=== PATIENT | female | born 1970 | race Asian ===

== ENCOUNTER 2018-08-29 13:40 | Emergency (ER) | payer MEDICAID ==
--- NOTE | 2018-08-29 14:12 | ED Physician Documentation ---
PD HPI GI BLEED - Stated complaint Stated Complaint: VOMITING BLOOD - Chief complaint Chief Complaint: Abd Pain - History obtained from History obtained from: Patient - History of Present Illness Timing - onset: How many hours ago (5-6), Today Timing - duration: Hours (She had onset late morning of upper abdominal pain and discomfort and nausea. She had emesis of dark-colored purple blood with clots. She felt less nauseous after that. She had for 5 more episodes of vomiting the similar dark clotted blood over the next couple of hours. It seemed to be tapering down but still having nausea at the time of ER arrival. She does have history of liver disease in the past but no prior varices. Her most recent and upper endoscopy was May 2017. She had had prior diverticulitis as well apparently with a colostomy that was reversed around that time. She does have history of alcoholic cirrhosis in the past. She states she has mostly not been drinking set for small binge episode a few weeks ago.) Timing - details: Abrupt onset, Still present Associated symptoms: Vomiting, Hematemesis, Black/tarry stool (took some Pepto this morning though), Abdominal pain. No: BRBPR, Constipation, Near syncope / syncope Contributing factors: Alcohol use, NSAID use. No: Sick contact, Anticoagulated Improved by: Vomiting Worsened by: Eating Recently seen: Not recently seen Review of Systems Constitutional: denies: Fever, Chills, Myalgias Nose: denies: Rhinorrhea / runny nose, Congestion Throat: denies: Sore throat Cardiac: denies: Chest pain / pressure Respiratory: denies: Cough GI: reports: Abdominal Pain (epigastric), Nausea, Vomiting, Hematemesis, Bloody / black stool (dark but had Pepto earlier in day). denies: Abdominal Swelling, Diarrhea : denies: Dysuria, Frequency Skin: denies: Rash, Lesions Neurologic: reports: Generalized weakness. 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 No: Moist mucous membranes - Neck Neck: Supple, no meningeal sign, No adenopathy - Cardiac Cardiac: No murmur. No: RRR (regular but tachycardic) - Respiratory Respiratory: No: Clear bilaterally (some exp wheezing with intermittent cough) - Abdomen Abdomen: Normal bowel sounds, Soft, Non distended, No organomegaly, Other (She has some tenderness without guarding or percussion tenderness in the epigastric area. No tenderness per se in the right upper quadrant.) - Female Female : Deferred - Rectal Rectal: Deferred - Back Back: No CVA TTP - Derm Derm: Warm and dry. No: Normal color (moderately pale) - Extremities Extremities: No tenderness to palpate, Normal ROM s pain, No edema, No calf tenderness / cord - Neuro Neuro: Alert and oriented X 3, No motor deficit, Normal speech - Psych Psych: Normal mood, Normal affect Results - Vitals Vitals: Vital Signs - 24 hr 08/29/18 08/29/18 08/29/18 14:02 14:33 15:48 Temperature 38 C H Heart Rate 154 H 145 H 131 H Respiratory 18 19 25 H Rate Blood Pressure 119/74 126/89 H 118/80 O2 Saturation 98 99 98 08/29/18 08/29/18 16:27 17:06 Temperature Heart Rate 132 H 131 H Respiratory 20 21 Rate Blood Pressure 108/74 O2 Saturation 98 Oxygen O2 Source Room air - EKG (time done) 15:26 Rate: Rate (enter#) (126) Rhythm: Sinus tachycardia [place]: Normal Intervals: Normal RI QRS: Normal Ischemia: Normal ST segments. No: ST elevation c/w ischemia, ST depression - Labs Labs: Laboratory Tests 08/29/18 08/29/18 08/29/18 14:22 14:30 15:06 WBC RBC Hgb Hct MCV MCH MCHC RDW Plt Count MPV Neut # (Auto) Lymph # (Auto) [place] # (Auto) Eos # (Auto) Baso # (Auto) Absolute Nucleated RBC Total Counted Band Neuts % (Manual) Abnorm Lymph % (Manual) Nucleated RBC % Neutrophils # (Manual) Lymphocytes # (Manual) Monocytes # (Manual) Eosinophils # (Manual) Basophils # (Manual) Differential Comment Manual Slide Review Platelet Estimate Platelet Morphology RBC Morph Micro Appear PT INR APTT Sodium Potassium Chloride Carbon Dioxide Anion Gap BUN Creatinine Estimated GFR (MDRD) Glucose Calcium Magnesium Total Bilirubin AST ALT Alkaline Phosphatase Total Protein Albumin Globulin Albumin/Globulin Ratio Lipase Urine Color YELLOW Urine Clarity CLEAR Urine pH 8.5 H Ur Specific [place] 1.010 Urine Protein NEGATIVE Urine Glucose (UA) NEGATIVE Urine Ketones NEGATIVE Urine Occult Blood SMALL H Urine Nitrite NEGATIVE Urine Bilirubin NEGATIVE Urine Urobilinogen 1 (NORMAL) Ur Leukocyte Esterase NEGATIVE Urine RBC 6-10 H Urine WBC 4-5 Ur Squamous Epith Cells NONE SEEN Urine Bacteria None Seen Ur Microscopic Review INDICATED Urine Culture Comments NOT INDICATED Ethyl Alcohol Blood Type A POSITIVE Blood Type Recheck A POSITIVE Antibody Screen POSITIVE 08/29/18 08/29/18 08/29/18 15:06 15:06 15:06 WBC 19.6 H RBC 2.40 L Hgb 7.5 L Hct 23.2 L MCV 96.7 MCH 31.3 H MCHC 32.3 RDW 15.7 H Plt Count 225 MPV 9.5 Neut # (Auto) Not Reportable Lymph # (Auto) Not Reportable [place] # (Auto) Not Reportable Eos # (Auto) Not Reportable Baso # (Auto) Not Reportable Absolute Nucleated RBC Not Reportable Total Counted 100 Band Neuts % (Manual) 10 Abnorm Lymph % (Manual) 0 Nucleated RBC % Not Reportable Neutrophils # (Manual) 18.2 H Lymphocytes # (Manual) 1.0 L Monocytes # (Manual) 0.2 Eosinophils # (Manual) 0.2 Basophils # (Manual) 0.0 Differential Comment MANUAL DIFFERENTIAL Manual Slide Review Indicated Platelet Estimate NORMAL (130-450,000) Platelet Morphology NORMAL APPEARANCE RBC Morph Micro Appear 2+ HYPOCHROMASIA PT 17.6 H INR 1.6 H APTT 30.4 Sodium 138 Potassium 3.5 Chloride 99 L Carbon Dioxide 25 Anion Gap 14.0 H BUN 16 Creatinine 0.5 Estimated GFR (MDRD) 133 Glucose 121 H Calcium 8.3 L Magnesium 1.7 Total Bilirubin 2.0 H AST 66 H ALT 34 Alkaline Phosphatase 391 H Total Protein 7.3 Albumin 2.7 L Globulin 4.6 H Albumin/Globulin Ratio 0.6 L Lipase 21 L Urine Color Urine Clarity Urine pH Ur Specific [place] Urine Protein Urine Glucose (UA) Urine Ketones Urine Occult Blood Urine Nitrite Urine Bilirubin Urine Urobilinogen Ur Leukocyte Esterase Urine RBC Urine WBC Ur Squamous Epith Cells Urine Bacteria Ur Microscopic Review Urine Culture Comments Ethyl Alcohol < 5.0 Blood Type Blood Type Recheck Antibody Screen 08/29/18 16:19 WBC RBC Hgb 7.2 L Hct 22.4 L MCV MCH MCHC RDW Plt Count MPV Neut # (Auto) Lymph # (Auto) [place] # (Auto) Eos # (Auto) Baso # (Auto) Absolute Nucleated RBC Total Counted Band Neuts % (Manual) Abnorm Lymph % (Manual) Nucleated RBC % Neutrophils # (Manual) Lymphocytes # (Manual) Monocytes # (Manual) Eosinophils # (Manual) Basophils # (Manual) Differential Comment Manual Slide Review Platelet Estimate Platelet Morphology RBC Morph Micro Appear PT INR APTT Sodium Potassium Chloride Carbon Dioxide Anion Gap BUN Creatinine Estimated GFR (MDRD) Glucose Calcium Magnesium Total Bilirubin AST ALT Alkaline Phosphatase Total Protein Albumin Globulin Albumin/Globulin Ratio Lipase Urine Color Urine Clarity Urine pH Ur Specific [place] Urine Protein Urine Glucose (UA) Urine Ketones Urine Occult Blood Urine Nitrite Urine Bilirubin Urine Urobilinogen Ur Leukocyte Esterase Urine RBC Urine WBC Ur Squamous Epith Cells Urine Bacteria Ur Microscopic Review Urine Culture Comments Ethyl Alcohol Blood Type Blood Type Recheck Antibody Screen PD MEDICAL DECISION MAKING - ED course Complexity details: re-evaluated patient (Her blood count is low. Most of her records are at [facility] as is her the concern would be if she has developed varices in the meantime and our facility would be unable to care for that. She also has antibodies on her type and screen and so we are unable to provide rapid transfusion if she were to need it. I talked with guide dog instructor and then the hospitalist at [facility] and they accept transfer the patient for ongoing care. At this point she is still tachycardic but her blood pressure is good. She states her heart rate is typically a little bit fast.), considered differential (The patient does have history of alcohol cirrhosis in the past. As of May 2017 on endoscopy, she did not have varices at that time. She has had some occasional alcohol use since that time. She had some alcohol binge drinking a few weeks ago. She started with some upper abdominal pain and vomiting of dark blood with clots this morning and had vomited several times. She is feeling generally weak.), d/w patient ED course: I talked with the patient's guide dog instructor, Dr. Lima, who felt the patient would most likely have gastritis or esophagitis. Less likely varices. However has been a year and a half or so from her prior scope. He accepted care of the patient and deferred to the hospitalist for admission if it was appropriate. I do feel it appropriate for her to be over with her guide dog instructor in case there is variceal cause that there would be able to handle it better than our our facility. In addition she has a antibodies on her blood bank and would be unable to transfuse her in any expeditious fashion (it would require up to 6 hours [place] These both are appropriate reasons for her to be transferred to a larger facility. The patient is agreeable. Departure - Departure Disposition: 02 Transfer Acute Care Hosp Clinical Impression: Upper GI bleeding, Tachycardia Alcoholic cirrhosis Qualifiers: Ascites presence: without ascites Qualified Code(s): K70.30 - Alcoholic cirrhosis of liver without ascites Condition: Stable Record reviewed to determine appropriate education?: Yes
[2018-08-29] MEDS ORDERED: SODIUM CHLORIDE 0.9% 1,000 ML IV ONE ×3 (14:35→16:10)
[2018-08-29] MEDS ORDERED: ONDANSETRON 4 MG/2 ML VIAL IVP STA ×2 (14:37→17:29)
[2018-08-29] MEDS ORDERED: FAMOTIDINE 20 MG/2 ML VIAL IVP STA (14:38)
[2018-08-29 14:56] LABS: BILIRUBIN,URINE NEGATIVE (NEGATIVE); GLUCOSE, URINE (UA) NEGATIVE (NEGATIVE); KETONES,URINE (UA) NEGATIVE (NEGATIVE); LEUKOCYTE ESTERASE, URINE NEGATIVE (NEGATIVE); NITRITE,URINE NEGATIVE (NEGATIVE); OCCULT BLOOD,URINE SMALL (NEGATIVE); PH,URINE 8.5 PH (5.0-7.5); PROTEIN,URINE NEGATIVE (NEGATIVE); UROBILINOGEN,URINE 1 (NORMAL) E.U./dL (NORMAL)
[2018-08-29 15:18] LABS: CLARITY,URINE CLEAR (CLEAR)
[2018-08-29 15:21] LABS: BACTERIA,URINE None Seen /HPF (None Seen); SQUAMOUS EPITHELIAL CELL,UR NONE SEEN (<= Few)
[2018-08-29 15:23] LABS: ALBUMIN 2.7 g/dL (3.2-5.5); ALBUMIN/GLOBULIN RATIO 0.6 (1.0-2.2); ALKALINE PHOSPHATASE 391 IU/L (42-121); ALT ALANINE AMINOTRANSFERASE 34 IU/L (10-60); AST ASPARTATE AMINOTRANSFERASE 66 IU/L (10-42); BUN - BLOOD UREA NITROGEN 16 mg/dL (6-20); CALCIUM 8.3 mg/dL (8.5-10.3); CARBON DIOXIDE - CO2 25 mmol/L (21-32); CHLORIDE 99 mmol/L (101-111); CREATININE 0.5 mg/dL (0.4-1.0); GFR - MDRD 133 (>89); GLUCOSE 121 mg/dL (70-100); LIPASE 21 U/L (22-51); MAGNESIUM 1.7 mg/dL (1.7-2.8); SODIUM 138 mmol/L (135-145); TOTAL PROTEIN 7.3 g/dL (6.7-8.2)
[2018-08-29 15:26] LABS: BASOPHILS % (AUTO) 0.6 %; EOSINOPHILS % (AUTO) 0.4 %; HGB - HEMOGLOBIN 7.5 g/dL (12.0-16.0); LYMPHOCYTES % (AUTO) 8.3 %; MEAN CORPUSCULAR HEMOGLOBIN 31.3 pg (27.0-31.0); MEAN CORPUSCULAR HGB CONC 32.3 g/dL (32.0-36.0); MEAN CORPUSCULAR VOLUME 96.7 fL (81.0-99.0); MEAN PLATELET VOLUME 9.5 fL (7.9-10.8); MONOCYTES % (AUTO) 5.7 %; NEUTROPHILS % (AUTO) 83.3 %; PLT - PLATELET COUNT 225 10^3/uL (130-450); RED CELL DISTRIBUTION WIDTH 15.7 % (12.0-15.0); WHITE BLOOD COUNT 19.6 x10^3/uL (4.8-10.8)
[2018-08-29 15:31] LABS: ABNORMAL LYMPHS % (MANUAL) 0 %
[2018-08-29 16:00] LABS: BAND NEUTROPHILS % (MANUAL) 10 %; EOSINOPHILS # (MANUAL) 0.2 10^3/uL (0-0.7); LYMPHOCYTES % (MANUAL) 5 %; MONOCYTES # (MANUAL) 0.2 10^3/uL (0.0-1.0)
[2018-08-29] MEDS ORDERED: PANTOPRAZOLE 40 MG VIAL IVP STA (16:00)
[2018-08-29 16:02] LABS: DIFFERENTIAL COMMENT MANUAL DIFFERENTIAL; PLATELET ESTIMATE, MANUAL NORMAL (130-450,000) (NORMAL); PLATELET MORPHOLOGY NORMAL APPEARANCE (NORMAL)
[2018-08-29] MEDS ORDERED: LIDOCAINE VISCOUS 2% 15 ML UDC MM STA (16:11)
[2018-08-29] MEDS ORDERED: IPRATROPIUM 0.2 MG/ML NEB INH STA (16:11)
[2018-08-29 16:22] LABS: HGB - HEMOGLOBIN 7.2 g/dL (12.0-16.0)
[2018-08-29 16:33] LABS: INR 1.6 (0.8-1.2); PT - PROTHROMBIN TIME 17.6 secs (9.9-12.6)
[2018-08-29 16:40] LABS: PARTIAL THROMBOPLASTIN TIME 30.4 secs (24.9-33.3)
[2018-08-29 17:07] VITALS: BP 108/74
== END 2018-08-29 18:39 | disposition short-term general hospital (02) ==
LOC: ED 13:40
DX: K92.2 Gastrointestinal hemorrhage, unspecified (principal); R00.0 Tachycardia, unspecified; R06.2 Wheezing; K70.30 Alcoholic cirrhosis of liver without ascites
CPT/HCPCS: 36415; 80053; 80320; 81001; 83690; 83735; 85014; 85018; 85025; 85610; 85730; 86850; 86870; 86900; 86901; 93005; 94640; 96361; 96374; 96375; 99284; 99285; A9270; 81003; 87086

== ENCOUNTER 2019-01-03 11:56 | Emergency (ER) | payer MEDICAID ==
[2019-01-03] MEDS ORDERED: LIDOCAINE 1%-EPI 1:100000 20 ML MDV SUBQ STA (13:26)
--- NOTE | 2019-01-03 13:28 | ED Physician Documentation ---
History of Present Illness - Stated complaint Stated Complaint: L KNEE LAC - Chief complaint Chief Complaint: Laceration - Additonal information Additional information: This is a 48-year-old female presents with a laceration to her left knee. This morning she was walking and she slipped on a patch of black ice on cement landing on her left knee. She had a laceration that was caused by the impact, and she also grazed her head. She denies loss of consciousness, denies headache, has not any vomiting. She does have any pain in her upper extremities and she has been able to walk on her left leg and extend and flex it normally. Initially she was planning to treat it at home, but after family saw the wound they encouraged her to get checked out. Review of Systems Constitutional: denies: Fever Cardiac: denies: Chest pain / pressure Skin: reports: Laceration (s) Musculoskeletal: reports: Extremity pain Immunocompromised: denies: Immunocompromised PD PAST MEDICAL HISTORY - Past Medical History Cardiovascular: None Respiratory: Asthma Neuro: None Endocrine/Autoimmune: None GI: GI bleed, Cirrhosis, Diverticulitis [employer]: None - Present Medications Home Medications: Ambulatory Orders Medication Instructions Recorded Confirmed Clindamycin HCl [Clindamycin 300MG 300 mg PO Q6H #12 capsule 01/03/19 CAP] - Allergies Allergies/Adverse Reactions: Allergies Allergy/AdvReac Type Severity Reaction Status Date / Time cephalexin Allergy Unknown Verified 01/03/19 12:01 sertraline Allergy Unknown Verified 01/03/19 12:01 - Social History Does the pt smoke?: No Smoking Status: Never smoker - Immunizations Immunizations are current?: Yes PD ED PE NORMAL - Vitals Vital signs reviewed: Yes - General General: Alert and oriented X 3 - HEENT HEENT: Other (Superficial abrasion of the right face, no hematoma, no facial tenderness.) - Neck Neck: Supple, no meningeal sign, No bony TTP - Cardiac Cardiac: RRR - Respiratory Respiratory: No respiratory distress - Extremities Extremities: Other (There is a 6.5 cm semi-curve laceration overlying the left patella. This extends down to near the level of the patella, though there is no visible bone or tendon. This appears to disrupt subcutaneous tissues without violating the patellar tendon or surrounding musculature. There is no violation of the joint capsule. Patient is able to flex and extend her knee with 5 out of 5 strength, she has no laxity with testing of the ACL PCL LCL MCL.) - Neuro Neuro: Alert and oriented X 3, No motor deficit, No sensory deficit, Normal speech Results - Vitals Vitals: Vital Signs - 24 hr 01/03/19 01/03/19 12:01 15:25 Temperature 36.7 C 36.8 C Heart Rate 115 H 113 H Respiratory 16 18 Rate Blood Pressure 138/97 H 128/95 H O2 Saturation 98 98 Oxygen O2 Source Room air Procedures - Laceration (location) L knee Length in cm: 6.5 Wound type: Curved Neurovascular status: Sensory intact, Motor intact, Vascular intact Tendon involvement: Tendon intact Anesthesia: Lidocaine 1% with epi Wound Preparation: Betadine, Irrigated copiously NS, Wound explored, To the base Deep layer closure: Vicryl (5-0 to approximate deep tissues) Skin layer closure: Nylon (4-0) Other: Patient tolerated well, No complications, Neurovascular intact, Dressing applied PD MEDICAL DECISION MAKING - ED course Complexity details: considered differential (Laceration, vascular injury, tendon injury, ligament disruption, fracture) ED course: Pt presents with a full thickness laceration over the knee. This extends through the subcutaneous tissue near the patellar tendon, but careful examination reveals no disruption of the surrounding muscles or tendons, and it does not extend to the plane of the joint itself. Patient was able to walk normally for hours prior to arrival, and here she is neurovascularly intact with 5/5 strength with flexion and extension of her knee against resistance. The wound was thoroughly explored, cleaned, and irrigated and then repaired in 2 layers. The wound approximated very well. I started prophylactic antibiotics given the depth of the wound and the fact that patient did have a mild delay of presenting to care. A knee immobilizer was placed and patient was instructed on its use and follow up for suture removal in 14 days. I discussed strict return precautions as well, emphasizing signs of infection, increasing pain. Pt agreed and was discharged home in the care of family. Departure - Departure Disposition: 01 Home, Self Care Clinical Impression: Knee laceration Qualifiers: Encounter type: initial encounter Laterality: left Qualified Code(s): S81.012A - Laceration without foreign body, left knee, initial encounter Condition: Good Instructions: ED Laceration All Follow-Up: Angie Diaz ARNP [Primary Care Provider] - (in 12-14 days for check for suture removal) Prescriptions: Clindamycin HCl [Clindamycin 300MG CAP] 300 mg PO Q6H #12 capsule Comments: The cut of your knee has been repaired with stitches. Keep a thin layer of Vaseline or antibiotic ointment over the cut and on top of this put a nonstick bandage. Wear the knee immobilizer when you are out of bed or not in the shower, to help prevent you from bending your knee and straining laceration. If you develop signs of infection such as increasing pain with bending your knee, fever, or pus draining from the wound, or redness streaking up the leg, return to the emergency department. Stitches should be assessed for removal at around 12-14 days. Take the antibiotic as prescribed over the next several days to help prevent infection. Discharge Date/Time: 01/03/19 15:25
--- NOTE | 2019-01-03 14:12 | XRAY Report ---
Reason: fall on knee, laceration Procedure Date: 01/03/2019 Accession Number: [id number] / [id number] Procedure: XR - Knee 3 View LT CPT Code: Final Report FULL RESULT: EXAM: LEFT KNEE RADIOGRAPHY EXAM DATE: 01/03/2019 01:48 PM. CLINICAL HISTORY: Fall on knee, laceration. COMPARISON: None. TECHNIQUE: 3 views. FINDINGS: Bones: Normal. No fractures or bone lesions. Joints: No subluxation. There is a minimal joint effusion. Soft Tissues: Obvious soft tissue laceration is seen along the superior margin of the patella with question of partial disruption of the soft tissue signature of the quadriceps insertion near the patella, plain radiograph is inadequate for this diagnosis. IMPRESSION: No acute fracture or dislocation. Obvious soft tissue laceration in the region of the quadriceps tendon insertion. Recommend careful correlation to the physical examination to assess for injury of the quadriceps tendon. If inconclusive, ultrasound examination may be helpful. RADIA
[2019-01-03] MEDS ORDERED: TETANUS/DIPHTHERIA/PERTUSSIS 0.5 ML SYRINGE IM ONE (15:00)
[2019-01-03 15:26] VITALS: BP 128/95
== END 2019-01-03 15:25 | disposition home or self-care (01) ==
LOC: ED 11:56
DX: S81.012A Laceration without foreign body, left knee, initial encounter (principal); S00.81XA Abrasion of other part of head, initial encounter; W00.0XXA Fall on same level due to ice and snow, initial encounter; Y93.01 Activity, walking, marching and hiking; Z23 Encounter for immunization
CPT/HCPCS: 12002; 12032; 90471

== ENCOUNTER 2019-07-05 06:48 | Emergency (ER) | payer MEDICAID ==
--- NOTE | 2019-07-05 07:01 | ED Physician Documentation ---
PD HPI FEMALE - Stated complaint Stated Complaint: FEM - Chief complaint Chief Complaint: General - History obtained from History obtained from: Patient - History of Present Illness Timing - onset: How many weeks ago (3 weeks of dysuria - initially treated with Bactrim and was improving but then developed problem with her ostomy and some infection in bowel. Had scope to cauterize the bleeding and Rx Keflex. She says ostomy improved but her dysuria remained. Off the Cephalexin for a week and had increased dysuria, so PMD restarted the Bactrim 1 1/2 days ago. Pt says now with some hematuria and feeling of unable to urinate.) Timing - details: Gradual onset, Waxing and waning Associated symptoms: Dysuria, Urinary frequency, Hematuria (today). No: Fever, Abdominal pain, Back pain Contributing factors: No: Exposed to STD Similar symptoms before: Has not had sx before Recently seen: Clinic, Admitted Review of Systems Constitutional: denies: Fever, Chills, Myalgias Nose: denies: Rhinorrhea / runny nose, Congestion Throat: denies: Sore throat Respiratory: denies: Cough GI: reports: Abdominal Pain, Nausea. denies: Vomiting, Bloody / black stool : reports: Dysuria, Frequency. denies: Discharge Skin: denies: Rash PD PAST MEDICAL HISTORY - Past Medical History Cardiovascular: None Respiratory: Asthma Neuro: None Endocrine/Autoimmune: None GI: GI bleed, Cirrhosis, Diverticulitis [employer] LINE: None - Present Medications Home Medications: Ambulatory Orders Medication Instructions Recorded Confirmed Clindamycin HCl [Clindamycin 300MG 300 mg PO Q6H #12 capsule 01/03/19 CAP] Phenazopyridine HCl [Pyridium] 100 mg PO TID PRN #30 tablet 07/05/19 dexAMETHasone [Decadron] 4 mg PO DAILY #5 tablet 07/05/19 - Allergies Allergies/Adverse Reactions: Allergies Allergy/AdvReac Type Severity Reaction Status Date / Time cephalexin Allergy Unknown Verified 07/05/19 06:58 sertraline Allergy Unknown Verified 07/05/19 06:58 - Social History Does the pt smoke?: No Smoking Status: Never smoker - Immunizations Immunizations are current?: Yes PD ED PE NORMAL - Vitals Vital signs reviewed: Yes - General General: Alert and oriented X 3, No acute distress, Well developed/nourished - Abdomen Abdomen: Normal bowel sounds, Soft, Non tender, Non distended, No organomegaly - Female Female : Deferred - Back Back: No CVA TTP - Derm Derm: Normal color, Warm and dry - Neuro Neuro: Alert and oriented X 3, No motor deficit, Normal speech Results - Vitals Vitals: Vital Signs - 24 hr 07/05/19 07/05/19 07/05/19 06:57 07:41 08:45 Temperature 36.7 C 37.2 C Heart Rate 88 83 88 Respiratory 17 18 20 Rate Blood Pressure 89/43 L 98/59 L 94/59 L O2 Saturation 98 100 98 Oxygen O2 Source Room air - Labs Labs: Laboratory Tests 07/05/19 07/05/19 07/05/19 07:00 07:00 08:21 Urine Color BROWN Urine Clarity CLOUDY Urine pH 6.0 Ur Specific [place] 1.020 Urine Protein 100 H Urine Glucose (UA) NEGATIVE Urine Ketones NEGATIVE Urine Occult Blood LARGE H Urine Nitrite NEGATIVE Urine Bilirubin MODERATE H Urine Urobilinogen 0.2 (NORMAL) Ur Leukocyte Esterase LARGE H Urine RBC TNTC H Urine WBC >25 H Ur Squamous Epith Cells RARE Squamous Urine Bacteria Moderate H Ur Microscopic Review INDICATED Urine Culture Comments INDICATED C. glabrata (PCR) NEGATIVE C. krusei (PCR) NEGATIVE Pattie species DNA NEGATIVE Chlam trachomat DNA PCR NEGATIVE N.gonorrhoeae DNA (PCR) NEGATIVE T. vaginalis (PCR) NEGATIVE NEGATIVE Bact Vaginosis (PCR) NEGATIVE PD MEDICAL DECISION MAKING - ED course Complexity details: considered differential (she went onto MyChart from her PMD and showed me culture results from 06/16 original UA and then from 2 days ago. Both showed less than 25K mixed urogenital rancho. Has only been on Bactrim for 1 1/2 days, so continue this for now. Will check for BV/vaginitis as cause instead. ), d/w patient Departure - Departure Disposition: 01 Home, Self Care Clinical Impression: Dysuria, Cystitis Condition: Stable Record reviewed to determine appropriate education?: Yes Instructions: ED Dysuria Uncertain Cause, ED UTI Cystitis Female Follow-Up: Angie Diaz ARNP [Primary Care Provider] - Prescriptions: dexAMETHasone [Decadron] 4 mg PO DAILY #5 tablet Phenazopyridine HCl [Pyridium] 100 mg PO TID PRN #30 tablet PRN Reason: Abdominal Pain Comments: Your prior urine culture did not show a specific organism growing. It may have been a mixed infection so no 1 dominant organism. However does not define a specific antibiotic that would be most effective. At this point would have you continue the Bactrim and see if it helps. To that add Decadron steroid anti- inflammatory and phenazopyridine for the discomfort. Recheck if not improving well over the next couple more days. Other possibilities would be a bacterial vaginitis as a cause of the urethral irritation. The vaginal test we did should result in a day or so and will call you if there are signs of a bacterial vaginitis. That would require likely a different antibiotic. Other possibility would be an inflammatory cause rather than an infectious cause (interstitial cystitis). That is why were also going with the anti- inflammatory and the phenazopyridine. These medicines are helpful with the bladder infection anyway and would be the primary treatment for IC. Discharge Date/Time: 07/05/19 09:13
[2019-07-05 07:12] LABS: GLUCOSE, URINE (UA) NEGATIVE (NEGATIVE); KETONES,URINE (UA) NEGATIVE (NEGATIVE); LEUKOCYTE ESTERASE, URINE LARGE (NEGATIVE); NITRITE,URINE NEGATIVE (NEGATIVE); OCCULT BLOOD,URINE LARGE (NEGATIVE); PROTEIN,URINE 100 mg/dL (NEGATIVE); UROBILINOGEN,URINE 0.2 (NORMAL) E.U./dL (NORMAL)
[2019-07-05 07:14] LABS: BILIRUBIN,URINE MODERATE (NEGATIVE); CLARITY,URINE CLOUDY (CLEAR); ICTOTEST,URINE POSITIVE
[2019-07-05 07:21] LABS: BACTERIA,URINE Moderate /HPF (None Seen); RBC,URINE TNTC /HPF (0-5); SQUAMOUS EPITHELIAL CELL,UR RARE Squamous (<= Few)
[2019-07-05] MEDS ORDERED: ACETAMINOPHEN 325 MG TABLET PO STA (07:24)
[2019-07-05] MEDS ORDERED: PHENAZOPYRIDINE 100 MG TABLET PO STA (07:24)
[2019-07-05] MEDS ORDERED: CHERRY SYRUP 10 ML UDC PO ONE (08:21)
[2019-07-05] MEDS ORDERED: DEXAMETHASONE 10 MG/ML VIAL PO STA (08:21)
[2019-07-05 09:15] VITALS: BP 94/59
[2019-07-05 10:12] LABS: CANDIDA GROUP DNA NEGATIVE (NEGATIVE); CANDIDA KRUSEI DNA NEGATIVE (NEGATIVE); TRICHOMONAS VAGINALIS DNA NEGATIVE (NEGATIVE)
[2019-07-05 11:14] LABS: TRICHOMONAS VAGINALIS DNA NEGATIVE (NEGATIVE)
== END 2019-07-05 09:13 | disposition home or self-care (01) ==
LOC: ED 06:48
DX: N30.91 Cystitis, unspecified with hematuria (principal)
CPT/HCPCS: 51798; 81001; 87077; 87086; 87181; 87481; 87491; 87591; 87661; 87801; 99283; 99284; A9270; 81003

== ENCOUNTER 2019-11-26 04:31 | Emergency (ER) | payer OTHER ==
[2019-11-26 04:56] LABS: GLUCOSE, URINE (UA) NEGATIVE (NEGATIVE); KETONES,URINE (UA) TRACE mg/dL (NEGATIVE); LEUKOCYTE ESTERASE, URINE MODERATE (NEGATIVE); NITRITE,URINE POSITIVE (NEGATIVE); OCCULT BLOOD,URINE LARGE (NEGATIVE)
--- NOTE | 2019-11-26 05:04 | ED Physician Documentation ---
PD HPI FEMALE - Stated complaint Stated Complaint: FEM - Chief complaint Chief Complaint: UTI - History obtained from History obtained from: Patient - History of Present Illness Timing - onset: Enter time (99), Today Timing - duration: Hours Timing - details: Abrupt onset, Now resolved Associated symptoms: Hematuria, Other (unable to void) Contributing factors: Other (hx/o hematuria) Similar symptoms before: Diagnosis (hematuria with clot retention and infection) Recently seen: Clinic (brim presser but not the urologist) - Additional information Additional information: 49-year-old female with a complicated past medical history including cirrhosis varices perforated diverticula with ostomy in place has developed hematuria again. She got up to go to the bathroom at 1:00 in the morning was unable to urinate and she made her way to the hospital. She has had prior issue with clot retention and had to have a Marshall catheter placed 5 weeks ago. She has since been into see the brim presser and is on some iron with a plan to be seen again in 2 weeks.Since coming to the hospital patient has been able to void and she believes she is emptying her bladder completely and has hematuria. She does indicate that she has had a transfusion earlier in the year and she is wondering if she needs this again Review of Systems Constitutional: reports: Myalgias, Fatigue. denies: Fever Eyes: denies: Decreased vision Ears: denies: Ear pain Nose: denies: Rhinorrhea / runny nose, Congestion Throat: denies: Sore throat Cardiac: denies: Chest pain / pressure, Palpitations Respiratory: denies: Dyspnea, Cough GI: denies: Abdominal Pain, Nausea, Vomiting : reports: Unable to Void, Hematuria. 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 : Frequency, Other HEENT: Dental implants Psych: Anxiety Musculoskeletal: Scoliosis Derm: Eczema - Past Surgical History Past Surgical History: Yes General: Appendectomy, Colonoscopy, EGD, Other - Present Medications Home Medications: Ambulatory Orders Medication Instructions Recorded Confirmed Buspirone HCl 15 mg PO BID 11/26/19 11/26/19 Furosemide [Lasix] 20 mg PO DAILY 11/26/19 11/26/19 Montelukast Sodium 10 mg PO DAILY PRN 11/26/19 11/26/19 Pantoprazole Sodium [Protonix] 40 mg PO DAILY 11/26/19 11/26/19 Spironolactone 25 mg PO DAILY 11/26/19 11/26/19 Tramadol HCl 50 mg PO DAILY PRN 11/26/19 11/26/19 Trazodone HCl 100 mg PO QPM 11/26/19 11/26/19 nadoloL [Nadolol] 20 mg PO DAILY 11/26/19 11/26/19 - Allergies Allergies/Adverse Reactions: Allergies Allergy/AdvReac Type Severity Reaction Status Date / Time cephalexin Allergy Unknown Verified 11/26/19 04:41 sertraline Allergy Unknown Verified 11/26/19 04:41 - Social History Does the pt smoke?: No Smoking Status: Never smoker Does the pt drink ETOH?: Yes Does the pt have substance abuse?: No - Immunizations Immunizations are current?: Yes Immunizations: TDAP current <10years - POLST Patient has POLST: No PD ED PE NORMAL - Vitals Vital signs reviewed: Yes (normal) - General General: Alert and oriented X 3, No acute distress, Well developed/nourished - HEENT HEENT: Atraumatic, PERRL, EOMI - Neck Neck: Supple, no meningeal sign, No bony TTP - Cardiac Cardiac: RRR, No murmur - Respiratory Respiratory: No respiratory distress, Clear bilaterally - Abdomen Abdomen: Soft, Non tender, Other (abdomen is soft and non-tender. 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, No motor deficit, No sensory deficit, Normal speech Eye Opening: Spontaneous Motor: Obeys Commands Verbal: Oriented GCS Score: 15 - Psych Psych: Normal mood, Normal affect Results - Vitals Vitals: Vital Signs - 24 hr 11/26/19 11/26/19 04:35 05:40 Temperature 36.4 C L Heart Rate 91 Respiratory 16 Rate Blood Pressure 120/77 108/89 H O2 Saturation 100 Oxygen O2 Source Room air - Labs Labs: Laboratory Tests 11/26/19 11/26/19 11/26/19 04:45 05:15 05:15 WBC 3.3 L RBC 2.19 L Hgb 5.5 L* Hct 18.9 L* MCV 86.3 MCH 25.1 L MCHC 29.1 L RDW 17.4 H Plt Count 114 L MPV 10.4 Neut # (Auto) 2.1 Lymph # (Auto) 0.8 L [place] # (Auto) 0.4 Eos # (Auto) 0.1 Baso # (Auto) 0.0 Absolute Nucleated RBC 0.00 Nucleated RBC % 0.0 Sodium 132 L Potassium 2.7 L Chloride 100 L Carbon Dioxide 23 Anion Gap 9.0 BUN 6 Creatinine 0.5 Estimated GFR (MDRD) 132 Glucose 104 H Calcium 8.5 Total Bilirubin 1.0 AST 45 H ALT 21 Alkaline Phosphatase 249 H Total Protein 7.0 Albumin 3.3 Globulin 3.7 Albumin/Globulin Ratio 0.9 L Lipase 28 Urine Color RED/BLOODY Urine Clarity CLEAR Urine pH 7.0 Ur Specific [place] 1.010 Urine Protein Urine Glucose (UA) NEGATIVE Urine Ketones TRACE Urine Occult Blood LARGE H Urine Nitrite POSITIVE H Urine Bilirubin NEGATIVE Urine Urobilinogen Ur Leukocyte Esterase MODERATE H Urine RBC 11-25 H Urine WBC >25 H Ur Squamous Epith Cells RARE Squamous Urine Bacteria Few Ur Microscopic Review INDICATED Urine Culture Comments INDICATED PD MEDICAL DECISION MAKING - ED course Complexity details: reviewed results, re-evaluated patient, considered differential, d/w patient ED course: 49-year-old female with complicated past medical history with current evidence of GI bleeding has a critically low hematocrit and hemoglobin and I have recommended the patient stay here for transfusion or be transferred to [facility] for transfusion and she has refused. She has signed out AMA. 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 I have strongly discouraged the patient from attempting to go to work today and have encouraged her to follow-up this morning at [facility] for transfusion and evaluation. She specifically has not addressed her ongoing hematuria with urologic consultation which is still pending. She has seen the brim presser and is on iron. The patient is symptomatic with exertional dyspnea she is not tachycardic and she is not hypotensive. She does have urinary tract infection and hematuria without retention today. She is administered a gram of Rocephin IM prior to discharge.The urine specimen done here did make the grade for culture. The charge nurse in the ED at [facility] is contacted and advised of the patients current predicament and our recommendations to her. Departure - Departure Disposition: 07 Against Medical Advice Clinical Impression: Urinary tract infection Qualifiers: Urinary tract infection type: acute cystitis Hematuria presence: with hematuria Qualified Code(s): N30.01 - Acute cystitis with hematuria Anemia Qualifiers: Anemia type: iron deficiency Iron deficiency anemia type: chronic blood loss Qualified Code(s): D50.0 - Iron deficiency anemia secondary to blood loss (chronic) GI bleeding Qualifiers: GI bleed type/associated pathology: melena Qualified Code(s): K92.1 - Melena Condition: Stable Instructions: ED UTI Cystitis Female Follow-Up: Angie Diaz ARNP [Primary Care Provider] - Comments: Today you have critically low hemoglobin and hematocrit. Transfusion is recommended and since you are refusing these services my recommendation is to complete whatever business you have to do at home and immediately return to the hospital and I recommend going to your hospital at [facility] to see your doctors.
[2019-11-26 05:18] LABS: BILIRUBIN,URINE NEGATIVE (NEGATIVE); CLARITY,URINE CLEAR (CLEAR); ICTOTEST,URINE NEGATIVE
[2019-11-26 05:20] LABS: BACTERIA,URINE Few /HPF (None Seen); SQUAMOUS EPITHELIAL CELL,UR RARE Squamous (<= Few)
[2019-11-26 05:25] LABS: BASOPHILS % (AUTO) 0.3 %; EOSINOPHILS # (AUTO) 0.1 10^3/uL (0.0-0.7); EOSINOPHILS % (AUTO) 1.8 %; LYMPHOCYTES # (AUTO) 0.8 10^3/uL (1.5-3.5); LYMPHOCYTES % (AUTO) 23.7 %; MEAN CORPUSCULAR HEMOGLOBIN 25.1 pg (27.0-31.0); MEAN CORPUSCULAR HGB CONC 29.1 g/dL (32.0-36.0); MEAN CORPUSCULAR VOLUME 86.3 fL (81.0-99.0); MEAN PLATELET VOLUME 10.4 fL (7.9-10.8); MONOCYTES # (AUTO) 0.4 10^3/uL (0.0-1.0); MONOCYTES % (AUTO) 11.1 %; NEUTROPHILS # (AUTO) 2.1 10^3/uL (1.5-6.6); NEUTROPHILS % (AUTO) 62.8 %; PLT - PLATELET COUNT 114 10^3/uL (130-450); RED BLOOD COUNT 2.19 10^6/uL (4.20-5.40); RED CELL DISTRIBUTION WIDTH 17.4 % (12.0-15.0); WHITE BLOOD COUNT 3.3 x10^3/uL (4.8-10.8)
[2019-11-26 05:31] LABS: HGB - HEMOGLOBIN 5.5 g/dL (12.0-16.0)
[2019-11-26 05:34] LABS: ALBUMIN 3.3 g/dL (3.2-5.5); ALBUMIN/GLOBULIN RATIO 0.9 (1.0-2.2); CALCIUM 8.5 mg/dL (8.5-10.3); CREATININE 0.5 mg/dL (0.4-1.0)
[2019-11-26] MEDS ORDERED: cefTRIAXone 1 GM VIAL IM STA (05:52)
[2019-11-26] MEDS ORDERED: LIDOCAINE 1% 2 ML VIAL MC ONE (05:52)
[2019-11-26 06:03] LABS: INR 1.3 (0.8-1.2); PT - PROTHROMBIN TIME 13.8 secs (9.9-12.6)
[2019-11-26 06:36] VITALS: BP 108/70
== END 2019-11-26 06:35 | disposition left against medical advice (07) ==
LOC: ED 04:31
DX: N30.01 Acute cystitis with hematuria (principal); K92.1 Melena; D50.0 Iron deficiency anemia secondary to blood loss (chronic); R06.09 Other forms of dyspnea; Z87.19 Personal history of other diseases of the digestive system; Z93.3 Colostomy status; Z53.29 Procedure and treatment not carried out because of patient's decision for other reasons
CPT/HCPCS: 36415; 80053; 81001; 81003; 83690; 85025; 85610; 87077; 87086; 87181; 96372; 99284

== ENCOUNTER 2020-03-21 08:00 | Outpatient (CLI) | payer OTHER | END 2020-03-21 23:59 | disposition home or self-care (01) | LOC: LAB.N 08:00 | PROVIDERS: ATTEND Family Medicine | DX: N39.0 Urinary tract infection, site not specified (principal) | CPT/HCPCS: 87086 ==

== ENCOUNTER 2020-03-21 11:04 | Outpatient (CLI) | payer OTHER ==
--- NOTE | 2020-03-21 11:50 | XRAY Report ---
PROCEDURE: Chest 2 View X-Ray INDICATIONS: COUGH TECHNIQUE: 2 view(s) of the chest. COMPARISON: None. FINDINGS: Surgical changes and devices: None. Lungs and pleura: No pleural effusions or pneumothorax. Linear densities at the left lung base likel y representing atelectasis/scarring. No focal consolidation. Mediastinum: Mediastinal contours are normal. Heart size is normal. Bones and chest wall: No suspicious bony abnormalities. Dextroscoliotic curvature of the lower thor acic spine. Soft tissues appear unremarkable. IMPRESSION: Linear densities at the left lung base likely representing subsegmental atelectasis versus scarring w ithout other evidence of an acute cardiopulmonary abnormality. Dextroscoliotic curvature of the lower thoracic spine. Reviewed by: Gil Rosado DO on 03/21/2020 10:49 AM [facility] Approved by: Gil Rosado DO on 03/21/2020 10:49 AM [facility] Station ID: [id number]
== END 2020-03-21 23:59 | disposition home or self-care (01) ==
LOC: DI.N 11:04
PROVIDERS: ATTEND Family Medicine
DX: R05 Cough (principal); N39.0 Urinary tract infection, site not specified
CPT/HCPCS: 87086

== ENCOUNTER 2020-03-28 16:00 | Outpatient (CLI) | payer OTHER ==
--- NOTE | 2020-03-28 16:24 | XRAY Report ---
PROCEDURE: Chest 2 View X-Ray INDICATIONS: COUGH TECHNIQUE: 2 view(s) of the chest. COMPARISON: 03/21/2020 FINDINGS: Surgical changes and devices: None. Lungs and pleura: No pleural effusions or pneumothorax. Minimal, streaky opacities can be seen at th e lung bases, left worse than right. Mediastinum: Mediastinal contours are normal. Heart size is normal. Bones and chest wall: No suspicious bony abnormalities. There is moderate dextroconvex thoracolumbar scoliosis. Soft tissues appear unremarkable. IMPRESSION: Likely atelectasis at the lung bases. Differential diagnosis includes mild/early infilt rate, yet this is considered to be less likely. Dextroconvex scoliosis. Reviewed by: Jacob Nava MD on 03/28/2020 3:22 PM [facility] Approved by: Jacob Nava MD on 03/28/2020 3:22 PM [facility] Station ID: [id number]
== END 2020-03-28 23:59 | disposition home or self-care (01) ==
LOC: DI.N 16:00
PROVIDERS: ATTEND Family Medicine
DX: R91.8 Other nonspecific abnormal finding of lung field (principal); R05 Cough; Z20.822 Contact with and (suspected) exposure to COVID-19
CPT/HCPCS: 87070; 87275; 87276

== ENCOUNTER 2020-03-28 16:52 | Emergency (ER) | payer OTHER ==
--- NOTE | 2020-03-28 17:04 | ED Physician Documentation ---
PD HPI URI - Stated complaint Stated Complaint: FEVER,PALACIOS,COUGH,ACHES - History obtained from History obtained from: Patient - History of Present Illness Timing - onset: How many weeks ago (has had some cough for over a week, which has worsened. Seen at Clinic and Rx DOxycycline. No improvement. Seen at walk in and had CXR showing mild infiltrate lower lung, and had COVID test obtained. Referred to ER presume due to tachycardia and cough. Sats were good.) Timing duration: Weeks (02/14) Timing details: Gradual onset, Still present Associated symptoms: Fever (the past 1-2 days) Contributing factors: Sick contact (some coworkers with URI symptoms recently.), COPD / asthma. No: Travel, Immunocompromised Improves by: No: Rest, Medication (tried OTC cough med and has her Albuterol mdi at home.) Similar symptoms before: Has not had sx before Recently seen: Clinic Review of Systems Constitutional: reports: Fever, Chills, Myalgias Nose: reports: Congestion. denies: Rhinorrhea / runny nose Throat: denies: Sore throat Cardiac: denies: Chest pain / pressure Respiratory: reports: Dyspnea, Cough, Wheezing GI: reports: Nausea (less oral intake today). 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, Other HEENT: Dental implants Psych: Anxiety Musculoskeletal: Scoliosis Derm: Eczema - Past Surgical History Past Surgical History: Yes General: Appendectomy, Colonoscopy, EGD, Other - Present Medications Home Medications: Ambulatory Orders Medication Instructions Recorded Confirmed Buspirone HCl 15 mg PO BID 11/26/19 03/28/20 Furosemide [Lasix] 20 mg PO DAILY PRN 11/26/19 03/28/20 Montelukast Sodium 10 mg PO DAILY PRN 11/26/19 03/28/20 Pantoprazole Sodium [Protonix] 40 mg PO DAILY 11/26/19 03/28/20 Spironolactone 25 mg PO DAILY 11/26/19 03/28/20 Tramadol HCl 50 mg PO DAILY PRN 10/13/20 02/13/21 Trazodone HCl 100 mg PO QPM 11/26/19 03/28/20 nadoloL [Nadolol] 20 mg PO DAILY 11/26/19 03/28/20 Azithromycin [Zithromax] 250 mg PO DAILY 5 Days #4 tab 03/28/20 HYDROcod/ACETAM 5/325 [[place] 5/325] 1 ea PO Q6H PRN #15 tab 03/28/20 Lidocaine Viscous 2% [Xylocaine 5 ml PO Q4H PRN #100 ml 03/28/20 Viscous 2%] dexAMETHasone [Decadron] 4 mg PO DAILY #7 tab 03/28/20 - Allergies Allergies/Adverse Reactions: Allergies Allergy/AdvReac Type Severity Reaction Status Date / Time cephalexin Allergy Unknown Verified 03/28/20 17:17 sertraline Allergy Unknown Verified 03/28/20 17:17 - Social History Does the pt smoke?: No Smoking Status: Never smoker Does the pt drink ETOH?: Yes Does the pt have substance abuse?: No - Immunizations Immunizations are current?: Yes Immunizations: TDAP current <10years - POLST Patient has POLST: No PD ED PE NORMAL - Vitals Vital signs reviewed: Yes (tachycardic, good sats. ) - General General: Alert and oriented X 3, No acute distress, Well developed/nourished - HEENT HEENT: Ears normal, Moist mucous membranes, Pharynx benign - Neck Neck: Supple, no meningeal sign, No adenopathy - Cardiac Cardiac: No murmur. No: RRR (regular but tachycardic) - Respiratory Respiratory: No: Clear bilaterally (There is general mild to moderate expiratory wheezing. There is faint crackles at right base. No diffuse crackles. No accessory muscle use. She is able to talk in sentences.) - Abdomen Abdomen: Soft, Non tender - Derm Derm: Normal color, Warm and dry - Extremities Extremities: No tenderness to palpate, Normal ROM s pain, No edema, No calf tenderness / cord - Neuro Neuro: Alert and oriented X 3, No motor deficit, Normal speech Results - Vitals Vitals: Vital Signs - 24 hr 03/28/20 03/28/20 03/28/20 17:11 17:38 18:00 Temperature 37.1 C 37.4 C Heart Rate 138 H 123 H 116 H Respiratory 22 24 20 Rate Blood Pressure 109/80 102/66 O2 Saturation 98 100 03/28/20 18:39 Temperature 37.9 C Heart Rate 120 H Respiratory 20 Rate Blood Pressure 105/65 O2 Saturation 100 Oxygen O2 Source Room air PD MEDICAL DECISION MAKING - ED course Complexity details: reviewed results (Chest x-ray obtained at the walk-in clinic was reviewed here along with the radiology report suggesting atelectasis versus early infiltrate at the bases.), re-evaluated patient (Is coughing much less and feeling breathing easier after medication for cough and the albuterol inhal er. The patient is not needing hospitalization. Therefore we would continue with her previously obtained Covid test with resulting in the next day or 2. We can change medications to help her.), considered differential (Does have history of asthma and is having a upper now lower respiratory symptoms suggestive of pneumonia. Chest x-ray at the walk-in clinic showed early infiltrate. She was referred to the ER and the clinic had given report to one of the ER nurses. Not really clear their expectation for the ER.), d/w patient Departure - Departure Disposition: 01 Home, Self Care Clinical Impression: Acute pneumonia, Persistent cough Exacerbation of asthma Qualifiers: Asthma severity: mild Asthma persistence: intermittent Qualified Code(s): J45.21 - Mild intermittent asthma with (acute) exacerbation Condition: Stable Record reviewed to determine appropriate education?: Yes Follow-Up: Angie Diaz ARNP [Primary Care Provider] - Prescriptions: dexAMETHasone [Decadron] 4 mg PO DAILY #7 tab HYDROcod/ACETAM 5/325 [[place] 5/325] 1 ea PO Q6H PRN #15 tab PRN Reason: Pain Lidocaine Viscous 2% [Xylocaine Viscous 2%] 5 ml PO Q4H PRN #100 ml PRN Reason: Pain Azithromycin [Zithromax] 250 mg PO DAILY 5 Days #4 tab Comments: The doxycycline if you are not already finished with it. Change instead to azithromycin daily for 4 more days for a total of 5-day course. Decadron steroid daily for 5-7 more days to decrease airway inflammation. Use your albuterol inhaler 3 to 4 puffs with the spacer 4 times a day regularly for the next several days up to a week and then as needed. Use Benadryl along with the lidocaine to help with throat irritation and therefo re decrease coughing. Add hydrocodone if needed for cough suppression. Recheck if not improving well over the next 2 to 3 days and return if worsening. Your Covid test should result in the next 1 to 2 days. You should be able to access the results through the patient portal. Presumably the walk-in clinic gave you the information for that. Discharge Date/Time: 03/28/20 18:42
[2020-03-28] MEDS ORDERED: ALBUTEROL 1 PUFF INH STA (17:32)
[2020-03-28] MEDS ORDERED: HYDROcod/ACETAM 5/325 MG TABLET PO STA (17:33)
[2020-03-28] MEDS ORDERED: LIDOCAINE VISCOUS 2% 15 ML UDC MM STA (17:33)
[2020-03-28] MEDS ORDERED: diphenhydrAMINE ELIXIR 25 MG/10 ML UDC PO STA (17:33)
[2020-03-28] MEDS ORDERED: AZITHROMYCIN 250 MG TABLET PO STA (18:09)
[2020-03-28 18:40] VITALS: BP 105/65
== END 2020-03-28 18:42 | disposition home or self-care (01) ==
LOC: ED 16:52
DX: J18.9 Pneumonia, unspecified organism (principal); J45.21 Mild intermittent asthma with (acute) exacerbation; R91.8 Other nonspecific abnormal finding of lung field; R05 Cough; Z20.822 Contact with and (suspected) exposure to COVID-19
CPT/HCPCS: 71046; 87070; 87275; 87276; 87635; 94640; A9270; 99284; 99285

== ENCOUNTER 2020-04-10 08:00 | Outpatient (CLI) | payer OTHER | END 2020-04-10 23:59 | disposition home or self-care (01) | LOC: LAB.N 08:00 | PROVIDERS: ATTEND Family Medicine | DX: N39.0 Urinary tract infection, site not specified (principal) | CPT/HCPCS: 87086 ==

== ENCOUNTER 2020-04-27 08:00 | Outpatient (CLI) | payer OTHER ==
[2020-04-27 20:32] LABS: BASOPHILS # (AUTO) 0.1 10^3/uL (0.0-0.1); BASOPHILS % (AUTO) 0.7 %; EOSINOPHILS # (AUTO) 0.1 10^3/uL (0.0-0.7); EOSINOPHILS % (AUTO) 1.5 %; HCT - HEMATOCRIT 30.2 % (37.0-47.0); HGB - HEMOGLOBIN 8.5 g/dL (12.0-16.0); LYMPHOCYTES # (AUTO) 1.6 10^3/uL (1.5-3.5); LYMPHOCYTES % (AUTO) 17.8 %; MEAN CORPUSCULAR HEMOGLOBIN 24.5 pg (27.0-31.0); MEAN CORPUSCULAR HGB CONC 28.1 g/dL (32.0-36.0); MEAN PLATELET VOLUME 9.6 fL (7.9-10.8); MONOCYTES # (AUTO) 0.6 10^3/uL (0.0-1.0); NEUTROPHILS # (AUTO) 6.7 10^3/uL (1.5-6.6); NEUTROPHILS % (AUTO) 72.5 %; PLT - PLATELET COUNT 262 10^3/uL (130-450); RED BLOOD COUNT 3.47 10^6/uL (4.20-5.40); RED CELL DISTRIBUTION WIDTH 19.2 % (12.0-15.0); WHITE BLOOD COUNT 9.2 x10^3/uL (4.8-10.8)
[2020-04-27 20:37] LABS: SLIDE REVIEW? Indicated
[2020-04-27 20:38] LABS: BUN - BLOOD UREA NITROGEN < 5 mg/dL (6-20); CALCIUM 8.9 mg/dL (8.5-10.3); CARBON DIOXIDE - CO2 22 mmol/L (21-32); CHLORIDE 105 mmol/L (101-111); CREATININE 0.5 mg/dL (0.4-1.0); GFR - MDRD 132 (>89); GLUCOSE 102 mg/dL (70-100); POTASSIUM 3.7 mmol/L (3.5-5.0); SODIUM 137 mmol/L (135-145)
[2020-04-27 20:57] LABS: PLATELET MORPHOLOGY NORMAL APPEARANCE (NORMAL)
[2020-04-27 20:58] LABS: PLATELET ESTIMATE, MANUAL NORMAL (130-450,000) (NORMAL)
[2020-04-27 21:15] LABS: BILIRUBIN,URINE NEGATIVE (NEGATIVE); GLUCOSE, URINE (UA) 100 mg/dL (NEGATIVE); KETONES,URINE (UA) 15 mg/dL (NEGATIVE); OCCULT BLOOD,URINE LARGE (NEGATIVE)
[2020-04-27 21:17] LABS: CLARITY,URINE BLOODY (CLEAR)
[2020-04-27 21:24] LABS: BACTERIA,URINE Moderate /HPF (None Seen); RBC,URINE TNTC /HPF (0-5); SQUAMOUS EPITHELIAL CELL,UR RARE Squamous (<= Few)
[2020-04-27 21:25] LABS: AMORPHOUS SEDIMENT,UR Moderate /LPF
== END 2020-04-27 23:59 | disposition home or self-care (01) ==
LOC: LAB.N 08:00
PROVIDERS: ATTEND Physician Assistant Medical
DX: N39.0 Urinary tract infection, site not specified (principal)
CPT/HCPCS: 36415; 80048; 81001; 85025; 87086

== ENCOUNTER 2020-04-27 18:24 | Emergency (ER) | payer OTHER ==
--- NOTE | 2020-04-27 19:17 | ED Physician Documentation ---
History of Present Illness - Stated complaint Stated Complaint: FEMALE - Chief complaint Chief Complaint: Abd Pain - History obtained from History obtained from: Patient - History of Present Illness Timing: Today Pain level max: 3 Pain level now: 3 - Additonal information Additional information: Patient is a 49-year-old female who states she has been having dysuria and hematuria today. She states that she had urinary retention at the walk-in clinic, was drained with a straight catheterization. She states she attempted to urinate tonight is unable to. She has not started her antibiotics yet. She was prescribed Bactrim for UTI that was found on urinalysis. No fevers. No vomiting. No back pain. 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 HEENT: Dental implants Psych: Anxiety Musculoskeletal: Scoliosis Derm: Eczema - Past Surgical History Past Surgical History: Yes General: Appendectomy, Colonoscopy, EGD, Other - Present Medications Home Medications: Ambulatory Orders Medication Instructions Recorded Confirmed Buspirone HCl 15 mg PO BID 11/26/19 03/28/20 Furosemide [Lasix] 20 mg PO DAILY PRN 11/26/19 03/28/20 Montelukast Sodium 10 mg PO DAILY PRN 11/26/19 03/28/20 Pantoprazole Sodium [Protonix] 40 mg PO DAILY 11/26/19 03/28/20 Spironolactone 25 mg PO DAILY 11/26/19 03/28/20 Tramadol HCl 50 mg PO DAILY PRN 11/26/19 03/28/20 Trazodone HCl 100 mg PO QPM 11/26/19 03/28/20 nadoloL [Nadolol] 20 mg PO DAILY 11/26/19 03/28/20 Azithromycin [Zithromax] 250 mg PO DAILY 5 Days #4 tab 03/28/20 HYDROcod/ACETAM 5/325 [[place] 5/325] 1 ea PO Q6H PRN #15 tab 03/28/20 Lidocaine Viscous 2% [Xylocaine 5 ml PO Q4H PRN #100 ml 03/28/20 Viscous 2%] dexAMETHasone [Decadron] 4 mg PO DAILY #7 tab 03/28/20 - Allergies Allergies/Adverse Reactions: Allergies Allergy/AdvReac Type Severity Reaction Status Date / Time cephalexin Allergy Unknown Verified 04/27/20 18:32 sertraline Allergy Unknown Verified 04/27/20 18:32 - Social History Does the pt smoke?: No Smoking Status: Never smoker Does the pt drink ETOH?: Yes Does the pt have substance abuse?: No - Immunizations Immunizations are current?: Yes Immunizations: TDAP current <10years - POLST Patient has POLST: No PD ED PE NORMAL - Vitals Vital signs reviewed: Yes - General General: Alert and oriented X 3, No acute distress - HEENT HEENT: Moist mucous membranes - Neck Neck: Supple, no meningeal sign - Cardiac Cardiac: RRR - Respiratory Respiratory: No respiratory distress, Clear bilaterally - Derm Derm: Warm and dry - Neuro Neuro: Alert and oriented X 3 - Psych Psych: Normal mood, Normal affect Results - Vitals Vitals: Vital Signs - 24 hr 04/27/20 04/27/20 18:29 20:07 Temperature 36.0 C L 36.5 C Heart Rate 108 H 99 Respiratory 16 16 Rate Blood Pressure 136/95 H 111/76 O2 Saturation 99 100 Oxygen O2 Source Room air - Labs Labs: Laboratory Tests 04/27/20 19:39 Urine Color RED/BLOODY Urine Clarity HAZY Urine pH 7.0 Ur Specific [place] <=1.005 Urine Protein >=300 H Urine Glucose (UA) NEGATIVE Urine Ketones NEGATIVE Urine Occult Blood LARGE H Urine Nitrite POSITIVE H Urine Bilirubin NEGATIVE Urine Urobilinogen 0.2 (NORMAL) Ur Leukocyte Esterase SMALL H Urine RBC 11-25 H Urine WBC 4-5 Ur Squamous Epith Cells FEW Squamous Amorphous Sediment Moderate Urine Bacteria Rare Ur Microscopic Review INDICATED Urine Culture Comments INDICATED PD MEDICAL DECISION MAKING - ED course Complexity details: reviewed results, re-evaluated patient, considered differential, d/w patient ED course: Marshall catheter placed then 600 mL of bloody urine was drained. No clots. We will leave the catheter in place until her infection is treated. She was started on antibiotics earlier today. She will continue the Bactrim at home. Patient is well-appearing, nontoxic. Afebrile. No pyelonephritis. No sepsis. Patient counseled regarding signs and symptoms for which I believe and urgent re-evaluation would be necessary. Patient with good understanding of and agreement to plan and is comfortable going home at this time This document was made in part using voice recognition software. While efforts are made to proofread this document, sound alike and grammatical errors may occur. Departure - Departure Disposition: Home, Self Care Clinical Impression: Urinary retention UTI (urinary tract infection) Qualifiers: Urinary tract infection type: acute cystitis Hematuria presence: with hematuria Qualified Code(s): N30.01 - Acute cystitis with hematuria Condition: Good Instructions: ED Catheter Care [place], ED Retention Urinary Female, ED UTI Cystitis Female Follow-Up: Angie Diaz ARNP [Primary Care Provider] - Within 3 Days Comments: Continue the antibiotics as previously prescribed. Follow-up with your doctor within 3 to 4 days for a recheck. They should remove the catheter at that time and perform a voiding trial with you. The urinary retention is usually due to the infection. Please take all antibiotics until gone. Discharge Date/Time: 04/27/20 20:17
[2020-04-27 19:47] LABS: BILIRUBIN,URINE NEGATIVE (NEGATIVE); GLUCOSE, URINE (UA) NEGATIVE (NEGATIVE); KETONES,URINE (UA) NEGATIVE (NEGATIVE); LEUKOCYTE ESTERASE, URINE SMALL (NEGATIVE); NITRITE,URINE POSITIVE (NEGATIVE); OCCULT BLOOD,URINE LARGE (NEGATIVE); PROTEIN,URINE >=300 mg/dL (NEGATIVE); UROBILINOGEN,URINE 0.2 (NORMAL) E.U./dL (NORMAL)
[2020-04-27 19:48] LABS: CLARITY,URINE HAZY (CLEAR)
[2020-04-27 20:07] LABS: AMORPHOUS SEDIMENT,UR Moderate /LPF; BACTERIA,URINE Rare /HPF (None Seen); SQUAMOUS EPITHELIAL CELL,UR FEW Squamous (<= Few)
[2020-04-27 20:08] VITALS: BP 111/76
== END 2020-04-27 20:17 | disposition home or self-care (01) ==
LOC: ED 18:24
DX: N30.01 Acute cystitis with hematuria (principal); R33.9 Retention of urine, unspecified
CPT/HCPCS: 36415; 51702; 51798; 80048; 81001; 81003; 85025; 87086; 99283; 99284

== ENCOUNTER 2020-08-17 12:24 | Outpatient (CLI) | payer OTHER | END 2020-08-17 12:25 | disposition critical access hospital (66) | LOC: EMS 12:24 | DX: R06.00 Dyspnea, unspecified (principal); R42 Dizziness and giddiness | CPT/HCPCS: A0425; A0427 ==

== ENCOUNTER 2020-08-17 12:45 | Emergency (ER) | payer OTHER ==
[2020-08-17] MEDS ORDERED: IPRATROPIUM/ALBUTEROL 3 ML NEB INH STA (13:06)
--- NOTE | 2020-08-17 13:08 | ED Physician Documentation ---
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 On a normal day she takes montelukast and cetirizine and as needed ipratropium and albuterol. 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 She does have a cough which is mildly productive of white and clear sputum. She denies fevers or body aches. She has chronic mild pedal edema which is not worse than normal. No recent travel. No chest pain. 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 : Frequency, Other HEENT: Dental implants Psych: Anxiety Musculoskeletal: Scoliosis Derm: Eczema - Past Surgical History Past Surgical History: Yes General: Appendectomy, Colonoscopy, EGD, Other - Present Medications Home Medications: Ambulatory Orders Medication Instructions Recorded Confirmed Buspirone HCl 15 mg PO BID 11/26/19 03/28/20 Furosemide [Lasix] 20 mg PO DAILY PRN 11/26/19 03/28/20 Montelukast Sodium 10 mg PO DAILY PRN 11/26/19 03/28/20 Pantoprazole Sodium [Protonix] 40 mg PO DAILY 11/26/19 03/28/20 Spironolactone 25 mg PO DAILY 11/26/19 03/28/20 Tramadol HCl 50 mg PO DAILY PRN 11/26/19 03/28/20 Trazodone HCl 100 mg PO QPM 11/26/19 03/28/20 nadoloL [Nadolol] 20 mg PO DAILY 11/26/19 03/28/20 Azithromycin [Zithromax] 250 mg PO DAILY 5 Days #4 tab 03/28/20 HYDROcod/ACETAM 5/325 [[place] 5/325] 1 ea PO Q6H PRN #15 tab 03/28/20 Lidocaine Viscous 2% [Xylocaine 5 ml PO Q4H PRN #100 ml 03/28/20 Viscous 2%] dexAMETHasone [Decadron] 4 mg PO DAILY #7 tab 03/28/20 Nitrofurantoin [Macrobid] 1 cap PO BID #10 cap 08/17/20 guaiFENesin/CODEINE [Robitussin AC] 5 - 10 ml PO Q6H PRN #120 ml 08/17/20 predniSONE [Deltasone] 60 mg PO DAILY 5 Days #15 tablet 08/17/20 - Allergies Allergies/Adverse Reactions: Allergies Allergy/AdvReac Type Severity Reaction Status Date / Time cephalexin Allergy Unknown Verified 08/17/20 13:01 sertraline Allergy Unknown Verified 08/17/20 13:01 - Social History Does the pt smoke?: No Smoking Status: Never smoker Does the pt drink ETOH?: Yes Does the pt have substance abuse?: No - Immunizations Immunizations are current?: Yes Immunizations: TDAP current <10years - POLST Patient has POLST: No PD ED PE NORMAL - Vitals Vital signs reviewed: Yes - General General: Alert and oriented X 3, No acute distress - HEENT HEENT: PERRL, EOMI - Neck Neck: Supple, no meningeal sign, No bony TTP - Cardiac Cardiac: Other (tachycardic, reg) - Respiratory Respiratory: Other (Diminished at the right base without other focal findings.) - Abdomen Abdomen: Soft, Non tender - Back Back: No CVA TTP, No spinal TTP - Derm Derm: Normal color, Warm and dry - Extremities Extremities: No edema, No calf tenderness / cord - Neuro Neuro: Alert and oriented X 3, Normal speech Results - Vitals Vitals: Vital Signs - 24 hr 08/17/20 08/17/20 08/17/20 12:56 13:28 13:55 Temperature 37.2 C Heart Rate 120 H 116 H 121 H Respiratory 20 16 20 Rate Blood Pressure 95/64 98/71 O2 Saturation 96 97 08/17/20 15:31 Temperature Heart Rate 95 Respiratory 20 Rate Blood Pressure 137/75 H O2 Saturation 98 Oxygen O2 Source Room air - Labs Labs: Laboratory Tests 08/17/20 08/17/20 08/17/20 13:24 13:24 13:24 WBC 11.5 H RBC 3.15 L Hgb 8.0 L Hct 27.1 L MCV 86.0 MCH 25.4 L MCHC 29.5 L RDW 22.5 H Plt Count 179 MPV 9.7 Neut # (Auto) 10.7 H Lymph # (Auto) 0.2 L [place] # (Auto) 0.3 Eos # (Auto) 0.2 Baso # (Auto) 0.1 Absolute Nucleated RBC 0.00 Nucleated RBC % 0.0 Manual Slide Review Indicated WBC Morphology NORMAL APPEARANCE Platelet Estimate NORMAL (130-450,000) Platelet Morphology NORMAL APPEARANCE RBC Morph Micro Appear 1+ POLYCHROMASIA D-Dimer > 1050.0 H Sodium 134 L Potassium 3.2 L Chloride 105 Carbon Dioxide 16 L Anion Gap 13.0 BUN 6 Creatinine 0.8 Estimated GFR (MDRD) 77 L Glucose 79 Calcium 8.2 L PD MEDICAL DECISION MAKING - ED course ED course: Single view chest x-ray interpreted contemporaneously by me shows low lung volumes but without infiltrate etc. She has significant dextroconvex scoliosis. 49-year-old woman presents with an acute respiratory illness, feeling better after breathing treatments prehospital. She was little tachycardic so D-dimer was checked to and this was positive and followed by CT angiography test that was negative. Of note she had symptoms consistent with simple cystitis, urinary frequency and dysuria without flank pain and this is treated as well. Diagnosis: 1. Dyspnea 2. Asthma exacerbation 3. Cystitis I am prescribing a short course of short-acting opioid pain medication for this patient. 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 I have discussed that the opioids are for short term therapy only, and will not be refilled from the ED. Departure - Departure Disposition: 01 Home, Self Care Condition: Good Record reviewed to determine appropriate education?: Yes Instructions: ED Bronchitis Asthmatic Prescriptions: predniSONE [Deltasone] 60 mg PO DAILY 5 Days #15 tablet Nitrofurantoin [Macrobid] 1 cap PO BID #10 cap guaiFENesin/CODEINE [Robitussin AC] 5 - 10 ml PO Q6H PRN #120 ml PRN Reason: Cough Comments: Call your doctor to arrange a follow-up appointment, make the next available appointment. In the interim, return anytime if worse or if new symptoms develop. I am prescribing a short course of narcotic pain medication for you. These are potentially dangerous and addictive medications that should be used carefully. These medications may constipate you. Take an [id number] stool softener (docusate) twice daily with plenty of water while taking these medications. If you go 24 hours without a bowel movement, take [id number] miralax, per package instructions. Do not drink or drive while taking these medications. If you received narcotic or sedating medications while in the emergency department, do not drive for 24 hours. Store this medication in a safe, secure place and out of reach of children. It is a violation of federal law to give or sell this medication to another person or to use in a manner other than prescribed. The ED will not refill narcotic prescriptions, including prescriptions lost or stolen. To dispose of unwanted medications: 1. [facility] at [address] in [place] has a medication drop box. They accept prescription medications (in pill form) Monday through Monday 9:00 a.m. to 5:00 p.m. 2. The [facility] [place] [employer] accepts prescription medications (in pill form only) for disposal year round. Call for more information. 3. Contact the [facility] for the next [facility] sponsored prescription drug collection event. , [phone], or [phone]; Note that many narcotic pain relievers also contain Tylenol/acetaminophen. Please ensure that your total dose of acetaminophen from all sources does not exceed 3 g (3000 mg) per day.
[2020-08-17 13:29] LABS: BASOPHILS # (AUTO) 0.1 10^3/uL (0.0-0.1); BASOPHILS % (AUTO) 0.5 %; EOSINOPHILS # (AUTO) 0.2 10^3/uL (0.0-0.7); EOSINOPHILS % (AUTO) 1.5 %; HCT - HEMATOCRIT 27.1 % (37.0-47.0); LYMPHOCYTES # (AUTO) 0.2 10^3/uL (1.5-3.5); LYMPHOCYTES % (AUTO) 1.7 %; MEAN CORPUSCULAR HEMOGLOBIN 25.4 pg (27.0-31.0); MEAN CORPUSCULAR HGB CONC 29.5 g/dL (32.0-36.0); MEAN PLATELET VOLUME 9.7 fL (7.9-10.8); MONOCYTES # (AUTO) 0.3 10^3/uL (0.0-1.0); MONOCYTES % (AUTO) 2.7 %; NEUTROPHILS # (AUTO) 10.7 10^3/uL (1.5-6.6); NEUTROPHILS % (AUTO) 92.6 %; PLT - PLATELET COUNT 179 10^3/uL (130-450); RED BLOOD COUNT 3.15 10^6/uL (4.20-5.40); RED CELL DISTRIBUTION WIDTH 22.5 % (12.0-15.0); WHITE BLOOD COUNT 11.5 x10^3/uL (4.8-10.8)
[2020-08-17 13:36] LABS: SLIDE REVIEW? Indicated
--- NOTE | 2020-08-17 13:40 | XRAY Report ---
PROCEDURE: Chest 1 View X-Ray INDICATIONS: dyspnea, diminished R base TECHNIQUE: One view of the chest was acquired. COMPARISON: 05/26/2020, 05/19/2020 FINDINGS: Surgical changes and devices: None. Lungs and pleura: An incomplete inspiratory result is noted, with low lung volumes and crowding of t he vascular markings. No focal infiltrates are seen. No large pneumothorax or large pleural effusion can be seen. Mediastinum: Mediastinal contours appear normal. Heart size is normal. Bones and chest wall: No suspicious bony lesions. Overlying soft tissues appear unremarkable. IMPRESSION: Limited portable chest examination, with low lung volumes, without an acute abnormality identified. Dextroconvex scoliosis. Reviewed by: Jacob Nava MD on 08/17/2020 12:39 PM TI Approved by: Jacob Nava MD on 08/17/2020 12:39 PM TI Station ID: [id number]
[2020-08-17 14:02] LABS: CALCIUM 8.2 mg/dL (8.5-10.3); CREATININE 0.8 mg/dL (0.4-1.0); POTASSIUM 3.2 mmol/L (3.5-5.0)
[2020-08-17] MEDS ORDERED: POTASSIUM CHLORIDE 20 MEQ TABLET PO STA (14:11)
[2020-08-17 14:27] LABS: PLATELET ESTIMATE, MANUAL NORMAL (130-450,000) (NORMAL); PLATELET MORPHOLOGY NORMAL APPEARANCE (NORMAL); WBC MORPHOLOGY (MULTIPLE) NORMAL APPEARANCE (NORMAL)
[2020-08-17] MEDS ORDERED: IOVERSOL 320 100 ML VIAL IVP ONE ×2 (15:04→15:34)
--- NOTE | 2020-08-17 15:47 | CT Report ---
PROCEDURE: ANGIO CHEST W/WO INDICATIONS: dyspnea, high dimer CONTRAST: IV CONTRAST: Optiray 320 ml: 80 PO CONTRAST: *NO PO CONTRAST TECHNIQUE: After the administration of intravenous contrast, 2 mm thick sections acquired from the pulmonary api jo to the posterior costophrenic angles. 3-dimensional maximum intensity projection (MIP) coronal a nd sagittal reformats were then acquired through the thorax. For radiation dose reduction, the follow ing was used: automated exposure control, adjustment of mA and/or kV according to patient size. COMPARISON: Correlation is made with the accompanying chest radiograph, 08/17/2020. Correlation is mad e with the overlapping portions of the abdomen and pelvis CT, 10/16/2019. FINDINGS: Image quality: Excellent. Pulmonary arteries: Pulmonary arteries are normal in size, and demonstrate no intraluminal filling d efects to suggest central pulmonary embolism. Lungs and pleura: Lungs are clear. No pleural effusions or pneumothorax. Central and peripheral ai rways are patent. Mediastinum: Heart size is normal, without pericardial effusion. No mediastinal or hilar adenopathy . Thoracic aorta is normal in caliber and enhancement. Esophagus is normal in caliber, without hiat al hernia. Bones and chest wall: No suspicious bony lesions. Dextroconvex scoliosis is seen. Ribs and thoracic spine appear intact throughout. No axillary or supraclavicular adenopathy. The thyroid is normal in size and there are no incidental findings. Abdomen: There is mild ascites seen. The spleen is enlarged, measuring 14.2 cm AP. The visualized por tions of the upper abdominal structures are otherwise within normal limits. IMPRESSION: Negative for pulmonary embolism. Incidental note is made of: Dextroconvex scoliosis Splenomegaly Mild ascites Reviewed by: Jacob Nava MD on 08/17/2020 2:46 PM TI Approved by: Jacob Nava MD on 08/17/2020 2:46 PM AKDT Station ID: [id number]
[2020-08-17] MEDS ORDERED: predniSONE 20 MG TABLET PO STA (15:59)
[2020-08-17] MEDS ORDERED: guaiFENesin/CODEINE 5 ML UDC PO STA (16:03)
[2020-08-17 16:20] VITALS: BP 98/62
== END 2020-08-17 16:22 | disposition home or self-care (01) ==
LOC: EDUNIT# → ED 12:45
DX: J45.901 Unspecified asthma with (acute) exacerbation (principal); N30.90 Cystitis, unspecified without hematuria; R00.0 Tachycardia, unspecified; R79.89 Other specified abnormal findings of blood chemistry; R60.0 Localized edema; K70.31 Alcoholic cirrhosis of liver with ascites; Z87.19 Personal history of other diseases of the digestive system; Z93.3 Colostomy status; M41.9 Scoliosis, unspecified
CPT/HCPCS: 36415; 71045; 71275; 80048; 85025; 85379; 94640; 99284; A9270; J7512; Q9967

== ENCOUNTER 2020-09-23 15:03 | Inpatient (IN) | payer OTHER ==
[2020-09-23 15:53] LABS: BASOPHILS % (AUTO) 0.2 %; EOSINOPHILS % (AUTO) 0.2 %; LYMPHOCYTES # (AUTO) 0.9 10^3/uL (1.5-3.5); LYMPHOCYTES % (AUTO) 9.4 %; MEAN CORPUSCULAR HGB CONC 26.7 g/dL (32.0-36.0); MEAN PLATELET VOLUME 10.8 fL (7.9-10.8); MONOCYTES # (AUTO) 0.6 10^3/uL (0.0-1.0); MONOCYTES % (AUTO) 6.5 %; NEUTROPHILS # (AUTO) 7.8 10^3/uL (1.5-6.6); NEUTROPHILS % (AUTO) 82.4 %; NRBC ABSOLUTE COUNT (AUTO) 0.04 x10^3/uL; NUCLEATED RED BLOOD CELLS AUTO 0.4 /100WBC; PLT - PLATELET COUNT 110 10^3/uL (130-450); RED CELL DISTRIBUTION WIDTH 20.4 % (12.0-15.0); WHITE BLOOD COUNT 9.4 x10^3/uL (4.8-10.8)
[2020-09-23 16:00] LABS: ALBUMIN 3.1 g/dL (3.2-5.5); ALBUMIN/GLOBULIN RATIO 0.9 (1.0-2.2); BILIRUBIN,TOTAL 2.1 mg/dL (0.2-1.0); CALCIUM 8.4 mg/dL (8.5-10.3); CREATININE 0.6 mg/dL (0.4-1.0); HCT - HEMATOCRIT 13.5 % (37.0-47.0); HGB - HEMOGLOBIN 3.6 g/dL (12.0-16.0); POTASSIUM 3.7 mmol/L (3.5-5.0); TOTAL PROTEIN 6.4 g/dL (6.7-8.2)
[2020-09-23] MEDS ORDERED: SODIUM CHLORIDE 0.9% 1,000 ML IV STA (16:00)
--- NOTE | 2020-09-23 16:09 | ED Physician Documentation ---
History of Present Illness - Stated complaint Stated Complaint: SOA,BLOOD LOSS - Chief complaint Chief Complaint: Neuro - History obtained from History obtained from: Patient - History of Present Illness Timing: Today Pain level max: 0 Pain level now: 0 - Additonal information Additional information: Patient is a 49-year-old female who presents to the emergency department with shortness of breath and feeling like she is anemic. She was admitted 3 weeks ago to [facility] for blood transfusion. She has a history of an ileostomy after a ruptured appendix followed by a colostomy after perforated diverticulitis. The patient states that she has had dark output in her ostomy bag. She states that she has had CAT scans, ultrasounds, endoscopies and colonoscopies without the cause of her bleeding found. She states that she rarely uses alcohol. Does not take any anticoagulants. Avoids NSAIDs. Avoids aspirin. She states that she feels worse with ambulation, better with rest. Review of Systems Ten Systems: 10 systems reviewed and negative Constitutional: denies: Fever, Chills Respiratory: denies: Cough GI: reports: Bloody / black stool (Dark output from the ostomy bag). 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 HEENT: Dental implants Psych: Anxiety Musculoskeletal: Scoliosis Derm: Eczema - Past Surgical History Past Surgical History: Yes General: Appendectomy, Colonoscopy, EGD, Other - Present Medications Home Medications: Ambulatory Orders Medication Instructions Recorded Confirmed Montelukast Sodium 10 mg PO DAILY PRN 11/26/19 03/28/20 Pantoprazole Sodium [Protonix] 40 mg PO DAILY 11/26/19 03/28/20 Tramadol HCl 50 mg PO DAILY PRN 11/26/19 03/28/20 Trazodone HCl 100 mg PO QPM 11/26/19 03/28/20 nadoloL [Nadolol] 20 mg PO DAILY 11/26/19 03/28/20 - Allergies Allergies/Adverse Reactions: Allergies Allergy/AdvReac Type Severity Reaction Status Date / Time cephalexin Allergy Unknown Verified 09/23/20 15:18 sertraline Allergy Unknown Verified 09/23/20 15:18 - Social History Does the pt smoke?: No Smoking Status: Never smoker Does the pt drink ETOH?: Yes Does the pt have substance abuse?: No - Immunizations Immunizations are current?: Yes Immunizations: TDAP current <10years - POLST Patient has POLST: No PD ED PE NORMAL - Vitals Vital signs reviewed: Yes - General General: Alert and oriented X 3, No acute distress - HEENT HEENT: Moist mucous membranes - Neck Neck: Supple, no meningeal sign - Cardiac Cardiac: RRR - Respiratory Respiratory: No respiratory distress, Clear bilaterally - Abdomen Abdomen: Soft, Non tender, Non distended, Other (Ostomy in the left lower quadrant. Dark drainage. No erythema or evidence of infection of the surrounding skin) - Derm Derm: Warm and dry - Neuro Neuro: Alert and oriented X 3 - Psych Psych: Normal mood, Normal affect Results - Vitals Vitals: Vital Signs - 24 hr 09/23/20 09/23/20 09/23/20 15:14 15:17 16:00 Temperature 37.0 C Heart Rate 133 H 129 H 131 H Respiratory 22 16 Rate Blood Pressure 91/54 L 108/67 108/67 O2 Saturation 99 95 100 09/23/20 16:30 Temperature Heart Rate 126 H Respiratory 15 Rate Blood Pressure 115/66 O2 Saturation 100 Oxygen O2 Source Room air - Labs Labs: Laboratory Tests 09/23/20 09/23/20 09/23/20 15:37 15:37 15:37 WBC 9.4 RBC 1.50 L Hgb 3.6 L* Hct 13.5 L* MCV 90.0 MCH 24.0 L MCHC 26.7 L RDW 20.4 H Plt Count 110 L MPV 10.8 Neut # (Auto) 7.8 H Lymph # (Auto) 0.9 L [place] # (Auto) 0.6 Eos # (Auto) 0.0 Baso # (Auto) 0.0 Absolute Nucleated RBC 0.04 Nucleated RBC % 0.4 Platelet Estimate DECREASED (<130,000) Platelet Morphology NORMAL APPEARANCE RBC Morph Micro Appear 1+ POLYCHROMASIA PT INR APTT Sodium 130 L Potassium 3.7 Chloride 98 L Carbon Dioxide 17 L Anion Gap 15.0 H BUN 16 Creatinine 0.6 Estimated GFR (MDRD) 107 Glucose 104 H Calcium 8.4 L Total Bilirubin 2.1 H AST 44 H ALT 17 Alkaline Phosphatase 273 H Total Protein 6.4 L Albumin 3.1 L Globulin 3.3 Albumin/Globulin Ratio 0.9 L Lipase 29 HCG, Quant Nasal Adenovirus (PCR) Nasal B. parapertussis DNA (PCR) Nasal Coronavir 229E PCR Nasal Coronavir HKU1 PCR Nasal Coronavir NL63 PCR Nasal Coronavir OC43 PCR Nasal Enterovir/Rhinovir PCR Nasal Influenza B PCR Nasal Influenza A PCR Nasal Parainfluen 1 PCR Nasal Parainfluen 2 PCR Nasal Parainfluen 3 PCR Nasal Parainfluen 4 PCR Nasal RSV (PCR) Nasal B.pertussis DNA PCR Nasal C.pneumoniae (PCR) Yan Human Metapneumo PCR Nasal M.pneumoniae (PCR) Nasal SARS-CoV-2 (PCR) Blood Type A POSITIVE Antibody Screen NEGATIVE Crossmatch See Detail 09/23/20 09/23/20 09/23/20 15:37 15:37 16:54 WBC RBC Hgb Hct MCV MCH MCHC RDW Plt Count MPV Neut # (Auto) Lymph # (Auto) [place] # (Auto) Eos # (Auto) Baso # (Auto) Absolute Nucleated RBC Nucleated RBC % Platelet Estimate Platelet Morphology RBC Morph Micro Appear PT 17.5 H INR 1.6 H APTT 30.4 Sodium Potassium Chloride Carbon Dioxide Anion Gap BUN Creatinine Estimated GFR (MDRD) Glucose Calcium Total Bilirubin AST ALT Alkaline Phosphatase Total Protein Albumin Globulin Albumin/Globulin Ratio Lipase HCG, Quant < 0.60 Nasal Adenovirus (PCR) NOT DETECTED Nasal B. parapertussis DNA (PCR) NOT DETECTED Nasal Coronavir 229E PCR NOT DETECTED Nasal Coronavir HKU1 PCR NOT DETECTED Nasal Coronavir NL63 PCR NOT DETECTED Nasal Coronavir OC43 PCR NOT DETECTED Nasal Enterovir/Rhinovir PCR NOT DETECTED Nasal Influenza B PCR NOT DETECTED Nasal Influenza A PCR NOT DETECTED Nasal Parainfluen 1 PCR NOT DETECTED Nasal Parainfluen 2 PCR NOT DETECTED Nasal Parainfluen 3 PCR NOT DETECTED Nasal Parainfluen 4 PCR NOT DETECTED Nasal RSV (PCR) NOT DETECTED Nasal B.pertussis DNA PCR NOT DETECTED Nasal C.pneumoniae (PCR) NOT DETECTED Yan Human Metapneumo PCR NOT DETECTED Nasal M.pneumoniae (PCR) NOT DETECTED Nasal SARS-CoV-2 (PCR) NOT DETECTED Blood Type Antibody Screen Crossmatch PD MEDICAL DECISION MAKING - ED course Complexity details: reviewed results, re-evaluated patient, considered differential, d/w patient, d/w optimization consultant ED course: Patient with symptomatic anemia. Unclear etiology. She states she has had multiple full work-ups in the past with no cause found. Discussed the case with Dr. Doty, hospitalist who accepts. Given Protonix and blood was ordered. This document was made in part using voice recognition software. While efforts are made to proofread this document, sound alike and grammatical errors may occur. Departure - Departure Disposition: ED Place in Observation Clinical Impression: Symptomatic anemia Condition: Stable Discharge Date/Time: 09/23/20 17:43
[2020-09-23] MEDS ORDERED: PANTOPRAZOLE 40 MG VIAL IVP STA (16:10)
[2020-09-23 16:20] LABS: INR 1.6 (0.8-1.2); PT - PROTHROMBIN TIME 17.5 secs (9.9-12.6)
[2020-09-23 16:27] LABS: PARTIAL THROMBOPLASTIN TIME 30.4 secs (24.9-33.3)
[2020-09-23 16:48] LABS: PLATELET ESTIMATE, MANUAL DECREASED (<130,000) (NORMAL); PLATELET MORPHOLOGY NORMAL APPEARANCE (NORMAL)
[2020-09-23] MEDS ORDERED: ACETAMINOPHEN 325 MG TABLET PO PRN (17:07)
[2020-09-23] MEDS ORDERED: SODIUM CHLORIDE FLUSH 0.9% 10 ML SYRINGE IVP PRN (17:07)
[2020-09-23 17:52] LABS: B. PARAPERTUSSIS- RESP PCR PAN NOT DETECTED; B. PERTUSSIS- RESP PCR PANEL NOT DETECTED; C. PNEUMONIAE- RESP PCR PANEL NOT DETECTED; CORONAVIRUS 229E-RESP PCR NOT DETECTED; CORONAVIRUS HKU1-RESP PCR NOT DETECTED; CORONAVIRUS NL63-RESP PCR NOT DETECTED; CORONAVIRUS OC43-RESP PCR NOT DETECTED; HUMAN METAPNEUMOVIRUS NOT DETECTED; INFLUENZA A- RESP PCR PANEL NOT DETECTED; INFLUENZA B - RESP PCR PANEL NOT DETECTED; M. PNEUMONIAE- RESP PCR PANEL NOT DETECTED; PARAINFLUENZA VIRUS 1 NOT DETECTED; PARAINFLUENZA VIRUS 2 NOT DETECTED; PARAINFLUENZA VIRUS 3 NOT DETECTED; PARAINFLUENZA VIRUS 4 NOT DETECTED; RHINOVIRUS/ENTEROVIRUS NOT DETECTED; RSV- RESP PCR PANEL NOT DETECTED; SARS-CoV-2 -RESP PCR PANEL NOT DETECTED
[2020-09-23] MEDS: ONDANSETRON 4 MG/2 ML VIAL IVP PRN (19:33)
--- NOTE | 2020-09-23 19:46 | HISTORY & PHYSICAL EXAMINATION ---
Chief Complaint - Chief Complaint Chief Complaint: dyspnea on exertion, dizziness History of Present Illness - Admitted From Admitted From:: [facility] ED - History Obtained From Records Reviewed: yes History obtained from: patient - History of Present Illness HPI Comment/Other: Patient is a 49-year-old female who presented to the ED with complaint of dyspnea on exertion and dizziness. Her symptoms have been going on for the past 5 days but became significantly worse today. In the ED work-up included a CBC which showed a hemoglobin of 3.6. She denied chest pain or abdominal pain but reports nausea and vomiting. She reported low-grade temperature of 100F on Monday and Monday but none since. She has history of diverticulitis which ruptured and required a colostomy bag. Her ostomy bag currently contains loose/watery stool which is black in color. She reports noticing this for the past 4 days It is reported that she recently underwent endoscopy in [place] 3 weeks ago. The records have been requested and are pending. She is being admitted for further treatment. 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 Social History Notes: She lives at home with her parents. She is independent of activities of daily living. She does not consume tobacco products. She reports rarely drinking alcohol. She occasionally uses CBD oils to help her sleep at [facility]. - POLST Patient has POLST: No POLST Status: Full Code Meds/Allgy - Home Medications Home Medications: Ambulatory Orders Medication Instructions Recorded Confirmed Montelukast Sodium 10 mg PO DAILY PRN 11/26/19 03/28/20 Pantoprazole Sodium [Protonix] 40 mg PO DAILY 11/26/19 03/28/20 Tramadol HCl 50 mg PO DAILY PRN 11/26/19 03/28/20 Trazodone HCl 100 mg PO QPM 11/26/19 03/28/20 nadoloL [Nadolol] 20 mg PO DAILY 11/26/19 03/28/20 - Allergies Allergies/Adverse Reactions: Allergies Allergy/AdvReac Type Severity Reaction Status Date / Time cephalexin Allergy Unknown Verified 09/23/20 15:18 sertraline Allergy Unknown Verified 09/23/20 15:18 Review of Systems - Constitutional Constitutional: reports: Fatigue, Chills, Weakness. denies: Fever - Eyes Eyes: denies: Pain - Ears, Nose & Throat Ears, Nose & Throat: denies: Ear pain - Cardiovascular Cariovascular: reports: Lightheadedness, Exertional dyspnea. denies: Palpitations, Chest pain, Edema, Syncope - Respiratory Respiratory: reports: SOB with exertion. denies: Cough, Sputum production, Wheezing - Gastrointestinal Gastrointestinal: reports: Black stools, Nausea, Vomiting, Reflux/heartburn. denies: Abdominal pain, Abdominal distention, Constipation - Genitourinary Genitourinary: reports: Hematuria. denies: Dysuria, Frequency, Urgency - Musculoskeletal Musculoskeletal: reports: Back pain. denies: Muscle pain, Muscle aches - Integumentary Integumentary: denies: Rash, Pruritis, Lesions - Neurological Neurological: denies: Focal weakness, Headache - Psychiatric Psychiatric: reports: Anxiety - Endocrine Endocrine: denies: Polyuria, Polydypsia - Hematologic/Lymphatic Hematologic/Lymphatic: reports: Anemia Prior Level of Functionality: She is independent of activities of daily living Exam - Vital Signs Vital Signs: Vital Signs x48h Temp Pulse Pulse Resp BP BP Pulse Ox 09/23/20 18:12 37.5 C 133 H 16 108/68 09/23/20 18:04 36.8 C 143 H 20 120/70 100 09/23/20 17:57 36.8 C 146 H 16 120/70 09/23/20 17:30 129 H 16 117/67 100 09/23/20 17:26 127 H 14 108/66 100 09/23/20 16:30 126 H 15 115/66 100 09/23/20 16:00 131 H 16 108/67 100 09/23/20 15:17 129 H 22 108/67 95 09/23/20 15:14 37.0 C 133 H 91/54 L 99 - Physical Exam General Appearance: positive: No acute distress, Alert Eyes Bilateral: positive: PERRL, EOMI ENT: positive: No signs of dehydration Neck: positive: No JVD, Trachea midline Respiratory: positive: Chest non-tender, No respiratory distress, Breath sounds nml. negative: Wheezes, Rales, Rhonchi Cardiovascular: positive: No murmur, Tachycardia Abdomen: positive: Non-tender, No organomegaly, Nml bowel sounds, No distention. negative: Guarding, Rebound Rectal: positive: Black stool Back: positive: Nml inspection Skin: positive: Color nml, No rash, Warm, Dry Extremities: positive: Non-tender, Full ROM, Nml appearance, No pedal edema Neurologic/Psychiatric: positive: Oriented x3, Mood/affect nml Conclusion/Plan - Problem List (1) Symptomatic anemia Conclusion/Plan: Suspect this is secondary to a GI bleed. Patient's ostomy bag contains black loose stool. We will test for occult blood. Patient is receiving 2 units of packed red blood cells. We will likely transfuse more depending on hemoglobin level. It is reported that she had a scope 3 weeks ago and [place]. Records have been requested and are pending. Protonix 40 mg p.o. twice daily. (2) Alcoholic cirrhosis Conclusion/Plan: Will order CIWA protocol. Qualifiers: Ascites presence: without ascites Qualified Code(s): K70.30 - Alcoholic cirrhosis of liver without ascites (3) Tachycardia Conclusion/Plan: Likely secondary to anemia with a hemoglobin of 3.6. Anticipating improvement with blood transfusion. We will monitor closely. Twelve-lead EKG pending. - Lab Results Fish Bones: 09/23/20 15:37 09/23/20 15:37 Core Measures - Anticipated LOS I expect patient to be DC'd or transferred within 96 hours.: Yes - DVT/VTE - Prophylaxis VTE/DVT Device ordered at admit?: Yes VTE/DVT Prophylaxis med ordered at admit?: No
--- NOTE | 2020-09-23 20:42 | XRAY Report ---
PROCEDURE: Chest 1 View X-Ray INDICATIONS: Dyspnea TECHNIQUE: One view of the chest was acquired. COMPARISON: 08/17/2020 CT angiogram of the chest. FINDINGS: Surgical changes and devices: None. Lungs and pleura: No pleural effusions or pneumothorax. Lungs are clear. Mediastinum: Mediastinal contours appear normal. Heart size is normal. Bones and chest wall: No suspicious bony lesions. Overlying soft tissues appear unremarkable. IMPRESSION: No acute cardiopulmonary process demonstrated radiographically. Reviewed by: Naldo Lau MD on 09/23/2020 8:41 PM PDT Approved by: Naldo Lau MD on 09/23/2020 8:41 PM PDT Station ID: [id number]
[2020-09-23] MEDS ORDERED: LORazepam 2 MG/ML VIAL IVP PRN (20:52)
[2020-09-23 21:44] LABS: BILIRUBIN,URINE NEGATIVE (NEGATIVE); GLUCOSE, URINE (UA) NEGATIVE (NEGATIVE); KETONES,URINE (UA) NEGATIVE (NEGATIVE); LEUKOCYTE ESTERASE, URINE SMALL (NEGATIVE); NITRITE,URINE POSITIVE (NEGATIVE); OCCULT BLOOD,URINE TRACE-INTA (NEGATIVE); PROTEIN,URINE NEGATIVE (NEGATIVE); UROBILINOGEN,URINE 0.2 (NORMAL) E.U./dL (NORMAL)
[2020-09-23 21:45] LABS: CLARITY,URINE CLEAR (CLEAR); HCG UR QUAL NEGATIVE
[2020-09-23 21:53] LABS: BACTERIA,URINE Few /HPF (None Seen); EPITHELIAL CELLS,UR RARE Transitional /HPF (<= Few); RBC,URINE 0-5 /HPF (0-5); SQUAMOUS EPITHELIAL CELL,UR MOD Squamous (<= Few)
[2020-09-23 21:54] LABS: MAGNESIUM 1.5 mg/dL (1.7-2.8); PHOSPHORUS 2.2 mg/dL (2.5-4.6)
[2020-09-23] MEDS: traZODone 50 MG TABLET PO SCH (22:25)
[2020-09-23] MEDS: SODIUM CHLORIDE FLUSH 0.9% 10 ML SYRINGE IVP SCH (23:29)
[2020-09-24] MEDS: BENZOCAINE/MENTHOL LOZENGE MM PRN ×2 (04:52→17:45)
[2020-09-24 05:15] LABS: BASOPHILS % (AUTO) 0.3 %; EOSINOPHILS % (AUTO) 0.6 %; HCT - HEMATOCRIT 20.5 % (37.0-47.0); LYMPHOCYTES # (AUTO) 1.1 10^3/uL (1.5-3.5); LYMPHOCYTES % (AUTO) 16.3 %; MEAN CORPUSCULAR HEMOGLOBIN 28.1 pg (27.0-31.0); MEAN CORPUSCULAR HGB CONC 32.2 g/dL (32.0-36.0); MEAN CORPUSCULAR VOLUME 87.2 fL (81.0-99.0); MEAN PLATELET VOLUME 11.2 fL (7.9-10.8); MONOCYTES # (AUTO) 0.6 10^3/uL (0.0-1.0); MONOCYTES % (AUTO) 8.7 %; NEUTROPHILS # (AUTO) 5.1 10^3/uL (1.5-6.6); NEUTROPHILS % (AUTO) 73.4 %; NRBC ABSOLUTE COUNT (AUTO) 0.02 x10^3/uL; NUCLEATED RED BLOOD CELLS AUTO 0.3 /100WBC; PLT - PLATELET COUNT 95 10^3/uL (130-450); RED BLOOD COUNT 2.35 10^6/uL (4.20-5.40); RED CELL DISTRIBUTION WIDTH 15.8 % (12.0-15.0); WHITE BLOOD COUNT 6.9 x10^3/uL (4.8-10.8)
[2020-09-24 05:25] LABS: HGB - HEMOGLOBIN 6.6 g/dL (12.0-16.0)
[2020-09-24 05:26] LABS: CALCIUM 7.6 mg/dL (8.5-10.3); CREATININE 0.5 mg/dL (0.4-1.0); POTASSIUM 3.2 mmol/L (3.5-5.0)
[2020-09-24] MEDS ORDERED: MAGNESIUM SULFATE 2 GRAM 2 GM/50 ML BAG IV ONE (06:45)
[2020-09-24] MEDS: traMADol 50 MG TABLET PO PRN ×2 (06:55→10:57)
[2020-09-24] MEDS: POTASSIUM CHLOR 10 MEQ/100 ML 10 MEQ/100 ML BAG IV SCH ×4 (07:47→11:21)
[2020-09-24] MEDS: PRENATAL VITAMIN TABLET PO SCH (08:57)
[2020-09-24] MEDS: THIAMINE 100 MG TABLET PO SCH (08:58)
[2020-09-24] MEDS: PANTOPRAZOLE 40 MG TABLET PO SCH ×2 (08:58→20:57)
[2020-09-24] MEDS: ONDANSETRON 4 MG/2 ML VIAL IVP PRN (09:03)
[2020-09-24] MEDS: SODIUM CHLORIDE FLUSH 0.9% 10 ML SYRINGE IVP SCH ×3 (09:03→23:46)
--- NOTE | 2020-09-24 11:08 | PHARMACY PROGRESS NOTE ---
- Best Possible Medication History Admit Date and Time: 09/23/20 9392 Processed by: Pharmacy Medication History completed: Yes Patient Interview: Completed Secondary Source(s): Written medication list (PATIENT ABLE TO CONFIRM HOME MEDICATIONS ), Physician records, Pharmacy records, Insurance records As the person ultimately responsible for medication therapy, providers are able to order a medication from an existing home medication list in [facility] via the "Reconcile Routine" prior to Confirmation of that medication by learning support aide. Such practice is discouraged except when the physician, in their clinical judgment, deems that a medical need exists for a medication without regard to previous use.
[2020-09-24] MEDS ORDERED: SODIUM PHOSPHATE 21 MMOL in SODIUM CHLORIDE 0.9% 250 ML IV ONE (11:30)
[2020-09-24 11:39] LABS: BILIRUBIN,DIRECT 1.5 mg/dL (0.1-0.5); BILIRUBIN,INDIRECT 1.1 mg/dL; BILIRUBIN,TOTAL 2.6 mg/dL (0.2-1.0)
--- NOTE | 2020-09-24 15:08 | PROVIDER PROGRESS NOTE ---
Assessment/Plan - Problem List (1) Anemia Qualifiers: Iron deficiency anemia type: chronic blood loss Assessment/Plan: Our ED provider yesterday was under the impression that she just had endoscopies done when she was hospitalized at [facility] 3 weeks ago. I was able to obtain some records from [facility] which are dated August 2020 and this indicates that her last endoscopies was done from the ostomy and EGD by Dr. Lima her Cafeteria Manager 1-1/2 years ago. The patient confirms the same information today to me. Those old records show that she has had bleeding esophageal varices, large gastric ulcer, gastritis, and she has undergone pill endoscopy to locate other intestinal sources of bleeding. The records state "GI blood loss remains the most likley etiology" of her chronic anemia. She is even had bone marrow biopsies done in October 2019 which showed hypercellular marrow but no evidence of leukemia and very low iron storage. She was prescribed oral iron, had severe nausea and vomiting, has needed IV iron infusions with Injectafer. I reached out today to Dr. Rob Lima's office and [place] to discuss her current hospitalization and whether she needs repeat scoping done now. A call back is awaited. Will start empiric Pepcid bid. Continue to monitor her hemoglobin every 12 hours, transfuse to a hemoglobin greater than 7. 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 Yesterday she received a transfusion which was not crossmatched with the JKA antibody and our blood bank director is worried that the patient may get a delayed transfusion reaction. Will redraw a blood type and crossmatch. Her 4th U of PRBCs will be delayed in getting transfused. Will follow LDH daily and bilirubin daily and if elevated these could also be from the blood she has received. (3) Alcoholic cirrhosis Qualifiers: Ascites presence: without ascites Qualified Code(s): K70.30 - Alcoholic cirrhosis of liver without ascites Assessment/Plan: Patient reported to me that she had a history of binge drinking, her last alcohol drink was approximately April of this year. Her labs do show AST> ALT and elevated bili of 21 and 2.6. She is on a CIWA protocol here, which was ordered empirically by the Dry Folder Cl[employer] who admitted her. Follow LFTs intermittently. Check her INR. Avoid hepatotoxins. (4) Hematuria Qualifiers: Hematuria type: gross Qualified Code(s): R31.0 - Gross hematuria Assessment/Plan: She reports that she gets frequent UTIs. She denies any burning or itching currently but did see one blood clot in her urine. The UA at admission showed white cells but only trace bacteria and no culture was indicated. We will order a repeat UA. (5) Hyponatremia Assessment/Plan: This appears to be hypovolemic hyponatremia. She will be getting multiple units of PRBCs and will not order Lasix between the units but allow the serum components to circulate. We will follow BMP daily, order free-water restriction if needed. (6) Hypokalemia Assessment/Plan: This may be due to losses with her bowel movements versus inadequate intake. Replace with IV K riders. Follow BMP daily (7) S/P colostomy Assessment/Plan: She has had this since 2015 or 2016 when she had a perforated tic and needed a right hemicolectomy. (There was also a previous ileostomy for perforation but that was reversed at before getting the colostomy). She reported to the [employer] yesterday vthat currently her stool in the colostomy bag is black. Guaic test was ordered, and is still pending. - Current Meds Current Meds: Current Medications Generic Name Dose Route Start Last Admin Trade Name Freq PRN Reason Stop Dose Admin Sodium Phosphate 21 mmol/ 257 mls @ 64.25 mls/hr 09/24/20 11:30 09/24/20 14:29 Sodium Chloride IV 09/24/20 15:29 0 mls/hr ONCE ONE Infusion Ondansetron HCl 4 mg 09/23/20 17:07 09/24/20 09:03 Ondansetron 4 Mg/2 Ml Vial IVP 4 mg Q6HR PRN Administration Nausea / Vomiting Pantoprazole Sodium 40 mg 09/24/20 09:00 09/24/20 08:58 Pantoprazole 40 Mg Tablet PO 40 mg BID CHRISTINE Administration Multivit/Folic Acid/Iron 1 tab 09/24/20 09:00 09/24/20 08:57 Vitamin Tablet PO 1 tab DAILY CHRISTINE Administration Sodium Chloride 10 ml 09/24/20 01:00 09/24/20 09:03 Sodium Chloride Flush 0.9% 10 Ml Syringe IVP 10 ml 0100,0900,1700 CHRISTINE Administration Thiamine HCl 100 mg 09/24/20 09:00 09/24/20 08:58 Thiamine 100 Mg Tablet PO 100 mg DAILY CHRISTINE Administration Throat Lozenges 1 lozenge 09/24/20 03:59 09/24/20 04:52 Benzocaine/Menthol Lozenge MM 1 lozenge Q2HR PRN Administration Throat pain Tramadol HCl 50 mg 09/24/20 06:48 09/24/20 10:57 Tramadol 50 Mg Tablet PO 50 mg Q4HR PRN Administration PAIN Trazodone HCl 100 mg 09/23/20 21:00 09/23/20 22:25 Trazodone 50 Mg Tablet PO 100 mg QPM CHRISTINE Administration - Lab Result Fish Bone Diagrams: 09/24/20 04:50 09/24/20 04:50 - Additional Planning My Orders: My Active Orders 09/23/20 Dinner Soft Mechanical Diet [DIET] 09/23/20 17:07 Activity Orders [RC] Q2HR IO [RC] IOSHIFT Initiate Bowel Care Protocol [RC] .protocol Initiate Line Care Protocol [RC] QSHIFT Initiate Personal Care Protoco [RC] .protocol Oxygen Therapy [RC] .PRN Telemetry- [RC] Q4HR Vital Signs [RC] Q4HR Acetaminophen [Tylenol] 650 mg PO Q4HR PRN Ondansetron Inj [Zofran Inj] 4 mg IVP Q6HR PRN Sodium Chloride Flush 0.9% [Normal Saline Flush 0.9%] 10 ml IVP PRN PRN Code Status [OTHERS] Routine Condition of Patient [OTHERS] Routine DVT Prophylaxis [OTHERS] Routine 09/23/20 17:08 IV Insert [RC] .ONCE 09/23/20 17:09 SCDs [RC] QSHIFT 09/23/20 17:14 Transfuse RBCs Leukoreduced [RC] .ONCE 09/24/20 01:00 Sodium Chloride Flush 0.9% [Normal Saline Flush 0.9%] 10 ml IVP 0100,0900,1700 09/24/20 03:59 Benzocaine/Menthol [Cepacol] 1 lozenge MM Q2HR PRN 09/24/20 10:46 RBC, LEUKOREDUCED Routine TYPE AND SCREEN Routine 09/24/20 11:30 Sodium Phosphate 21 mmol Sodium Chloride 0.9% [Normal Saline 0.9%] 250 ml IV ONCE 09/24/20 15:03 UA, MICROSCOPIC & CULT IF [URIN] Urgent 09/25/20 05:00 BILIRUBIN, TOTAL AND DIRECT [CHEM] DAILYLAB LDH - LACTATE DEHYDROGENASE [CHEM] DAILYLAB 09/26/20 05:00 BILIRUBIN, TOTAL AND DIRECT [CHEM] DAILYLAB LDH - LACTATE DEHYDROGENASE [CHEM] DAILYLAB Objective Vital Signs: Vital Signs - 24 hr 09/23/20 09/23/20 09/23/20 15:14 15:17 16:00 Temperature 37.0 C Heart Rate 133 H 129 H 131 H Heart Rate [ Brachial] Respiratory 22 16 Rate Blood Pressure 91/54 L 108/67 108/67 Blood Pressure [Right Brachial artery] O2 Saturation 99 95 100 09/23/20 09/23/20 09/23/20 16:30 17:26 17:30 Temperature Heart Rate 126 H 127 H 129 H Heart Rate [ Brachial] Respiratory 15 14 16 Rate Blood Pressure 115/66 108/66 117/67 Blood Pressure [Right Brachial artery] O2 Saturation 100 100 100 09/23/20 09/23/20 09/23/20 17:57 18:04 18:12 Temperature 36.8 C 36.8 C 37.5 C Heart Rate 146 H 133 H Heart Rate [ 143 H Brachial] Respiratory 16 20 16 Rate Blood Pressure 120/70 108/68 Blood Pressure 120/70 [Right Brachial artery] O2 Saturation 100 09/23/20 09/23/20 09/23/20 20:27 21:00 21:05 Temperature 36.8 C 37.0 C 37.0 C Heart Rate 126 H 124 H Heart Rate [ 125 H Brachial] Respiratory 20 16 16 Rate Blood Pressure 111/62 111/62 Blood Pressure 106/61 [Right Brachial artery] O2 Saturation 99 09/23/20 09/23/20 09/24/20 21:20 23:25 00:15 Temperature 36.8 C 37.2 C 36.7 C Heart Rate 126 H 119 H Heart Rate [ 118 H Brachial] Respiratory 16 16 18 Rate Blood Pressure 110/53 L 101/52 L Blood Pressure 109/59 L [Right Brachial artery] O2 Saturation 100 09/24/20 09/24/20 09/24/20 00:42 01:01 03:34 Temperature 36.7 C 36.9 C 36.7 C Heart Rate 118 H 108 H 100 Heart Rate [ Brachial] Respiratory 18 16 18 Rate Blood Pressure 101/52 L 101/63 104/65 Blood Pressure [Right Brachial artery] O2 Saturation 09/24/20 09/24/20 09/24/20 04:53 05:33 09:00 Temperature 37.1 C 37.1 C 36.6 C Heart Rate 72 Heart Rate [ 72 99 Brachial] Respiratory 16 16 18 Rate Blood Pressure Blood Pressure 104/68 116/75 [Right Brachial artery] O2 Saturation 100 100 98 09/24/20 09/24/20 09/24/20 12:08 14:05 14:10 Temperature 37.0 C 36.7 C 36.6 C Heart Rate 87 88 Heart Rate [ 98 Brachial] Respiratory 19 16 16 Rate Blood Pressure 118/84 H 120/78 Blood Pressure 119/79 [Right Brachial artery] O2 Saturation 100 09/24/20 14:25 Temperature 36.6 C Heart Rate 86 Heart Rate [ Brachial] Respiratory 16 Rate Blood Pressure 121/79 Blood Pressure [Right Brachial artery] O2 Saturation Oxygen O2 Source Room air I&O (Last 24 Hrs): Intake and Output Totals x24h 09/22/20 09/23/20 09/24/20 23:59 23:59 23:59 Intake Total 1740 2591.188 Output Total 275 800 Balance 1465 1791.188 General: Alert, Oriented x3 HEENT: Mucous membr. moist/pink, Other (Appears Cushingoid, also has multiple pearcings.) Neuro: Alert, Non Focal (No asterixis, no tremor) Cardiovascular: Regular rate, No murmurs Respiratory: No respiratory distress, Breath sounds nml Abdomen: Normal bowel sounds, Soft, Other (Ostomy bag present) Extremities: No clubbing, No edema - Results Results: Laboratory Results WBC 6.9 x10^3/uL (4.8-10.8) 09/24/20 04:50 RBC 2.35 10^6/uL (4.20-5.40) L 09/24/20 04:50 Hgb 6.6 g/dL (12.0-16.0) L* 09/24/20 04:50 Hct 20.5 % (37.0-47.0) L 09/24/20 04:50 MCV 87.2 fL (81.0-99.0) 09/24/20 04:50 MCH 28.1 pg (27.0-31.0) 09/24/20 04:50 MCHC 32.2 g/dL (32.0-36.0) 09/24/20 04:50 RDW 15.8 % (12.0-15.0) H 09/24/20 04:50 Plt Count 95 10^3/uL (130-450) L 09/24/20 04:50 MPV 11.2 fL (7.9-10.8) H 09/24/20 04:50 Neut # (Auto) 5.1 10^3/uL (1.5-6.6) 09/24/20 04:50 Lymph # (Auto) 1.1 10^3/uL (1.5-3.5) L 09/24/20 04:50 [place] # (Auto) 0.6 10^3/uL (0.0-1.0) 09/24/20 04:50 Eos # (Auto) 0.0 10^3/uL (0.0-0.7) 09/24/20 04:50 Baso # (Auto) 0.0 10^3/uL (0.0-0.1) 09/24/20 04:50 Absolute Nucleated RBC 0.02 x10^3/uL 09/24/20 04:50 Nucleated RBC % 0.3 /100WBC 09/24/20 04:50 Platelet Estimate DECREASED (<130,000) (NORMAL) 09/23/20 15:37 Platelet Morphology NORMAL APPEARANCE (NORMAL) 09/23/20 15:37 RBC Morph Micro Appear 3+ ANISOCYTOSIS (NORMAL) 4+ HYPOCHROMASIA (NORMAL) 1+ POLYCHROMASIA (NORMAL) 09/23/20 15:37 RBC Morph Micro Appear 3+ ANISOCYTOSIS (NORMAL) 4+ HYPOCHROMASIA (NORMAL) 1+ POLYCHROMASIA (NORMAL) 09/23/20 15:37 RBC Morph Micro Appear 3+ ANISOCYTOSIS (NORMAL) 4+ HYPOCHROMASIA (NORMAL) 1+ POLYCHROMASIA (NORMAL) 09/23/20 15:37 PT 17.5 secs (9.9-12.6) H 09/23/20 15:37 INR 1.6 (0.8-1.2) H 09/23/20 15:37 APTT 30.4 secs (24.9-33.3) 09/23/20 15:37 Sodium 130 mmol/L (135-145) L 09/24/20 04:50 Potassium 3.2 mmol/L (3.5-5.0) L 09/24/20 04:50 Chloride 98 mmol/L (101-111) L 09/24/20 04:50 Carbon Dioxide 23 mmol/L (21-32) 09/24/20 04:50 Anion Gap 9.0 (6-13) 09/24/20 04:50 BUN 11 mg/dL (6-20) 09/24/20 04:50 Creatinine 0.5 mg/dL (0.4-1.0) 09/24/20 04:50 Estimated GFR (MDRD) 132 (>89) 09/24/20 04:50 Glucose 121 mg/dL (70-100) H 09/24/20 04:50 Calcium 7.6 mg/dL (8.5-10.3) L 09/24/20 04:50 Phosphorus 2.2 mg/dL (2.5-4.6) L 09/23/20 21:35 Magnesium 1.5 mg/dL (1.7-2.8) L 09/23/20 21:35 Total Bilirubin 2.6 mg/dL (0.2-1.0) H 09/24/20 10:46 Direct Bilirubin 1.5 mg/dL (0.1-0.5) H 09/24/20 10:46 Indirect Bilirubin 1.1 mg/dL 09/24/20 10:46 AST 44 IU/L (10-42) H 09/23/20 15:37 ALT 17 IU/L (10-60) 09/23/20 15:37 Alkaline Phosphatase 273 IU/L (42-121) H 09/23/20 15:37 Lactate Dehydrogenase 115 IU/L (91-225) 09/24/20 10:46 Total Protein 6.4 g/dL (6.7-8.2) L 09/23/20 15:37 Albumin 3.1 g/dL (3.2-5.5) L 09/23/20 15:37 Globulin 3.3 g/dL (2.1-4.2) 09/23/20 15:37 Albumin/Globulin Ratio 0.9 (1.0-2.2) L 09/23/20 15:37 Lipase 29 U/L (22-51) 09/23/20 15:37 HCG, Quant < 0.60 mIU/mL 09/23/20 15:37 Urine Color YELLOW 09/23/20 20:40 Urine Clarity CLEAR (CLEAR) 09/23/20 20:40 Urine pH 6.0 PH (5.0-7.5) 09/23/20 20:40 Ur Specific [place] 1.020 (1.002-1.030) 09/23/20 20:40 Urine Protein NEGATIVE mg/dL (NEGATIVE) 09/23/20 20:40 Urine Glucose (UA) NEGATIVE mg/dL (NEGATIVE) 09/23/20 20:40 Urine Ketones NEGATIVE mg/dL (NEGATIVE) 09/23/20 20:40 Urine Occult Blood TRACE-INTA (NEGATIVE) 09/23/20 20:40 Urine Nitrite POSITIVE (NEGATIVE) H 09/23/20 20:40 Urine Bilirubin NEGATIVE (NEGATIVE) 09/23/20 20:40 Urine Urobilinogen 0.2 (NORMAL) E.U./dL (NORMAL) 09/23/20 20:40 Ur Leukocyte Esterase SMALL (NEGATIVE) H 09/23/20 20:40 Urine RBC 0-5 /HPF (0-5) 09/23/20 20:40 Urine WBC 11-25 /HPF (0-5) H 09/23/20 20:40 Ur Epithelial Cells RARE Transitional /HPF (<= Few) 09/23/20 20:40 Ur Squamous Epith Cells MOD Squamous (<= Few) H 09/23/20 20:40 Urine Bacteria Few /HPF (None Seen) 09/23/20 20:40 Ur Microscopic Review INDICATED 09/23/20 20:40 Urine Culture Comments NOT INDICATED 09/23/20 20:40 Urine HCG, Qual NEGATIVE 09/23/20 20:40 Nasal Adenovirus (PCR) NOT DETECTED 09/23/20 16:54 Nasal B. parapertussis DNA (PCR) NOT DETECTED 09/23/20 16:54 Nasal Coronavir 229E PCR NOT DETECTED 09/23/20 16:54 Nasal Coronavir HKU1 PCR NOT DETECTED 09/23/20 16:54 Nasal Coronavir NL63 PCR NOT DETECTED 09/23/20 16:54 Nasal Coronavir OC43 PCR NOT DETECTED 09/23/20 16:54 Nasal Enterovir/Rhinovir PCR NOT DETECTED 09/23/20 16:54 Nasal Influenza B PCR NOT DETECTED 09/23/20 16:54 Nasal Influenza A PCR NOT DETECTED 09/23/20 16:54 Nasal Parainfluen 1 PCR NOT DETECTED 09/23/20 16:54 Nasal Parainfluen 2 PCR NOT DETECTED 09/23/20 16:54 Nasal Parainfluen 3 PCR NOT DETECTED 09/23/20 16:54 Nasal Parainfluen 4 PCR NOT DETECTED 09/23/20 16:54 Nasal RSV (PCR) NOT DETECTED 09/23/20 16:54 Nasal B.pertussis DNA PCR NOT DETECTED 09/23/20 16:54 Nasal C.pneumoniae (PCR) NOT DETECTED 09/23/20 16:54 Yan Human Metapneumo PCR NOT DETECTED 09/23/20 16:54 Nasal M.pneumoniae (PCR) NOT DETECTED 09/23/20 16:54 Nasal SARS-CoV-2 (PCR) NOT DETECTED 09/23/20 16:54 Blood Type A POSITIVE 09/24/20 10:46 Antibody Screen NEGATIVE 09/24/20 10:46 Crossmatch See Detail 09/24/20 10:46
[2020-09-24 15:15] LABS: BILIRUBIN,URINE NEGATIVE (NEGATIVE); CLARITY,URINE HAZY (CLEAR); GLUCOSE, URINE (UA) NEGATIVE (NEGATIVE); KETONES,URINE (UA) NEGATIVE (NEGATIVE); LEUKOCYTE ESTERASE, URINE MODERATE (NEGATIVE); NITRITE,URINE NEGATIVE (NEGATIVE); OCCULT BLOOD,URINE TRACE-INTA (NEGATIVE); PROTEIN,URINE NEGATIVE (NEGATIVE); UROBILINOGEN,URINE 0.2 (NORMAL) E.U./dL (NORMAL)
[2020-09-24 15:19] LABS: FECAL OCCULT BLOOD (FIT) NEGATIVE (NEGATIVE)
[2020-09-24 15:27] LABS: BACTERIA,URINE Few /HPF (None Seen); RBC,URINE 0-5 /HPF (0-5); SQUAMOUS EPITHELIAL CELL,UR FEW Squamous (<= Few); WBC,URINE >25 /HPF (0-5)
[2020-09-24 18:22] LABS: HCT - HEMATOCRIT 26.3 % (37.0-47.0); HGB - HEMOGLOBIN 8.7 g/dL (12.0-16.0)
[2020-09-24] MEDS: FAMOTIDINE 20 MG TABLET PO SCH (20:57)
[2020-09-24] MEDS: traZODone 50 MG TABLET PO SCH (20:57)
[2020-09-25 06:05] LABS: BASOPHILS % (AUTO) 0.4 %; EOSINOPHILS # (AUTO) 0.1 10^3/uL (0.0-0.7); HCT - HEMATOCRIT 25.6 % (37.0-47.0); HGB - HEMOGLOBIN 8.2 g/dL (12.0-16.0); LYMPHOCYTES # (AUTO) 0.9 10^3/uL (1.5-3.5); LYMPHOCYTES % (AUTO) 20.4 %; MEAN CORPUSCULAR HEMOGLOBIN 28.5 pg (27.0-31.0); MEAN CORPUSCULAR VOLUME 88.9 fL (81.0-99.0); MEAN PLATELET VOLUME 10.2 fL (7.9-10.8); MONOCYTES # (AUTO) 0.4 10^3/uL (0.0-1.0); MONOCYTES % (AUTO) 9.1 %; NEUTROPHILS # (AUTO) 3.1 10^3/uL (1.5-6.6); NEUTROPHILS % (AUTO) 67.4 %; PLT - PLATELET COUNT 95 10^3/uL (130-450); RED BLOOD COUNT 2.88 10^6/uL (4.20-5.40); RED CELL DISTRIBUTION WIDTH 15.8 % (12.0-15.0); WHITE BLOOD COUNT 4.6 x10^3/uL (4.8-10.8)
[2020-09-25 06:17] LABS: BILIRUBIN,INDIRECT 1.5 mg/dL; BILIRUBIN,TOTAL 3.5 mg/dL (0.2-1.0); CALCIUM 7.6 mg/dL (8.5-10.3); CREATININE 0.5 mg/dL (0.4-1.0); POTASSIUM 3.5 mmol/L (3.5-5.0)
[2020-09-25] MEDS ORDERED: traMADol 50 MG TABLET PO PRN (08:28)
[2020-09-25] MEDS ORDERED: MONTELUKAST 10 MG TABLET PO PRN (08:28)
[2020-09-25] MEDS ORDERED: ONDANSETRON ODT 4 MG TABLET TL PRN (08:28)
--- NOTE | 2020-09-25 08:33 | Discharge Plan ---
Discharge Plan Problem Reviewed?: Yes Disposition: Home, Self Care Condition: Fair Diet: Regular Activity Restrictions: Activity as Tolerated Shower Restrictions: No Driving Restrictions: No Health Concerns: You were admitted to receive blood transfusions because of a critically low hemoglobin of 3.5. Your records were obtained from [facility] and reviewed. These showed that you have had extensive work-up for the anemia. During this hospital stay, we tested your bowel movement and it was negative for blood. For that reason, there is no indication to repeat upper endoscopy or lower endoscopy at this time. You should resume IV iron treatment as you had in the past (according to the [facility] records). Because of your anemia, your blood pressure was excessively low. Your Nadolol dose is therefore excessive, dropping your blood pressure too much. Please resume all your usual medications except not the Nadolol. You should see your primary care provider soon, for follow-up of this hospital stay and regarding when to restart Nadolol. Plan of Treatment: As above. Care Goals: Improvement in symptoms and stabilization are the goals. Assessment: The patient understands and is agreeable with the plan. Additional Instructions or Follow Up instructions: If you have new or worsening symptoms, call your PCP for advice or come to the ER. No Smoking: If you smoke, Please STOP! Call for help. Follow-up with: Angie Diaz ARNP [Primary Care Provider] - Gage Luis MD [Physician No Access] -
[2020-09-25] MEDS: PRENATAL VITAMIN TABLET PO SCH (08:57)
[2020-09-25] MEDS: PANTOPRAZOLE 40 MG TABLET PO SCH (08:57)
[2020-09-25] MEDS: FAMOTIDINE 20 MG TABLET PO SCH (08:57)
[2020-09-25] MEDS: THIAMINE 100 MG TABLET PO SCH (08:57)
[2020-09-25] MEDS: SODIUM CHLORIDE FLUSH 0.9% 10 ML SYRINGE IVP SCH (09:05)
[2020-09-25] MEDS ORDERED: ALBUTEROL NEB 2.5 MG/3 ML INH PRN (09:17)
--- NOTE | 2020-09-25 09:29 | DISCHARGE SUMMARY ---
Discharge Summary Admit Date: 09/23/20 Discharge Date: 09/25/20 Discharging Provider: Dr Ángela Doty Primary Care Provider: Angie Diaz NP & Dr Gage Luis Code Status: Attempt Resuscitation Condition at Discharge: Fair Discharge Disposition: 01 Home, Self Care - HPI History of Present Illness: From the admission H&P of Dr Aaron Singeru: Patient is a 49-year-old female who presented to the ED with complaint of dyspnea on exertion and dizziness. Her symptoms have been going on for the past 5 days but became significantly worse today. In the ED work-up included a CBC which showed a hemoglobin of 3.6. She denied chest pain or abdominal pain but reports nausea and vomiting. She reported low-grade temperature of 100F on Monday and Monday but none since. She has history of diverticulitis which ruptured and required a colostomy bag. Her ostomy bag currently contains loose/watery stool which is black in color. She reports noticing this for the past 4 days It is reported that she recently underwent endoscopy in [facility] 3 weeks ago. The records have been requested and are pending. She is being admitted for further treatment. - HOSPITAL COURSE Hospital Course: (1) Chronic blood loss anemia Our ED provider was under the impression that she just had endoscopies done 3 weeks previously, when hospitalized at [facility]. But, records from [facility], dated August 2020, indicated that her last endoscopies were done through the ostomy and she had EGD, by Dr. Lima her Refined Syrup Operator, 1 and 1/2 years ago. The patient confirmed that. Those records also revealed that she has had bleeding esophageal varices, large gastric ulcer, gastritis, and she has undergone pill endoscopy to locate other intestinal sources of bleeding. The records state "GI blood loss remains the most likley etiology" of her chronic anemia. She has even had bone marrow biopsies done in October 2019, which showed hypercellular marrow but no evidence of leukemia and very low iron sto rage. She was prescribed oral iron, which caused severe nausea and vomiting, and she has needed IV iron infusions with Injectafer. We started empiric Protonix 40 mg po b.i.d. and sent a guaic stool sample. This returned guaic neg. As such, she did not undergo any scoping while here. She was transfused with 4U total of blood, and her Hgb (and LDH and bili, see #2) were then monitored for a day and remained stable at greater than 8, thus she was discharged. She reported occasional hematuria (see #4), which could be adding to her anemia, and she should have outpt evaluation. (2) Red blood cell antibody positive, compatible PRBC difficult to obtain The blood bank reported that patient has JOSH antibodies (which is a genetic disorder) and also JKA antibodies present. She received 3 U transfused which were not crossmatched with the JKA antibody and our blood bank director was worried that the patient may get a delayed transfusion reaction. Will redrew a blood type and crossmatch. Her 4th U of PRBCs was delayed in getting transfused. We followed her LDH daily and bilirubin daily. There was no sign of transfusion reaction. (3) Alcoholic cirrhosis without ascites Patient reported that she had a history of binge alcohol drinking, and that her last alcohol drink was approximately April of this year. Her labs did show AST> ALT and elevated bili of 2.1 and 2.6, elevated INR of 1.6, therefore she was put on a CIWA protocol here, ordered empirically. There were no signs of alcohol withdrawal. (4) Hematuria (R31.0) She reported that she gets frequent UTIs. She denied any burning or itching currently, but did see one blood clot in her urine. The UA at admission showed white cells but only trace bacteria and no culture was indicated. A repeat UA was done, given the visible small clot in her urine. (5) Asymptomatic bacteriuria The next UA went on to be cultured and urine culture grew E. coli, but because of no elevated white count, no urinary symptoms and no fever here, no treatment was indicated (6) Hyponatremia This appeared to be hypovolemic hyponatremia. She got multiple units of PRBCs and we did not order Lasix between the units. Sodium improved from 130 to 133. (7) Hypokalemia This was probably due to losses with her bowel movements versus inadequate intake. She got replacement with IV K riders. (8) S/P colostomy She has had this since 2016 or 2017 when she had a perforated diverticulum and needed a right hemicolectomy. (There was also a prior ileostomy for perforation but that was reversed at before getting the colostomy). She reported that currently her stool in the colostomy bag was black. Guaic test was ordered, and it was guaic neg. - ALLERGIES Allergies/Adverse Reactions: Allergies Allergy/AdvReac Type Severity Reaction Status Date / Time cephalexin Allergy Unknown Verified 09/23/20 15:18 sertraline Allergy Unknown Verified 09/23/20 15:18 - MEDICATIONS Home Medications: Ambulatory Orders Medication Instructions Recorded Confirmed Montelukast Sodium 10 mg PO DAILY PRN 11/26/19 09/24/20 Pantoprazole Sodium [Protonix] 40 mg PO DAILY 11/26/19 09/24/20 Trazodone HCl 100 mg PO QPM 11/26/19 09/24/20 Albuterol [Proventil Hfa] 2 - 4 puffs PO Q4H PRN 09/24/20 09/24/20 Ondansetron Odt [Zofran Odt] 4 mg SL PRN PRN 09/24/20 09/24/20 traMADol [Ultram] 25 mg PO Q8H PRN 09/24/20 09/24/20 - PHYSICAL EXAM AT DISCHARGE General Appearance: positive: No acute distress, Alert, Other (Pale) Eyes Bilateral: positive: Normal inspection, EOMI, Other (Sclerae icteric) ENT: positive: ENT inspection nml, No signs of dehydration Neck: positive: Nml inspection, No JVD Respiratory: positive: No respiratory distress, Breath sounds nml Cardiovascular: positive: Regular rate & rhythm, No murmur Abdomen: positive: Non-tender, Nml bowel sounds, No distention, Other (ostomy bag present) Skin: positive: Pallor, Other (Icteric) Extremities: positive: Non-tender, No pedal edema Neurologic/Psychiatric: positive: Oriented x3 (Non-focal, no asterixis or nystagmus) - LABS Result Diagrams: 09/25/20 05:16 09/25/20 05:16 - DIAGNOSTIC IMAGING Diagnostic Imaging Results: Final report reviewed - FOLLOW UP Follow Up: See PCP for hospital follow-up in 5-7 days. - TIME SPENT Time Spent in Discharge (Minutes): 30
[2020-09-25 09:36] VITALS: BP 117/79
[2020-09-25] MEDS ORDERED: traZODone 50 MG TABLET PO SCH (21:00)
[2020-09-26] MEDS ORDERED: PANTOPRAZOLE 40 MG TABLET PO SCH (09:30)
== END 2020-09-25 11:13 | disposition home or self-care (01) | DRG 812 ==
LOC: ED 15:03 → MS2 17:07
PROVIDERS: ADMIT Internal Medicine; ATTEND Internal Medicine
PROC: 30233N1 Transfusion of Nonautologous Red Blood Cells into Peripheral Vein, Percutaneous Approach (ICD-10-PCS; principal; 2020-09-23)
DX: D50.0 Iron deficiency anemia secondary to blood loss (chronic) (principal); E87.1 Hypo-osmolality and hyponatremia; E87.6 Hypokalemia; Q99.8 Other specified chromosome abnormalities; K70.30 Alcoholic cirrhosis of liver without ascites; R31.9 Hematuria, unspecified; I95.2 Hypotension due to drugs; T44.7X5A Adverse effect of beta-adrenoreceptor antagonists, initial encounter; Z20.822 Contact with and (suspected) exposure to COVID-19; K21.9 Gastro-esophageal reflux disease without esophagitis; R35.0 Frequency of micturition; F41.9 Anxiety disorder, unspecified; M41.9 Scoliosis, unspecified; Z93.3 Colostomy status; Z79.899 Other long term (current) drug therapy; Z87.11 Personal history of peptic ulcer disease; Z87.19 Personal history of other diseases of the digestive system; Z97.2 Presence of dental prosthetic device (complete) (partial)
CPT/HCPCS: 0202U; 36415; 80048; 80053; 81001; 81003; 81025; 82247; 82248; 82274; 83615; 83690; 83735; 84100; 84702; 85014; 85018; 85025; 85610; 85730; 86850; 86900; 86901; 86922; 87086; 87181; 93005; 96361; 96374; 99284

== ENCOUNTER 2020-11-01 11:12 | Emergency (ER) | payer OTHER ==
[2020-11-01 11:32] VITALS: BP 109/62
[2020-11-01 12:04] LABS: OCCULT BLOOD,URINE LARGE (NEGATIVE)
[2020-11-01 12:14] LABS: BILIRUBIN,URINE NEGATIVE (NEGATIVE); CLARITY,URINE BLOODY (CLEAR); ICTOTEST,URINE NEGATIVE
[2020-11-01 12:16] LABS: BACTERIA,URINE Few /HPF (None Seen); RBC,URINE Y /HPF (0-5); SQUAMOUS EPITHELIAL CELL,UR RARE Squamous (<= Few)
[2020-11-01] MEDS ORDERED: NITROFURANTOIN MACRO 100 MG CAPSULE PO STA (12:23)
--- NOTE | 2020-11-01 12:30 | ED Physician Documentation ---
PD HPI FEMALE - Stated complaint Stated Complaint: FEMALE - Chief complaint Chief Complaint: Abd Pain - History obtained from History obtained from: Patient - History of Present Illness Timing - onset: Today Timing - duration: Days (1) Timing - details: Gradual onset Pain level max: 4 Pain level max: 3 Associated symptoms: Dysuria, Urinary frequency, Hematuria Recently seen: Admitted (for anemia and varices) - Additional information Additional information: Patient is a 49-year-old female who presents to the emergency department complaining of dysuria urinary frequency and hematuria today. Feels similar to prior UTIs. No history of ureteral stones. No fevers. No vomiting. Worse with urination, nothing makes it better. 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 : Frequency, Other HEENT: Dental implants Psych: Anxiety Musculoskeletal: Scoliosis Derm: Eczema - Past Surgical History Past Surgical History: Yes General: Appendectomy, Colonoscopy, EGD, Other - Present Medications Home Medications: Ambulatory Orders Medication Instructions Recorded Confirmed Montelukast Sodium 10 mg PO DAILY PRN 11/26/19 09/24/20 Pantoprazole Sodium [Protonix] 40 mg PO DAILY 11/26/19 09/24/20 Trazodone HCl 100 mg PO QPM 11/26/19 09/24/20 Albuterol [Proventil Hfa] 2 - 4 puffs PO Q4H PRN 09/24/20 09/24/20 Ondansetron Odt [Zofran Odt] 4 mg SL PRN PRN 09/24/20 09/24/20 traMADol [Ultram] 25 mg PO Q8H PRN 09/24/20 09/24/20 Nitrofurantoin [Macrobid] 100 mg PO BID #10 cap 11/01/20 - Allergies Allergies/Adverse Reactions: Allergies Allergy/AdvReac Type Severity Reaction Status Date / Time cephalexin Allergy Unknown Verified 11/01/20 11:32 sertraline Allergy Unknown Verified 11/01/20 11:32 - Social History Does the pt smoke?: No Smoking Status: Never smoker Does the pt drink ETOH?: Yes Does the pt have substance abuse?: No - Immunizations Immunizations are current?: Yes Immunizations: TDAP current <10years - POLST Patient has POLST: No POLST Status: Full Code PD ED PE NORMAL - Vitals Vital signs reviewed: Yes - General General: Alert and oriented X 3, No acute distress, Well developed/nourished - HEENT HEENT: Moist mucous membranes - Neck Neck: Supple, no meningeal sign - Cardiac Cardiac: RRR - Respiratory Respiratory: No respiratory distress, Clear bilaterally - Abdomen Abdomen: Soft, Non tender, Non distended - Back Back: No CVA TTP - Derm Derm: Warm and dry - Extremities Extremities: No edema - Neuro Neuro: Alert and oriented X 3 - Psych Psych: Normal mood, Normal affect Results - Vitals Vitals: Vital Signs - 24 hr 11/01/20 11:28 Temperature 36.8 C Heart Rate 76 Respiratory 15 Rate Blood Pressure 109/62 O2 Saturation 100 Oxygen O2 Source Room air - Labs Labs: Laboratory Tests 11/01/20 11:49 Urine Color RED/BLOODY Urine Clarity BLOODY Urine pH Ur Specific [place] Urine Protein Urine Glucose (UA) Urine Ketones Urine Occult Blood LARGE H Urine Nitrite Urine Bilirubin NEGATIVE Urine Urobilinogen Ur Leukocyte Esterase Urine RBC Y Urine WBC 11-25 H Ur Squamous Epith Cells RARE Squamous Urine Bacteria Few Ur Microscopic Review INDICATED Urine Culture Comments NOT INDICATED PD MEDICAL DECISION MAKING - ED course Complexity details: reviewed old records, reviewed results, considered differential, d/w patient ED course: Patient with a UTI. Last urine culture showed pansensitive E. coli. Will place on Macrobid. No evidence of pyelonephritis or sepsis. Patient counseled regarding signs and symptoms for which I believe and urgent re-evaluation would be necessary. Patient with good understanding of and agreement to plan and is comfortable going home at this time This document was made in part using voice recognition software. While efforts are made to proofread this document, sound alike and grammatical errors may occur. Departure - Departure Disposition: 01 Home, Self Care Clinical Impression: Urinary tract infection Qualifiers: Urinary tract infection type: acute cystitis Hematuria presence: with hematuria Qualified Code(s): N30.01 - Acute cystitis with hematuria Condition: Good Instructions: ED UTI Cystitis Female Follow-Up: your,doctor in 1 week [Other] Prescriptions: Nitrofurantoin [Macrobid] 100 mg PO BID #10 cap Comments: Prescription was sent to [facility] in [place]. Please follow-up with your doctor for further care. Return if you worsen. Take all antibiotics until gone.
== END 2020-11-01 12:35 | disposition home or self-care (01) ==
LOC: ED 11:12
DX: N30.01 Acute cystitis with hematuria (principal); B96.20 Unspecified Escherichia coli [E. coli] as the cause of diseases classified elsewhere
CPT/HCPCS: 81001; 99283; A9270; 81003; 87086

== ENCOUNTER 2020-12-07 08:00 | Outpatient (CLI) | payer OTHER ==
[2020-12-07 18:24] LABS: BASOPHILS # (AUTO) 0.1 10^3/uL (0.0-0.1); BASOPHILS % (AUTO) 0.7 %; EOSINOPHILS % (AUTO) 0.3 %; HCT - HEMATOCRIT 34.7 % (37.0-47.0); HGB - HEMOGLOBIN 10.8 g/dL (12.0-16.0); LYMPHOCYTES # (AUTO) 0.5 10^3/uL (1.5-3.5); LYMPHOCYTES % (AUTO) 5.2 %; MEAN CORPUSCULAR HEMOGLOBIN 30.9 pg (27.0-31.0); MEAN CORPUSCULAR HGB CONC 31.1 g/dL (32.0-36.0); MEAN CORPUSCULAR VOLUME 99.1 fL (81.0-99.0); MEAN PLATELET VOLUME 10.7 fL (7.9-10.8); MONOCYTES # (AUTO) 0.5 10^3/uL (0.0-1.0); MONOCYTES % (AUTO) 5.3 %; NEUTROPHILS # (AUTO) 8.8 10^3/uL (1.5-6.6); NEUTROPHILS % (AUTO) 88.2 %; PLT - PLATELET COUNT 146 10^3/uL (130-450); RED CELL DISTRIBUTION WIDTH 19.3 % (12.0-15.0)
== END 2020-12-07 23:59 | disposition home or self-care (01) ==
LOC: LAB.N 08:00
PROVIDERS: ATTEND Physician Assistant Medical
DX: R00.0 Tachycardia, unspecified (principal); N39.0 Urinary tract infection, site not specified
CPT/HCPCS: 36415; 85025; 87086

== ENCOUNTER 2021-02-08 10:20 | Inpatient (IN) | payer OTHER ==
[2021-02-08] MEDS ORDERED: SODIUM CHLORIDE 0.9% 1,000 ML IV STA ×3 (10:49→14:44)
[2021-02-08] MEDS ORDERED: IPRATROPIUM/ALBUTEROL 3 ML NEB INH STA (10:49)
[2021-02-08] MEDS ORDERED: DEXAMETHASONE 10 MG/ML VIAL IVP STA (10:49)
--- NOTE | 2021-02-08 10:50 | ED Physician Documentation ---
PD HPI URI - Stated complaint Stated Complaint: SOA - History obtained from History obtained from: Patient - History of Present Illness Timing - onset: How many weeks ago (2) Timing duration: Weeks (2) Timing details: Gradual onset (The patient states she has had 2 weeks of general weakness progressing associated with nausea and decreased oral intake. She is still had normal output from her colostomy. She denies any blood from it. The last several days has feeling of fever and chills. She has had nausea but no vomiting.), Still present (weak and lightheaded the past few days. Called EMS this morning. They noted patient tachycardic and hypotensive. Medic thought possible SVT.) Associated symptoms: Chills, Sore throat, Dyspnea, Other (normal colostomy outp ut.). No: Nasal congestion, Dry cough, Bilateral edema Contributing factors: No: Sick contact, COPD / asthma Worsened by: Activity Similar symptoms before: Diagnosis (similar to prior episodes of anemia and also illness. States feels worse than just the anemia.) Recently seen: Clinic (she states got transfusion for anemia about a month ago. Had similar weakness and dyspnea without other symptoms in September and hospitalized here for profound anemia.) Review of Systems Constitutional: reports: Chills, Fatigue. denies: Fever Nose: denies: Rhinorrhea / runny nose, Congestion Throat: reports: Sore throat Respiratory: denies: Cough GI: reports: Nausea. denies: Abdominal Pain, Vomiting, Diarrhea (normal colostomy output without melena.) : reports: Frequency Skin: denies: Rash Musculoskeletal: denies: Extremity swelling Neurologic: reports: Generalized weakness, Altered mental status (feeling confused). denies: Near syncope, Headache Immunocompromised: reports: Immunocompromised. 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, Other HEENT: Dental implants Psych: Anxiety Musculoskeletal: Scoliosis Derm: Eczema - Past Surgical History Past Surgical History: Yes General: Appendectomy, Colonoscopy, EGD, Other - Present Medications Home Medications: Ambulatory Orders Medication Instructions Recorded Confirmed Montelukast Sodium 10 mg PO DAILY PRN 11/26/19 02/08/21 Pantoprazole Sodium [Protonix] 40 mg PO DAILY 11/26/19 02/08/21 Trazodone HCl 200 mg PO QPM 11/26/19 02/08/21 Albuterol [Proventil Hfa] 2 - 4 puffs PO Q4H PRN 09/24/20 02/08/21 Ondansetron Odt [Zofran Odt] 4 mg SL PRN PRN 09/24/20 02/08/21 traMADol [Ultram] 25 mg PO Q8H PRN 09/24/20 02/08/21 - Allergies Allergies/Adverse Reactions: Allergies Allergy/AdvReac Type Severity Reaction Status Date / Time cephalexin Allergy Unknown Verified 02/08/21 10:54 sertraline Allergy Unknown Verified 02/08/21 10:54 - Social History Does the pt smoke?: No Smoking Status: Never smoker Does the pt drink ETOH?: Yes Does the pt have substance abuse?: No - Immunizations Immunizations are current?: Yes Immunizations: TDAP current <10years - POLST Patient has POLST: No POLST Status: Full Code PD ED PE NORMAL - Vitals Vital signs reviewed: Yes - General General: Alert and oriented X 3, Other (pale, dyspneic. Tachycardic with rate 125-150 variable, so seemed sinus tachycardia. ). No: Well developed/nourished (frail appearing, with mild jaundice. ) - HEENT HEENT: Pharynx benign. No: Moist mucous membranes - Neck Neck: Supple, no meningeal sign, No adenopathy - Cardiac Cardiac: No murmur. No: RRR (tachycardic but regular) - Respiratory Respiratory: Other (Some scattered expiratory wheezes noted. No coarse sounds.) - Abdomen Abdomen: Soft, Non distended, Other (The liver does feel enlarged to palpation and percussion. Colostomy in the left lower quadrant of the abdomen shows good output with a dark green color. No malodor. A sample is sent to the lab for guaiac testing.). No: Normal bowel sounds (diminished) - Female Female : Deferred - Rectal Rectal: Deferred - Back Back: Other (some flank tender bilaterally.) - Derm Derm: No: Normal color (pale), Warm and dry (diaphoretic) - Extremities Extremities: Normal ROM s pain, No edema, No calf tenderness / cord - Neuro Neuro: Alert and oriented X 3, No motor deficit, Normal speech Eye Opening: Spontaneous Motor: Obeys Commands Verbal: Oriented GCS Score: 15 Results - Vitals Vitals: Vital Signs - 24 hr 02/08/21 02/08/21 02/08/21 10:25 10:58 11:18 Temperature 36.2 C L Heart Rate 172 H 145 H 150 H Respiratory 34 H 25 H 36 H Rate Blood Pressure 94/53 L O2 Saturation 100 100 02/08/21 02/08/21 02/08/21 11:37 11:44 12:00 Temperature Heart Rate 141 H 137 H 137 H Respiratory 26 H 26 H 21 Rate Blood Pressure 84/59 L 102/63 86/54 L O2 Saturation 100 100 100 02/08/21 02/08/21 02/08/21 12:26 12:30 12:44 Temperature Heart Rate 138 H 140 H 136 H Respiratory 28 H 30 H 34 H Rate Blood Pressure 96/72 87/77 L 109/63 O2 Saturation 95 100 100 02/08/21 02/08/21 02/08/21 13:00 13:32 14:36 Temperature Heart Rate 124 H 125 H 123 H Respiratory 28 H 24 25 H Rate Blood Pressure 93/72 96/84 H 94/68 O2 Saturation 100 100 100 02/08/21 02/08/21 02/08/21 15:00 15:02 15:12 Temperature 36.3 C L 36.6 C 36.3 C L Heart Rate 124 H 124 H 125 H Respiratory 30 H 29 H 25 H Rate Blood Pressure 82/68 L 89/69 L 82/68 L O2 Saturation 99 02/08/21 02/08/21 02/08/21 15:25 15:30 15:58 Temperature 36.4 C L 36.4 C L 36.3 C L Heart Rate 124 H 123 H 122 H Respiratory 33 H 40 H 27 H Rate Blood Pressure 98/60 94/61 96/60 O2 Saturation 99 02/08/21 02/08/21 02/08/21 16:00 16:24 16:30 Temperature 36.3 C L Heart Rate 121 H 122 H 123 H Respiratory 30 H 32 H 31 H Rate Blood Pressure 101/67 101/68 99/66 O2 Saturation 98 98 02/08/21 16:39 Temperature 36.4 C L Heart Rate 123 H Respiratory 40 H Rate Blood Pressure 102/66 O2 Saturation Oxygen O2 Source Room air - Labs Labs: Microbiology 02/08/21 11:57 Occult Blood - Final Stool Laboratory Tests 02/08/21 02/08/21 02/08/21 11:02 11:02 11:02 WBC 3.7 L RBC 1.87 L Hgb 4.1 L* Hct 17.3 L* MCV 92.5 MCH 21.9 L MCHC 23.7 L RDW 20.2 H Plt Count 237 MPV 10.3 Neut # (Auto) Not Reportable Lymph # (Auto) Not Reportable Walsh # (Auto) Not Reportable Eos # (Auto) Not Reportable Baso # (Auto) Not Reportable Absolute Nucleated RBC Not Reportable Total Counted 100 Band Neuts % (Manual) 0 Abnorm Lymph % (Manual) 0 Nucleated RBC % Not Reportable Neutrophils # (Manual) 2.7 Lymphocytes # (Manual) 0.6 L Monocytes # (Manual) 0.0 Eosinophils # (Manual) 0.4 Basophils # (Manual) 0.0 Nucleated RBCs 24 Differential Comment MANUAL DIFFERENTIAL Platelet Estimate NORMAL (130-450,000) Platelet Morphology NORMAL APPEARANCE RBC Morph Micro Appear 2+ POLYCHROMASIA PT INR APTT Sodium 137 Potassium 2.8 L Chloride 105 Carbon Dioxide 9 L* Anion Gap 23.0 H BUN 8 Creatinine 1.3 H Estimated GFR (MDRD) 44 L Glucose 57 L* Lactic Acid Calcium 7.6 L Phosphorus Magnesium 1.7 Iron TIBC % Saturation Transferrin Ferritin Total Bilirubin 3.2 H AST 54 H ALT 22 Alkaline Phosphatase 313 H Troponin I High Sens 50.9 H* B-Natriuretic Peptide Total Protein 5.4 L Albumin 2.4 L Globulin 3.0 Albumin/Globulin Ratio 0.8 L Lipase 24 Vitamin B12 Folate Urine Color Urine Clarity Urine pH Ur Specific [place] Urine Protein Urine Glucose (UA) Urine Ketones Urine Occult Blood Urine Nitrite Urine Bilirubin Urine Urobilinogen Ur Leukocyte Esterase Urine RBC Urine WBC Ur Squamous Epith Cells Urine Bacteria Ur Microscopic Review Urine Culture Comments Nasal Adenovirus (PCR) Nasal B. parapertussis DNA (PCR) Nasal Coronavir 229E PCR Nasal Coronavir HKU1 PCR Nasal Coronavir NL63 PCR Nasal Coronavir OC43 PCR Nasal Enterovir/Rhinovir PCR Nasal Influenza B PCR Nasal Influenza A PCR Nasal Parainfluen 1 PCR Nasal Parainfluen 2 PCR Nasal Parainfluen 3 PCR Nasal Parainfluen 4 PCR Nasal RSV (PCR) Nasal B.pertussis DNA PCR Nasal C.pneumoniae (PCR) Yan Human Metapneumo PCR Nasal M.pneumoniae (PCR) Nasal SARS-CoV-2 (PCR) Blood Type Antibody Screen Crossmatch 02/08/21 02/08/21 02/08/21 11:02 11:02 11:02 WBC RBC Hgb Hct MCV MCH MCHC RDW Plt Count MPV Neut # (Auto) Lymph # (Auto) Walsh # (Auto) Eos # (Auto) Baso # (Auto) Absolute Nucleated RBC Total Counted Band Neuts % (Manual) Abnorm Lymph % (Manual) Nucleated RBC % Neutrophils # (Manual) Lymphocytes # (Manual) Monocytes # (Manual) Eosinophils # (Manual) Basophils # (Manual) Nucleated RBCs Differential Comment Platelet Estimate Platelet Morphology RBC Morph Micro Appear PT INR APTT Sodium Potassium Chloride Carbon Dioxide Anion Gap BUN Creatinine Estimated GFR (MDRD) Glucose Lactic Acid > 10.0 H* Calcium Phosphorus Magnesium Iron TIBC % Saturation Transferrin Ferritin Total Bilirubin AST ALT Alkaline Phosphatase Troponin I High Sens B-Natriuretic Peptide 249 H Total Protein Albumin Globulin Albumin/Globulin Ratio Lipase Vitamin B12 Folate Urine Color Urine Clarity Urine pH Ur Specific [place] Urine Protein Urine Glucose (UA) Urine Ketones Urine Occult Blood Urine Nitrite Urine Bilirubin Urine Urobilinogen Ur Leukocyte Esterase Urine RBC Urine WBC Ur Squamous Epith Cells Urine Bacteria Ur Microscopic Review Urine Culture Comments Nasal Adenovirus (PCR) NOT DETECTED Nasal B. parapertussis DNA (PCR) NOT DETECTED Nasal Coronavir 229E PCR NOT DETECTED Nasal Coronavir HKU1 PCR NOT DETECTED Nasal Coronavir NL63 PCR NOT DETECTED Nasal Coronavir OC43 PCR NOT DETECTED Nasal Enterovir/Rhinovir PCR NOT DETECTED Nasal Influenza B PCR NOT DETECTED Nasal Influenza A PCR NOT DETECTED Nasal Parainfluen 1 PCR NOT DETECTED Nasal Parainfluen 2 PCR NOT DETECTED Nasal Parainfluen 3 PCR NOT DETECTED Nasal Parainfluen 4 PCR NOT DETECTED Nasal RSV (PCR) NOT DETECTED Nasal B.pertussis DNA PCR NOT DETECTED Nasal C.pneumoniae (PCR) NOT DETECTED Yan Human Metapneumo PCR NOT DETECTED Nasal M.pneumoniae (PCR) NOT DETECTED Nasal SARS-CoV-2 (PCR) NOT DETECTED Blood Type Antibody Screen Crossmatch 02/08/21 02/08/21 02/08/21 11:02 11:02 11:34 WBC RBC Hgb Hct MCV MCH MCHC RDW Plt Count MPV Neut # (Auto) Lymph # (Auto) Walsh # (Auto) Eos # (Auto) Baso # (Auto) Absolute Nucleated RBC Total Counted Band Neuts % (Manual) Abnorm Lymph % (Manual) Nucleated RBC % Neutrophils # (Manual) Lymphocytes # (Manual) Monocytes # (Manual) Eosinophils # (Manual) Basophils # (Manual) Nucleated RBCs Differential Comment Platelet Estimate Platelet Morphology RBC Morph Micro Appear PT INR APTT Sodium Potassium Chloride Carbon Dioxide Anion Gap BUN Creatinine Estimated GFR (MDRD) Glucose Lactic Acid Calcium Phosphorus 2.1 L Magnesium Iron 35 TIBC 321 % Saturation 11 L Transferrin 229 Ferritin 15.9 Total Bilirubin AST ALT Alkaline Phosphatase Troponin I High Sens B-Natriuretic Peptide Total Protein Albumin Globulin Albumin/Globulin Ratio Lipase Vitamin B12 572 Folate 7.36 Urine Color Urine Clarity Urine pH Ur Specific [place] Urine Protein Urine Glucose (UA) Urine Ketones Urine Occult Blood Urine Nitrite Urine Bilirubin Urine Urobilinogen Ur Leukocyte Esterase Urine RBC Urine WBC Ur Squamous Epith Cells Urine Bacteria Ur Microscopic Review Urine Culture Comments Nasal Adenovirus (PCR) Nasal B. parapertussis DNA (PCR) Nasal Coronavir 229E PCR Nasal Coronavir HKU1 PCR Nasal Coronavir NL63 PCR Nasal Coronavir OC43 PCR Nasal Enterovir/Rhinovir PCR Nasal Influenza B PCR Nasal Influenza A PCR Nasal Parainfluen 1 PCR Nasal Parainfluen 2 PCR Nasal Parainfluen 3 PCR Nasal Parainfluen 4 PCR Nasal RSV (PCR) Nasal B.pertussis DNA PCR Nasal C.pneumoniae (PCR) Yan Human Metapneumo PCR Nasal M.pneumoniae (PCR) Nasal SARS-CoV-2 (PCR) Blood Type A POSITIVE Antibody Screen NEGATIVE Crossmatch See Detail 02/08/21 02/08/21 02/08/21 11:34 12:53 14:20 WBC RBC Hgb Hct MCV MCH MCHC RDW Plt Count MPV Neut # (Auto) Lymph # (Auto) Walsh # (Auto) Eos # (Auto) Baso # (Auto) Absolute Nucleated RBC Total Counted Band Neuts % (Manual) Abnorm Lymph % (Manual) Nucleated RBC % Neutrophils # (Manual) Lymphocytes # (Manual) Monocytes # (Manual) Eosinophils # (Manual) Basophils # (Manual) Nucleated RBCs Differential Comment Platelet Estimate Platelet Morphology RBC Morph Micro Appear PT 20.3 H INR 1.8 H APTT 31.5 Sodium Potassium Chloride Carbon Dioxide Anion Gap BUN Creatinine Estimated GFR (MDRD) Glucose Lactic Acid > 10.0 H* Calcium Phosphorus Magnesium Iron TIBC % Saturation Transferrin Ferritin Total Bilirubin AST ALT Alkaline Phosphatase Troponin I High Sens B-Natriuretic Peptide Total Protein Albumin Globulin Albumin/Globulin Ratio Lipase Vitamin B12 Folate Urine Color BROWN Urine Clarity CLOUDY Urine pH 7.0 Ur Specific [place] 1.015 Urine Protein >=300 H Urine Glucose (UA) NEGATIVE Urine Ketones TRACE Urine Occult Blood LARGE H Urine Nitrite POSITIVE H Urine Bilirubin NEGATIVE Urine Urobilinogen 1 (NORMAL) Ur Leukocyte Esterase MODERATE H Urine RBC TNTC H Urine WBC >25 H Ur Squamous Epith Cells RARE Squamous Urine Bacteria Moderate H Ur Microscopic Review INDICATED Urine Culture Comments INDICATED Nasal Adenovirus (PCR) Nasal B. parapertussis DNA (PCR) Nasal Coronavir 229E PCR Nasal Coronavir HKU1 PCR Nasal Coronavir NL63 PCR Nasal Coronavir OC43 PCR Nasal Enterovir/Rhinovir PCR Nasal Influenza B PCR Nasal Influenza A PCR Nasal Parainfluen 1 PCR Nasal Parainfluen 2 PCR Nasal Parainfluen 3 PCR Nasal Parainfluen 4 PCR Nasal RSV (PCR) Nasal B.pertussis DNA PCR Nasal C.pneumoniae (PCR) Yan Human Metapneumo PCR Nasal M.pneumoniae (PCR) Nasal SARS-CoV-2 (PCR) Blood Type Antibody Screen Crossmatch PD MEDICAL DECISION MAKING - ED course Complexity details: reviewed results (CT scan did not show any obvious acute intra-abdominal process. Her urine was positive for infection. She has profound anemia which has happened before. Her colostomy output was guaiac negative per lab.), re-evaluated patient (The initial fluid bolus given to the patient did help with bringing down the heart rate and improving the blood pressure to 90s systolic. She remained tachycardic. It appeared to be sinus tach. Concern for sepsis versus bleeding, anemia, heart failure, intestinal infection etc.), d/w patient, d/w functional consultant (Talked with the [facility] physician to attempt transfer. They stated there were no beds available that they could find. They could put the patient on a long waiting list at [facility] is the best.) ED course: The patient presented by EMS with their impression being SVT with heart failure. However it looked to be more variable and likely sinus tachycardia. She looked more likely septic. We did check basic labs and came back with initial blood count showing severe anemia comparable to what she had had 4 months ago. Her colostomy output did not show melena and it was sent to the lab for guaiac testing that was negative. Her labs generally showed a lot of abnormalities with chronic liver failure. Her creatinine level was increased above normal but still only 1.3 so we were able to do a CT scan. This did not show an obvious acute process. Respiratory panel did not show any viral illness. Chest x-ray was clear. Urinalysis did show signs of UTI. Her lactate was quite elevated and was not decreasing on repeat test. This could relate to her liver failure as well. Blood was ordered and had some delay because of crossmatching issues for antibodies. Subsequently 2 units of blood did become available from the lab and this actually seemed to improve her blood pressure more consistently and her breathing was improved. She actually was looking calmer and though still tachycardic, her vitals were otherwise more stable. She still seems critical with concerns of sepsis, severe anemia, liver failure. She will need to be placed in the ICU. I talked with our hospitalist who is concerned about her level of severity and also we do not currently have an ICU bed 1 patient could be moved out over the next few hours. [facility] was contacted and they did not have any beds available and other hospitals. Our hospitalist here was able to transfer a patient out of the ICU to make room for this 1 and the patient was subsequently admitted to our hospital in stable condition. - Critical Care Time(min): 80 Time Includes: Direct patient care, Reassess patient, Document care, Medical consult, See progress note Data interpretation: Labs, CXR Procedures excluded from critical care time: EKG Departure - Departure Disposition: 66 [facility] DC/Xfer Clinical Impression: Hypotension, Severe anemia, Dyspnea, UTI (urinary tract infection), Liver disease, Sepsis Condition: Stable Discharge Date/Time: 02/08/21 18:17
[2021-02-08 11:08] LABS: BASOPHILS % (AUTO) 0.8 %; EOSINOPHILS % (AUTO) 18.2 %; MEAN CORPUSCULAR HEMOGLOBIN 21.9 pg (27.0-31.0); MEAN CORPUSCULAR HGB CONC 23.7 g/dL (32.0-36.0); MEAN CORPUSCULAR VOLUME 92.5 fL (81.0-99.0); MEAN PLATELET VOLUME 10.3 fL (7.9-10.8); MONOCYTES % (AUTO) 3.7 %; NEUTROPHILS % (AUTO) 64.8 %; PLT - PLATELET COUNT 237 10^3/uL (130-450); RED BLOOD COUNT 1.87 10^6/uL (4.20-5.40); RED CELL DISTRIBUTION WIDTH 20.2 % (12.0-15.0); WHITE BLOOD COUNT 3.7 x10^3/uL (4.8-10.8)
[2021-02-08] MEDS ORDERED: LORazepam 2 MG/ML VIAL IVP STA (11:09)
[2021-02-08 11:12] LABS: HCT - HEMATOCRIT 17.3 % (37.0-47.0); HGB - HEMOGLOBIN 4.1 g/dL (12.0-16.0)
[2021-02-08 11:13] LABS: ABNORMAL LYMPHS % (MANUAL) 0 %; BAND NEUTROPHILS % (MANUAL) 0 %
--- NOTE | 2021-02-08 11:22 | XRAY Report ---
PROCEDURE: Chest 1 View X-Ray INDICATIONS: cough and dyspnea TECHNIQUE: One view of the chest was acquired. COMPARISON: Chest x-ray 09/23/2020 FINDINGS: Surgical changes and devices: None. Lungs and pleura: No pleural effusions or pneumothorax. Lungs are clear. Mediastinum: Mediastinal contours appear normal. Heart size is normal. Bones and chest wall: No suspicious bony lesions. Overlying soft tissues appear unremarkable. Thor acolumbar scoliotic curvature is present. IMPRESSION: No acute pulmonary process. Reviewed by: Mirela Aly MD on 02/08/2021 11:20 AM [facility] Approved by: Mirela Aly MD on 02/08/2021 11:20 AM [facility] Station ID: [id number]
[2021-02-08 11:41] LABS: DIFFERENTIAL COMMENT MANUAL DIFFERENTIAL; EOSINOPHILS # (MANUAL) 0.4 10^3/uL (0-0.7); LYMPHOCYTES # (MANUAL) 0.6 10^3/uL (1.5-3.5); LYMPHOCYTES % (MANUAL) 17 %; NEUTROPHILS # (MANUAL) 2.7 10^3/uL (1.5-6.6); NUCLEATED RBC (MANUAL) 24 %; PLATELET ESTIMATE, MANUAL NORMAL (130-450,000) (NORMAL); PLATELET MORPHOLOGY NORMAL APPEARANCE (NORMAL)
[2021-02-08 11:44] LABS: ALBUMIN 2.4 g/dL (3.2-5.5); ALBUMIN/GLOBULIN RATIO 0.8 (1.0-2.2); BILIRUBIN,TOTAL 3.2 mg/dL (0.2-1.0); CALCIUM 7.6 mg/dL (8.5-10.3); CREATININE 1.3 mg/dL (0.4-1.0); MAGNESIUM 1.7 mg/dL (1.7-2.8); POTASSIUM 2.8 mmol/L (3.5-5.0); TOTAL PROTEIN 5.4 g/dL (6.7-8.2)
[2021-02-08] MEDS ORDERED: DEXTROSE 50% ABBOJECT 25 GM/50 ML SYRINGE IVP STA (12:06)
[2021-02-08 12:27] LABS: B. PARAPERTUSSIS- RESP PCR PAN NOT DETECTED; B. PERTUSSIS- RESP PCR PANEL NOT DETECTED; C. PNEUMONIAE- RESP PCR PANEL NOT DETECTED; CORONAVIRUS 229E-RESP PCR NOT DETECTED; CORONAVIRUS HKU1-RESP PCR NOT DETECTED; CORONAVIRUS NL63-RESP PCR NOT DETECTED; CORONAVIRUS OC43-RESP PCR NOT DETECTED; HUMAN METAPNEUMOVIRUS NOT DETECTED; INFLUENZA A- RESP PCR PANEL NOT DETECTED; INFLUENZA B - RESP PCR PANEL NOT DETECTED; M. PNEUMONIAE- RESP PCR PANEL NOT DETECTED; PARAINFLUENZA VIRUS 1 NOT DETECTED; PARAINFLUENZA VIRUS 2 NOT DETECTED; PARAINFLUENZA VIRUS 3 NOT DETECTED; PARAINFLUENZA VIRUS 4 NOT DETECTED; RHINOVIRUS/ENTEROVIRUS NOT DETECTED; RSV- RESP PCR PANEL NOT DETECTED; SARS-CoV-2 -RESP PCR PANEL NOT DETECTED
[2021-02-08] MEDS ORDERED: fentaNYL 100 MCG/2 ML VIAL IVP STA ×2 (12:47→17:44)
[2021-02-08 13:09] LABS: INR 1.8 (0.8-1.2); PT - PROTHROMBIN TIME 20.3 secs (9.9-12.6)
[2021-02-08] MEDS ORDERED: IOPAMIDOL-300 100 ML VIAL ONE (13:14)
[2021-02-08 13:16] LABS: PARTIAL THROMBOPLASTIN TIME 31.5 secs (24.9-33.3)
[2021-02-08 13:17] LABS: GLUCOSE, URINE (UA) NEGATIVE (NEGATIVE); KETONES,URINE (UA) TRACE mg/dL (NEGATIVE); LEUKOCYTE ESTERASE, URINE MODERATE (NEGATIVE); NITRITE,URINE POSITIVE (NEGATIVE); OCCULT BLOOD,URINE LARGE (NEGATIVE); PROTEIN,URINE >=300 mg/dL (NEGATIVE); UROBILINOGEN,URINE 1 (NORMAL) E.U./dL (NORMAL)
[2021-02-08 13:20] LABS: BILIRUBIN,URINE NEGATIVE (NEGATIVE); CLARITY,URINE CLOUDY (CLEAR); ICTOTEST,URINE NEGATIVE
[2021-02-08 13:32] LABS: BACTERIA,URINE Moderate /HPF (None Seen); RBC,URINE TNTC /HPF (0-5); SQUAMOUS EPITHELIAL CELL,UR RARE Squamous (<= Few); WBC,URINE >25 /HPF (0-5)
[2021-02-08] MEDS ORDERED: levoFLOXacin 500 MG/100 ML 500 MG/100 ML BAG IV STA (14:02)
--- NOTE | 2021-02-08 14:12 | CT Report ---
PROCEDURE: Abdomen/Pelvis W INDICATIONS: low BP; abd pain CONTRAST: IV CONTRAST: Isovue 300 ml: 100 PO CONTRAST: *NO PO CONTRAST TECHNIQUE: After the administration of IV contrast, 5 mm thick sections acquired from the diaphragms to the symp hysis. 5 mm thick coronal and sagittal reformats were acquired. For radiation dose reduction, the f ollowing was used: automated exposure control, adjustment of mA and/or kV according to patient size. COMPARISON: 10/16/2019 FINDINGS: Image quality: Excellent. ABDOMEN: Lung bases: Lung bases are clear. Heart size is normal. Solid organs: The liver demonstrates normal size. The liver demonstrates a heterogeneous appearance. Within the superior right liver, there is a stable low-density lesion seen. The spleen is enlarged, m easuring 15 cm, craniocaudal. Gallbladder is partially collapsed, with pericholecystic fluid Biliary system is non dilated. Pancr eas enhances normally. No adrenal nodules. Kidneys demonstrate normal size and enhancement, without hydronephrosis. Peritoneum and bowel: Colonic postoperative change is seen, with a left lower quadrant colostomy. No dilated loops of small bowel are seen. Numerous postoperative clips are seen within the peritoneal ca vity. No free air. Mild ascites is seen. Nodes and vessels: No retroperitoneal or mesenteric adenopathy by size criteria. Aorta and inferior vena cava are normal in size. Miscellaneous: No ventral hernias. PELVIS: Genitourinary: Bladder wall thickness is normal. The uterus demonstrates an unremarkable appearance for age. No adnexal masses are seen. Left adnexal clips are seen. Miscellaneous: No inguinal hernias or adenopathy. Bones: No suspicious bony lesions. No vertebral body compression fractures. There is S-shaped scol iosis, with associated degenerative changes. IMPRESSION: A cause of the patient's symptoms is not seen. Postoperative change is seen, with postoperative change of the colon, with left lower quadrant ostomy . Liver cirrhosis is suspected. A small amount of ascites is seen. Splenomegaly is again seen. The gallbladder is partially collapsed and there is pericholecystic fluid seen. If there is strong cl inical concern for cholecystitis, please consider a dedicated right upper quadrant ultrasound for fur ther evaluation. A stable low-density liver lesion is seen, which is not significantly changed compared to the prior. Differential diagnosis includes neoplasm, although differential diagnosis also includes hemangioma. The previously described hydronephrosis and hydroureter is no longer seen. Incidental note is made of: S-shaped scoliosis, with associated degenerative changes Reviewed by: Jacob Nava MD on 02/08/2021 1:11 PM [facility] Approved by: Jacob Nava MD on 02/08/2021 1:11 PM [facility] Station ID: [id number]
[2021-02-08] MEDS ORDERED: IOPAMIDOL-300 100 ML VIAL IVP ONE (14:42)
[2021-02-08] MEDS ORDERED: ACETAMINOPHEN 325 MG TABLET PO PRN (16:41)
[2021-02-08] MEDS ORDERED: ONDANSETRON ODT 4 MG TABLET TL PRN (16:41)
[2021-02-08] MEDS ORDERED: ONDANSETRON 4 MG/2 ML VIAL IVP PRN (16:41)
--- NOTE | 2021-02-08 16:51 | HISTORY & PHYSICAL EXAMINATION ---
Chief Complaint - Chief Complaint Chief Complaint: Body pain History of Present Illness - Admitted From Admitted From:: Home - History Obtained From Records Reviewed: Yes History obtained from: Patient, ER Physician, EMR - History of Present Illness HPI Comment/Other: This is a 50-year-old female with a past medical history significant for alcoholic liver cirrhosis, history of esophageal varices, anemia who presents today complaining of body pain and fever. She states she been feeling unwell for the past 2 weeks. She has had fevers as high as 103. She reports fatigue and generalized weakness as well as body aches. She has had decreased appetite due to nausea and vomiting as well as nonspecific abdominal pain. She has not had decreased output in her ostomy. She has not noticed any obvious bleeding. Her ostomy output is dark which does occur at times. She does report dysuria and urgency. She states she just feels terrible overall. She still occasionally drinks alcohol but reports her last drink was early this month. She believes she was scoped earlier this year and that she does have a history of varices and gastric ulcers. In the emergency department, she noted to be hypotensive with systolics in the 80s, tachycardic with heart rate in the 140s. Labs were significant for lactic acid greater than 10, creatinine of 1.3 compared to baseline of 0.5. Her hemoglobin was less than 5. Her bicarb was decreased at 9 and she had an elevated anion gap. She underwent chest x-ray which is unremarkable. CT of the abdomen pelvis showed no acute abnormality. She was given Levaquin in the emergency department. An attempt was made to transfer her to our facility as it was felt she would likely need a higher level of care but unfortunate there are no beds available at any of the [facility] and so medicine was consulted for admission. I did discuss goals of care and she would like to be a full code. History - Past Medical History Cardiovascular: reports: None Respiratory: reports: Asthma Neuro: reports: None Endocrine/Autoimmune: reports: None GI: reports: GERD, Esophageal varices, GI bleed, Ulcers, Cirrhosis, Diverticulitis COLORER HIDES AND SKINS: reports: None : reports: Frequency, Other HEENT: reports: Dental implants Psych: reports: Anxiety Musculoskeletal: reports: Scoliosis Derm: reports: Eczema MRSA Hx?: No - Past Surgical History General: reports: Appendectomy, Bowel surgery (Colostomy for perforated diverticulum.), Colonoscopy, EGD - Family & Social History Family History: Mother: Alive and Well, Cancer, Father: Alive and Well, Cancer Family History Comment/Other: Her father had prostate cancer and her mother had colon cancer. Living arrangement: At home Living Situation: With family Social History Notes: She lives at home with her parents. She is independent of activities of daily living. She denies smoking. Still admits to alcohol use although reports it is only occasional compared to the regular alcohol use that she previously had. She has been drinking for over 20 years. She will occasionally use THC and CBD. - POLST Patient has POLST: No POLST Status: Full Code Meds/Allgy - Home Medications Home Medications: Ambulatory Orders Medication Instructions Recorded Confirmed Montelukast Sodium 10 mg PO DAILY PRN 11/26/19 02/08/21 Pantoprazole Sodium [Protonix] 40 mg PO DAILY 11/26/19 02/08/21 Trazodone HCl 200 mg PO QPM 11/26/19 02/08/21 Albuterol [Proventil Hfa] 2 - 4 puffs PO Q4H PRN 09/24/20 02/08/21 Ondansetron Odt [Zofran Odt] 4 mg SL PRN PRN 09/24/20 02/08/21 traMADol [Ultram] 25 mg PO Q8H PRN 09/24/20 02/08/21 - Allergies Allergies/Adverse Reactions: Allergies Allergy/AdvReac Type Severity Reaction Status Date / Time cephalexin Allergy Unknown Verified 02/08/21 10:54 sertraline Allergy Unknown Verified 02/08/21 10:54 Review of Systems - Constitutional Constitutional: reports: Fatigue, Fever, Chills, Malaise, Weakness, Poor appetite - Ears, Nose & Throat Ears, Nose & Throat: denies: Nasal discharge, Nasal congestion, Sore throat - Cardiovascular Cariovascular: denies: Chest pain, Exertional dyspnea, Decr. exercise tolerance - Respiratory Respiratory: reports: SOB at rest, SOB with exertion. denies: Cough - Gastrointestinal Gastrointestinal: reports: Abdominal pain, Black stools, Nausea, Vomiting, Bloating, Poor appetite. denies: Bloody stools - Genitourinary Genitourinary: reports: Dysuria, Urgency. denies: Hematuria - Integumentary Integumentary: denies: Rash - Neurological Neurological: reports: General weakness. denies: Focal weakness - Hematologic/Lymphatic Hematologic/Lymphatic: reports: Anemia, Bruising, Bleeding tendencies - All Other Systems All Other Systems: reports: Reviewed and negative Prior Level of Functionality: She is normally independent with her ADLs. Exam - Vital Signs Reviewed Vital Signs: Yes Vital Signs: Vital Signs x48h Temp Pulse Resp BP Pulse Ox 02/08/21 16:39 36.4 C L 123 H 40 H 102/66 02/08/21 16:30 123 H 31 H 99/66 98 02/08/21 16:24 36.3 C L 122 H 32 H 101/68 02/08/21 16:00 121 H 30 H 101/67 98 02/08/21 15:58 36.3 C L 122 H 27 H 96/60 02/08/21 15:30 36.4 C L 123 H 40 H 94/61 99 02/08/21 15:25 36.4 C L 124 H 33 H 98/60 02/08/21 15:12 36.3 C L 125 H 25 H 82/68 L 02/08/21 15:02 36.6 C 124 H 29 H 89/69 L 02/08/21 15:00 36.3 C L 124 H 30 H 82/68 L 99 02/08/21 14:36 123 H 25 H 94/68 100 02/08/21 13:32 125 H 24 96/84 H 100 02/08/21 13:00 124 H 28 H 93/72 100 02/08/21 12:44 136 H 34 H 109/63 100 02/08/21 12:30 140 H 30 H 87/77 L 100 02/08/21 12:26 138 H 28 H 96/72 95 02/08/21 12:00 137 H 21 86/54 L 100 02/08/21 11:44 137 H 26 H 102/63 100 02/08/21 11:37 141 H 26 H 84/59 L 100 02/08/21 11:18 150 H 36 H 02/08/21 10:58 145 H 25 H 100 02/08/21 10:25 36.2 C L 172 H 34 H 94/53 L 100 - Physical Exam General Appearance: positive: Alert, Moderate distress Eyes Bilateral: positive: Other (Scleral icterus.) ENT: positive: ENT inspection nml Neck: positive: Nml inspection Respiratory: positive: No respiratory distress, Other (She is not in distress but she is tachypnic.) Cardiovascular: positive: Tachycardia. negative: Irregularly irregular, Systolic murmur Abdomen: positive: Non-tender, No distention, Other (Ostomy in place in left lower quadrant with black/green output.) Skin: positive: Warm, Dry, Other (She appears pale and jaundiced.) Extremities: positive: No pedal edema Neurologic/Psychiatric: positive: Other (No focal deficits). negative: Disoriented to person, Disoriented to place Sepsis Event Note (H) - Evaluation Current Stage of Sepsis: Septic shock - Sepsis Criteria Sepsis Criteria: Recorded Heart Rate greater than 90 bpm, Recorded Respiratory Rate greater than 20, WBC count greater than 12,000 or less than 4000, SBP drop more than 40mHg, SBP less than 90 mmHg, Metabolic: lactate > 2 mmol/L, Hematologic: platelets < 100,000; INR > 1.5, or a PTT>60 seconds Conclusion/Plan - Problem List (1) Septic shock Conclusion/Plan: The concerns for septic shock secondary to a urinary tract infection. Imaging did not reveal any evidence of obstruction or hydronephrosis. Her lactic acid greater than 10 and she is hypotensive, and tachycardic. We will place her empirically on vancomycin and ciprofloxacin given her allergies. We will give another liter of lactated Ringer's and continue her on maintenance IV fluids. Follow-up lactic and trended. Follow-up blood cultures. (2) Urinary tract infection Conclusion/Plan: This is the cause of her sepsis. Her urinalysis suggests infection and she does report symptoms of dysuria. We will place her on vancomycin and ciprofloxacin empirically given prior cultures grew E. coli as well as Enterococcus. Ideally would use meropenem but she has an allergy to cephalosporins. Follow-up urine culture. Qualifiers: Urinary tract infection type: site unspecified Hematuria presence: with hematuria Qualified Code(s): N39.0 - Urinary tract infection, site not specified; R31.9 - Hematuria, unspecified (3) Severe anemia Conclusion/Plan: Her hemoglobin is significantly decreased at less than 5. Her MCV is within normal limits. Given her history of alcoholism, her MCV is inappropriately low so this could be a component of iron deficiency. She has had work-up in the past for GI bleed and reported is a history of varices, gastritis, and ulcers. Her stool is negative for occult blood at this time. We will transfuse her 2 units of packed red blood cell and recheck her hemoglobin. Will consider endoscopy once she is hemodynamically stable as there is low suspicion right now for an active bleed. Check iron studies. I did speak with general surgery and they are willing to scope her if necessary. We will put her empirically on IV Protonix twice daily. (4) Lactic acidosis Conclusion/Plan: Her lactic acid is greater than 10 and on recheck, it remains greater than 10. This is likely secondary to septic shock. Her bicarbonate is less than 10. We will hydrate her further and transfuse her packed red blood cells given her anemia. She is also on antibiotics empirically. Recheck lactic acid. (5) Acute kidney injury Conclusion/Plan: This appears to be prerenal injury. Her creatinine is at 1.3 and her baseline is 0.5. I suspect this will improve with IV hydration. Avoid nephrotoxins. (6) Alcoholic cirrhosis Conclusion/Plan: She has a known history of alcoholic cirrhosis and her INR is elevated at 1.8. She is not thrombocytopenic. Monitor LFTs. Qualifiers: Ascites presence: without ascites Qualified Code(s): K70.30 - Alcoholic cirrhosis of liver without ascites (7) S/P colostomy Conclusion/Plan: She is a history of colostomy due to perforated diverticulum. She is n.p.o. for the time being given her critical illness. She may also potentially need endoscopy. We will look to start her on a clear liquid diet if she improves from hemodynamic standpoint and there is no evidence of bleeding. (8) Hypokalemia Conclusion/Plan: Likely secondary to GI losses. We will replace this and monitor. - Lab Results Lab results reviewed: Yes Fish Bones: 02/08/21 11:02 02/08/21 17:02 - Diagnostic Imaging Results Diagnostic Imaging Results: positive: Final report reviewed - EKG Results EKG Interpreted Independently: Yes EKG Findings: EKG revealed sinus tachycardia with ST depressions in V4 to V5 which appear to be rate related. Core Measures - Anticipated LOS I expect patient to be DC'd or transferred within 96 hours.: Yes - Issues Hospital Issues and Management Plan: 50-year-old female with alcoholic cirrhosis presents with fever and malaise found to have septic shock secondary to urinary tract infection as well as severe anemia. She will be admitted to the ICU for further management. - DVT/VTE - Prophylaxis VTE/DVT Device ordered at admit?: Yes VTE/DVT Prophylaxis med ordered at admit?: No Not Ordered - Medical Reason: Contraindicated
[2021-02-08 17:22] LABS: CALCIUM 6.6 mg/dL (8.5-10.3); CREATININE 1.3 mg/dL (0.4-1.0)
[2021-02-08 17:22] LABS: PHOSPHORUS 2.1 mg/dL (2.5-4.6)
[2021-02-08 17:33] LABS: FERRITIN 15.9 ng/mL (11.0-306.8)
[2021-02-08 17:37] LABS: FOLATE 7.36 ng/mL (5.90 - >24.8)
[2021-02-08] MEDS ORDERED: VANCOMYCIN INJ 1 GM, VANCOMYCIN INJ 250 MG in SODIUM CHLORIDE 0.9% 250 ML IV ONE (18:00)
[2021-02-08] MEDS ORDERED: CALCIUM GLUCONATE 2,000 MG in SODIUM CHLORIDE 0.9% 100ML 100 ML IV ONE (18:30)
[2021-02-08] MEDS: MORPHINE 2 MG/ML CARPUJECT IVP PRN ×2 (18:50→22:30)
[2021-02-08] MEDS: LACTATED RINGERS 1,000 ML IV SCH (19:20)
[2021-02-08] MEDS: SODIUM CHLORIDE FLUSH 0.9% 10 ML SYRINGE IVP SCH (19:23)
[2021-02-08] MEDS: POTASSIUM CHLOR 10 MEQ/100 ML 10 MEQ/100 ML BAG IV SCH ×2 (20:16→21:51)
[2021-02-08] MEDS ORDERED: THIAMINE INJ 100 MG in SODIUM CHLORIDE 0.9% 50 ML IV ONE (20:21)
[2021-02-08] MEDS ORDERED: SODIUM CHLORIDE 0.9% 500 ML IV ONE (21:05)
[2021-02-08] MEDS: CIPROFLOXACIN 400 MG/200 ML 400 MG/200 ML BAG IV SCH (21:09)
[2021-02-08] MEDS ORDERED: SODIUM CHLORIDE 0.9% 500 ML IV PRN (21:51)
[2021-02-08] MEDS: PANTOPRAZOLE 40 MG VIAL IVP SCH (22:18)
[2021-02-08] MEDS: BENZOCAINE/MENTHOL LOZENGE MM PRN ×2 (23:30→23:53)
[2021-02-09] MEDS: MORPHINE 2 MG/ML CARPUJECT IVP PRN ×5 (01:04→16:59)
[2021-02-09] MEDS: LACTATED RINGERS 1,000 ML IV SCH ×4 (02:00→22:43)
[2021-02-09] MEDS: BENZOCAINE/MENTHOL LOZENGE MM PRN ×3 (02:19→17:30)
[2021-02-09] MEDS: POTASSIUM CHLOR 10 MEQ/100 ML 10 MEQ/100 ML BAG IV SCH ×2 (02:19→02:44)
[2021-02-09] MEDS: SODIUM CHLORIDE FLUSH 0.9% 10 ML SYRINGE IVP SCH ×4 (02:51→23:59)
[2021-02-09 05:21] LABS: EOSINOPHILS % (AUTO) 0.5 %; HCT - HEMATOCRIT 21.2 % (37.0-47.0); LYMPHOCYTES % (AUTO) 2.8 %; MEAN CORPUSCULAR HEMOGLOBIN 25.8 pg (27.0-31.0); MEAN CORPUSCULAR HGB CONC 30.2 g/dL (32.0-36.0); MEAN CORPUSCULAR VOLUME 85.5 fL (81.0-99.0); MEAN PLATELET VOLUME 11.3 fL (7.9-10.8); MONOCYTES % (AUTO) 4.1 %; NEUTROPHILS % (AUTO) 84.8 %; PLT - PLATELET COUNT 220 10^3/uL (130-450); RED BLOOD COUNT 2.48 10^6/uL (4.20-5.40); RED CELL DISTRIBUTION WIDTH 18.6 % (12.0-15.0)
[2021-02-09 05:22] LABS: INR 2.7 (0.8-1.2); PT - PROTHROMBIN TIME 29.4 secs (9.9-12.6)
[2021-02-09 05:28] LABS: HGB - HEMOGLOBIN 6.4 g/dL (12.0-16.0)
[2021-02-09 05:29] LABS: ABNORMAL LYMPHS % (MANUAL) 0 %
[2021-02-09 05:36] LABS: CALCIUM 7.2 mg/dL (8.5-10.3); CREATININE 1.1 mg/dL (0.4-1.0); MAGNESIUM 1.4 mg/dL (1.7-2.8)
[2021-02-09 05:43] LABS: BAND NEUTROPHILS % (MANUAL) 10 %; DIFFERENTIAL COMMENT MANUAL DIFFERENTIAL; LYMPHOCYTES % (MANUAL) 7 %; MONOCYTES # (MANUAL) 2.3 10^3/uL (0.0-1.0); NEUTROPHILS # (MANUAL) 50.7 10^3/uL (1.5-6.6); PLATELET ESTIMATE, MANUAL NORMAL (130-450,000) (NORMAL); PLATELET MORPHOLOGY NORMAL APPEARANCE (NORMAL)
[2021-02-09] MEDS ORDERED: SODIUM CHLORIDE 0.9% 1,000 ML IV ONE (06:42)
[2021-02-09 06:45] LABS: CALCIUM, IONIZED 0.92 mmol/L (1.15-1.33); VBG PH 7.348 (7.31-7.41)
--- NOTE | 2021-02-09 09:06 | XRAY Report ---
PROCEDURE: No-Charge 1V Abdomen INDICATIONS: Femoral vein CVP placement TECHNIQUE: 1 view of the abdomen were acquired. COMPARISON: 02/01/2017 CT abdomen and pelvis FINDINGS: Surgical changes and devices: There is a vascular catheter described as a right femoral vein catheter with the distal tip projecting over the expected region of the right common iliac vein or its juncti on with the IVC. Bowel: Nonobstructive bowel gas pattern. IMPRESSION: Distal tip of the right femoral vein central venous catheter projects over the right comm on iliac vein or its junction with the IVC Reviewed by: Naldo Lau MD on 02/09/2021 9:05 AM PST Approved by: Naldo Lau MD on 02/09/2021 9:05 AM PST Station ID: [id number]
[2021-02-09] MEDS: MAGNESIUM SULFATE 2 GRAM 2 GM/50 ML BAG IV SCH ×2 (09:08→10:12)
[2021-02-09] MEDS ORDERED: VANCOMYCIN INJ 1 GM in SODIUM CHLORIDE 0.9% 250 ML IV SCH (09:30)
[2021-02-09] MEDS ORDERED: CALCIUM GLUCONATE 2,000 MG in SODIUM CHLORIDE 0.9% 100ML 100 ML IV ONE (10:00)
[2021-02-09] MEDS: PANTOPRAZOLE 40 MG VIAL IVP SCH ×2 (10:13→20:28)
--- NOTE | 2021-02-09 10:37 | ANESTHESIA PROCEDURE NOTE ---
Anesth Central Line Template - Central Line Central Line Preparation: Consent Obtained, Time out completed, Ultrasound used, Sterile prep and drape Central line location: Right Femoral Central line type: Triple lumen Central line catheter tip site resides: Inferior vena cava (IVC) Central line aftercare: Chlorhexidine disc placed, Secured, Placement confirmed, No complications, Bundle checklist complete, Pt tolerated well
[2021-02-09] MEDS: CIPROFLOXACIN 400 MG/200 ML 400 MG/200 ML BAG IV SCH ×2 (10:45→20:27)
[2021-02-09] MEDS: THIAMINE INJ 100 MG in SODIUM CHLORIDE 0.9% 50 ML IV SCH (12:02)
--- NOTE | 2021-02-09 12:49 | PHARMACY PROGRESS NOTE ---
- Best Possible Medication History Admit Date and Time: 02/08/21 1641 Processed by: Pharmacy Medication History completed: Yes Patient Interview: Completed Secondary Source(s): Physician records, Insurance records Patient interview completed by director pharmacy servicesAlf. As the person ultimately responsible for medication therapy, providers are able to order a medication from an existing home medication list in [facility] via the "Reconcile Routine" prior to Confirmation of that medication by business support administrator. Such practice is discouraged except when the physician, in their clinical judgment, deems that a medical need exists for a medication without regard to previous use.
--- NOTE | 2021-02-09 14:42 | PROVIDER PROGRESS NOTE ---
Assessment/Plan - Problem List (1) Septic shock Assessment/Plan: She continues to have low blood pressure, is requiring vasopressors. White blood count krunal precipitously from excessively low up to 57 today. She is growing E. coli in the urine. Await blood culture results. Continue with vasopressors to keep MAP 60. Continue with empiric IV antibiotics. We will also consider hemorrhage as a source for the hypotension/shock. (2) Vaginal bleeding Assessment/Plan: In the early afternoon, the patient called her nurse thinking that she had urinated in bed, however a Marshall was in place and there was no liquid around it. Another episode occurred just moments later and I was called to inspect the groin and rectum and perineum. There was bleeding seen in the vagina. BEEF CATTLE SPECIALIST consult requested. Dr. Hebert did a bedside bimanual exam. There was a mass that was tender. Dr. Hebert recommends Depo-Provera to be given and a pelvic ultrasound to be obtained. (3) Hypoglycemia Assessment/Plan: After the Med Asst exam, she had marked low back pain and was tachycardic, then accucheck showed glu of 23. Dr Hebert is concerned she may have cervical CA, and a malignancy may cause hypoglycemia. Will treat with D50 and assure she is on iv fluids that contain D5. (4) Severe anemia Assessment/Plan: Hemoglobin was 4 at admission, when she was here several months ago she was assumed to have a GI source of blood loss, after having had extensive work-up at a larger hospital, per their discharge summary. Today we had seen vaginal bleeding ongoing since it started. BEEF CATTLE SPECIALIST consult has been requested. Dr. Hebert thinks she may have a cervical malignancy given the type of watery bleeding she sees in the vagina. We will continue to follow her hemoglobin every 12 hours, transfuse to keep hemo globin over 7. She has had documented iron deficiency before and has severe reaction to oral iron replacement, has needed IV iron replacements in the past, per her history (5) Red blood cell antibody positive, compatible PRBC difficult to obtain Assessment/Plan: As per Hx (6) E. coli UTI Assessment/Plan: The urine culture is growing bacteria identified today as E. coli. Her WBC has risen severely to 57 today. We will continue with empiric IV antibiotics. Await blood cultures. (7) Alcoholic cirrhosis Qualifiers: Ascites presence: without ascites Qualified Code(s): K70.30 - Alcoholic cirrhosis of liver without ascites Assessment/Plan: She has abnormal LFTs and elevated INR due to poor liver synthesis of clotting factors. Avoid antiplatelets and anticoagulants. (8) S/P colostomy Assessment/Plan: As per Hx - Current Meds Current Meds: Current Medications Generic Name Dose Route Start Last Admin Trade Name Freq PRN Reason Stop Dose Admin Lactated Ringer's 1,000 mls @ 150 mls/hr 02/08/21 17:00 02/09/21 08:56 Lr IV 150 mls/hr .[id number] CHRISTINE Administration Ciprofloxacin 400 mg in 200 mls @ 200 mls/hr 02/08/21 21:00 02/09/21 11:45 Cipro 400 Mg/200 Ml IV Infused Q12H CHRISTINE Infusion Thiamine HCl 100 mg/ Sodium 51 mls @ 100 mls/hr 02/09/21 09:00 02/09/21 12:02 Chloride IV Not Given DAILY CHRISTINE Norepinephrine Bitartrate 8 mg 250 mls @ 15 mls/hr 02/08/21 21:00 02/09/21 06:49 / Dextrose IV 20 mcg/min .[id number] CHRISTINE 37.5 mls/hr Administration Protocol 8 MCG/MIN Morphine Sulfate 2 mg 02/08/21 18:35 02/09/21 11:52 Morphine 2 Mg/Ml Carpuject IVP 2 mg Q2HR PRN Administration PAIN Pantoprazole Sodium 40 mg 02/08/21 21:00 02/09/21 10:13 Pantoprazole 40 Mg Vial IVP 40 mg BID CHRISTINE Administration Sodium Chloride 10 ml 02/08/21 17:00 02/09/21 10:45 Sodium Chloride Flush 0.9% 10 Ml Syringe IVP 10 ml 0100,[id number],1700 CHRISTINE Administration Throat Lozenges 1 lozenge 02/08/21 23:17 02/09/21 09:08 Benzocaine/Menthol Lozenge MM 1 lozenge Q2HR PRN Administration Throat pain - Lab Result Fish Bone Diagrams: 02/09/21 04:50 02/09/21 04:50 - Additional Planning My Orders: My Active Orders 02/09/21 Consult [Gynecology Consult] [CONS] Routine 02/09/21 09:17 Miscellaenous Nursing Order [RC] ONCE 02/09/21 09:18 Marshall Insertion [RC] QSHIFT Subjective - Subjective Patient Reports: Fatigue (Feels weak and is thirsty) Objective Vital Signs: Vital Signs - 24 hr 02/08/21 02/08/21 02/08/21 15:00 15:02 15:12 Temperature 36.3 C L 36.6 C 36.3 C L Heart Rate 124 H 124 H 125 H Heart Rate [ Monitoring electrodes] Respiratory 30 H 29 H 25 H Rate Blood Pressure 82/68 L 89/69 L 82/68 L Blood Pressure [Left Brachial artery] Blood Pressure [Right Brachial artery] O2 Saturation 99 02/08/21 02/08/21 02/08/21 15:25 15:30 15:58 Temperature 36.4 C L 36.4 C L 36.3 C L Heart Rate 124 H 123 H 122 H Heart Rate [ Monitoring electrodes] Respiratory 33 H 40 H 27 H Rate Blood Pressure 98/60 94/61 96/60 Blood Pressure [Left Brachial artery] Blood Pressure [Right Brachial artery] O2 Saturation 99 02/08/21 02/08/21 02/08/21 16:00 16:24 16:30 Temperature 36.3 C L Heart Rate 121 H 122 H 123 H Heart Rate [ Monitoring electrodes] Respiratory 30 H 32 H 31 H Rate Blood Pressure 101/67 101/68 99/66 Blood Pressure [Left Brachial artery] Blood Pressure [Right Brachial artery] O2 Saturation 98 98 02/08/21 02/08/21 02/08/21 16:39 16:54 17:00 Temperature 36.4 C L 36.4 C L Heart Rate 123 H 124 H 123 H Heart Rate [ Monitoring electrodes] Respiratory 40 H 33 H 40 H Rate Blood Pressure 102/66 96/78 106/66 Blood Pressure [Left Brachial artery] Blood Pressure [Right Brachial artery] O2 Saturation 97 02/08/21 02/08/21 02/08/21 17:43 18:00 18:30 Temperature Heart Rate 125 H 124 H Heart Rate [ 124 H Monitoring electrodes] Respiratory 35 H 28 H 34 H Rate Blood Pressure 109/69 116/73 Blood Pressure [Left Brachial artery] Blood Pressure 98/68 [Right Brachial artery] O2 Saturation 98 98 99 02/08/21 02/08/21 02/08/21 18:45 19:00 19:02 Temperature 36.5 C 36.5 C Heart Rate Heart Rate [ 124 H 123 H 119 H Monitoring electrodes] Respiratory 34 H 38 H 33 H Rate Blood Pressure Blood Pressure [Left Brachial artery] Blood Pressure 95/66 96/59 L 84/54 L [Right Brachial artery] O2 Saturation 97 99 99 02/08/21 02/08/21 02/08/21 19:30 20:15 21:00 Temperature Heart Rate Heart Rate [ 120 H 121 H 120 H Monitoring electrodes] Respiratory 30 H 37 H 32 H Rate Blood Pressure Blood Pressure [Left Brachial artery] Blood Pressure 88/59 L 96/69 77/55 L [Right Brachial artery] O2 Saturation 100 100 100 02/08/21 02/08/21 02/09/21 22:00 23:00 00:00 Temperature Heart Rate Heart Rate [ 119 H 119 H 126 H Monitoring electrodes] Respiratory 36 H 33 H 35 H Rate Blood Pressure Blood Pressure [Left Brachial artery] Blood Pressure 93/54 L 79/35 L 96/60 [Right Brachial artery] O2 Saturation 100 99 98 02/09/21 02/09/21 02/09/21 01:00 02:00 02:15 Temperature 36.7 C Heart Rate Heart Rate [ 126 H 122 H Monitoring electrodes] Respiratory 25 H 36 H Rate Blood Pressure Blood Pressure [Left Brachial artery] Blood Pressure 77/51 L 71/47 L 77/58 L [Right Brachial artery] O2 Saturation 98 97 02/09/21 02/09/21 02/09/21 03:00 04:00 05:00 Temperature 36.6 C Heart Rate Heart Rate [ 125 H 125 H 123 H Monitoring electrodes] Respiratory 23 35 H 29 H Rate Blood Pressure Blood Pressure [Left Brachial artery] Blood Pressure 87/49 L 81/48 L 79/55 L [Right Brachial artery] O2 Saturation 98 100 99 02/09/21 02/09/21 02/09/21 06:00 07:00 08:00 Temperature Heart Rate Heart Rate [ 121 H 119 H 120 H Monitoring electrodes] Respiratory 32 H 36 H 32 H Rate Blood Pressure Blood Pressure [Left Brachial artery] Blood Pressure 83/43 L 85/52 L 92/55 L [Right Brachial artery] O2 Saturation 100 97 97 02/09/21 02/09/21 02/09/21 09:00 10:00 10:20 Temperature 36.7 C Heart Rate 119 H Heart Rate [ 125 H 121 H Monitoring electrodes] Respiratory 30 H 35 H 35 H Rate Blood Pressure 87/50 L Blood Pressure [Left Brachial artery] Blood Pressure 95/55 L 91/54 L [Right Brachial artery] O2 Saturation 99 97 02/09/21 02/09/21 02/09/21 10:35 10:45 11:00 Temperature 36.7 C 36.6 C Heart Rate 119 H 119 H 118 H Heart Rate [ 118 H Monitoring electrodes] Respiratory 34 H 23 35 H Rate Blood Pressure 90/51 L 91/56 L 100/51 L Blood Pressure [Left Brachial artery] Blood Pressure 100/51 L [Right Brachial artery] O2 Saturation 97 02/09/21 12:00 Temperature Heart Rate Heart Rate [ 115 H Monitoring electrodes] Respiratory 31 H Rate Blood Pressure Blood Pressure 101/60 [Left Brachial artery] Blood Pressure [Right Brachial artery] O2 Saturation 95 Oxygen O2 Source Room air I&O (Last 24 Hrs): Intake and Output Totals x24h 02/07/21 02/08/21 02/09/21 23:59 23:59 23:59 Intake Total 4351.563 2990.270 Output Total 450 865 Balance 3901.563 2125.270 General: Alert, Oriented x3 HEENT: Other (Mucosa dry, sclerae isteric) Neck: Supple Neuro: Alert, Non Focal (Non-tremelous) Cardiovascular: Regular rate Respiratory: No respiratory distress Abdomen: Soft Genitourinary: Other (Vaginal bleeding visualized.) Rectal: Other (Anus appears normal.) Extremities: No clubbing, No edema - Results Results: Laboratory Results WBC 57.0 x10^3/uL (4.8-10.8) H* 02/09/21 04:50 RBC 2.48 10^6/uL (4.20-5.40) L 02/09/21 04:50 Hgb 6.4 g/dL (12.0-16.0) L* 02/09/21 04:50 Hct 21.2 % (37.0-47.0) L 02/09/21 04:50 MCV 85.5 fL (81.0-99.0) 02/09/21 04:50 MCH 25.8 pg (27.0-31.0) L 02/09/21 04:50 MCHC 30.2 g/dL (32.0-36.0) L 02/09/21 04:50 RDW 18.6 % (12.0-15.0) H 02/09/21 04:50 Plt Count 220 10^3/uL (130-450) 02/09/21 04:50 MPV 11.3 fL (7.9-10.8) H 02/09/21 04:50 Neut # (Auto) Not Reportable 02/09/21 04:50 Lymph # (Auto) Not Reportable 02/09/21 04:50 Clare # (Auto) Not Reportable 02/09/21 04:50 Eos # (Auto) Not Reportable 02/09/21 04:50 Baso # (Auto) Not Reportable 02/09/21 04:50 Absolute Nucleated RBC Not Reportable 02/09/21 04:50 Total Counted 100 02/09/21 04:50 Band Neuts % (Manual) 10 % (0-10) 02/09/21 04:50 Abnorm Lymph % (Manual) 0 % 02/09/21 04:50 Nucleated RBC % Not Reportable 02/09/21 04:50 Neutrophils # (Manual) 50.7 10^3/uL (1.5-6.6) H 02/09/21 04:50 Lymphocytes # (Manual) 4.0 10^3/uL (1.5-3.5) H 02/09/21 04:50 Monocytes # (Manual) 2.3 10^3/uL (0.0-1.0) H 02/09/21 04:50 Eosinophils # (Manual) 0.0 10^3/uL (0-0.7) 02/09/21 04:50 Basophils # (Manual) 0.0 10^3/uL (0-0.1) 02/09/21 04:50 Nucleated RBCs 24 % 02/08/21 11:02 Differential Comment MANUAL DIFFERENTIAL 02/09/21 04:50 Platelet Estimate NORMAL (130-450,000) (NORMAL) 02/09/21 04:50 Platelet Morphology NORMAL APPEARANCE (NORMAL) 02/09/21 04:50 RBC Morph Micro Appear 3+ HYPOCHROMASIA (NORMAL) 2+ POLYCHROMASIA (NORMAL) 3+ ANISOCYTOSIS (NORMAL) 02/09/21 04:50 RBC Morph Micro Appear 3+ HYPOCHROMASIA (NORMAL) 2+ POLYCHROMASIA (NORMAL) 3+ ANISOCYTOSIS (NORMAL) 02/09/21 04:50 RBC Morph Micro Appear 3+ HYPOCHROMASIA (NORMAL) 2+ POLYCHROMASIA (NORMAL) 3+ ANISOCYTOSIS (NORMAL) 02/09/21 04:50 PT 29.4 secs (9.9-12.6) H 02/09/21 04:50 INR 2.7 (0.8-1.2) H 02/09/21 04:50 APTT 31.5 secs (24.9-33.3) 02/08/21 11:34 VBG pH 7.348 (7.31-7.41) 02/09/21 06:30 Ionized Calcium 0.92 mmol/L (1.15-1.33) L 02/09/21 06:30 Sodium 132 mmol/L (135-145) L 02/09/21 04:50 Potassium 4.0 mmol/L (3.5-5.0) 02/09/21 04:50 Chloride 105 mmol/L (101-111) 02/09/21 04:50 Carbon Dioxide 13 mmol/L (21-32) L 02/09/21 04:50 Anion Gap 14.0 (6-13) H 02/09/21 04:50 BUN 14 mg/dL (6-20) 02/09/21 04:50 Creatinine 1.1 mg/dL (0.4-1.0) H 02/09/21 04:50 Estimated GFR (MDRD) 53 (>89) L 02/09/21 04:50 Glucose 87 mg/dL (70-100) 02/09/21 04:50 Lactic Acid 5.4 mmol/L (0.5-2.2) H* 02/09/21 09:20 Calcium 7.2 mg/dL (8.5-10.3) L 02/09/21 04:50 Phosphorus 3.0 mg/dL (2.5-4.6) 02/09/21 04:50 Magnesium 1.4 mg/dL (1.7-2.8) L 02/09/21 04:50 Iron 35 ug/dL (28-170) 02/08/21 11:02 TIBC 321 ug/dL (250-450) 02/08/21 11:02 % Saturation 11 % (20-50) L 02/08/21 11:02 Transferrin 229 mg/dL (192-382) 02/08/21 11:02 Ferritin 15.9 ng/mL (11.0-306.8) 02/08/21 11:02 Total Bilirubin 3.2 mg/dL (0.2-1.0) H 02/08/21 11:02 AST 54 IU/L (10-42) H 02/08/21 11:02 ALT 22 IU/L (10-60) 02/08/21 11:02 Alkaline Phosphatase 313 IU/L (42-121) H 02/08/21 11:02 Troponin I High Sens 23.3 ng/L (2.3-14.8) H* 02/08/21 17:02 B-Natriuretic Peptide 249 pg/mL (5-100) H 02/08/21 11:02 Total Protein 5.4 g/dL (6.7-8.2) L 02/08/21 11:02 Albumin 2.4 g/dL (3.2-5.5) L 02/08/21 11:02 Globulin 3.0 g/dL (2.1-4.2) 02/08/21 11:02 Albumin/Globulin Ratio 0.8 (1.0-2.2) L 02/08/21 11:02 Lipase 24 U/L (22-51) 02/08/21 11:02 Vitamin B12 572 pg/mL (180-914) 02/08/21 11:02 Folate 7.36 ng/mL (5.90 - >24.8) 02/08/21 11:02 Urine Color BROWN 02/08/21 12:53 Urine Clarity CLOUDY (CLEAR) 02/08/21 12:53 Urine pH 7.0 PH (5.0-7.5) 02/08/21 12:53 Ur Specific [place] 1.015 (1.002-1.030) 02/08/21 12:53 Urine Protein >=300 mg/dL (NEGATIVE) H 02/08/21 12:53 Urine Glucose (UA) NEGATIVE mg/dL (NEGATIVE) 02/08/21 12:53 Urine Ketones TRACE mg/dL (NEGATIVE) 02/08/21 12:53 Urine Occult Blood LARGE (NEGATIVE) H 02/08/21 12:53 Urine Nitrite POSITIVE (NEGATIVE) H 02/08/21 12:53 Urine Bilirubin NEGATIVE (NEGATIVE) 02/08/21 12:53 Urine Urobilinogen 1 (NORMAL) E.U./dL (NORMAL) 02/08/21 12:53 Ur Leukocyte Esterase MODERATE (NEGATIVE) H 02/08/21 12:53 Urine RBC TNTC /HPF (0-5) H 02/08/21 12:53 Urine WBC >25 /HPF (0-5) H 02/08/21 12:53 Ur Squamous Epith Cells RARE Squamous (<= Few) 02/08/21 12:53 Urine Bacteria Moderate /HPF (None Seen) H 02/08/21 12:53 Ur Microscopic Review INDICATED 02/08/21 12:53 Urine Culture Comments INDICATED 02/08/21 12:53 Nasal Adenovirus (PCR) NOT DETECTED 02/08/21 11:02 Nasal B. parapertussis DNA (PCR) NOT DETECTED 02/08/21 11:02 Nasal Coronavir 229E PCR NOT DETECTED 02/08/21 11:02 Nasal Coronavir HKU1 PCR NOT DETECTED 02/08/21 11:02 Nasal Coronavir NL63 PCR NOT DETECTED 02/08/21 11:02 Nasal Coronavir OC43 PCR NOT DETECTED 02/08/21 11:02 Nasal Enterovir/Rhinovir PCR NOT DETECTED 02/08/21 11:02 Nasal Influenza B PCR NOT DETECTED 02/08/21 11:02 Nasal Influenza A PCR NOT DETECTED 02/08/21 11:02 Nasal Parainfluen 1 PCR NOT DETECTED 02/08/21 11:02 Nasal Parainfluen 2 PCR NOT DETECTED 02/08/21 11:02 Nasal Parainfluen 3 PCR NOT DETECTED 02/08/21 11:02 Nasal Parainfluen 4 PCR NOT DETECTED 02/08/21 11:02 Nasal RSV (PCR) NOT DETECTED 02/08/21 11:02 Nasal Screen MRSA (PCR) NEGATIVE (NEGATIVE) 02/08/21 19:55 Nasal B.pertussis DNA PCR NOT DETECTED 02/08/21 11:02 Nasal C.pneumoniae (PCR) NOT DETECTED 02/08/21 11:02 Yan Human Metapneumo PCR NOT DETECTED 02/08/21 11:02 Nasal M.pneumoniae (PCR) NOT DETECTED 02/08/21 11:02 Nasal SARS-CoV-2 (PCR) NOT DETECTED 02/08/21 11:02 Blood Type A POSITIVE 02/08/21 11:34 Antibody Screen NEGATIVE 02/08/21 11:34 Crossmatch See Detail 02/08/21 11:34 - Procedures Procedures: Procedures TRANSFUSE NONAUT RED BLOOD CELLS IN PERIPH VEIN, [facility] (09/23/20) Sepsis Event Note (H) - Evaluation Current Stage of Sepsis: Septic shock - Sepsis Criteria Sepsis Criteria: Recorded Heart Rate greater than 90 bpm, Recorded Respiratory Rate greater than 20, WBC count greater than 12,000 or less than 4000, SBP drop more than 40mHg, SBP less than 90 mmHg, Metabolic: lactate > 2 mmol/L, Hematologic: platelets < 100,000; INR > 1.5, or a PTT>60 seconds
[2021-02-09] MEDS: ALBUTEROL NEB 2.5 MG/3 ML INH PRN (14:44)
[2021-02-09] MEDS ORDERED: diltiaZEM INJ 5 MG/ML VIAL IVP ONE (17:39)
--- NOTE | 2021-02-09 17:45 | CONSULTATION NOTE ---
Referring Provider Name of Referring Provider:: Dr. Doty Consult Date: 02/09/21 Chief Complaint - Chief Complaint Chief Complaint: Vaginal bleeding History of Present Illness - History of Present Illness HPI Comment/Other: ID: Patient is a 50 yo admitted to the ICU with sepsis and profound anemia now with heavy vaginal bleeding. HPI: Patient has a complicated past medical history. By patient report, she presented to the ED when she was having a panic attack and couldn't breathe. States she hadnt eaten in a few days as she was feeling unwell and had been having bout of emesis. She was found to be tachycardic to the 170s on presentation and hypotensive. Presenting hgb was 4.1, now 6.4 as of this am. WBC 3.7 at admission. This am she has a marked leukocytosis with WBC 57. INR this am was 2.7, increased from 1.8 at admission Has been undergo tranfusion over the course of the day. While receiving care this am, patient felt that she had passed urine. On examination, it was found to be a large volume of blood. Blood cultures positive for Kelbsiella. Patient is known to have cirrhosis and esophageal varices. Endorses EtOH abuse. Notes that she will have several day long drinking binges and then will stop drinking and successfully avoid alcohol for months at a time. She had such an episode earlier this month when learning of some disturbing news affecting her family. She has had multiple ED presentations within the last year in which she was profoundly anemic and hypotensive. She reports having frequency urinary tract infections for which she will have to undergo catheterization for urinary retention. Endorses multiple surgeries of the urinary tract pre-kindergarten. She cannot recall the details but notes that she had issues with urinary retention at that young age. Not currently sexually active. Has not had SA in 2 years. She takes norethindrone/progesterone only contraception for heavy menses and menorrhagia. Reports amenorrhea on medications. Has not taken the norethindrone since time of admission. Cannot recall her last pap smear. She does have a history of abnormal pap smear for which she had a colposcopy but is unclear on the follow- up. No STIs to her recollection. x2. 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 2018: reversal of ileostomy at [facility]. ([facility] providers referred out) 2019: Diverticulitis requiring colostomy. Also performed at [facility]. Plan for reversal in one year with continuous delays 2/2 COVID. 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 With any EtOH, will trigger several days if binge drinking. Then will have months of sobriety. Does not attend group meetings. Last episode in early January. States she has recollections of binges D: CBD for sleep Safe at home. Has been unsafe in the past with father nilsa children ROS: As per HPI, otherwise remaining systems are negative PE: VS: 166 133/110 33 97% GEN: Dry cough interrupting conversation. Discomfort after exam 22/2 back pain HEENT: mild facial sweeling. NCAT CV: tachycardic RESP: CTAB ABD: TTP in RLQ and in suprapubic area. Colostomy in place with brown stool accumulating EXT: No LE edema. Femoral line in right inguinal fold TEAMCENTER CONSULTANT: NEFG. Soaked underlying chucks with watery blood. Bimanual exam performed. Marked TTP in bladder form vaginal approach and with suprapubic compression. Mild CMT. Cervix palpates with mild nodularity. Right adnexal tenderness, exam limited by guarding Left adnexal avoided 2/2 colostomy and patient discomfort. Exam glove was NOT markedly blood covered. (Plan for speculum exam and possible pap smear delayed as pain with tachycardia and hypertension occurred after pelvic exam. Patient had initial chucks removed and large peripad was placed. Patient had soaked posterior aspect of peripad within an hour A/P: 50 yo with complicated PMH/PSH here with likely urosepsis and now with high volume vaginal bleeding Vaginal bleeding: Most likely related to progesterone withdrawal in the setting of coagulopathy. -Patient had been longterm user of norethindrone to control menorrhagia. Discontinuing norethindrone will prompt withdrawal bleeding, exacerbated by background of coagulopathy (eg INR 2.7) -Cannot have estrogen based formulations 2/2 cirrhosis -Cannot tolerate oral medications 2/2 esophageal varices -Recommend depo-provera 150 mg IM x1 Order submitted after discussion with Dr. Doty Should also consider possibility of malignant process, particularly given quality of bleeding. Cervical/uterine malignancies can present with urinary symptoms given proximity of bladder to reproductive tract -Recommend pelvic us when patient is able to tolerate exam. Bedside/portable us recommended -Can attempt pap smear when patient is stable. Endometrial biopsy pending us findings Alternative methods of controlling bleeding could include tranexamic acid/endometrial ablation. -Mechanism of action: Displaces plasminogen from fibrin resulting in inhibition of fibrinolysis. Also inhibits proteolytic activity of plasmin. -DIC would be a contraindication (or at least should only be administered by provider experienced with TXA in DIC) -Given profound anemia with on-going bleeding, could consider endometrial ablation done on an emergent basis if patient were stable enough to undergo sed ation and transport to OR. Please monitor volume of bleeding and consider quantitative blood loss assessment (eg weighing chucks). Vaginal bleeding can be substantial enough to cause life threatening anemia. Sanjiv return to attempt pap smear when patient is more stable for pelvic examination. Thank you for including me in the care of this patient. History - Past Medical History Cardiovascular: reports: None Respiratory: reports: Asthma Neuro: reports: None Endocrine/Autoimmune: reports: None GI: reports: GERD, GI bleed, Cirrhosis, Diverticulitis TEAMCENTER CONSULTANT: reports: None : reports: Frequency, Other HEENT: reports: Dental implants Psych: reports: Anxiety Musculoskeletal: reports: Scoliosis Derm: reports: Eczema MRSA Hx?: No Other Past Medical History: colostomy 3 years; frequent UTI - Past Surgical History General: reports: Appendectomy, Colonoscopy, EGD, Other - Family & Social History Family History: Mother: Alive and Well, Cancer, Father: Alive and Well, Cancer Family History Comment/Other: Her father had prostate cancer and her mother had colon cancer. Living arrangement: At home Living Situation: With family Social History Notes: She lives at home with her parents. She is independent of activities of daily living. She denies smoking. Still admits to alcohol use although reports it is only occasional compared to the regular alcohol use that she previously had. She has been drinking for over 20 years. She will occasionally use THC and CBD. - POLST Patient has POLST: No POLST Status: Full Code Meds/Allgy - Home Medications Home Medications: Ambulatory Orders Medication Instructions Recorded Confirmed Trazodone HCl 200 mg PO QPM 11/26/19 02/08/21 Albuterol [Proventil Hfa] 2 puffs PO Q4H PRN 09/24/20 02/09/21 traMADol [Ultram] 25 mg PO Q8H PRN 09/24/20 02/08/21 Norethindrone 1 tab PO QPM 02/09/21 02/09/21 - Allergies Allergies/Adverse Reactions: Allergies Allergy/AdvReac Type Severity Reaction Status Date / Time cephalexin Allergy Unknown Verified 02/08/21 10:54 sertraline Allergy Unknown Verified 02/08/21 10:54 Exam - Vital Signs Vital Signs: Vital Signs x48h Temp Pulse Pulse Resp BP BP BP 02/09/21 17:40 148 H 33 H 144/109 H 02/09/21 17:30 159 H 23 171/138 H 02/09/21 17:05 146 H 33 H 133/110 H 02/09/21 17:00 142 H 27 H 127/111 H 127/111 H 02/09/21 14:51 121 H 20 02/09/21 14:44 97.9 F 115 H 31 H 95/61 02/09/21 14:00 97.9 F 111 H 111 H 27 H 96/57 L 96/57 L 02/09/21 13:00 113 H 29 H 88/51 L 02/09/21 12:00 115 H 31 H 101/60 02/09/21 11:00 118 H 118 H 35 H 100/51 L 100/51 L 02/09/21 10:45 97.9 F 119 H 23 91/56 L 02/09/21 10:35 98.1 F 119 H 34 H 90/51 L 02/09/21 10:20 98.1 F 119 H 35 H 87/50 L 02/09/21 10:00 121 H 35 H 91/54 L Pulse Ox 02/09/21 17:40 95 02/09/21 17:30 98 02/09/21 17:05 97 02/09/21 17:00 98 02/09/21 14:51 02/09/21 14:44 02/09/21 14:00 97 02/09/21 13:00 96 02/09/21 12:00 95 02/09/21 11:00 97 02/09/21 10:45 02/09/21 10:35 02/09/21 10:20 02/09/21 10:00 97 Conclusion/Plan - Lab Results Lab results reviewed: Yes Fish Bones: 02/09/21 04:50 02/09/21 04:50
[2021-02-09] MEDS ORDERED: DEXTROSE 50% ABBOJECT 25 GM/50 ML SYRINGE IVP ONE (18:55)
[2021-02-09] MEDS ORDERED: DEXTROSE 50% ABBOJECT 25 GM/50 ML SYRINGE ONE (18:55)
[2021-02-09] MEDS ORDERED: LORazepam 2 MG/ML VIAL IVP PRN (19:12)
[2021-02-09 19:22] LABS: HCT - HEMATOCRIT 26.3 % (37.0-47.0); HGB - HEMOGLOBIN 8.2 g/dL (12.0-16.0); MEAN CORPUSCULAR HEMOGLOBIN 27.1 pg (27.0-31.0); MEAN CORPUSCULAR HGB CONC 31.2 g/dL (32.0-36.0); MEAN CORPUSCULAR VOLUME 86.8 fL (81.0-99.0); MEAN PLATELET VOLUME 10.4 fL (7.9-10.8); RED BLOOD COUNT 3.03 10^6/uL (4.20-5.40); RED CELL DISTRIBUTION WIDTH 17.3 % (12.0-15.0); WHITE BLOOD COUNT 27.8 x10^3/uL (4.8-10.8)
[2021-02-09] MEDS ORDERED: DEXTROSE 5% 1,000 ML IV SCH (20:00)
[2021-02-09] MEDS: LIDOCAINE PATCH 5% TOP PRN (20:28)
[2021-02-09] MEDS: PHENAZOPYRIDINE 100 MG TABLET PO SCH (21:35)
[2021-02-09] MEDS: SODIUM CHLORIDE FLUSH 0.9% 10 ML SYRINGE IVP PRN (22:27)
[2021-02-09 22:32] LABS: CALCIUM, IONIZED 1.03 mmol/L (1.15-1.33); VBG PH 7.306 (7.31-7.41)
[2021-02-09] MEDS ORDERED: CALCIUM CHLORIDE 1,000 MG in SODIUM CHLORIDE 0.9% 50 ML IV ONE (22:38)
[2021-02-09] MEDS: D5.45NS W/20 MEQ KCL 1,000 ML IV SCH (22:57)
[2021-02-09] MEDS ORDERED: CALCIUM GLUCONATE 1,000 MG in SODIUM CHLORIDE 0.9% 50 ML IV ONE (22:59)
[2021-02-10] MEDS: BENZOCAINE/MENTHOL LOZENGE MM PRN ×3 (01:00→23:25)
[2021-02-10] MEDS: MORPHINE 2 MG/ML CARPUJECT IVP PRN ×3 (03:06→23:26)
[2021-02-10] MEDS: SODIUM CHLORIDE FLUSH 0.9% 10 ML SYRINGE IVP PRN ×5 (05:13→14:12)
[2021-02-10 05:41] LABS: EOSINOPHILS % (AUTO) 0.3 %; HCT - HEMATOCRIT 25.1 % (37.0-47.0); HGB - HEMOGLOBIN 8.2 g/dL (12.0-16.0); LYMPHOCYTES % (AUTO) 3.4 %; MEAN CORPUSCULAR HEMOGLOBIN 27.4 pg (27.0-31.0); MEAN CORPUSCULAR HGB CONC 32.7 g/dL (32.0-36.0); MEAN CORPUSCULAR VOLUME 83.9 fL (81.0-99.0); MEAN PLATELET VOLUME 10.6 fL (7.9-10.8); MONOCYTES % (AUTO) 3.8 %; NEUTROPHILS % (AUTO) 85.9 %; PLT - PLATELET COUNT 137 10^3/uL (130-450); RED BLOOD COUNT 2.99 10^6/uL (4.20-5.40); RED CELL DISTRIBUTION WIDTH 17.5 % (12.0-15.0)
[2021-02-10 05:44] LABS: ABNORMAL LYMPHS % (MANUAL) 0 %
[2021-02-10 05:52] LABS: CALCIUM 7.3 mg/dL (8.5-10.3); CREATININE 0.9 mg/dL (0.4-1.0); MAGNESIUM 2.3 mg/dL (1.7-2.8); PHOSPHORUS 3.7 mg/dL (2.5-4.6); POTASSIUM 4.7 mmol/L (3.5-5.0)
[2021-02-10 06:19] LABS: INR 2.2 (0.8-1.2); PT - PROTHROMBIN TIME 24.1 secs (9.9-12.6)
[2021-02-10] MEDS: PHENAZOPYRIDINE 100 MG TABLET PO SCH ×3 (06:43→21:29)
[2021-02-10] MEDS: D5.45NS W/20 MEQ KCL 1,000 ML IV SCH ×2 (06:43→15:02)
[2021-02-10 06:45] LABS: BAND NEUTROPHILS % (MANUAL) 31 %; DIFFERENTIAL COMMENT MANUAL DIFFERENTIAL; LYMPHOCYTES # (MANUAL) 1.1 10^3/uL (1.5-3.5); LYMPHOCYTES % (MANUAL) 2 %; METAMYELOCYTES % (MANUAL) 1 %; MONOCYTES # (MANUAL) 5.6 10^3/uL (0.0-1.0); MYELOCYTES % (MANUAL) 1 %; NEUTROPHILS # (MANUAL) 48.2 10^3/uL (1.5-6.6); PLATELET ESTIMATE, MANUAL NORMAL (130-450,000) (NORMAL); RBC MORPHOLOGY (MULTIPLE) NORMAL APPEARANCE (NORMAL)
[2021-02-10 07:13] LABS: CALCIUM, IONIZED 1.06 mmol/L (1.15-1.33); VBG PH 7.27 (7.31-7.41)
[2021-02-10] MEDS ORDERED: CALCIUM GLUCONATE 1,000 MG in SODIUM CHLORIDE 0.9% 50 ML IV ONE (08:00)
[2021-02-10] MEDS: ALBUTEROL NEB 2.5 MG/3 ML INH PRN ×2 (09:19→15:13)
[2021-02-10] MEDS: PANTOPRAZOLE 40 MG VIAL IVP SCH ×2 (09:19→21:29)
[2021-02-10] MEDS: SODIUM CHLORIDE FLUSH 0.9% 10 ML SYRINGE IVP SCH (09:20)
[2021-02-10] MEDS: CIPROFLOXACIN 400 MG/200 ML 400 MG/200 ML BAG IV SCH ×2 (09:44→21:29)
[2021-02-10] MEDS: THIAMINE INJ 100 MG in SODIUM CHLORIDE 0.9% 50 ML IV SCH (11:39)
[2021-02-10 12:30] LABS: CALCIUM, IONIZED 1.19 mmol/L (1.15-1.33); VBG PH 7.324 (7.31-7.41)
[2021-02-10 15:25] LABS: HGB - HEMOGLOBIN 8.2 g/dL (12.0-16.0)
[2021-02-10] MEDS ORDERED: MORPHINE 2 MG/ML CARPUJECT IVP SCH (15:32)
--- NOTE | 2021-02-10 16:12 | XRAY Report ---
PROCEDURE: Chest 1 View X-Ray INDICATIONS: Dry cough TECHNIQUE: One view of the chest was acquired. COMPARISON: 02/08/2021 and 08/17/2020 FINDINGS: Surgical changes and devices: None. Lungs and pleura: No pleural effusions or pneumothorax. Mild diffuse interstitial prominence which a ppears more conspicuous compared to prior studies. Streaky bibasilar opacities. No focal consolidatio ns. Mediastinum: Mediastinal contours appear normal. Heart size is enlarged compared to prior studies. This may be in part due to slight differences in patient positioning/rotation. Bones and chest wall: No suspicious bony lesions. Overlying soft tissues appear unremarkable. Agai n noted, dextroscoliosis of the lower thoracic spine. IMPRESSION: Mild cardiomegaly which may be in part due to differences in patient positioning and rotation. There is however, mild diffuse interstitial prominence and streaky bibasilar opacities not seen on comparis on studies. Overall, findings may represent an infectious/inflammatory process versus mild pulmonary edema. Recommend clinical correlation. No focal consolidation identified. Reviewed by: Zev Willams MD on 02/10/2021 4:11 PM PST Approved by: Zev Willams MD on 02/10/2021 4:11 PM PST Station ID: [id number]
[2021-02-10] MEDS ORDERED: D5.45NS W/20 MEQ KCL 1,000 ML IV SCH (16:27)
--- NOTE | 2021-02-10 16:28 | PROVIDER PROGRESS NOTE ---
Subjective - Prog Note Date Prog Note Date: 02/10/21 Prog Note Time: 10:30 - Subjective Subjective: Patient reports decreased bleeding since receiving DMPA injection. No sensation of active blood loss. Wearing pad. States it was changed this am. Does not recall degree of blood loss on overnight pad. Objective - Vital Signs/Intake & Output Reviewed Vital Signs: Yes Vital Signs: Vital Signs x48h Temp Pulse Pulse Resp BP Pulse Ox 02/10/21 16:00 99.7 F 104 H 21 80/59 L 95 02/10/21 15:46 105/65 02/10/21 15:32 94/63 02/10/21 15:15 101 H 22 02/10/21 15:00 102 H 25 H 110/71 97 02/10/21 14:00 97 22 78/58 L 98 02/10/21 13:00 98 23 83/57 L 97 02/10/21 12:00 98.1 F 96 19 81/56 L 96 02/10/21 11:00 98 20 83/62 L 93 02/10/21 10:00 102 H 22 82/67 L 98 02/10/21 09:19 100 22 02/10/21 09:00 111 H 28 H 107/62 94 Intake & Output: Intake & Output 02/07/21 02/08/21 02/09/21 02/10/21 23:59 23:59 23:59 23:59 Intake Total 4351.563 7037.770 2978.084 Output Total 180 948 0874 Balance 3901.563 6134.770 1671.084 - Objective General Appearance: positive: No acute distress Eyes Bilateral: positive: Normal inspection Respiratory: positive: Breath sounds nml, Other (cough) Cardiovascular: positive: Regular rate & rhythm Abdomen: positive: No distention, Other (soft, NT. Ostomy with brown output.) Skin: positive: Color nml Extremities: positive: Non-tender Neurologic/Psychiatric: positive: Oriented x3 Comments/Other: Pelvic: Wearing depends pad. Minimal staining. No alisa blood - Lab Results Fish Bones: 02/10/21 15:16 02/10/21 05:10 Other Labs: Lab Results x24hrs 02/10/21 02/10/21 02/10/21 Range/Units 15:16 14:09 12:20 WBC (4.8-10.8) x10^3/uL RBC (4.20-5.40) 10^6/uL Hgb 8.2 L (12.0-16.0) g/dL Hct 25.0 L (37.0-47.0) % MCV (81.0-99.0) fL MCH (27.0-31.0) pg MCHC (32.0-36.0) g/dL RDW (12.0-15.0) % Plt Count (130-450) 10^3/uL MPV (7.9-10.8) fL Neut # (Auto) Lymph # (Auto) Lander # (Auto) Eos # (Auto) Baso # (Auto) Absolute Nucleated RBC Total Counted Band Neuts % (Manual) (0 - 10) % Abnorm Lymph % (Manual) % Metamyelocytes % ( - 0) % Myelocytes % ( - 0) % Nucleated RBC % Neutrophils # (Manual) (1.5-6.6) 10^3/uL Lymphocytes # (Manual) (1.5-3.5) 10^3/uL Monocytes # (Manual) (0.0-1.0) 10^3/uL Eosinophils # (Manual) (0-0.7) 10^3/uL Basophils # (Manual) (0-0.1) 10^3/uL Differential Comment Platelet Estimate (NORMAL) RBC Morph Micro Appear (NORMAL) PT (9.9-12.6) secs INR (0.8-1.2) VBG pH 7.324 (7.31-7.41) Ionized Calcium 1.19 (1.15-1.33) mmol/L Sodium (135-145) mmol/L Potassium (3.5-5.0) mmol/L Chloride (101-111) mmol/L Carbon Dioxide (21-32) mmol/L Anion Gap (6-13) BUN (6-20) mg/dL Creatinine (0.4-1.0) mg/dL Estimated GFR (MDRD) (>89) Glucose (70-100) mg/dL Lactic Acid 2.7 H (0.5-2.2) mmol/L Calcium (8.5-10.3) mg/dL Phosphorus (2.5-4.6) mg/dL Magnesium (1.7-2.8) mg/dL Blood Type Antibody Screen Crossmatch 02/10/21 02/10/21 02/10/21 Range/Units 08:04 06:47 05:10 WBC (4.8-10.8) x10^3/uL RBC (4.20-5.40) 10^6/uL Hgb (12.0-16.0) g/dL Hct (37.0-47.0) % MCV (81.0-99.0) fL MCH (27.0-31.0) pg MCHC (32.0-36.0) g/dL RDW (12.0-15.0) % Plt Count (130-450) 10^3/uL MPV (7.9-10.8) fL Neut # (Auto) Lymph # (Auto) Lander # (Auto) Eos # (Auto) Baso # (Auto) Absolute Nucleated RBC Total Counted Band Neuts % (Manual) (0 - 10) % Abnorm Lymph % (Manual) % Metamyelocytes % ( - 0) % Myelocytes % ( - 0) % Nucleated RBC % Neutrophils # (Manual) (1.5-6.6) 10^3/uL Lymphocytes # (Manual) (1.5-3.5) 10^3/uL Monocytes # (Manual) (0.0-1.0) 10^3/uL Eosinophils # (Manual) (0-0.7) 10^3/uL Basophils # (Manual) (0-0.1) 10^3/uL Differential Comment Platelet Estimate (NORMAL) RBC Morph Micro Appear (NORMAL) PT (9.9-12.6) secs INR (0.8-1.2) VBG pH 7.270 L (7.31-7.41) Ionized Calcium 1.06 L (1.15-1.33) mmol/L Sodium 127 L (135-145) mmol/L Potassium 4.7 (3.5-5.0) mmol/L Chloride 102 (101-111) mmol/L Carbon Dioxide 15 L (21-32) mmol/L Anion Gap 10.0 (6-13) BUN 21 H (6-20) mg/dL Creatinine 0.9 (0.4-1.0) mg/dL Estimated GFR (MDRD) 67 L (>89) Glucose 119 H (70-100) mg/dL Lactic Acid (0.5-2.2) mmol/L Calcium 7.3 L (8.5-10.3) mg/dL Phosphorus 3.7 (2.5-4.6) mg/dL Magnesium 2.3 (1.7-2.8) mg/dL Blood Type A POSITIVE Antibody Screen NEGATIVE Crossmatch See Detail 02/10/21 02/10/21 02/09/21 Range/Units 05:10 05:10 22:24 WBC 56.0 H* (4.8-10.8) x10^3/uL RBC 2.99 L (4.20-5.40) 10^6/uL Hgb 8.2 L (12.0-16.0) g/dL Hct 25.1 L (37.0-47.0) % MCV 83.9 (81.0-99.0) fL MCH 27.4 (27.0-31.0) pg MCHC 32.7 (32.0-36.0) g/dL RDW 17.5 H (12.0-15.0) % Plt Count 137 (130-450) 10^3/uL MPV 10.6 (7.9-10.8) fL Neut # (Auto) Not Reportable Lymph # (Auto) Not Reportable Lander # (Auto) Not Reportable Eos # (Auto) Not Reportable Baso # (Auto) Not Reportable Absolute Nucleated RBC Not Reportable Total Counted 100 Band Neuts % (Manual) 31 H (0 - 10) % Abnorm Lymph % (Manual) 0 % Metamyelocytes % 1 H ( - 0) % Myelocytes % 1 H ( - 0) % Nucleated RBC % Not Reportable Neutrophils # (Manual) 48.2 H (1.5-6.6) 10^3/uL Lymphocytes # (Manual) 1.1 L (1.5-3.5) 10^3/uL Monocytes # (Manual) 5.6 H (0.0-1.0) 10^3/uL Eosinophils # (Manual) 0.0 (0-0.7) 10^3/uL Basophils # (Manual) 0.0 (0-0.1) 10^3/uL Differential Comment MANUAL DIFFERENTIAL Platelet Estimate NORMAL (130-450,000) (NORMAL) RBC Morph Micro Appear NORMAL APPEARANCE (NORMAL) PT 24.1 H (9.9-12.6) secs INR 2.2 H (0.8-1.2) VBG pH (7.31-7.41) Ionized Calcium (1.15-1.33) mmol/L Sodium (135-145) mmol/L Potassium (3.5-5.0) mmol/L Chloride (101-111) mmol/L Carbon Dioxide (21-32) mmol/L Anion Gap (6-13) BUN (6-20) mg/dL Creatinine (0.4-1.0) mg/dL Estimated GFR (MDRD) (>89) Glucose (70-100) mg/dL Lactic Acid (0.5-2.2) mmol/L Calcium (8.5-10.3) mg/dL Phosphorus (2.5-4.6) mg/dL Magnesium 2.4 (1.7-2.8) mg/dL Blood Type Antibody Screen Crossmatch 02/09/21 02/09/21 02/08/21 Range/Units 22:24 19:13 11:34 WBC 27.8 H (4.8-10.8) x10^3/uL RBC 3.03 L (4.20-5.40) 10^6/uL Hgb 8.2 L (12.0-16.0) g/dL Hct 26.3 L (37.0-47.0) % MCV 86.8 (81.0-99.0) fL MCH 27.1 (27.0-31.0) pg MCHC 31.2 L (32.0-36.0) g/dL RDW 17.3 H (12.0-15.0) % Plt Count 140 (130-450) 10^3/uL MPV 10.4 (7.9-10.8) fL Neut # (Auto) Lymph # (Auto) Lander # (Auto) Eos # (Auto) Baso # (Auto) Absolute Nucleated RBC Total Counted Band Neuts % (Manual) (0 - 10) % Abnorm Lymph % (Manual) % Metamyelocytes % ( - 0) % Myelocytes % ( - 0) % Nucleated RBC % Neutrophils # (Manual) (1.5-6.6) 10^3/uL Lymphocytes # (Manual) (1.5-3.5) 10^3/uL Monocytes # (Manual) (0.0-1.0) 10^3/uL Eosinophils # (Manual) (0-0.7) 10^3/uL Basophils # (Manual) (0-0.1) 10^3/uL Differential Comment Platelet Estimate (NORMAL) RBC Morph Micro Appear (NORMAL) PT (9.9-12.6) secs INR (0.8-1.2) VBG pH 7.306 L (7.31-7.41) Ionized Calcium 1.03 L (1.15-1.33) mmol/L Sodium (135-145) mmol/L Potassium (3.5-5.0) mmol/L Chloride (101-111) mmol/L Carbon Dioxide (21-32) mmol/L Anion Gap (6-13) BUN (6-20) mg/dL Creatinine (0.4-1.0) mg/dL Estimated GFR (MDRD) (>89) Glucose (70-100) mg/dL Lactic Acid (0.5-2.2) mmol/L Calcium (8.5-10.3) mg/dL Phosphorus (2.5-4.6) mg/dL Magnesium (1.7-2.8) mg/dL Blood Type A POSITIVE Antibody Screen NEGATIVE Crossmatch See Detail Sepsis Event Note (H) - Evaluation Current Stage of Sepsis: Septic shock - Sepsis Criteria Sepsis Criteria: Recorded Heart Rate greater than 90 bpm, Recorded Respiratory Rate greater than 20, WBC count greater than 12,000 or less than 4000, SBP drop more than 40mHg, SBP less than 90 mmHg, Metabolic: lactate > 2 mmol/L, Hematologic: platelets < 100,000; INR > 1.5, or a PTT>60 seconds Assessment/Plan - Problem List (1) Dysfunctional uterine bleeding Impression: Bleeding appears to have resolved with administration of medroxyprogesterone H&H stable overnight DUB likely attributed to progesterone withdrawal in the setting of coagulopathy If does not have further bleeding, will have patient follow-up in clinic for full pap and pelvic Will check again later today for reassessment
--- NOTE | 2021-02-10 16:30 | PROVIDER PROGRESS NOTE ---
Assessment/Plan - Problem List (1) Septic shock Assessment/Plan: His WBC is still extremely elevated today at 56. His lactic acid is improved but still up at 2.7. The etiology appears to be gram-negative bacteremia from a UTI. Continue with IV fluids, will decrease the rate Continue with vasopressors as needed, weaning down, keeping MAP greater than 60. Continue with empiric IV antibiotics. Await sensitivity results of the positive cultures (2) Cough Assessment/Plan: This started when she was supine during yesterday's pelvic exam. She improved with getting dose of morphine. Today she had another coughing spell at midday and even requested the morphine. Portable chest x-ray was ordered and this shows volume overload. We will decrease her IV fluids from 125 cc/hour down to 60 cc/hour (3) Vaginal bleeding Assessment/Plan: Yesterday she had recurrent bleeding seen in the vagina. 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 Hebert did a bedside pelvic exam. There was tenderness Pt got Depo-Provera x1, and bleeding has stopped. Planning a pelvic ultrasound or may need a pelvic MRI. (4) Severe anemia Assessment/Plan: She has had work-up for this in the past and has needed transfusions in the past. The last colonoscopy done through the colostomy and EGD were negative and her specialist said that a GI source was the most likely. She had heme negative stool at presentation now. The general surgery consult has been canceled. She may have intermittent severe vaginal bleeding as the cause of the anemia. We are following her hemoglobin every 12 hours, keeping it over 7 by giving transfusions however these require special crossmatching (5) Red blood cell antibody positive, compatible PRBC difficult to obtain Assessment/Plan: Per blood bank, she has 2 antibodies which require special crossmatching, the blood needs to arrive from [place]. (6) E. coli UTI Assessment/Plan: Sensitivities for this show that she is on appropriate antibiotics. (7) Bacteremia due to Klebsiella pneumoniae Assessment/Plan: She has also now grown Klebsiella bacteremia. We are awaiting the sensitivities for this (8) Hyponatremia Assessment/Plan: This is hypervolemic hyponatremia since she is now many liters positive in fluid balance since being resuscitated with crystalloids for her septic shock. We will change IV fluids to D5 NS Follow BMP daily (9) Alcoholic cirrhosis Qualifiers: Ascites presence: without ascites Qualified Code(s): K70.30 - Alcoholic cirrhosis of liver without ascites Assessment/Plan: She has icterus and her AST is greater than ALT. 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 Avoid hepatotoxins (10) S/P colostomy Assessment/Plan: As per Hx (11) Hypoglycemia Assessment/Plan: After the Plate Glass Installer exam yesterday, she had marked low back pain and was tachycardic, then accucheck showed glu of 23. Dr Hebert is concerned she may have CA, and a malignancy may cause hypoglycemia. We added D5 to her iv fluids. A reg diet continues - Current Meds Current Meds: Current Medications Generic Name Dose Route Start Last Admin Trade Name Freq PRN Reason Stop Dose Admin Albuterol 2.5 mg 02/08/21 16:41 02/10/21 15:13 Albuterol Neb 2.5 Mg/3 Ml INH 2.5 mg Q4HR PRN Administration Wheezing Ciprofloxacin 400 mg in 200 mls @ 200 mls/hr 02/08/21 21:00 02/10/21 10:45 Cipro 400 Mg/200 Ml IV Infused Q12H CHRISTINE Infusion Thiamine HCl 100 mg/ Sodium 51 mls @ 100 mls/hr 02/09/21 09:00 02/10/21 12:10 Chloride IV Infused DAILY CHRISTINE Infusion Norepinephrine Bitartrate 8 mg 250 mls @ 15 mls/hr 02/08/21 21:00 02/10/21 16:12 / Dextrose IV 4 mcg/min .[id number] CHRISTINE 7.5 mls/hr Titration Protocol 8 MCG/MIN Lidocaine 1 patch 02/09/21 18:54 02/09/21 20:28 Lidocaine Patch 5% TOP 1 patch DAILY PRN Administration PAIN Morphine Sulfate 2 mg 02/08/21 18:35 02/10/21 09:15 Morphine 2 Mg/Ml Carpuject IVP 2 mg Q2HR PRN Administration PAIN Pantoprazole Sodium 40 mg 02/08/21 21:00 02/10/21 09:19 Pantoprazole 40 Mg Vial IVP 40 mg BID CHRISTINE Administration Phenazopyridine HCl 100 mg 02/09/21 22:00 02/10/21 14:15 Phenazopyridine 100 Mg Tablet PO 02/11/21 14:01 100 mg TID CHRISTINE Administration Sodium Chloride 10 ml 02/08/21 17:00 02/10/21 09:20 Sodium Chloride Flush 0.9% 10 Ml Syringe IVP 20 ml [id number],1700 CHRISTINE Administration Sodium Chloride 10 ml 02/08/21 16:41 02/10/21 09:17 Sodium Chloride Flush 0.9% 10 Ml Syringe IVP 10 ml PRN PRN Administration NEEDED PER PROVIDER ORDERS Sodium Chloride 20 ml 02/09/21 22:27 02/10/21 14:12 Sodium Chloride Flush 0.9% 10 Ml Syringe IVP 30 ml PRN PRN Administration After Blood Draw Throat Lozenges 1 lozenge 02/08/21 23:17 02/10/21 01:00 Benzocaine/Menthol Lozenge MM 1 lozenge Q2HR PRN Administration Throat pain - Lab Result Fish Bone Diagrams: 02/10/21 15:16 02/10/21 05:10 - Additional Planning My Orders: My Active Orders 02/09/21 18:54 Lidocaine Patch 5% [Lidoderm Patch] 1 patch TOP DAILY PRN 02/09/21 19:12 LORazepam INJ [Ativan Inj (Vial)] 0.5 mg IVP Q4H PRN 02/09/21 22:27 Sodium Chloride Flush 0.9% [Normal Saline Flush 0.9%] 20 ml IVP PRN PRN 02/10/21 08:04 RBC, LEUKOREDUCED Routine TYPE AND SCREEN Routine 02/10/21 15:32 Morphine Inj (Carpuject) [Morphine (Carpuject)] 2 mg IVP ONCE 02/10/21 15:53 Pelvic w/Transvag+Doppler Comp [US] Routine 02/10/21 16:27 D5.45ns W/20 Meq KCl 1,000 ml IV 60 mls/hr 02/10/21 21:00 guaiFENesin [Mucinex] 600 mg PO BID 02/11/21 05:00 CALCIUM, IONIZED ([facility]) [BG] DAILYLAB LIVER PANEL [CHEM] DAILYLAB 02/11/21 09:00 PELVIS W/WO [MRI] Routine 02/12/21 05:00 CALCIUM, IONIZED ([facility]) [BG] DAILYLAB 02/13/21 05:00 CALCIUM, IONIZED ([facility]) [BG] DAILYLAB Subjective - Subjective Patient Reports: Resting Comfortably, Cough (She reports spasms of dry cough for about 10 minutes which started yesterday and she has episodes of that today) Nursing Reports: Other (Vaginal bleeding has stopped, after iv DepoProvera) Objective Vital Signs: Vital Signs - 24 hr 02/09/21 02/09/21 02/09/21 17:00 17:05 17:15 Temperature Heart Rate Heart Rate [ 142 H 146 H 148 H Monitoring electrodes] Respiratory 27 H 33 H 33 H Rate Blood Pressure Blood Pressure 127/111 H 133/110 H 144/109 H [Left Brachial artery] Blood Pressure 127/111 H [Right Brachial artery] O2 Saturation 98 97 95 02/09/21 02/09/21 02/09/21 17:30 17:35 17:49 Temperature Heart Rate Heart Rate [ 159 H 157 H Monitoring electrodes] Respiratory 23 22 Rate Blood Pressure 142/117 H Blood Pressure 171/138 H 132/115 H [Left Brachial artery] Blood Pressure [Right Brachial artery] O2 Saturation 98 97 02/09/21 02/09/21 02/09/21 18:00 18:20 18:45 Temperature 36.6 C Heart Rate 133 H Heart Rate [ 133 H 128 H 126 H Monitoring electrodes] Respiratory 24 28 H 34 H Rate Blood Pressure 89/57 L Blood Pressure [Left Brachial artery] Blood Pressure 89/57 L 78/44 L 84/49 L [Right Brachial artery] O2 Saturation 96 96 96 02/09/21 02/09/21 02/09/21 19:00 21:00 22:00 Temperature Heart Rate Heart Rate [ 127 H 129 H 125 H Monitoring electrodes] Respiratory 33 H 35 H 30 H Rate Blood Pressure Blood Pressure [Left Brachial artery] Blood Pressure 95/56 L 102/63 106/62 [Right Brachial artery] O2 Saturation 96 95 94 02/09/21 02/10/21 02/10/21 23:00 00:00 01:00 Temperature 36.7 C Heart Rate Heart Rate [ 120 H 118 H 117 H Monitoring electrodes] Respiratory 31 H 32 H 29 H Rate Blood Pressure Blood Pressure 102/61 [Left Brachial artery] Blood Pressure 103/78 114/74 [Right Brachial artery] O2 Saturation 95 95 95 02/10/21 02/10/21 02/10/21 02:00 03:00 04:00 Temperature Heart Rate Heart Rate [ 110 H 111 H 107 H Monitoring electrodes] Respiratory 29 H 25 H 29 H Rate Blood Pressure Blood Pressure [Left Brachial artery] Blood Pressure 115/68 94/58 L 91/65 [Right Brachial artery] O2 Saturation 95 95 95 02/10/21 02/10/21 02/10/21 05:00 06:00 07:00 Temperature Heart Rate Heart Rate [ 101 H 102 H 102 H Monitoring electrodes] Respiratory 25 H 25 H 23 Rate Blood Pressure Blood Pressure [Left Brachial artery] Blood Pressure 87/57 L 88/60 L 91/66 [Right Brachial artery] O2 Saturation 93 95 96 02/10/21 02/10/21 02/10/21 08:00 09:00 09:19 Temperature 36.6 C Heart Rate 100 Heart Rate [ 100 111 H Monitoring electrodes] Respiratory 19 28 H 22 Rate Blood Pressure Blood Pressure [Left Brachial artery] Blood Pressure 96/72 107/62 [Right Brachial artery] O2 Saturation 96 94 02/10/21 02/10/21 02/10/21 10:00 11:00 12:00 Temperature 36.7 C Heart Rate Heart Rate [ 102 H 98 96 Monitoring electrodes] Respiratory 22 20 19 Rate Blood Pressure Blood Pressure [Left Brachial artery] Blood Pressure 82/67 L 83/62 L 81/56 L [Right Brachial artery] O2 Saturation 98 93 96 02/10/21 02/10/21 02/10/21 13:00 14:00 15:00 Temperature Heart Rate Heart Rate [ 98 97 102 H Monitoring electrodes] Respiratory 23 22 25 H Rate Blood Pressure Blood Pressure [Left Brachial artery] Blood Pressure 83/57 L 78/58 L 110/71 [Right Brachial artery] O2 Saturation 97 98 97 02/10/21 02/10/21 02/10/21 15:15 15:32 15:46 Temperature Heart Rate 101 H Heart Rate [ Monitoring electrodes] Respiratory 22 Rate Blood Pressure Blood Pressure [Left Brachial artery] Blood Pressure 94/63 105/65 [Right Brachial artery] O2 Saturation 02/10/21 16:00 Temperature 37.6 C Heart Rate Heart Rate [ 104 H Monitoring electrodes] Respiratory 21 Rate Blood Pressure Blood Pressure [Left Brachial artery] Blood Pressure 80/59 L [Right Brachial artery] O2 Saturation 95 Oxygen O2 Source Room air I&O (Last 24 Hrs): Intake and Output Totals x24h 02/08/21 02/09/21 02/10/21 23:59 23:59 23:59 Intake Total 4351.563 7037.770 2978.084 Output Total 154 435 2372 Balance 3901.563 6134.770 1671.084 General: Alert, Oriented x3 HEENT: Atraumatic, Mucous membr. moist/pink, Other (Icteric) Neck: Supple Neuro: Alert, Non Focal Cardiovascular: Regular rate Respiratory: Breath sounds nml Abdomen: Normal bowel sounds, Soft Extremities: No edema - Results Results: Laboratory Results WBC 56.0 x10^3/uL (4.8-10.8) H* 02/10/21 05:10 RBC 2.99 10^6/uL (4.20-5.40) L 02/10/21 05:10 Hgb 8.2 g/dL (12.0-16.0) L 02/10/21 15:16 Hct 25.0 % (37.0-47.0) L 02/10/21 15:16 MCV 83.9 fL (81.0-99.0) 02/10/21 05:10 MCH 27.4 pg (27.0-31.0) 02/10/21 05:10 MCHC 32.7 g/dL (32.0-36.0) 02/10/21 05:10 RDW 17.5 % (12.0-15.0) H 02/10/21 05:10 Plt Count 137 10^3/uL (130-450) 02/10/21 05:10 MPV 10.6 fL (7.9-10.8) 02/10/21 05:10 Neut # (Auto) Not Reportable 02/10/21 05:10 Lymph # (Auto) Not Reportable 02/10/21 05:10 [place] # (Auto) Not Reportable 02/10/21 05:10 Eos # (Auto) Not Reportable 02/10/21 05:10 Baso # (Auto) Not Reportable 02/10/21 05:10 Absolute Nucleated RBC Not Reportable 02/10/21 05:10 Total Counted 100 02/10/21 05:10 Band Neuts % (Manual) 31 % (0-10) H 02/10/21 05:10 Abnorm Lymph % (Manual) 0 % 02/10/21 05:10 Metamyelocytes % 1 % (-0) H 02/10/21 05:10 Myelocytes % 1 % (-0) H 02/10/21 05:10 Nucleated RBC % Not Reportable 02/10/21 05:10 Neutrophils # (Manual) 48.2 10^3/uL (1.5-6.6) H 02/10/21 05:10 Lymphocytes # (Manual) 1.1 10^3/uL (1.5-3.5) L 02/10/21 05:10 Monocytes # (Manual) 5.6 10^3/uL (0.0-1.0) H 02/10/21 05:10 Eosinophils # (Manual) 0.0 10^3/uL (0-0.7) 02/10/21 05:10 Basophils # (Manual) 0.0 10^3/uL (0-0.1) 02/10/21 05:10 Nucleated RBCs 24 % 02/08/21 11:02 Differential Comment MANUAL DIFFERENTIAL 02/10/21 05:10 Platelet Estimate NORMAL (130-450,000) (NORMAL) 02/10/21 05:10 Platelet Morphology NORMAL APPEARANCE (NORMAL) 02/09/21 04:50 RBC Morph Micro Appear NORMAL APPEARANCE (NORMAL) 02/10/21 05:10 PT 24.1 secs (9.9-12.6) H 02/10/21 05:10 INR 2.2 (0.8-1.2) H 02/10/21 05:10 APTT 31.5 secs (24.9-33.3) 02/08/21 11:34 VBG pH 7.324 (7.31-7.41) 02/10/21 12:20 Ionized Calcium 1.19 mmol/L (1.15-1.33) 02/10/21 12:20 Sodium 127 mmol/L (135-145) L 02/10/21 05:10 Potassium 4.7 mmol/L (3.5-5.0) 02/10/21 05:10 Chloride 102 mmol/L (101-111) 02/10/21 05:10 Carbon Dioxide 15 mmol/L (21-32) L 02/10/21 05:10 Anion Gap 10.0 (6-13) 02/10/21 05:10 BUN 21 mg/dL (6-20) H 02/10/21 05:10 Creatinine 0.9 mg/dL (0.4-1.0) 02/10/21 05:10 Estimated GFR (MDRD) 67 (>89) L 02/10/21 05:10 Glucose 119 mg/dL (70-100) H 02/10/21 05:10 Lactic Acid 2.7 mmol/L (0.5-2.2) H 02/10/21 14:09 Calcium 7.3 mg/dL (8.5-10.3) L 02/10/21 05:10 Phosphorus 3.7 mg/dL (2.5-4.6) 02/10/21 05:10 Magnesium 2.3 mg/dL (1.7-2.8) 02/10/21 05:10 Iron 35 ug/dL (28-170) 02/08/21 11:02 TIBC 321 ug/dL (250-450) 02/08/21 11:02 % Saturation 11 % (20-50) L 02/08/21 11:02 Transferrin 229 mg/dL (192-382) 02/08/21 11:02 Ferritin 15.9 ng/mL (11.0-306.8) 02/08/21 11:02 Total Bilirubin 3.2 mg/dL (0.2-1.0) H 02/08/21 11:02 AST 54 IU/L (10-42) H 02/08/21 11:02 ALT 22 IU/L (10-60) 02/08/21 11:02 Alkaline Phosphatase 313 IU/L (42-121) H 02/08/21 11:02 Troponin I High Sens 23.3 ng/L (2.3-14.8) H* 02/08/21 17:02 B-Natriuretic Peptide 249 pg/mL (5-100) H 02/08/21 11:02 Total Protein 5.4 g/dL (6.7-8.2) L 02/08/21 11:02 Albumin 2.4 g/dL (3.2-5.5) L 02/08/21 11:02 Globulin 3.0 g/dL (2.1-4.2) 02/08/21 11:02 Albumin/Globulin Ratio 0.8 (1.0-2.2) L 02/08/21 11:02 Lipase 24 U/L (22-51) 02/08/21 11:02 Vitamin B12 572 pg/mL (180-914) 02/08/21 11:02 Folate 7.36 ng/mL (5.90 - >24.8) 02/08/21 11:02 Urine Color BROWN 02/08/21 12:53 Urine Clarity CLOUDY (CLEAR) 02/08/21 12:53 Urine pH 7.0 PH (5.0-7.5) 02/08/21 12:53 Ur Specific [place] 1.015 (1.002-1.030) 02/08/21 12:53 Urine Protein >=300 mg/dL (NEGATIVE) H 02/08/21 12:53 Urine Glucose (UA) NEGATIVE mg/dL (NEGATIVE) 02/08/21 12:53 Urine Ketones TRACE mg/dL (NEGATIVE) 02/08/21 12:53 Urine Occult Blood LARGE (NEGATIVE) H 02/08/21 12:53 Urine Nitrite POSITIVE (NEGATIVE) H 02/08/21 12:53 Urine Bilirubin NEGATIVE (NEGATIVE) 02/08/21 12:53 Urine Urobilinogen 1 (NORMAL) E.U./dL (NORMAL) 02/08/21 12:53 Ur Leukocyte Esterase MODERATE (NEGATIVE) H 02/08/21 12:53 Urine RBC TNTC /HPF (0-5) H 02/08/21 12:53 Urine WBC >25 /HPF (0-5) H 02/08/21 12:53 Ur Squamous Epith Cells RARE Squamous (<= Few) 02/08/21 12:53 Urine Bacteria Moderate /HPF (None Seen) H 02/08/21 12:53 Ur Microscopic Review INDICATED 02/08/21 12:53 Urine Culture Comments INDICATED 02/08/21 12:53 Nasal Adenovirus (PCR) NOT DETECTED 02/08/21 11:02 Nasal B. parapertussis DNA (PCR) NOT DETECTED 02/08/21 11:02 Nasal Coronavir 229E PCR NOT DETECTED 02/08/21 11:02 Nasal Coronavir HKU1 PCR NOT DETECTED 02/08/21 11:02 Nasal Coronavir NL63 PCR NOT DETECTED 02/08/21 11:02 Nasal Coronavir OC43 PCR NOT DETECTED 02/08/21 11:02 Nasal Enterovir/Rhinovir PCR NOT DETECTED 02/08/21 11:02 Nasal Influenza B PCR NOT DETECTED 02/08/21 11:02 Nasal Influenza A PCR NOT DETECTED 02/08/21 11:02 Nasal Parainfluen 1 PCR NOT DETECTED 02/08/21 11:02 Nasal Parainfluen 2 PCR NOT DETECTED 02/08/21 11:02 Nasal Parainfluen 3 PCR NOT DETECTED 02/08/21 11:02 Nasal Parainfluen 4 PCR NOT DETECTED 02/08/21 11:02 Nasal RSV (PCR) NOT DETECTED 02/08/21 11:02 Nasal Screen MRSA (PCR) NEGATIVE (NEGATIVE) 02/08/21 19:55 Nasal B.pertussis DNA PCR NOT DETECTED 02/08/21 11:02 Nasal C.pneumoniae (PCR) NOT DETECTED 02/08/21 11:02 Yan Human Metapneumo PCR NOT DETECTED 02/08/21 11:02 Nasal M.pneumoniae (PCR) NOT DETECTED 02/08/21 11:02 Nasal SARS-CoV-2 (PCR) NOT DETECTED 02/08/21 11:02 Blood Type A POSITIVE 02/10/21 08:04 Antibody Screen NEGATIVE 02/10/21 08:04 Crossmatch See Detail 02/10/21 08:04 - Procedures Procedures: Procedures TRANSFUSE NONAUT RED BLOOD CELLS IN PERIPH VEIN, [facility] (09/23/20) Sepsis Event Note (H) - Evaluation Current Stage of Sepsis: Septic shock - Sepsis Criteria Sepsis Criteria: Recorded Heart Rate greater than 90 bpm, Recorded Respiratory Rate greater than 20, WBC count greater than 12,000 or less than 4000, SBP drop more than 40mHg, SBP less than 90 mmHg, Metabolic: lactate > 2 mmol/L, Hematologic: platelets < 100,000; INR > 1.5, or a PTT>60 seconds
--- NOTE | 2021-02-10 16:36 | PROVIDER PROGRESS NOTE ---
Subjective - Prog Note Date Prog Note Date: 02/10/21 Prog Note Time: 16:31 - Subjective Subjective: Patient again reports no further vaginal bleeding. No change in pad since this am. Objective - Vital Signs/Intake & Output Vital Signs: Vital Signs x48h Temp Pulse Pulse Resp BP Pulse Ox 02/10/21 16:00 99.7 F 104 H 21 80/59 L 95 02/10/21 15:46 105/65 02/10/21 15:32 94/63 02/10/21 15:15 101 H 22 02/10/21 15:00 102 H 25 H 110/71 97 02/10/21 14:00 97 22 78/58 L 98 02/10/21 13:00 98 23 83/57 L 97 02/10/21 12:00 98.1 F 96 19 81/56 L 96 02/10/21 11:00 98 20 83/62 L 93 02/10/21 10:00 102 H 22 82/67 L 98 02/10/21 09:19 100 22 02/10/21 09:00 111 H 28 H 107/62 94 Intake & Output: Intake & Output 02/07/21 02/08/21 02/09/21 02/10/21 23:59 23:59 23:59 23:59 Intake Total 4351.563 7037.770 2978.084 Output Total 009 533 7758 Balance 3901.563 6134.770 1671.084 - Objective Comments/Other: PELVIC: NEFG. Depends undergarment without accumulation of alisa blood. Minimal staining - Lab Results Fish Bones: 02/10/21 15:16 02/10/21 05:10 Other Labs: Lab Results x24hrs 02/10/21 02/10/21 02/10/21 Range/Units 15:16 14:09 12:20 WBC (4.8-10.8) x10^3/uL RBC (4.20-5.40) 10^6/uL Hgb 8.2 L (12.0-16.0) g/dL Hct 25.0 L (37.0-47.0) % MCV (81.0-99.0) fL MCH (27.0-31.0) pg MCHC (32.0-36.0) g/dL RDW (12.0-15.0) % Plt Count (130-450) 10^3/uL MPV (7.9-10.8) fL Neut # (Auto) Lymph # (Auto) [place] # (Auto) Eos # (Auto) Baso # (Auto) Absolute Nucleated RBC Total Counted Band Neuts % (Manual) (0 - 10) % Abnorm Lymph % (Manual) % Metamyelocytes % ( - 0) % Myelocytes % ( - 0) % Nucleated RBC % Neutrophils # (Manual) (1.5-6.6) 10^3/uL Lymphocytes # (Manual) (1.5-3.5) 10^3/uL Monocytes # (Manual) (0.0-1.0) 10^3/uL Eosinophils # (Manual) (0-0.7) 10^3/uL Basophils # (Manual) (0-0.1) 10^3/uL Differential Comment Platelet Estimate (NORMAL) RBC Morph Micro Appear (NORMAL) PT (9.9-12.6) secs INR (0.8-1.2) VBG pH 7.324 (7.31-7.41) Ionized Calcium 1.19 (1.15-1.33) mmol/L Sodium (135-145) mmol/L Potassium (3.5-5.0) mmol/L Chloride (101-111) mmol/L Carbon Dioxide (21-32) mmol/L Anion Gap (6-13) BUN (6-20) mg/dL Creatinine (0.4-1.0) mg/dL Estimated GFR (MDRD) (>89) Glucose (70-100) mg/dL Lactic Acid 2.7 H (0.5-2.2) mmol/L Calcium (8.5-10.3) mg/dL Phosphorus (2.5-4.6) mg/dL Magnesium (1.7-2.8) mg/dL Blood Type Antibody Screen Crossmatch 02/10/21 02/10/21 02/10/21 Range/Units 08:04 06:47 05:10 WBC (4.8-10.8) x10^3/uL RBC (4.20-5.40) 10^6/uL Hgb (12.0-16.0) g/dL Hct (37.0-47.0) % MCV (81.0-99.0) fL MCH (27.0-31.0) pg MCHC (32.0-36.0) g/dL RDW (12.0-15.0) % Plt Count (130-450) 10^3/uL MPV (7.9-10.8) fL Neut # (Auto) Lymph # (Auto) [place] # (Auto) Eos # (Auto) Baso # (Auto) Absolute Nucleated RBC Total Counted Band Neuts % (Manual) (0 - 10) % Abnorm Lymph % (Manual) % Metamyelocytes % ( - 0) % Myelocytes % ( - 0) % Nucleated RBC % Neutrophils # (Manual) (1.5-6.6) 10^3/uL Lymphocytes # (Manual) (1.5-3.5) 10^3/uL Monocytes # (Manual) (0.0-1.0) 10^3/uL Eosinophils # (Manual) (0-0.7) 10^3/uL Basophils # (Manual) (0-0.1) 10^3/uL Differential Comment Platelet Estimate (NORMAL) RBC Morph Micro Appear (NORMAL) PT (9.9-12.6) secs INR (0.8-1.2) VBG pH 7.270 L (7.31-7.41) Ionized Calcium 1.06 L (1.15-1.33) mmol/L Sodium 127 L (135-145) mmol/L Potassium 4.7 (3.5-5.0) mmol/L Chloride 102 (101-111) mmol/L Carbon Dioxide 15 L (21-32) mmol/L Anion Gap 10.0 (6-13) BUN 21 H (6-20) mg/dL Creatinine 0.9 (0.4-1.0) mg/dL Estimated GFR (MDRD) 67 L (>89) Glucose 119 H (70-100) mg/dL Lactic Acid (0.5-2.2) mmol/L Calcium 7.3 L (8.5-10.3) mg/dL Phosphorus 3.7 (2.5-4.6) mg/dL Magnesium 2.3 (1.7-2.8) mg/dL Blood Type A POSITIVE Antibody Screen NEGATIVE Crossmatch See Detail 02/10/21 02/10/21 02/09/21 Range/Units 05:10 05:10 22:24 WBC 56.0 H* (4.8-10.8) x10^3/uL RBC 2.99 L (4.20-5.40) 10^6/uL Hgb 8.2 L (12.0-16.0) g/dL Hct 25.1 L (37.0-47.0) % MCV 83.9 (81.0-99.0) fL MCH 27.4 (27.0-31.0) pg MCHC 32.7 (32.0-36.0) g/dL RDW 17.5 H (12.0-15.0) % Plt Count 137 (130-450) 10^3/uL MPV 10.6 (7.9-10.8) fL Neut # (Auto) Not Reportable Lymph # (Auto) Not Reportable [place] # (Auto) Not Reportable Eos # (Auto) Not Reportable Baso # (Auto) Not Reportable Absolute Nucleated RBC Not Reportable Total Counted 100 Band Neuts % (Manual) 31 H (0 - 10) % Abnorm Lymph % (Manual) 0 % Metamyelocytes % 1 H ( - 0) % Myelocytes % 1 H ( - 0) % Nucleated RBC % Not Reportable Neutrophils # (Manual) 48.2 H (1.5-6.6) 10^3/uL Lymphocytes # (Manual) 1.1 L (1.5-3.5) 10^3/uL Monocytes # (Manual) 5.6 H (0.0-1.0) 10^3/uL Eosinophils # (Manual) 0.0 (0-0.7) 10^3/uL Basophils # (Manual) 0.0 (0-0.1) 10^3/uL Differential Comment MANUAL DIFFERENTIAL Platelet Estimate NORMAL (130-450,000) (NORMAL) RBC Morph Micro Appear NORMAL APPEARANCE (NORMAL) PT 24.1 H (9.9-12.6) secs INR 2.2 H (0.8-1.2) VBG pH (7.31-7.41) Ionized Calcium (1.15-1.33) mmol/L Sodium (135-145) mmol/L Potassium (3.5-5.0) mmol/L Chloride (101-111) mmol/L Carbon Dioxide (21-32) mmol/L Anion Gap (6-13) BUN (6-20) mg/dL Creatinine (0.4-1.0) mg/dL Estimated GFR (MDRD) (>89) Glucose (70-100) mg/dL Lactic Acid (0.5-2.2) mmol/L Calcium (8.5-10.3) mg/dL Phosphorus (2.5-4.6) mg/dL Magnesium 2.4 (1.7-2.8) mg/dL Blood Type Antibody Screen Crossmatch 02/09/21 02/09/21 02/08/21 Range/Units 22:24 19:13 11:34 WBC 27.8 H (4.8-10.8) x10^3/uL RBC 3.03 L (4.20-5.40) 10^6/uL Hgb 8.2 L (12.0-16.0) g/dL Hct 26.3 L (37.0-47.0) % MCV 86.8 (81.0-99.0) fL MCH 27.1 (27.0-31.0) pg MCHC 31.2 L (32.0-36.0) g/dL RDW 17.3 H (12.0-15.0) % Plt Count 140 (130-450) 10^3/uL MPV 10.4 (7.9-10.8) fL Neut # (Auto) Lymph # (Auto) [place] # (Auto) Eos # (Auto) Baso # (Auto) Absolute Nucleated RBC Total Counted Band Neuts % (Manual) (0 - 10) % Abnorm Lymph % (Manual) % Metamyelocytes % ( - 0) % Myelocytes % ( - 0) % Nucleated RBC % Neutrophils # (Manual) (1.5-6.6) 10^3/uL Lymphocytes # (Manual) (1.5-3.5) 10^3/uL Monocytes # (Manual) (0.0-1.0) 10^3/uL Eosinophils # (Manual) (0-0.7) 10^3/uL Basophils # (Manual) (0-0.1) 10^3/uL Differential Comment Platelet Estimate (NORMAL) RBC Morph Micro Appear (NORMAL) PT (9.9-12.6) secs INR (0.8-1.2) VBG pH 7.306 L (7.31-7.41) Ionized Calcium 1.03 L (1.15-1.33) mmol/L Sodium (135-145) mmol/L Potassium (3.5-5.0) mmol/L Chloride (101-111) mmol/L Carbon Dioxide (21-32) mmol/L Anion Gap (6-13) BUN (6-20) mg/dL Creatinine (0.4-1.0) mg/dL Estimated GFR (MDRD) (>89) Glucose (70-100) mg/dL Lactic Acid (0.5-2.2) mmol/L Calcium (8.5-10.3) mg/dL Phosphorus (2.5-4.6) mg/dL Magnesium (1.7-2.8) mg/dL Blood Type A POSITIVE Antibody Screen NEGATIVE Crossmatch See Detail Sepsis Event Note (H) - Evaluation Current Stage of Sepsis: Septic shock - Sepsis Criteria Sepsis Criteria: Recorded Heart Rate greater than 90 bpm, Recorded Respiratory Rate greater than 20, WBC count greater than 12,000 or less than 4000, SBP drop more than 40mHg, SBP less than 90 mmHg, Metabolic: lactate > 2 mmol/L, Hematologic: platelets < 100,000; INR > 1.5, or a PTT>60 seconds Assessment/Plan - Problem List (1) Dysfunctional uterine bleeding Impression: Bleeding appears to have resolved for the moment Will plan to follow up in clinic as long as bleeding is controlled during in- patient stay
[2021-02-10] MEDS: guaiFENesin/CODEINE 5 ML UDC PO PRN (18:48)
--- NOTE | 2021-02-10 21:14 | Ultrasound Report ---
PROCEDURE: Pelvic w/Transvag+Doppler Comp INDICATIONS: Vaginal bleeding, pelvic pain TECHNIQUE: Real-time scanning was performed of the pelvic organs, with image documentation. Additional endovagi nal scanning was necessary due to incomplete visualization of the adnexal and endometrial structures by transabdominal scanning. COMPARISON: CT abdomen and pelvis 02/08/2021 FINDINGS: The uterine body measures 2.5 x 3.5 x 5.4 cm and is anteverted. Heterogenous uterine echotexture is a nonspecific finding. Possible right lateral intramural uterine fibroid measuring 1 cm. Unable to visualize the ovaries or adnexa in detail. No free pelvic fluid. IMPRESSION: No free pelvic fluid. Heterogenous uterine echogenicity may represent adenomyomatosis in the appropriate clinical setting. Possible small uterine intramural fibroid. Reviewed by: Naldo Lau MD on 02/10/2021 9:12 PM PST Approved by: Naldo Lau MD on 02/10/2021 9:12 PM PST Station ID: [id number]
[2021-02-10] MEDS: guaiFENesin 600 MG TABLET PO SCH (21:29)
[2021-02-11 05:10] LABS: BASOPHILS % (AUTO) 0.5 %; EOSINOPHILS % (AUTO) 0.2 %; HCT - HEMATOCRIT 23.6 % (37.0-47.0); HGB - HEMOGLOBIN 7.5 g/dL (12.0-16.0); MEAN CORPUSCULAR HEMOGLOBIN 26.5 pg (27.0-31.0); MEAN CORPUSCULAR HGB CONC 31.8 g/dL (32.0-36.0); MEAN CORPUSCULAR VOLUME 83.4 fL (81.0-99.0); MEAN PLATELET VOLUME 11.4 fL (7.9-10.8); MONOCYTES % (AUTO) 5.2 %; NEUTROPHILS % (AUTO) 79.4 %; PLT - PLATELET COUNT 80 10^3/uL (130-450); RED BLOOD COUNT 2.83 10^6/uL (4.20-5.40); RED CELL DISTRIBUTION WIDTH 17.5 % (12.0-15.0); WHITE BLOOD COUNT 20.1 x10^3/uL (4.8-10.8)
[2021-02-11 05:12] LABS: INR 1.7 (0.8-1.2)
[2021-02-11 05:23] LABS: ALBUMIN 1.9 g/dL (3.2-5.5); BILIRUBIN,DIRECT 5.3 mg/dL (0.1-0.5); BILIRUBIN,TOTAL 7.9 mg/dL (0.2-1.0); CALCIUM 7.7 mg/dL (8.5-10.3); CREATININE 0.8 mg/dL (0.4-1.0); PHOSPHORUS 2.8 mg/dL (2.5-4.6); POTASSIUM 4.7 mmol/L (3.5-5.0); TOTAL PROTEIN 4.7 g/dL (6.7-8.2)
[2021-02-11] MEDS: BENZOCAINE/MENTHOL LOZENGE MM PRN ×3 (05:24→18:44)
[2021-02-11] MEDS: MORPHINE 2 MG/ML CARPUJECT IVP PRN ×3 (05:25→21:42)
[2021-02-11] MEDS: SODIUM CHLORIDE FLUSH 0.9% 10 ML SYRINGE IVP SCH ×5 (05:25→21:42)
[2021-02-11] MEDS: SODIUM CHLORIDE FLUSH 0.9% 10 ML SYRINGE IVP PRN ×2 (05:25→20:08)
[2021-02-11 05:40] LABS: ABNORMAL LYMPHS % (MANUAL) 0 %
[2021-02-11 06:00] LABS: CALCIUM, IONIZED 1.15 mmol/L (1.15-1.33); VBG PH 7.322 (7.31-7.41)
[2021-02-11 06:22] LABS: BAND NEUTROPHILS % (MANUAL) 9 %; DIFFERENTIAL COMMENT MANUAL DIFFERENTIAL; LYMPHOCYTES # (MANUAL) 2.6 10^3/uL (1.5-3.5); LYMPHOCYTES % (MANUAL) 13 %; MONOCYTES # (MANUAL) 1.8 10^3/uL (0.0-1.0); NEUTROPHILS # (MANUAL) 15.7 10^3/uL (1.5-6.6); PLATELET ESTIMATE, MANUAL DECREASED (<130,000) (NORMAL)
[2021-02-11] MEDS: PHENAZOPYRIDINE 100 MG TABLET PO SCH ×2 (06:35→14:58)
[2021-02-11] MEDS: guaiFENesin/CODEINE 5 ML UDC PO PRN ×2 (06:37→14:58)
[2021-02-11] MEDS: ALBUTEROL NEB 2.5 MG/3 ML INH PRN (07:55)
--- NOTE | 2021-02-11 09:32 | PROVIDER PROGRESS NOTE ---
Assessment/Plan - Problem List (1) Bacteremia due to Klebsiella pneumoniae Assessment/Plan: The sensitivities have returned today and show that this Klebsiella is resistant to Cipro, which the patient is on. This may explain why she has persistent hemodynamics of septic shock. We will change her antibx to IV ceftriaxone 2 g daily, overriding the allergy to Keflex (after discussion with DAVID Mejias, pharmacist). Today is the first day she is off of Levophed, the shock has improved. Will remain in the ICU today (2) E. coli UTI Assessment/Plan: The E. coli is pansensitive. She is also growing Klebsiella in the urine, from urine culture resulted today. She was on Cipro empirically. We will be changing to IV ceftriaxone because of the resistance of the other g rowing bacteria (Klebsiella) to Cipro. (3) Cough Assessment/Plan: She was covid neg at admission. CXR yesterday showed fluid overload. Yesterday her iv fluids were decreased from 125 cc/hr to 60 cc/hr but mo Lasix was given due to low BP, and still needed Levophed. Today her BP is 120 off Levophed. Will continue Mucinex bid scheduled and Robitussin AC prn cough. Will give Lasix iv x1 today. (4) Severe anemia Assessment/Plan: She presented with hemoglobin of 4, has needed blood transfusions. The hemoglobin has now stabilized between 7.5 and 8. She had heme-negative stool at admission. Part of the blood loss was from vaginal bleeding, however that was not long- lasting. Will check iron stores and B12 and folate levels and replace if low. Follow hemoglobin daily, keep hemoglobin over 7 with transfusions (5) Red blood cell antibody positive, compatible PRBC difficult to obtain Assessment/Plan: As per Hx, therefore a crossmatch takes longer than usual (6) Hyponatremia Assessment/Plan: This is likely hypervolemic hyponatremia. We will give Lasix IV x1 today Follow BMP daily (7) Alcoholic cirrhosis Qualifiers: Ascites presence: without ascites Qualified Code(s): K70.30 - Alcoholic cirrhosis of liver without ascites Assessment/Plan: As per history. She has auto-anticoagulation with poor liver synthesis as well (8) S/P colostomy Assessment/Plan: As per history. (9) Hypoglycemia Assessment/Plan: This is improving she was on D5 in her IVs and now increasing her daily oral intake (10) Septic shock Assessment/Plan: Shock has resolved. The Levophed was able to be weaned to off today (11) Vaginal bleeding Assessment/Plan: This has resolved after Depo-Provera was given for withdrawal bleeding (after her home dose of OCP was stopped) - Current Meds Current Meds: Current Medications Generic Name Dose Route Start Last Admin Trade Name Freq PRN Reason Stop Dose Admin Albuterol 2.5 mg 02/08/21 16:41 02/11/21 07:55 Albuterol Neb 2.5 Mg/3 Ml INH 2.5 mg Q4HR PRN Administration Wheezing Guaifenesin 600 mg 02/10/21 21:00 02/10/21 21:29 Guaifenesin 600 Mg Tablet PO 600 mg BID CHRISTINE Administration Guaifenesin/Codeine Phosphate 5 ml 02/10/21 18:30 02/11/21 06:37 Guaifenesin/Codeine 5 Ml Udc PO 5 ml Q6HR PRN Administration Cough Thiamine HCl 100 mg/ Sodium 51 mls @ 100 mls/hr 02/09/21 09:00 02/10/21 12:10 Chloride IV Infused DAILY CHRISTINE Infusion Norepinephrine Bitartrate 8 mg 250 mls @ 15 mls/hr 02/08/21 21:00 02/10/21 18:01 / Dextrose IV 0 mcg/min .[id number] CHRISTINE 0 mls/hr Titration Protocol 8 MCG/MIN Potassium Chloride/Dextrose/Sod Cl 1,000 mls @ 60 mls/hr 02/10/21 16:27 18:14 D5.45ns W/20 Meq Kcl IV 60 mls/hr .[id number] CHRISTINE Administration Lidocaine 1 patch 02/09/21 18:54 02/09/21 20:28 Lidocaine Patch 5% TOP 1 patch DAILY PRN Administration PAIN Morphine Sulfate 2 mg 02/08/21 18:35 02/11/21 05:25 Morphine 2 Mg/Ml Carpuject IVP 2 mg Q2HR PRN Administration PAIN Pantoprazole Sodium 40 mg 02/08/21 21:00 02/10/21 21:29 Pantoprazole 40 Mg Vial IVP 40 mg BID CHRISTINE Administration Phenazopyridine HCl 100 mg 02/09/21 22:00 02/11/21 06:35 Phenazopyridine 100 Mg Tablet PO 02/11/21 14:01 100 mg TID CHRISTINE Administration Sodium Chloride 10 ml 02/08/21 17:00 02/11/21 06:35 Sodium Chloride Flush 0.9% 10 Ml Syringe IVP Not Given 0100,0900,1700 CHRISTINE Sodium Chloride 10 ml 02/08/21 16:41 02/10/21 09:17 Sodium Chloride Flush 0.9% 10 Ml Syringe IVP 10 ml PRN PRN Administration NEEDED PER PROVIDER ORDERS Sodium Chloride 20 ml 02/09/21 22:27 02/11/21 05:25 Sodium Chloride Flush 0.9% 10 Ml Syringe IVP 20 ml PRN PRN Administration After Blood Draw Throat Lozenges 1 lozenge 02/08/21 23:17 02/11/21 05:24 Benzocaine/Menthol Lozenge MM 1 lozenge Q2HR PRN Administration Throat pain - Lab Result Fish Bone Diagrams: 02/11/21 04:30 02/11/21 04:30 - Additional Planning My Orders: My Active Orders 02/10/21 16:27 D5.45ns W/20 Meq KCl 1,000 ml IV 60 mls/hr 02/10/21 18:30 Miscellaenous Nursing Order [RC] QSHIFT guaiFENesin/CODEINE [Robitussin AC] 5 ml PO Q6HR PRN 02/10/21 21:00 guaiFENesin [Mucinex] 600 mg PO BID 02/11/21 Breakfast Clear Liquid Diet [DIET] 02/11/21 10:00 cefTRIAXone [Rocephin] 2 gm Sodium Chloride 0.9% Minibag [Normal Saline 0.9% Minibag] 100 ml IV DAILY 02/12/21 05:00 CALCIUM, IONIZED ([facility]) [BG] DAILYLAB 02/13/21 05:00 CALCIUM, IONIZED ([facility]) [BG] DAILYLAB Subjective - Subjective Patient Reports: Feeling Better (Less tired, no vaginal bleeding for 2 days, still has dry cough), Cough (Dry cough with spasms of cough recurring) Objective Vital Signs: Vital Signs - 24 hr 02/10/21 02/10/21 02/10/21 10:00 11:00 12:00 Temperature 36.7 C Heart Rate Heart Rate [ 102 H 98 96 Monitoring electrodes] Respiratory 22 20 19 Rate Blood Pressure 82/67 L 83/62 L 81/56 L [Right Brachial artery] O2 Saturation 98 93 96 02/10/21 02/10/21 02/10/21 13:00 14:00 15:00 Temperature Heart Rate Heart Rate [ 98 97 102 H Monitoring electrodes] Respiratory 23 22 25 H Rate Blood Pressure 83/57 L 78/58 L 110/71 [Right Brachial artery] O2 Saturation 97 98 97 02/10/21 02/10/21 02/10/21 15:15 15:32 15:46 Temperature Heart Rate 101 H Heart Rate [ Monitoring electrodes] Respiratory 22 Rate Blood Pressure 94/63 105/65 [Right Brachial artery] O2 Saturation 02/10/21 02/10/21 02/10/21 16:00 17:00 18:00 Temperature 37.6 C Heart Rate Heart Rate [ 104 H 108 H 107 H Monitoring electrodes] Respiratory 21 18 21 Rate Blood Pressure 80/59 L 93/57 L 106/80 [Right Brachial artery] O2 Saturation 95 98 98 02/10/21 02/10/21 02/10/21 19:00 20:00 20:55 Temperature 37.4 C Heart Rate 109 H Heart Rate [ 109 H 111 H Monitoring electrodes] Respiratory 21 20 18 Rate Blood Pressure 90/54 L 101/43 L [Right Brachial artery] O2 Saturation 97 98 02/10/21 02/10/21 02/10/21 21:00 22:00 23:00 Temperature Heart Rate Heart Rate [ 105 H 102 H 103 H Monitoring electrodes] Respiratory 24 21 19 Rate Blood Pressure 80/51 L 81/55 L 90/67 [Right Brachial artery] O2 Saturation 94 94 96 02/11/21 02/11/21 02/11/21 00:00 01:00 02:00 Temperature 36.7 C Heart Rate Heart Rate [ 104 H 104 H 101 H Monitoring electrodes] Respiratory 17 20 18 Rate Blood Pressure 87/61 L 82/56 L 88/55 L [Right Brachial artery] O2 Saturation 96 93 93 02/11/21 02/11/21 02/11/21 03:00 04:00 05:00 Temperature 36.7 C Heart Rate Heart Rate [ 99 97 97 Monitoring electrodes] Respiratory 18 14 15 Rate Blood Pressure 82/52 L 80/56 L 81/55 L [Right Brachial artery] O2 Saturation 94 94 95 02/11/21 02/11/21 02/11/21 06:00 07:00 07:56 Temperature Heart Rate 96 Heart Rate [ 95 107 H Monitoring electrodes] Respiratory 18 18 20 Rate Blood Pressure 79/63 L 93/73 [Right Brachial artery] O2 Saturation 96 93 02/11/21 02/11/21 08:00 09:00 Temperature 36.4 C L Heart Rate Heart Rate [ 108 H 107 H Monitoring electrodes] Respiratory 22 21 Rate Blood Pressure 98/81 H 93/61 [Right Brachial artery] O2 Saturation 97 95 Oxygen O2 Source Room air I&O (Last 24 Hrs): Intake and Output Totals x24h 02/09/21 02/10/21 02/11/21 23:59 23:59 23:59 Intake Total 7037.770 3836.709 780 Output Total 903 0432 957 Balance 6134.770 1754.709 -567 General: Alert, Oriented x3 HEENT: Mucous membr. moist/pink Neck: Supple, No JVD Neuro: Alert, Non Focal, Other (Intentional tremor noted of hands) Cardiovascular: Regular rate, No murmurs Respiratory: No respiratory distress, Breath sounds nml Abdomen: Soft, No tenderness Extremities: No clubbing, No edema, No tenderness/swelling - Results Results: Laboratory Results WBC 20.1 x10^3/uL (4.8-10.8) H 02/11/21 04:30 RBC 2.83 10^6/uL (4.20-5.40) L 02/11/21 04:30 Hgb 7.5 g/dL (12.0-16.0) L 02/11/21 04:30 Hct 23.6 % (37.0-47.0) L 02/11/21 04:30 MCV 83.4 fL (81.0-99.0) 02/11/21 04:30 MCH 26.5 pg (27.0-31.0) L 02/11/21 04:30 MCHC 31.8 g/dL (32.0-36.0) L 02/11/21 04:30 RDW 17.5 % (12.0-15.0) H 02/11/21 04:30 Plt Count 80 10^3/uL (130-450) L 02/11/21 04:30 MPV 11.4 fL (7.9-10.8) H 02/11/21 04:30 Neut # (Auto) Not Reportable 02/11/21 04:30 Lymph # (Auto) Not Reportable 02/11/21 04:30 [place] # (Auto) Not Reportable 02/11/21 04:30 Eos # (Auto) Not Reportable 02/11/21 04:30 Baso # (Auto) Not Reportable 02/11/21 04:30 Absolute Nucleated RBC Not Reportable 02/11/21 04:30 Total Counted 100 02/11/21 04:30 Band Neuts % (Manual) 9 % (0-10) 02/11/21 04:30 Abnorm Lymph % (Manual) 0 % 02/11/21 04:30 Metamyelocytes % 1 % (-0) H 02/10/21 05:10 Myelocytes % 1 % (-0) H 02/10/21 05:10 Nucleated RBC % Not Reportable 02/11/21 04:30 Neutrophils # (Manual) 15.7 10^3/uL (1.5-6.6) H 02/11/21 04:30 Lymphocytes # (Manual) 2.6 10^3/uL (1.5-3.5) 02/11/21 04:30 Monocytes # (Manual) 1.8 10^3/uL (0.0-1.0) H 02/11/21 04:30 Eosinophils # (Manual) 0.0 10^3/uL (0-0.7) 02/11/21 04:30 Basophils # (Manual) 0.0 10^3/uL (0-0.1) 02/11/21 04:30 Nucleated RBCs 24 % 02/08/21 11:02 Differential Comment MANUAL DIFFERENTIAL 02/11/21 04:30 Platelet Estimate DECREASED (<130,000) (NORMAL) 02/11/21 04:30 Platelet Morphology NORMAL APPEARANCE (NORMAL) 02/09/21 04:50 RBC Morph Micro Appear 1+ MICROCYTOSIS (NORMAL) 2+ HYPOCHROMASIA (NORMAL) 1+ OVALOCYTES (NORMAL) 02/11/21 04:30 RBC Morph Micro Appear 1+ MICROCYTOSIS (NORMAL) 2+ HYPOCHROMASIA (NORMAL) 1+ OVALOCYTES (NORMAL) 02/11/21 04:30 RBC Morph Micro Appear 1+ MICROCYTOSIS (NORMAL) 2+ HYPOCHROMASIA (NORMAL) 1+ OVALOCYTES (NORMAL) 02/11/21 04:30 PT 19.0 secs (9.9-12.6) H 02/11/21 04:30 INR 1.7 (0.8-1.2) H 02/11/21 04:30 APTT 31.5 secs (24.9-33.3) 02/08/21 11:34 VBG pH 7.322 (7.31-7.41) 02/11/21 04:30 Ionized Calcium 1.15 mmol/L (1.15-1.33) 02/11/21 04:30 Sodium 131 mmol/L (135-145) L 02/11/21 04:30 Potassium 4.7 mmol/L (3.5-5.0) 02/11/21 04:30 Chloride 107 mmol/L (101-111) 02/11/21 04:30 Carbon Dioxide 17 mmol/L (21-32) L 02/11/21 04:30 Anion Gap 7.0 (6-13) 02/11/21 04:30 BUN 23 mg/dL (6-20) H 02/11/21 04:30 Creatinine 0.8 mg/dL (0.4-1.0) 02/11/21 04:30 Estimated GFR (MDRD) 77 (>89) L 02/11/21 04:30 Glucose 82 mg/dL (70-100) 02/11/21 04:30 Lactic Acid 2.7 mmol/L (0.5-2.2) H 02/10/21 14:09 Calcium 7.7 mg/dL (8.5-10.3) L 02/11/21 04:30 Phosphorus 2.8 mg/dL (2.5-4.6) 02/11/21 04:30 Magnesium 2.0 mg/dL (1.7-2.8) 02/11/21 04:30 Iron 35 ug/dL (28-170) 02/08/21 11:02 TIBC 321 ug/dL (250-450) 02/08/21 11:02 % Saturation 11 % (20-50) L 02/08/21 11:02 Transferrin 229 mg/dL (192-382) 02/08/21 11:02 Ferritin 15.9 ng/mL (11.0-306.8) 02/08/21 11:02 Total Bilirubin 7.9 mg/dL (0.2-1.0) H 02/11/21 04:30 Direct Bilirubin 5.3 mg/dL (0.1-0.5) H 02/11/21 04:30 AST 39 IU/L (10-42) 02/11/21 04:30 ALT 23 IU/L (10-60) 02/11/21 04:30 Alkaline Phosphatase 107 IU/L (42-121) 02/11/21 04:30 Troponin I High Sens 23.3 ng/L (2.3-14.8) H* 02/08/21 17:02 B-Natriuretic Peptide 249 pg/mL (5-100) H 02/08/21 11:02 Total Protein 4.7 g/dL (6.7-8.2) L 02/11/21 04:30 Albumin 1.9 g/dL (3.2-5.5) L 02/11/21 04:30 Globulin 2.8 g/dL (2.1-4.2) 02/11/21 04:30 Albumin/Globulin Ratio 0.8 (1.0-2.2) L 02/08/21 11:02 Lipase 24 U/L (22-51) 02/08/21 11:02 Vitamin B12 572 pg/mL (180-914) 02/08/21 11:02 Folate 7.36 ng/mL (5.90 - >24.8) 02/08/21 11:02 Urine Color BROWN 02/08/21 12:53 Urine Clarity CLOUDY (CLEAR) 02/08/21 12:53 Urine pH 7.0 PH (5.0-7.5) 02/08/21 12:53 Ur Specific [place] 1.015 (1.002-1.030) 02/08/21 12:53 Urine Protein >=300 mg/dL (NEGATIVE) H 02/08/21 12:53 Urine Glucose (UA) NEGATIVE mg/dL (NEGATIVE) 02/08/21 12:53 Urine Ketones TRACE mg/dL (NEGATIVE) 02/08/21 12:53 Urine Occult Blood LARGE (NEGATIVE) H 02/08/21 12:53 Urine Nitrite POSITIVE (NEGATIVE) H 02/08/21 12:53 Urine Bilirubin NEGATIVE (NEGATIVE) 02/08/21 12:53 Urine Urobilinogen 1 (NORMAL) E.U./dL (NORMAL) 02/08/21 12:53 Ur Leukocyte Esterase MODERATE (NEGATIVE) H 02/08/21 12:53 Urine RBC TNTC /HPF (0-5) H 02/08/21 12:53 Urine WBC >25 /HPF (0-5) H 02/08/21 12:53 Ur Squamous Epith Cells RARE Squamous (<= Few) 02/08/21 12:53 Urine Bacteria Moderate /HPF (None Seen) H 02/08/21 12:53 Ur Microscopic Review INDICATED 02/08/21 12:53 Urine Culture Comments INDICATED 02/08/21 12:53 Nasal Adenovirus (PCR) NOT DETECTED 02/08/21 11:02 Nasal B. parapertussis DNA (PCR) NOT DETECTED 02/08/21 11:02 Nasal Coronavir 229E PCR NOT DETECTED 02/08/21 11:02 Nasal Coronavir HKU1 PCR NOT DETECTED 02/08/21 11:02 Nasal Coronavir NL63 PCR NOT DETECTED 02/08/21 11:02 Nasal Coronavir OC43 PCR NOT DETECTED 02/08/21 11:02 Nasal Enterovir/Rhinovir PCR NOT DETECTED 02/08/21 11:02 Nasal Influenza B PCR NOT DETECTED 02/08/21 11:02 Nasal Influenza A PCR NOT DETECTED 02/08/21 11:02 Nasal Parainfluen 1 PCR NOT DETECTED 02/08/21 11:02 Nasal Parainfluen 2 PCR NOT DETECTED 02/08/21 11:02 Nasal Parainfluen 3 PCR NOT DETECTED 02/08/21 11:02 Nasal Parainfluen 4 PCR NOT DETECTED 02/08/21 11:02 Nasal RSV (PCR) NOT DETECTED 02/08/21 11:02 Nasal Screen MRSA (PCR) NEGATIVE (NEGATIVE) 02/08/21 19:55 Nasal B.pertussis DNA PCR NOT DETECTED 02/08/21 11:02 Nasal C.pneumoniae (PCR) NOT DETECTED 02/08/21 11:02 Yan Human Metapneumo PCR NOT DETECTED 02/08/21 11:02 Nasal M.pneumoniae (PCR) NOT DETECTED 02/08/21 11:02 Nasal SARS-CoV-2 (PCR) NOT DETECTED 02/08/21 11:02 Blood Type A POSITIVE 02/10/21 08:04 Antibody Screen NEGATIVE 02/10/21 08:04 Crossmatch See Detail 02/10/21 08:04 - Procedures Procedures: Procedures TRANSFUSE NONAUT RED BLOOD CELLS IN PERIPH VEIN, [facility] (09/23/20) Sepsis Event Note (H) - Evaluation Current Stage of Sepsis: Septic shock - Sepsis Criteria Sepsis Criteria: Recorded Heart Rate greater than 90 bpm, Recorded Respiratory Rate greater than 20, WBC count greater than 12,000 or less than 4000, SBP drop more than 40mHg, SBP less than 90 mmHg, Metabolic: lactate > 2 mmol/L, Hematologic: platelets < 100,000; INR > 1.5, or a PTT>60 seconds
[2021-02-11] MEDS: THIAMINE INJ 100 MG in SODIUM CHLORIDE 0.9% 50 ML IV SCH (09:46)
[2021-02-11] MEDS: PANTOPRAZOLE 40 MG VIAL IVP SCH ×2 (09:50→21:42)
[2021-02-11] MEDS: guaiFENesin 600 MG TABLET PO SCH ×2 (09:50→21:42)
[2021-02-11] MEDS: cefTRIAXone 2 GM in SODIUM CHLORIDE 0.9% MINIBAG 100 ML IV SCH (10:21)
[2021-02-11] MEDS ORDERED: D5.45NS W/20 MEQ KCL 1,000 ML IV SCH (11:28)
[2021-02-11] MEDS ORDERED: FUROSEMIDE 20 MG/2 ML VIAL IVP STA (13:08)
[2021-02-11] MEDS ORDERED: LORazepam 2 MG/ML VIAL IVP PRN (13:10)
--- NOTE | 2021-02-11 15:08 | PROVIDER PROGRESS NOTE ---
Subjective - Prog Note Date Prog Note Date: 02/11/21 Prog Note Time: 15:08 - Subjective Pt reports feeling: Improved Subjective: Subjective Patient has had no additional vaginal bleeding. Has not had a change pad since yesterday morning. Overall feeling better. She does say that in general she is feeling much better than previous. Physical exam Pelvic: Normal external genitalia. No accumulation of blood. Imaging TVUS: Uterus is small measuring 2.5 x 3.5 x 5.4 cm with a heterogenous echotexture. 1 cm intramural fibroid noted. Assessment and plan Abnormal uterine bleeding likely iatrogenic: Bleeding has stopped after intramuscular Depo medroxyprogesterone acetate. This does correlate with a progesterone withdrawal bleed after stopping her norethindrone. We will continue to monitor bleeding, but likely is able to follow-up as an outpatient for further assessment. Review of TVUS today was unremarkable other than a small intramural fibroid which is likely not causing her bleeding. Her hemoglobin has essentially stabilized. 7.5 today down from 8.2 the prior 2 days. This small drop may be due to equilibrium. Septis and other issues being managed for sepsis by primary team. Objective - Vital Signs/Intake & Output Vital Signs: Vital Signs x48h Temp Pulse Pulse Resp BP Pulse Ox 02/11/21 14:30 108 H 16 109/89 H 96 02/11/21 14:00 107 H 22 90/69 97 02/11/21 13:00 93 23 93/70 97 02/11/21 12:00 110 H 28 H 84/62 L 98 02/11/21 11:00 101 H 17 88/64 L 99 02/11/21 10:00 106 H 24 89/61 L 02/11/21 09:00 107 H 21 93/61 95 02/11/21 08:00 97.6 F L 108 H 22 98/81 H 97 02/11/21 07:56 96 20 Intake & Output: Intake & Output 02/08/21 02/09/21 02/10/21 02/11/21 23:59 23:59 23:59 23:59 Intake Total 4351.563 7037.770 3836.709 1240 Output Total 765 676 8714 1012 Balance 3901.563 6134.770 1754.709 228 - Lab Results Fish Bones: 02/11/21 04:30 12/30/21 04:30 Other Labs: Lab Results x24hrs 02/11/21 02/11/21 02/11/21 Range/Units 04:30 04:30 04:30 WBC (4.8-10.8) x10^3/uL RBC (4.20-5.40) 10^6/uL Hgb (12.0-16.0) g/dL Hct (37.0-47.0) % MCV (81.0-99.0) fL MCH (27.0-31.0) pg MCHC (32.0-36.0) g/dL RDW (12.0-15.0) % Plt Count (130-450) 10^3/uL MPV (7.9-10.8) fL Neut # (Auto) Lymph # (Auto) [place] # (Auto) Eos # (Auto) Baso # (Auto) Absolute Nucleated RBC Total Counted Band Neuts % (Manual) (0 - 10) % Abnorm Lymph % (Manual) % Nucleated RBC % Neutrophils # (Manual) (1.5-6.6) 10^3/uL Lymphocytes # (Manual) (1.5-3.5) 10^3/uL Monocytes # (Manual) (0.0-1.0) 10^3/uL Eosinophils # (Manual) (0-0.7) 10^3/uL Basophils # (Manual) (0-0.1) 10^3/uL Differential Comment Platelet Estimate (NORMAL) RBC Morph Micro Appear (NORMAL) PT 19.0 H (9.9-12.6) secs INR 1.7 H (0.8-1.2) VBG pH 7.322 (7.31-7.41) Ionized Calcium 1.15 (1.15-1.33) mmol/L Sodium 131 L (135-145) mmol/L Potassium 4.7 (3.5-5.0) mmol/L Chloride 107 (101-111) mmol/L Carbon Dioxide 17 L (21-32) mmol/L Anion Gap 7.0 (6-13) BUN 23 H (6-20) mg/dL Creatinine 0.8 (0.4-1.0) mg/dL Estimated GFR (MDRD) 77 L (>89) Glucose 82 (70-100) mg/dL Calcium 7.7 L (8.5-10.3) mg/dL Phosphorus 2.8 (2.5-4.6) mg/dL Magnesium 2.0 (1.7-2.8) mg/dL Total Bilirubin 7.9 H (0.2-1.0) mg/dL Direct Bilirubin 5.3 H (0.1-0.5) mg/dL AST 39 (10-42) IU/L ALT 23 (10-60) IU/L Alkaline Phosphatase 107 (42-121) IU/L Total Protein 4.7 L (6.7-8.2) g/dL Albumin 1.9 L (3.2-5.5) g/dL Globulin 2.8 (2.1-4.2) g/dL 02/11/21 02/10/21 Range/Units 04:30 15:16 WBC 20.1 H (4.8-10.8) x10^3/uL RBC 2.83 L (4.20-5.40) 10^6/uL Hgb 7.5 L 8.2 L (12.0-16.0) g/dL Hct 23.6 L 25.0 L (37.0-47.0) % MCV 83.4 (81.0-99.0) fL MCH 26.5 L (27.0-31.0) pg MCHC 31.8 L (32.0-36.0) g/dL RDW 17.5 H (12.0-15.0) % Plt Count 80 L (130-450) 10^3/uL MPV 11.4 H (7.9-10.8) fL Neut # (Auto) Not Reportable Lymph # (Auto) Not Reportable [place] # (Auto) Not Reportable Eos # (Auto) Not Reportable Baso # (Auto) Not Reportable Absolute Nucleated RBC Not Reportable Total Counted 100 Band Neuts % (Manual) 9 (0 - 10) % Abnorm Lymph % (Manual) 0 % Nucleated RBC % Not Reportable Neutrophils # (Manual) 15.7 H (1.5-6.6) 10^3/uL Lymphocytes # (Manual) 2.6 (1.5-3.5) 10^3/uL Monocytes # (Manual) 1.8 H (0.0-1.0) 10^3/uL Eosinophils # (Manual) 0.0 (0-0.7) 10^3/uL Basophils # (Manual) 0.0 (0-0.1) 10^3/uL Differential Comment MANUAL DIFFERENTIAL Platelet Estimate DECREASED (<130,000) (NORMAL) RBC Morph Micro Appear 1+ OVALOCYTES (NORMAL) PT (9.9-12.6) secs INR (0.8-1.2) VBG pH (7.31-7.41) Ionized Calcium (1.15-1.33) mmol/L Sodium (135-145) mmol/L Potassium (3.5-5.0) mmol/L Chloride (101-111) mmol/L Carbon Dioxide (21-32) mmol/L Anion Gap (6-13) BUN (6-20) mg/dL Creatinine (0.4-1.0) mg/dL Estimated GFR (MDRD) (>89) Glucose (70-100) mg/dL Calcium (8.5-10.3) mg/dL Phosphorus (2.5-4.6) mg/dL Magnesium (1.7-2.8) mg/dL Total Bilirubin (0.2-1.0) mg/dL Direct Bilirubin (0.1-0.5) mg/dL AST (10-42) IU/L ALT (10-60) IU/L Alkaline Phosphatase (42-121) IU/L Total Protein (6.7-8.2) g/dL Albumin (3.2-5.5) g/dL Globulin (2.1-4.2) g/dL Sepsis Event Note (H) - Evaluation Current Stage of Sepsis: Septic shock - Sepsis Criteria Sepsis Criteria: Recorded Heart Rate greater than 90 bpm, Recorded Respiratory Rate greater than 20, WBC count greater than 12,000 or less than 4000, SBP drop more than 40mHg, SBP less than 90 mmHg, Metabolic: lactate > 2 mmol/L, Hematologic: platelets < 100,000; INR > 1.5, or a PTT>60 seconds
[2021-02-11] MEDS: SACCHAROMYCES BOULARDII 250 MG CAPSULE PO SCH (18:05)
[2021-02-11] MEDS: diphenhydrAMINE INJ 50 MG/ML VIAL IVP PRN (20:07)
[2021-02-12] MEDS: guaiFENesin/CODEINE 5 ML UDC PO PRN ×2 (01:05→20:33)
[2021-02-12] MEDS: diphenhydrAMINE INJ 50 MG/ML VIAL IVP PRN (03:14)
[2021-02-12] MEDS: SODIUM CHLORIDE FLUSH 0.9% 10 ML SYRINGE IVP PRN ×10 (03:15→22:27)
[2021-02-12] MEDS: BENZOCAINE/MENTHOL LOZENGE MM PRN ×2 (03:23→20:33)
[2021-02-12 06:01] LABS: BASOPHILS # (AUTO) 0.1 10^3/uL (0.0-0.1); BASOPHILS % (AUTO) 0.5 %; EOSINOPHILS # (AUTO) 0.1 10^3/uL (0.0-0.7); EOSINOPHILS % (AUTO) 1.2 %; HCT - HEMATOCRIT 25.6 % (37.0-47.0); HGB - HEMOGLOBIN 8.1 g/dL (12.0-16.0); LYMPHOCYTES # (AUTO) 3.1 10^3/uL (1.5-3.5); LYMPHOCYTES % (AUTO) 28.3 %; MEAN CORPUSCULAR HEMOGLOBIN 26.6 pg (27.0-31.0); MEAN CORPUSCULAR HGB CONC 31.6 g/dL (32.0-36.0); MEAN CORPUSCULAR VOLUME 83.9 fL (81.0-99.0); MEAN PLATELET VOLUME 10.5 fL (7.9-10.8); MONOCYTES # (AUTO) 0.9 10^3/uL (0.0-1.0); MONOCYTES % (AUTO) 8.5 %; NEUTROPHILS # (AUTO) 6.6 10^3/uL (1.5-6.6); NEUTROPHILS % (AUTO) 60.9 %; NRBC ABSOLUTE COUNT (AUTO) 0.03 x10^3/uL; NUCLEATED RED BLOOD CELLS AUTO 0.3 /100WBC; PLT - PLATELET COUNT 72 10^3/uL (130-450); RED BLOOD COUNT 3.05 10^6/uL (4.20-5.40); RED CELL DISTRIBUTION WIDTH 17.8 % (12.0-15.0); WHITE BLOOD COUNT 10.8 x10^3/uL (4.8-10.8)
[2021-02-12 06:06] LABS: CALCIUM, IONIZED 1.09 mmol/L (1.15-1.33); VBG PH 7.348 (7.31-7.41)
[2021-02-12 06:10] LABS: INR 1.5 (0.8-1.2); PT - PROTHROMBIN TIME 16.3 secs (9.9-12.6)
[2021-02-12] MEDS ORDERED: DEXTROSE 50% ABBOJECT 25 GM/50 ML SYRINGE IVP ONE (06:29)
[2021-02-12 06:40] LABS: CALCIUM 7.4 mg/dL (8.5-10.3); CREATININE 0.6 mg/dL (0.4-1.0); MAGNESIUM 1.5 mg/dL (1.7-2.8); PHOSPHORUS 2.9 mg/dL (2.5-4.6); POTASSIUM 3.2 mmol/L (3.5-5.0)
[2021-02-12] MEDS ORDERED: FUROSEMIDE 20 MG/2 ML VIAL IVP STA (07:36)
[2021-02-12] MEDS ORDERED: ALBUMIN 25% 12.5 GM/50 ML VIAL IV STA (07:36)
[2021-02-12] MEDS: SODIUM CHLORIDE FLUSH 0.9% 10 ML SYRINGE IVP SCH ×3 (08:08→17:15)
[2021-02-12] MEDS: POTASSIUM CHLOR IV SCH ×4 (10:02→13:49)
[2021-02-12] MEDS: SACCHAROMYCES BOULARDII 250 MG CAPSULE PO SCH ×2 (10:07→17:15)
[2021-02-12] MEDS: guaiFENesin 600 MG TABLET PO SCH ×2 (10:08→20:35)
[2021-02-12] MEDS: THIAMINE 100 MG TABLET PO SCH (10:08)
--- NOTE | 2021-02-12 10:08 | PROVIDER PROGRESS NOTE ---
Subjective - Prog Note Date Prog Note Date: 02/12/21 Prog Note Time: 10:08 - Subjective Pt reports feeling: Improved Subjective: Patient says she is doing much better as far as vaginal bleeding. Now 3 days without any bleeding. She does say she is sore all over, but that is normal for how she is feeling recently. Physical exam Pelvic: Normal external genitalia. No blood on perineum or pad. [employer] present for exam. Assessment and plan Abnormal uterine bleeding likely iatrogenic: Bleeding has stopped, will likely need to continue hormonal methods moving forward. Will follow up outpatient for hormone as well as discussion of pap/biopsy. H/H stable. Off pressors now. Sepsis and other issues being managed by primary team. Will sign off at this time. Please contact us again if bleeding resumes or additional concerns develop. Plan to follow up with Dr. Hebert in 1-2 weeks at [facility]. Objective - Vital Signs/Intake & Output Vital Signs: Vital Signs x48h Temp Pulse Resp BP Pulse Ox 02/12/21 09:00 106 H 18 94/65 99 02/12/21 08:00 98.8 F 109 H 19 106/73 97 02/12/21 07:00 104 H 25 H 97/60 98 02/12/21 06:00 98 19 106/80 98 02/12/21 05:00 97 19 102/76 97 02/12/21 04:00 99 19 94/69 98 02/12/21 03:00 99 19 107/74 96 Intake & Output: Intake & Output 02/09/21 02/10/21 02/11/21 02/12/21 23:59 23:59 23:59 23:59 Intake Total 7037.770 3836.709 2511 675 Output Total 903 2942 8712 2710 Balance 6134.770 1754.709 -271 -2035 - Lab Results Fish Bones: 02/12/21 05:05 02/12/21 05:05 Other Labs: Lab Results x24hrs 02/12/21 02/12/21 02/12/21 Range/Units 05:15 05:05 05:05 WBC (4.8-10.8) x10^3/uL RBC (4.20-5.40) 10^6/uL Hgb (12.0-16.0) g/dL Hct (37.0-47.0) % MCV (81.0-99.0) fL MCH (27.0-31.0) pg MCHC (32.0-36.0) g/dL RDW (12.0-15.0) % Plt Count (130-450) 10^3/uL MPV (7.9-10.8) fL Neut # (Auto) (1.5-6.6) 10^3/uL Lymph # (Auto) (1.5-3.5) 10^3/uL [place] # (Auto) (0.0-1.0) 10^3/uL Eos # (Auto) (0.0-0.7) 10^3/uL Baso # (Auto) (0.0-0.1) 10^3/uL Absolute Nucleated RBC x10^3/uL Nucleated RBC % /100WBC PT 16.3 H (9.9-12.6) secs INR 1.5 H (0.8-1.2) VBG pH 7.348 (7.31-7.41) Ionized Calcium 1.09 L (1.15-1.33) mmol/L Sodium 134 L (135-145) mmol/L Potassium 3.2 L (3.5-5.0) mmol/L Chloride 107 (101-111) mmol/L Carbon Dioxide 19 L (21-32) mmol/L Anion Gap 8.0 (6-13) BUN 13 (6-20) mg/dL Creatinine 0.6 (0.4-1.0) mg/dL Estimated GFR (MDRD) 107 (>89) Glucose 66 L (70-100) mg/dL Calcium 7.4 L (8.5-10.3) mg/dL Phosphorus 2.9 (2.5-4.6) mg/dL Magnesium 1.5 L (1.7-2.8) mg/dL 02/12/21 Range/Units 05:05 WBC 10.8 (4.8-10.8) x10^3/uL RBC 3.05 L (4.20-5.40) 10^6/uL Hgb 8.1 L (12.0-16.0) g/dL Hct 25.6 L (37.0-47.0) % MCV 83.9 (81.0-99.0) fL MCH 26.6 L (27.0-31.0) pg MCHC 31.6 L (32.0-36.0) g/dL RDW 17.8 H (12.0-15.0) % Plt Count 72 L (130-450) 10^3/uL MPV 10.5 (7.9-10.8) fL Neut # (Auto) 6.6 (1.5-6.6) 10^3/uL Lymph # (Auto) 3.1 (1.5-3.5) 10^3/uL [place] # (Auto) 0.9 (0.0-1.0) 10^3/uL Eos # (Auto) 0.1 (0.0-0.7) 10^3/uL Baso # (Auto) 0.1 (0.0-0.1) 10^3/uL Absolute Nucleated RBC 0.03 x10^3/uL Nucleated RBC % 0.3 /100WBC PT (9.9-12.6) secs INR (0.8-1.2) VBG pH (7.31-7.41) Ionized Calcium (1.15-1.33) mmol/L Sodium (135-145) mmol/L Potassium (3.5-5.0) mmol/L Chloride (101-111) mmol/L Carbon Dioxide (21-32) mmol/L Anion Gap (6-13) BUN (6-20) mg/dL Creatinine (0.4-1.0) mg/dL Estimated GFR (MDRD) (>89) Glucose (70-100) mg/dL Calcium (8.5-10.3) mg/dL Phosphorus (2.5-4.6) mg/dL Magnesium (1.7-2.8) mg/dL Sepsis Event Note (H) - Evaluation Current Stage of Sepsis: Septic shock - Sepsis Criteria Sepsis Criteria: Recorded Heart Rate greater than 90 bpm, Recorded Respiratory Rate greater than 20, WBC count greater than 12,000 or less than 4000, SBP drop more than 40mHg, SBP less than 90 mmHg, Metabolic: lactate > 2 mmol/L, Hematologic: platelets < 100,000; INR > 1.5, or a PTT>60 seconds
[2021-02-12] MEDS: PANTOPRAZOLE 40 MG VIAL IVP SCH ×2 (10:10→20:30)
[2021-02-12] MEDS: MORPHINE 2 MG/ML CARPUJECT IVP PRN ×2 (10:19→18:23)
--- NOTE | 2021-02-12 10:54 | PROVIDER PROGRESS NOTE ---
Assessment/Plan - Problem List (1) Bacteremia due to Klebsiella pneumoniae Assessment/Plan: This Klebsiella came from the urine where it is growing as well. Her empiric ceftriaxone was changed to cephalosporin yesterday when sensitivities showed resistance of this Klebsiella to ceftriaxone. She complains of burning from the cephalosporin. We will change the iv anti bx to meropenem Will change IV access from femoral CVP line to an upper extremity PICC line. We will transfer out of the ICU today (2) E. coli UTI Assessment/Plan: Continue with meropenem as described above, this E. coli is pansensitive (3) DVT of left axillary vein, acute Assessment/Plan: The patient complained of pain in the left arm today. The RN brought to my attention that she has a very large and painful left antecubital hematoma. Ultrasound was ordered to evaluate for DVT and she does have a DVT in the L arm. Her INR is now 1.5 but her platelets have been dropping for the last 2 days, concerned about consumption coagulopathy therefore. So we cannot use Lovenox Will start Fondaparinox once a day. (4) Cough Assessment/Plan: Patient's cough has decreased slightly with use of Robitussin with codeine and with scheduled Mucinex. She also describes having cough "all the time" for which she uses an inhaler. Her chest x-ray showed volume overload. We are giving her IV Lasix today and yesterday, and the rapid IV fluid infusions have stopped. Giving Albumen iv 1 bag to prevent 3rd spacing as well, since serum Alb is low. We are continuing the Robitussin, Mucinex and inhaler (5) Cold sore Assessment/Plan: Will order po Valtrex, since the topical Lysine that she requested is not on formulary and family cannot bring her's in today. (6) Severe anemia Assessment/Plan: At admission her hemoglobin was 4, she has required several units transfused. Since that time the hemoglobin has been stable at 7.8-8. She is a history of iron deficiency in the past and has not tolerated p.o. iron, has needed IV iron. Follow CBC, transfuse if under 7 (7) Red blood cell antibody positive, compatible PRBC difficult to obtain Assessment/Plan: As per history. Therefore it takes longer to crossmatch blood if she needs it (8) Thrombocytopenia Assessment/Plan: She is had dropping platelets for the last 2 days. This is coincident with being more icteric and the bilirubin is also jumped from 3 to 7. Will check fibrinogen to assess if she has DIC. Follow CBC daily. (9) Hyponatremia Assessment/Plan: Sodium has just improved to 134, slowly over the past 3 days on IV fluids. We will slow down and eventually stop her IV saline. Follow BMP daily (10) Alcoholic cirrhosis Qualifiers: Ascites presence: without ascites Qualified Code(s): K70.30 - Alcoholic cirrhosis of liver without ascites Assessment/Plan: Patient has cirrhosis from years of binging episodes of alcohol. She was admitted with a very elevated INR which is improved slightly down to 1.5 today. Yesterday and today her platelet count is low. Bili is very elevated. Toxins. Follow LFTs daily (11) Elevated LFTs Assessment/Plan: She did have hypotension for the first day and a half, required vasopressors. The elevated LFTs could be a sign of shock liver or other intrahepatic abnormality however there is no abdominal pain or nausea or vomiting. Avoid hepatotoxins. Follow LFTs daily (12) S/P colostomy Assessment/Plan: As per Hx, (13) Hypoglycemia Assessment/Plan: She is mostly able to keep her glucose in a normal range since her diet has been advancing and she is tolerating it well. We are decreasing her IV supplements. (14) Septic shock Assessment/Plan: Shock has resolved, she is off vasopressors for 2 days. (15) Vaginal bleeding Assessment/Plan: This stopped after DepoProvera x1 was given for withdrawal bleeding. - Current Meds Current Meds: Current Medications Generic Name Dose Route Start Last Admin Trade Name Marlys PRN Reason Stop Dose Admin Albuterol 2.5 mg 02/08/21 16:41 02/11/21 07:55 Albuterol Neb 2.5 Mg/3 Ml INH 2.5 mg Q4HR PRN Administration Wheezing Diphenhydramine HCl 25 mg 02/11/21 19:19 02/12/21 03:14 Diphenhydramine Inj 50 Mg/Ml Vial IVP 25 mg Q6H PRN Administration Allergy Symptoms Guaifenesin 600 mg 02/10/21 21:00 02/12/21 10:08 Guaifenesin 600 Mg Tablet PO 600 mg BID CHRISTINE Administration Guaifenesin/Codeine Phosphate 5 ml 02/10/21 18:30 02/12/21 01:05 Guaifenesin/Codeine 5 Ml Udc PO 5 ml Q6HR PRN Administration Cough Ceftriaxone Sodium 2 gm/ 100 mls @ 200 mls/hr 02/11/21 10:00 02/11/21 11:50 Sodium Chloride IV Infused DAILY CHRISTINE Infusion Potassium Chloride 20 meq in 100 mls @ 100 mls/hr 02/12/21 08:00 02/12/21 10:02 Potassium Chloride IV 02/12/21 11:59 100 mls/hr Q1H CHRISTINE Administration Protocol Lidocaine 1 patch 02/09/21 18:54 02/09/21 20:28 Lidocaine Patch 5% TOP 1 patch DAILY PRN Administration PAIN Morphine Sulfate 2 mg 02/11/21 13:11 02/12/21 10:19 Morphine 2 Mg/Ml Carpuject IVP 2 mg Q8HR PRN Administration Severe Pain Pantoprazole Sodium 40 mg 02/08/21 21:00 02/12/21 10:10 Pantoprazole 40 Mg Vial IVP 40 mg BID CHRISTINE Administration Saccharomyces Boulardii 250 mg 02/11/21 17:00 02/12/21 10:07 Saccharomyces Boulardii 250 Mg Capsule PO 250 mg BIDWM CHRISTINE Administration Sodium Chloride 10 ml 02/08/21 17:00 02/12/21 10:10 Sodium Chloride Flush 0.9% 10 Ml Syringe IVP 10 ml 0100,0900,1700 CHRISTINE Administration Sodium Chloride 10 ml 02/08/21 16:41 02/12/21 10:10 Sodium Chloride Flush 0.9% 10 Ml Syringe IVP 10 ml PRN PRN Administration NEEDED PER PROVIDER ORDERS Sodium Chloride 20 ml 02/09/21 22:27 02/12/21 05:06 Sodium Chloride Flush 0.9% 10 Ml Syringe IVP 20 ml PRN PRN Administration After Blood Draw Thiamine HCl 100 mg 02/12/21 09:00 02/12/21 10:08 Thiamine 100 Mg Tablet PO 100 mg DAILY CHRISTINE Administration Throat Lozenges 1 lozenge 02/08/21 23:17 02/12/21 03:23 Benzocaine/Menthol Lozenge MM 1 lozenge Q2HR PRN Administration Throat pain - Lab Result Fish Bone Diagrams: 02/12/21 05:05 02/12/21 16:53 - Additional Planning My Orders: My Active Orders 12/30/21 10:00 [email or web address] [Rocephin] 2 gm Sodium Chloride 0.9% Minibag [Normal Saline 0.9% Minibag] 100 ml IV DAILY 02/11/21 13:10 LORazepam INJ [Ativan Inj (Vial)] 0.5 mg IVP Q8H PRN 02/11/21 13:11 Morphine Inj (Carpuject) [Morphine (Carpuject)] 2 mg IVP Q8HR PRN 02/11/21 Dinner Soft Mechanical Diet [DIET] 02/11/21 17:00 Saccharomyces Boulardii [Florastor] 250 mg PO BIDWM 02/12/21 08:00 Potassium Chlor 10 Meq/100 ml [Potassium Chloride] 20 meq in 100 ml IV Q1H 02/12/21 09:00 Thiamine [Vitamin B-1] 100 mg PO DAILY 02/12/21 10:46 IV Insert [RC] ONCE 02/12/21 10:47 Central Line Discontinuation [RC] .ONCE 02/12/21 10:48 Transfer [Admit \\ Transfer \\ Status] [RC] .ONCE 02/12/21 10:50 Miscellaenous Nursing Order [RC] QSHIFT Telemetry- [RC] Q4HR 02/12/21 12:00 Calcium Chloride 1,000 mg Sodium Chloride 0.9% [Normal Saline 0.9%] 50 ml IV ONCE 02/12/21 14:00 valACYclovir [Valtrex] 500 mg PO TID 02/13/21 05:00 CALCIUM, IONIZED ([facility]) [BG] DAILYLAB Subjective - Subjective Patient Reports: Other (Pain of L arm) Nursing Reports: Other (Tolerating a diet) Objective Vital Signs: Vital Signs - 24 hr 02/11/21 02/11/21 02/11/21 11:00 12:00 13:00 Temperature Heart Rate [ 101 H 110 H 93 Monitoring electrodes] Respiratory 17 28 H 23 Rate Blood Pressure 88/64 L 84/62 L 93/70 [Right Brachial artery] O2 Saturation 99 98 97 02/11/21 02/11/21 02/11/21 14:00 14:30 15:00 Temperature Heart Rate [ 107 H 108 H 101 H Monitoring electrodes] Respiratory 22 16 18 Rate Blood Pressure 90/69 109/89 H 135/67 H [Right Brachial artery] O2 Saturation 97 96 96 02/11/21 02/11/21 02/11/21 16:00 17:00 18:00 Temperature 36.7 C Heart Rate [ 105 H 114 H 109 H Monitoring electrodes] Respiratory 19 16 19 Rate Blood Pressure 110/73 94/67 107/74 [Right Brachial artery] O2 Saturation 97 99 97 02/11/21 02/11/21 02/11/21 19:00 20:00 21:00 Temperature Heart Rate [ 106 H 109 H 103 H Monitoring electrodes] Respiratory 25 H 24 23 Rate Blood Pressure 102/87 H 106/78 89/65 L [Right Brachial artery] O2 Saturation 96 95 97 02/11/21 02/11/21 02/12/21 22:00 23:00 00:00 Temperature Heart Rate [ 103 H 100 99 Monitoring electrodes] Respiratory 18 17 14 Rate Blood Pressure 94/68 97/68 102/69 [Right Brachial artery] O2 Saturation 96 95 95 02/12/21 02/12/21 02/12/21 01:00 02:00 03:00 Temperature Heart Rate [ 104 H 100 99 Monitoring electrodes] Respiratory 15 16 19 Rate Blood Pressure 121/74 99/71 107/74 [Right Brachial artery] O2 Saturation 97 97 96 02/12/21 02/12/21 02/12/21 04:00 05:00 06:00 Temperature Heart Rate [ 99 97 98 Monitoring electrodes] Respiratory 19 19 19 Rate Blood Pressure 94/69 102/76 106/80 [Right Brachial artery] O2 Saturation 98 97 98 02/12/21 02/12/21 02/12/21 07:00 08:00 09:00 Temperature 37.1 C Heart Rate [ 104 H 109 H 106 H Monitoring electrodes] Respiratory 25 H 19 18 Rate Blood Pressure 97/60 106/73 94/65 [Right Brachial artery] O2 Saturation 98 97 99 02/12/21 10:00 Temperature Heart Rate [ 110 H Monitoring electrodes] Respiratory 16 Rate Blood Pressure 99/68 [Right Brachial artery] O2 Saturation 98 Oxygen O2 Source Room air I&O (Last 24 Hrs): Intake and Output Totals x24h 02/10/21 02/11/21 02/12/21 23:59 23:59 23:59 Intake Total 0536.709 2511 675 Output Total 0379 7148 4427 Balance 0642.171 -047 -6753 General: Alert, Oriented x3 HEENT: EOMI, Mucous membr. moist/pink, Other (Jaundiced) Neck: Supple Neuro: Alert, Non Focal, Other (Hand tremor) Cardiovascular: Regular rate, No murmurs Respiratory: No respiratory distress, Breath sounds nml Abdomen: Soft Extremities: Other (L antecubital has a 5x5 cm black hematoma) - Results Results: Laboratory Results WBC 10.8 x10^3/uL (4.8-10.8) 02/12/21 05:05 RBC 3.05 10^6/uL (4.20-5.40) L 02/12/21 05:05 Hgb 8.1 g/dL (12.0-16.0) L 02/12/21 05:05 Hct 25.6 % (37.0-47.0) L 02/12/21 05:05 MCV 83.9 fL (81.0-99.0) 02/12/21 05:05 MCH 26.6 pg (27.0-31.0) L 02/12/21 05:05 MCHC 31.6 g/dL (32.0-36.0) L 02/12/21 05:05 RDW 17.8 % (12.0-15.0) H 02/12/21 05:05 Plt Count 72 10^3/uL (130-450) L 02/12/21 05:05 MPV 10.5 fL (7.9-10.8) 02/12/21 05:05 Neut # (Auto) 6.6 10^3/uL (1.5-6.6) 02/12/21 05:05 Lymph # (Auto) 3.1 10^3/uL (1.5-3.5) 02/12/21 05:05 [place] # (Auto) 0.9 10^3/uL (0.0-1.0) 02/12/21 05:05 Eos # (Auto) 0.1 10^3/uL (0.0-0.7) 02/12/21 05:05 Baso # (Auto) 0.1 10^3/uL (0.0-0.1) 02/12/21 05:05 Absolute Nucleated RBC 0.03 x10^3/uL 02/12/21 05:05 Total Counted 100 02/11/21 04:30 Band Neuts % (Manual) 9 % (0-10) 02/11/21 04:30 Abnorm Lymph % (Manual) 0 % 02/11/21 04:30 Metamyelocytes % 1 % (-0) H 02/10/21 05:10 Myelocytes % 1 % (-0) H 02/10/21 05:10 Nucleated RBC % 0.3 /100WBC 02/12/21 05:05 Neutrophils # (Manual) 15.7 10^3/uL (1.5-6.6) H 02/11/21 04:30 Lymphocytes # (Manual) 2.6 10^3/uL (1.5-3.5) 02/11/21 04:30 Monocytes # (Manual) 1.8 10^3/uL (0.0-1.0) H 02/11/21 04:30 Eosinophils # (Manual) 0.0 10^3/uL (0-0.7) 02/11/21 04:30 Basophils # (Manual) 0.0 10^3/uL (0-0.1) 02/11/21 04:30 Nucleated RBCs 24 % 02/08/21 11:02 Differential Comment MANUAL DIFFERENTIAL 02/11/21 04:30 Platelet Estimate DECREASED (<130,000) (NORMAL) 02/11/21 04:30 Platelet Morphology NORMAL APPEARANCE (NORMAL) 02/09/21 04:50 RBC Morph Micro Appear 1+ MICROCYTOSIS (NORMAL) 2+ HYPOCHROMASIA (NORMAL) 1+ OVALOCYTES (NORMAL) 02/11/21 04:30 RBC Morph Micro Appear 1+ MICROCYTOSIS (NORMAL) 2+ HYPOCHROMASIA (NORMAL) 1+ OVALOCYTES (NORMAL) 02/11/21 04:30 RBC Morph Micro Appear 1+ MICROCYTOSIS (NORMAL) 2+ HYPOCHROMASIA (NORMAL) 1+ OVALOCYTES (NORMAL) 02/11/21 04:30 PT 16.3 secs (9.9-12.6) H 02/12/21 05:05 INR 1.5 (0.8-1.2) H 02/12/21 05:05 APTT 31.5 secs (24.9-33.3) 02/08/21 11:34 VBG pH 7.348 (7.31-7.41) 02/12/21 05:15 Ionized Calcium 1.09 mmol/L (1.15-1.33) L 02/12/21 05:15 Sodium 134 mmol/L (135-145) L 02/12/21 05:05 Potassium 3.2 mmol/L (3.5-5.0) L 02/12/21 05:05 Chloride 107 mmol/L (101-111) 02/12/21 05:05 Carbon Dioxide 19 mmol/L (21-32) L 02/12/21 05:05 Anion Gap 8.0 (6-13) 02/12/21 05:05 BUN 13 mg/dL (6-20) 02/12/21 05:05 Creatinine 0.6 mg/dL (0.4-1.0) 02/12/21 05:05 Estimated GFR (MDRD) 107 (>89) 02/12/21 05:05 Glucose 66 mg/dL (70-100) L 02/12/21 05:05 Lactic Acid 2.7 mmol/L (0.5-2.2) H 02/10/21 14:09 Calcium 7.4 mg/dL (8.5-10.3) L 02/12/21 05:05 Phosphorus 2.9 mg/dL (2.5-4.6) 02/12/21 05:05 Magnesium 1.5 mg/dL (1.7-2.8) L 02/12/21 05:05 Iron 35 ug/dL (28-170) 02/08/21 11:02 TIBC 321 ug/dL (250-450) 02/08/21 11:02 % Saturation 11 % (20-50) L 02/08/21 11:02 Transferrin 229 mg/dL (192-382) 02/08/21 11:02 Ferritin 15.9 ng/mL (11.0-306.8) 02/08/21 11:02 Total Bilirubin 7.9 mg/dL (0.2-1.0) H 02/11/21 04:30 Direct Bilirubin 5.3 mg/dL (0.1-0.5) H 02/11/21 04:30 AST 39 IU/L (10-42) 02/11/21 04:30 ALT 23 IU/L (10-60) 02/11/21 04:30 Alkaline Phosphatase 107 IU/L (42-121) 02/11/21 04:30 Troponin I High Sens 23.3 ng/L (2.3-14.8) H* 02/08/21 17:02 B-Natriuretic Peptide 249 pg/mL (5-100) H 02/08/21 11:02 Total Protein 4.7 g/dL (6.7-8.2) L 02/11/21 04:30 Albumin 1.9 g/dL (3.2-5.5) L 02/11/21 04:30 Globulin 2.8 g/dL (2.1-4.2) 02/11/21 04:30 Albumin/Globulin Ratio 0.8 (1.0-2.2) L 02/08/21 11:02 Lipase 24 U/L (22-51) 02/08/21 11:02 Vitamin B12 572 pg/mL (180-914) 02/08/21 11:02 Folate 7.36 ng/mL (5.90 - >24.8) 02/08/21 11:02 Urine Color BROWN 02/08/21 12:53 Urine Clarity CLOUDY (CLEAR) 02/08/21 12:53 Urine pH 7.0 PH (5.0-7.5) 02/08/21 12:53 Ur Specific [place] 1.015 (1.002-1.030) 02/08/21 12:53 Urine Protein >=300 mg/dL (NEGATIVE) H 02/08/21 12:53 Urine Glucose (UA) NEGATIVE mg/dL (NEGATIVE) 02/08/21 12:53 Urine Ketones TRACE mg/dL (NEGATIVE) 02/08/21 12:53 Urine Occult Blood LARGE (NEGATIVE) H 02/08/21 12:53 Urine Nitrite POSITIVE (NEGATIVE) H 02/08/21 12:53 Urine Bilirubin NEGATIVE (NEGATIVE) 02/08/21 12:53 Urine Urobilinogen 1 (NORMAL) E.U./dL (NORMAL) 02/08/21 12:53 Ur Leukocyte Esterase MODERATE (NEGATIVE) H 02/08/21 12:53 Urine RBC TNTC /HPF (0-5) H 02/08/21 12:53 Urine WBC >25 /HPF (0-5) H 02/08/21 12:53 Ur Squamous Epith Cells RARE Squamous (<= Few) 02/08/21 12:53 Urine Bacteria Moderate /HPF (None Seen) H 02/08/21 12:53 Ur Microscopic Review INDICATED 02/08/21 12:53 Urine Culture Comments INDICATED 02/08/21 12:53 Nasal Adenovirus (PCR) NOT DETECTED 02/08/21 11:02 Nasal B. parapertussis DNA (PCR) NOT DETECTED 02/08/21 11:02 Nasal Coronavir 229E PCR NOT DETECTED 02/08/21 11:02 Nasal Coronavir HKU1 PCR NOT DETECTED 02/08/21 11:02 Nasal Coronavir NL63 PCR NOT DETECTED 02/08/21 11:02 Nasal Coronavir OC43 PCR NOT DETECTED 02/08/21 11:02 Nasal Enterovir/Rhinovir PCR NOT DETECTED 02/08/21 11:02 Nasal Influenza B PCR NOT DETECTED 02/08/21 11:02 Nasal Influenza A PCR NOT DETECTED 02/08/21 11:02 Nasal Parainfluen 1 PCR NOT DETECTED 02/08/21 11:02 Nasal Parainfluen 2 PCR NOT DETECTED 02/08/21 11:02 Nasal Parainfluen 3 PCR NOT DETECTED 02/08/21 11:02 Nasal Parainfluen 4 PCR NOT DETECTED 02/08/21 11:02 Nasal RSV (PCR) NOT DETECTED 02/08/21 11:02 Nasal Screen MRSA (PCR) NEGATIVE (NEGATIVE) 02/08/21 19:55 Nasal B.pertussis DNA PCR NOT DETECTED 02/08/21 11:02 Nasal C.pneumoniae (PCR) NOT DETECTED 02/08/21 11:02 Yan Human Metapneumo PCR NOT DETECTED 02/08/21 11:02 Nasal M.pneumoniae (PCR) NOT DETECTED 02/08/21 11:02 Nasal SARS-CoV-2 (PCR) NOT DETECTED 02/08/21 11:02 Blood Type A POSITIVE 02/10/21 08:04 Antibody Screen NEGATIVE 02/10/21 08:04 Crossmatch See Detail 02/10/21 08:04 - Procedures Procedures: Procedures TRANSFUSE NONAUT RED BLOOD CELLS IN PERIPH VEIN, PERC (09/23/20) Sepsis Event Note (H) - Evaluation Current Stage of Sepsis: Septic shock - Sepsis Criteria Sepsis Criteria: Recorded Heart Rate greater than 90 bpm, Recorded Respiratory Rate greater than 20, WBC count greater than 12,000 or less than 4000, SBP drop more than 40mHg, SBP less than 90 mmHg, Metabolic: lactate > 2 mmol/L, Hematologic: platelets < 100,000; INR > 1.5, or a PTT>60 seconds
[2021-02-12] MEDS ORDERED: CALCIUM CHLORIDE 1,000 MG in SODIUM CHLORIDE 0.9% 50 ML IV ONE (12:00)
[2021-02-12] MEDS: valACYclovir 500 MG TABLET PO SCH ×2 (12:38→20:32)
[2021-02-12] MEDS: MEROPENEM 1 GM in SODIUM CHLORIDE 0.9% MINIBAG 100 ML IV SCH ×2 (12:40→20:34)
[2021-02-12] MEDS: cefTRIAXone 2 GM in SODIUM CHLORIDE 0.9% MINIBAG 100 ML IV SCH (13:48)
--- NOTE | 2021-02-12 15:20 | ANESTHESIA PROCEDURE NOTE ---
Anesth Central Line Template - Central Line Central Line Preparation: Consent Obtained Central line location: Right Basilic Central line type: PICC Double Lumen Central line catheter tip site resides: Superior vena cava (SVC) Central line aftercare: Secured, Placement confirmed, No pneumothorax, No complications, Bundle checklist complete, Pt tolerated well
--- NOTE | 2021-02-12 15:24 | CONSULTATION NOTE ---
Consultation Report: RUE PICC line placed per hospitalist orders. Informed consent obtained. U/S guided and sterile technique maintained. Line placement easy, no complications. 5Fr 2-lumen catheter, both ports aspirated and flushed easily. Line secured with Statlock and sterile dressing applied. Pt tolerated well. NAC
[2021-02-12] MEDS ORDERED: MAGNESIUM OXIDE 400 MG TABLET PO ONE (15:35)
--- NOTE | 2021-02-12 15:39 | XRAY Report ---
PROCEDURE: Chest for Line Placement INDICATIONS: verify picc placement TECHNIQUE: One view of the chest was acquired. COMPARISON: 02/10/2021 FINDINGS: Surgical changes and devices: A right-sided PICC line has been seen, with the PICC line overlying the inferior aspect of the superior vena cava, near the cavoatrial junction. Lungs and pleura: On the semiupright images, no large pneumothorax or large pleural effusions can be seen. No focal infiltrates are seen. Mediastinum: Mediastinal contours appear normal. Heart size is mildly enlarged. Bones and chest wall: No suspicious bony lesions. At least moderate dextroconvex scoliosis is seen. Overlying soft tissues appear unremarkable. IMPRESSION: A right-sided PICC line is seen, with the tip overlying the inferior aspect of the superior vena cava . Mild cardiomegaly. Dextroconvex scoliosis. Reviewed by: Jacob Nava MD on 02/12/2021 2:38 PM [place] Approved by: Jacob Nava MD on 02/12/2021 2:38 PM [place] Station ID: [id number]
--- NOTE | 2021-02-12 15:52 | Ultrasound Report ---
PROCEDURE: Duplex Ext Veins Left INDICATIONS: Large L arm hematoma, eval for DVT TECHNIQUE: Real-time imaging, as well as color and pulse Doppler interrogation, were performed of the lower extr emity deep veins from the inguinal ligament to the popliteal fossa. COMPARISON: None. FINDINGS: There is nonocclusive thrombus within the brachial vein as well as occlusive thrombus in th e cephalic vein both within the mid arm. Remaining deep venous structures are widely patent. IMPRESSION: Nonocclusive thrombus is present in the brachial as well as occluded thrombus in the cephalic vein in the mid arm. Reviewed by: Mirela Aly MD on 02/12/2021 3:51 PM PST Approved by: Mirela Aly MD on 02/12/2021 3:51 PM PST Station ID: [id number]
[2021-02-12 17:02] LABS: CALCIUM, IONIZED 1.14 mmol/L (1.15-1.33); VBG PH 7.429 (7.31-7.41)
[2021-02-12] MEDS: FONDAPARINUX 7.5 MG/0.6 ML SYRINGE SUBQ SCH (17:15)
[2021-02-12] MEDS: HYDROmorphone 0.5 MG/0.5 ML SYRINGE IVP PRN ×2 (20:27→22:27)
[2021-02-13] MEDS: HYDROmorphone 0.5 MG/0.5 ML SYRINGE IVP PRN ×5 (01:54→21:36)
[2021-02-13] MEDS: SODIUM CHLORIDE FLUSH 0.9% 10 ML SYRINGE IVP SCH ×3 (01:55→17:02)
[2021-02-13] MEDS: BENZOCAINE/MENTHOL LOZENGE MM PRN ×3 (02:00→22:43)
[2021-02-13] MEDS: MEROPENEM 1 GM in SODIUM CHLORIDE 0.9% MINIBAG 100 ML IV SCH ×3 (06:54→21:34)
[2021-02-13] MEDS: guaiFENesin/CODEINE 5 ML UDC PO PRN ×3 (07:06→21:34)
[2021-02-13 07:20] LABS: BASOPHILS % (AUTO) 0.6 %; EOSINOPHILS # (AUTO) 0.2 10^3/uL (0.0-0.7); EOSINOPHILS % (AUTO) 2.7 %; HCT - HEMATOCRIT 23.8 % (37.0-47.0); HGB - HEMOGLOBIN 7.7 g/dL (12.0-16.0); LYMPHOCYTES # (AUTO) 1.9 10^3/uL (1.5-3.5); LYMPHOCYTES % (AUTO) 26.9 %; MEAN CORPUSCULAR HGB CONC 32.4 g/dL (32.0-36.0); MEAN CORPUSCULAR VOLUME 83.5 fL (81.0-99.0); MEAN PLATELET VOLUME 9.9 fL (7.9-10.8); MONOCYTES # (AUTO) 0.8 10^3/uL (0.0-1.0); MONOCYTES % (AUTO) 10.7 %; NEUTROPHILS # (AUTO) 4.1 10^3/uL (1.5-6.6); NEUTROPHILS % (AUTO) 58.4 %; PLT - PLATELET COUNT 61 10^3/uL (130-450); RED BLOOD COUNT 2.85 10^6/uL (4.20-5.40); RED CELL DISTRIBUTION WIDTH 18.3 % (12.0-15.0); WHITE BLOOD COUNT 7.1 x10^3/uL (4.8-10.8)
[2021-02-13 07:22] LABS: CALCIUM, IONIZED 1.07 mmol/L (1.15-1.33); VBG PH 7.377 (7.31-7.41)
[2021-02-13] MEDS: SODIUM CHLORIDE FLUSH 0.9% 10 ML SYRINGE IVP PRN ×8 (07:48→15:20)
[2021-02-13 07:59] LABS: ALBUMIN 1.8 g/dL (3.2-5.5); ALBUMIN/GLOBULIN RATIO 0.6 (1.0-2.2); BILIRUBIN,TOTAL 12.6 mg/dL (0.2-1.0); CALCIUM 7.3 mg/dL (8.5-10.3); CREATININE 0.5 mg/dL (0.4-1.0); PHOSPHORUS 3.3 mg/dL (2.5-4.6); TOTAL PROTEIN 4.7 g/dL (6.7-8.2)
[2021-02-13] MEDS: PANTOPRAZOLE 40 MG VIAL IVP SCH (08:05)
[2021-02-13] MEDS: guaiFENesin 600 MG TABLET PO SCH ×2 (08:07→21:34)
[2021-02-13] MEDS: SACCHAROMYCES BOULARDII 250 MG CAPSULE PO SCH ×2 (08:07→17:02)
[2021-02-13] MEDS: THIAMINE 100 MG TABLET PO SCH (08:07)
[2021-02-13] MEDS ORDERED: MAGNESIUM SULFATE 2 GRAM 2 GM/50 ML BAG IV ONE ×2 (08:15→13:00)
--- NOTE | 2021-02-13 08:18 | PROVIDER PROGRESS NOTE ---
Assessment/Plan - Problem List (1) Elevated LFTs Assessment/Plan: Her bilirubin went from 3 at admission to 7 yesterday and today is 12.6. Her AST and ALT have not increased. The Alk Phos went from 313 at admission normal 107 yesterday to elevated at 122 today. She is visibly more jaundiced yesterday and today. She did have hypotension for the first day and a half, required vasopressors. The elevated LFTs could be a sign of shock liver or a cholestatic pattern, however, she has no abdominal pain or nausea or vomiting. Avoid hepatotoxins. Will stop the prn Tylenol. Will change her soft diet to a low protein and low-fat diet Follow LFTs daily If there is no decrease in LFTs by tomorrow, will obtain abdominal imaging. (2) Thrombocytopenia Assessment/Plan: She has had dropping platelets for 3 days now. This is coincident with being more icteric and the bilirubin has increased. Fibrinogen has been normal x2, ruling out DIC. She had not gotten Heparin, no HIT. She possibly has drug-induced thrombocytopenia since she got ceftriaxone, Tylenol, Lasix and Zofran, all of which can cause this (per [employer]) Will give no further Lasix, Tylenol or Zofran. Ceftriaxone has been stopped Follow CBC daily. (3) DVT of left axillary vein, acute Assessment/Plan: The patient complained of pain in the left arm today. The RN brought to my attention that she has a very large and painful left antecubital hematoma. Ultrasound was ordered to evaluate for DVT and she does have a DVT in the L arm. Her INR is now 1.5 but her platelets have been dropping for the last 2 days, concerned about consumption coagulopathy therefore. So we cannot use Lovenox Will start Fondaparinox once a day. (4) Bacteremia due to Klebsiella pneumoniae Assessment/Plan: This Klebsiella came from the urine where it is growing as well. Her empiric ceftriaxone was changed to cephalosporin 2 days ago, when se nsitivities showed resistance of this Klebsiella to ceftriaxone. She complained of burning from the cephalosporin. We changed the iv cephalosporin to meropenem yesterday Her femoral CVP line was removed after placement of a R upper extremity PICC line yesterday by Anesthesia. Then she was transferred out of the ICU yesterday. Continue iv meropenem, and duration of treatment will be determined. (5) E. coli UTI Assessment/Plan: Will continue with meropenem as described above, this E. coli is pansensitive (6) Cough Assessment/Plan: Patient's cough has decreased slightly with use of Robitussin with codeine and with scheduled Mucinex. She also describes having cough "all the time" for which she uses an inhaler. Her chest x-ray showed volume overload. We are giving her IV Lasix today and yesterday, and the rapid IV fluid infusions have stopped. Giving Albumen iv 1 bag to prevent 3rd spacing as well, since serum Alb is low. We are continuing the Robitussin, Mucinex and inhaler (7) Cold sore Assessment/Plan: Will order po Valtrex, since the topical Lysine that she requested is not on formulary and family cannot bring her's in. (8) Severe anemia Assessment/Plan: At admission her hemoglobin was 4, she has required several units transfused. Since that time the hemoglobin has been stable at 7.8-8. She is a history of iron deficiency in the past and has not tolerated p.o. iron, has needed IV iron. Follow CBC, transfuse if under 7 (9) Red blood cell antibody positive, compatible PRBC difficult to obtain Assessment/Plan: As per history. Therefore it takes longer to crossmatch blood if she needs it (10) Hyponatremia Assessment/Plan: Sodium has plateaued at 134, improving slowly over the past several days on IV fluids. We are slowing down and eventually stopping her IV saline. Follow BMP daily (11) Hypomagnesemia Assessment/Plan: Likely related to getting IV Lasix and from poor nutrition recently Will replace with magnesium IV riders. Follow magnesium level daily (12) Alcoholic cirrhosis Qualifiers: Ascites presence: without ascites Qualified Code(s): K70.30 - Alcoholic cirrhosis of liver without ascites Assessment/Plan: Patient has cirrhosis from years of binging episodes of alcohol. She was admitted with a very elevated INR which is improved slightly down to 1.5 today. Yesterday and today her platelet count is low. Bili is very elevated. Will check direct bili. Follow LFTs daily (13) S/P colostomy Assessment/Plan: As per Hx, stable (14) Hypoglycemia Assessment/Plan: Resolved after iv replaced and now eating - Current Meds Current Meds: Current Medications Generic Name Dose Route Start Last Admin Trade Name Freq PRN Reason Stop Dose Admin Albuterol 2.5 mg 02/08/21 16:41 02/11/21 07:55 Albuterol Neb 2.5 Mg/3 Ml INH 2.5 mg Q4HR PRN Administration Wheezing Diphenhydramine HCl 25 mg 02/11/21 19:19 02/12/21 03:14 Diphenhydramine Inj 50 Mg/Ml Vial IVP 25 mg Q6H PRN Administration Allergy Symptoms Fondaparinux 7.5 mg 02/12/21 16:41 02/12/21 17:15 Fondaparinux 7.5 Mg/0.6 Ml Syringe SUBQ 7.5 mg DAILY@1630 CHRISTINE Administration Guaifenesin 600 mg 02/10/21 21:00 02/13/21 08:07 Guaifenesin 600 Mg Tablet PO 600 mg BID CHRISTINE Administration Guaifenesin/Codeine Phosphate 5 ml 02/10/21 18:30 02/13/21 07:06 Guaifenesin/Codeine 5 Ml Udc PO 5 ml Q6HR PRN Administration Cough Hydromorphone HCl 0.5 mg 02/12/21 18:28 02/13/21 05:22 Hydromorphone 0.5 Mg/0.5 Ml Syringe IVP 0.5 mg Q2H PRN Administration Severe Pain Meropenem 1 gm/ Sodium 100 mls @ 200 mls/hr 02/12/21 12:00 02/13/21 07:45 Chloride IV Infused TID CHRISTINE Infusion Lidocaine 1 patch 02/09/21 18:54 02/09/21 20:28 Lidocaine Patch 5% TOP 1 patch DAILY PRN Administration PAIN Morphine Sulfate 2 mg 02/11/21 13:11 02/12/21 18:23 Morphine 2 Mg/Ml Carpuject IVP 2 mg Q8HR PRN Administration Severe Pain Pantoprazole Sodium 40 mg 02/08/21 21:00 02/13/21 08:05 Pantoprazole 40 Mg Vial IVP 40 mg BID CHRISTINE Administration Saccharomyces Boulardii 250 mg 02/11/21 17:00 02/13/21 08:07 Saccharomyces Boulardii 250 Mg Capsule PO 250 mg BIDWM CHRISTINE Administration Sodium Chloride 10 ml 02/08/21 17:00 02/13/21 06:55 Sodium Chloride Flush 0.9% 10 Ml Syringe IVP 60 ml 0100,0900,1700 CHRISTINE Administration Sodium Chloride 10 ml 02/08/21 16:41 02/13/21 08:05 Sodium Chloride Flush 0.9% 10 Ml Syringe IVP 10 ml PRN PRN Administration NEEDED PER PROVIDER ORDERS Sodium Chloride 20 ml 02/09/21 22:27 02/13/21 08:05 Sodium Chloride Flush 0.9% 10 Ml Syringe IVP 20 ml PRN PRN Administration After Blood Draw Thiamine HCl 100 mg 02/12/21 09:00 02/13/21 08:07 Thiamine 100 Mg Tablet PO 100 mg DAILY CHRISTINE Administration Throat Lozenges 1 lozenge 02/08/21 23:17 02/13/21 07:06 Benzocaine/Menthol Lozenge MM 1 lozenge Q2HR PRN Administration Throat pain - Lab Result Fish Bone Diagrams: 02/15/21 06:10 02/15/21 06:10 - Additional Planning My Orders: My Active Orders 02/12/21 09:00 Thiamine [Vitamin B-1] 100 mg PO DAILY 02/12/21 10:46 IV Insert [RC] ONCE 02/12/21 10:50 Miscellaenous Nursing Order [RC] QSHIFT 02/12/21 11:11 PICC Line Care [RC] Q4H PICC Line Insert [RC] .ONCE 02/12/21 12:00 Meropenem [Merrem] 1 gm Sodium Chloride 0.9% Minibag [Normal Saline 0.9% Minibag] 100 ml IV TID 02/12/21 16:41 Fondaparinux [Arixtra] 7.5 mg SUBQ DAILY@1630 02/12/21 17:28 Miscellaenous Nursing Order [RC] ONCE 02/12/21 18:28 HYDROmorphone 0.5MG SYRINGE [Dilaudid 0.5MG Syringe] 0.5 mg IVP Q2H PRN 02/13/21 05:00 FIBRINOGEN [COAG] DAILYLAB 02/13/21 08:12 Marshall Discontinuation [RC] ONCE 02/13/21 08:12 Hydrocortisone 1% Cream [Hydrocortisone] 1 applic TOP Q8H PRN 02/13/21 08:15 MAGNESIUM SULFATE 2 GRAMS IV X1 Magnesium Sulfate 2 Gram [Magnesium Sulfate] 2 gm in 50 ml IV ONCE 02/13/21 Lunch DIET [Regular Diet] [DIET] 02/13/21 13:00 MAGNESIUM SULFATE 2 GRAMS IV X1 Magnesium Sulfate 2 Gram [Magnesium Sulfate] 2 gm in 50 ml IV ONCE 02/14/21 05:00 CMP [COMPREHENSIVE METABOLIC PANEL] [CHEM] DAILYLAB 02/15/21 05:00 CMP [COMPREHENSIVE METABOLIC PANEL] [CHEM] DAILYLAB 02/16/21 05:00 CMP [COMPREHENSIVE METABOLIC PANEL] [CHEM] DAILYLAB Subjective - Subjective Patient Reports: Other (Feels weak, started walking in room) Objective Vital Signs: Vital Signs - 24 hr 02/12/21 02/12/21 02/12/21 09:00 10:00 11:00 Temperature Heart Rate [ 106 H 110 H 105 H Monitoring electrodes] Respiratory 18 16 18 Rate Blood Pressure [Left Brachial artery] Blood Pressure 94/65 99/68 96/63 [Right Brachial artery] Blood Pressure [Right Radial artery] O2 Saturation 99 98 97 02/12/21 02/12/21 02/12/21 12:00 13:00 14:00 Temperature 37.2 C Heart Rate [ 104 H 104 H 104 H Monitoring electrodes] Respiratory 24 23 21 Rate Blood Pressure [Left Brachial artery] Blood Pressure 93/73 90/64 82/52 L [Right Brachial artery] Blood Pressure [Right Radial artery] O2 Saturation 97 99 97 02/12/21 02/12/21 02/12/21 15:00 16:00 20:24 Temperature 36.6 C 37.2 C Heart Rate [ 104 H 103 H 109 H Monitoring electrodes] Respiratory 16 18 18 Rate Blood Pressure [Left Brachial artery] Blood Pressure 110/69 [Right Brachial artery] Blood Pressure 105/72 94/55 L [Right Radial artery] O2 Saturation 95 100 96 02/13/21 02/13/21 02/13/21 00:49 05:00 07:42 Temperature 36.5 C 36.6 C 36.6 C Heart Rate [ 104 H 104 H 99 Monitoring electrodes] Respiratory 20 20 18 Rate Blood Pressure 97/67 [Left Brachial artery] Blood Pressure [Right Brachial artery] Blood Pressure 90/56 L 116/71 [Right Radial artery] O2 Saturation 94 92 96 Oxygen O2 Source Room air I&O (Last 24 Hrs): Intake and Output Totals x24h 02/11/21 02/12/21 02/13/21 23:59 23:59 23:59 Intake Total 2511 3368.333 100 Output Total 5502 5672 565 Ndfnmac -420 -8539.714 -931 General: Alert HEENT: Mucous membr. moist/pink (Has 5-6 aphthous ulcers of mucous memranes and tongue, has cold sore on lower lip), Other (Icteric) Neck: Supple Neuro: Alert, Non Focal, Other (No tremor) Cardiovascular: Regular rate, No murmurs Respiratory: Breath sounds nml, Other (wearing O2 n.c., dry cough spasms) Abdomen: Normal bowel sounds, Soft Extremities: Other (no ankle edema, L arm hematoma at antecubu=ital siet) - Results Results: Laboratory Results WBC 7.1 x10^3/uL (4.8-10.8) 02/13/21 06:50 RBC 2.85 10^6/uL (4.20-5.40) L 02/13/21 06:50 Hgb 7.7 g/dL (12.0-16.0) L 02/13/21 06:50 Hct 23.8 % (37.0-47.0) L 02/13/21 06:50 MCV 83.5 fL (81.0-99.0) 02/13/21 06:50 MCH 27.0 pg (27.0-31.0) 02/13/21 06:50 MCHC 32.4 g/dL (32.0-36.0) 02/13/21 06:50 RDW 18.3 % (12.0-15.0) H 02/13/21 06:50 Plt Count 61 10^3/uL (130-450) L 02/13/21 06:50 MPV 9.9 fL (7.9-10.8) 02/13/21 06:50 Neut # (Auto) 4.1 10^3/uL (1.5-6.6) 02/13/21 06:50 Lymph # (Auto) 1.9 10^3/uL (1.5-3.5) 02/13/21 06:50 Baca # (Auto) 0.8 10^3/uL (0.0-1.0) 02/13/21 06:50 Eos # (Auto) 0.2 10^3/uL (0.0-0.7) 02/13/21 06:50 Baso # (Auto) 0.0 10^3/uL (0.0-0.1) 02/13/21 06:50 Absolute Nucleated RBC 0.00 x10^3/uL 02/13/21 06:50 Total Counted 100 02/11/21 04:30 Band Neuts % (Manual) 9 % (0-10) 02/11/21 04:30 Abnorm Lymph % (Manual) 0 % 02/11/21 04:30 Metamyelocytes % 1 % (-0) H 02/10/21 05:10 Myelocytes % 1 % (-0) H 02/10/21 05:10 Nucleated RBC % 0.0 /100WBC 02/13/21 06:50 Neutrophils # (Manual) 15.7 10^3/uL (1.5-6.6) H 02/11/21 04:30 Lymphocytes # (Manual) 2.6 10^3/uL (1.5-3.5) 02/11/21 04:30 Monocytes # (Manual) 1.8 10^3/uL (0.0-1.0) H 02/11/21 04:30 Eosinophils # (Manual) 0.0 10^3/uL (0-0.7) 02/11/21 04:30 Basophils # (Manual) 0.0 10^3/uL (0-0.1) 02/11/21 04:30 Nucleated RBCs 24 % 02/08/21 11:02 Differential Comment MANUAL DIFFERENTIAL 02/11/21 04:30 Platelet Estimate DECREASED (<130,000) (NORMAL) 02/11/21 04:30 Platelet Morphology NORMAL APPEARANCE (NORMAL) 02/09/21 04:50 RBC Morph Micro Appear 1+ MICROCYTOSIS (NORMAL) 2+ HYPOCHROMASIA (NORMAL) 1+ OVALOCYTES (NORMAL) 02/11/21 04:30 RBC Morph Micro Appear 1+ MICROCYTOSIS (NORMAL) 2+ HYPOCHROMASIA (NORMAL) 1+ OVALOCYTES (NORMAL) 02/11/21 04:30 RBC Morph Micro Appear 1+ MICROCYTOSIS (NORMAL) 2+ HYPOCHROMASIA (NORMAL) 1+ OVALOCYTES (NORMAL) 02/11/21 04:30 PT 16.3 secs (9.9-12.6) H 02/12/21 05:05 INR 1.5 (0.8-1.2) H 02/12/21 05:05 APTT 31.5 secs (24.9-33.3) 02/08/21 11:34 Fibrinogen 314 mg/dL (220-496) 02/12/21 17:31 VBG pH 7.377 (7.31-7.41) 02/13/21 06:50 Ionized Calcium 1.07 mmol/L (1.15-1.33) L 02/13/21 06:50 Sodium 134 mmol/L (135-145) L 02/13/21 06:50 Potassium 3.0 mmol/L (3.5-5.0) L 02/13/21 06:50 Chloride 106 mmol/L (101-111) 02/13/21 06:50 Carbon Dioxide 21 mmol/L (21-32) 02/13/21 06:50 Anion Gap 7.0 (6-13) 02/13/21 06:50 BUN 8 mg/dL (6-20) 02/13/21 06:50 Creatinine 0.5 mg/dL (0.4-1.0) 02/13/21 06:50 Estimated GFR (MDRD) 132 (>89) 02/13/21 06:50 Glucose 78 mg/dL (70-100) 02/13/21 06:50 Lactic Acid 2.7 mmol/L (0.5-2.2) H 02/10/21 14:09 Calcium 7.3 mg/dL (8.5-10.3) L 02/13/21 06:50 Phosphorus 3.3 mg/dL (2.5-4.6) 02/13/21 06:50 Magnesium 1.0 mg/dL (1.7-2.8) L* 02/13/21 06:50 Iron 35 ug/dL (28-170) 02/08/21 11:02 TIBC 321 ug/dL (250-450) 02/08/21 11:02 % Saturation 11 % (20-50) L 02/08/21 11:02 Transferrin 229 mg/dL (192-382) 02/08/21 11:02 Ferritin 15.9 ng/mL (11.0-306.8) 02/08/21 11:02 Total Bilirubin 12.6 mg/dL (0.2-1.0) H 02/13/21 06:50 Direct Bilirubin 5.3 mg/dL (0.1-0.5) H 02/11/21 04:30 AST 35 IU/L (10-42) 02/13/21 06:50 ALT 19 IU/L (10-60) 02/13/21 06:50 Alkaline Phosphatase 122 IU/L (42-121) H 02/13/21 06:50 Troponin I High Sens 23.3 ng/L (2.3-14.8) H* 02/08/21 17:02 B-Natriuretic Peptide 249 pg/mL (5-100) H 02/08/21 11:02 Total Protein 4.7 g/dL (6.7-8.2) L 02/13/21 06:50 Albumin 1.8 g/dL (3.2-5.5) L 02/13/21 06:50 Globulin 2.9 g/dL (2.1-4.2) 02/13/21 06:50 Albumin/Globulin Ratio 0.6 (1.0-2.2) L 02/13/21 06:50 Lipase 24 U/L (22-51) 02/08/21 11:02 Vitamin B12 572 pg/mL (180-914) 02/08/21 11:02 Folate 7.36 ng/mL (5.90 - >24.8) 02/08/21 11:02 Urine Color BROWN 02/08/21 12:53 Urine Clarity CLOUDY (CLEAR) 02/08/21 12:53 Urine pH 7.0 PH (5.0-7.5) 02/08/21 12:53 Ur Specific Strawn 1.015 (1.002-1.030) 02/08/21 12:53 Urine Protein >=300 mg/dL (NEGATIVE) H 02/08/21 12:53 Urine Glucose (UA) NEGATIVE mg/dL (NEGATIVE) 02/08/21 12:53 Urine Ketones TRACE mg/dL (NEGATIVE) 02/08/21 12:53 Urine Occult Blood LARGE (NEGATIVE) H 02/08/21 12:53 Urine Nitrite POSITIVE (NEGATIVE) H 02/08/21 12:53 Urine Bilirubin NEGATIVE (NEGATIVE) 02/08/21 12:53 Urine Urobilinogen 1 (NORMAL) E.U./dL (NORMAL) 02/08/21 12:53 Ur Leukocyte Esterase MODERATE (NEGATIVE) H 02/08/21 12:53 Urine RBC TNTC /HPF (0-5) H 02/08/21 12:53 Urine WBC >25 /HPF (0-5) H 02/08/21 12:53 Ur Squamous Epith Cells RARE Squamous (<= Few) 02/08/21 12:53 Urine Bacteria Moderate /HPF (None Seen) H 02/08/21 12:53 Ur Microscopic Review INDICATED 02/08/21 12:53 Urine Culture Comments INDICATED 02/08/21 12:53 Nasal Adenovirus (PCR) NOT DETECTED 02/08/21 11:02 Nasal B. parapertussis DNA (PCR) NOT DETECTED 02/08/21 11:02 Nasal Coronavir 229E PCR NOT DETECTED 02/08/21 11:02 Nasal Coronavir HKU1 PCR NOT DETECTED 02/08/21 11:02 Nasal Coronavir NL63 PCR NOT DETECTED 02/08/21 11:02 Nasal Coronavir OC43 PCR NOT DETECTED 02/08/21 11:02 Nasal Enterovir/Rhinovir PCR NOT DETECTED 02/08/21 11:02 Nasal Influenza B PCR NOT DETECTED 02/08/21 11:02 Nasal Influenza A PCR NOT DETECTED 02/08/21 11:02 Nasal Parainfluen 1 PCR NOT DETECTED 02/08/21 11:02 Nasal Parainfluen 2 PCR NOT DETECTED 02/08/21 11:02 Nasal Parainfluen 3 PCR NOT DETECTED 02/08/21 11:02 Nasal Parainfluen 4 PCR NOT DETECTED 02/08/21 11:02 Nasal RSV (PCR) NOT DETECTED 02/08/21 11:02 Nasal Screen MRSA (PCR) NEGATIVE (NEGATIVE) 02/08/21 19:55 Nasal B.pertussis DNA PCR NOT DETECTED 02/08/21 11:02 Nasal C.pneumoniae (PCR) NOT DETECTED 02/08/21 11:02 Yan Human Metapneumo PCR NOT DETECTED 02/08/21 11:02 Nasal M.pneumoniae (PCR) NOT DETECTED 02/08/21 11:02 Nasal SARS-CoV-2 (PCR) NOT DETECTED 02/08/21 11:02 Blood Type A POSITIVE 02/10/21 08:04 Antibody Screen NEGATIVE 02/10/21 08:04 Crossmatch See Detail 02/10/21 08:04 - Procedures Procedures: Procedures TRANSFUSE NONAUT RED BLOOD CELLS IN PERIPH VEIN, [facility] (09/23/20) Sepsis Event Note (H) - Evaluation Current Stage of Sepsis: Septic shock - Sepsis Criteria Sepsis Criteria: Recorded Heart Rate greater than 90 bpm, Recorded Respiratory Rate greater than 20, WBC count greater than 12,000 or less than 4000, SBP drop more than 40mHg, SBP less than 90 mmHg, Metabolic: lactate > 2 mmol/L, Hematologic: platelets < 100,000; INR > 1.5, or a PTT>60 seconds
[2021-02-13 08:21] LABS: INR 1.8 (0.8-1.2); PT - PROTHROMBIN TIME 20.1 secs (9.9-12.6)
[2021-02-13] MEDS: HYDROCORTISONE 1% CREAM 28 GM TUBE TOP PRN (09:19)
[2021-02-13] MEDS ORDERED: POTASSIUM CHLORIDE 20 MEQ TABLET PO ONE (10:19)
[2021-02-13] MEDS: POTASSIUM CHLOR 10 MEQ/100 ML 10 MEQ/100 ML BAG IV SCH ×4 (10:31→14:04)
[2021-02-13] MEDS ORDERED: LIDOCAINE TOPICAL 4% 50 ML BOTTLE MM PRN (11:09)
[2021-02-13] MEDS ORDERED: LIDOCAINE VISCOUS 2% 100 ML BOTTLE MM PRN (11:25)
[2021-02-13] MEDS: ACYCLOVIR 200 MG CAPSULE PO SCH ×3 (14:33→21:34)
[2021-02-13] MEDS: FONDAPARINUX 7.5 MG/0.6 ML SYRINGE SUBQ SCH (17:02)
[2021-02-13] MEDS: PANTOPRAZOLE 40 MG TABLET PO SCH ×2 (17:02→21:34)
[2021-02-14] MEDS: SODIUM CHLORIDE FLUSH 0.9% 10 ML SYRINGE IVP SCH ×3 (01:33→16:27)
[2021-02-14] MEDS: SODIUM CHLORIDE FLUSH 0.9% 10 ML SYRINGE IVP PRN ×3 (01:33→08:54)
[2021-02-14] MEDS: BENZOCAINE/MENTHOL LOZENGE MM PRN ×3 (01:33→21:21)
[2021-02-14] MEDS: MORPHINE 2 MG/ML CARPUJECT IVP PRN ×2 (02:43→16:27)
[2021-02-14] MEDS: guaiFENesin/CODEINE 5 ML UDC PO PRN ×3 (05:12→21:21)
[2021-02-14] MEDS: ACYCLOVIR 200 MG CAPSULE PO SCH ×5 (05:14→21:21)
[2021-02-14] MEDS: MEROPENEM 1 GM in SODIUM CHLORIDE 0.9% MINIBAG 100 ML IV SCH ×3 (05:16→21:20)
[2021-02-14 06:16] LABS: BASOPHILS # (AUTO) 0.1 10^3/uL (0.0-0.1); BASOPHILS % (AUTO) 0.7 %; EOSINOPHILS # (AUTO) 0.2 10^3/uL (0.0-0.7); EOSINOPHILS % (AUTO) 1.6 %; HCT - HEMATOCRIT 24.8 % (37.0-47.0); HGB - HEMOGLOBIN 7.9 g/dL (12.0-16.0); LYMPHOCYTES # (AUTO) 2.3 10^3/uL (1.5-3.5); MEAN CORPUSCULAR HEMOGLOBIN 26.6 pg (27.0-31.0); MEAN CORPUSCULAR HGB CONC 31.9 g/dL (32.0-36.0); MEAN CORPUSCULAR VOLUME 83.5 fL (81.0-99.0); MEAN PLATELET VOLUME 10.8 fL (7.9-10.8); MONOCYTES % (AUTO) 8.1 %; NEUTROPHILS # (AUTO) 8.5 10^3/uL (1.5-6.6); NEUTROPHILS % (AUTO) 69.9 %; PLT - PLATELET COUNT 79 10^3/uL (130-450); RED BLOOD COUNT 2.97 10^6/uL (4.20-5.40); RED CELL DISTRIBUTION WIDTH 19.2 % (12.0-15.0); WHITE BLOOD COUNT 12.2 x10^3/uL (4.8-10.8)
[2021-02-14 06:51] LABS: ALBUMIN/GLOBULIN RATIO 0.7 (1.0-2.2); BILIRUBIN,TOTAL 13.6 mg/dL (0.2-1.0); CALCIUM 6.9 mg/dL (8.5-10.3); CREATININE 0.3 mg/dL (0.4-1.0); MAGNESIUM 1.8 mg/dL (1.7-2.8); PHOSPHORUS 2.1 mg/dL (2.5-4.6); POTASSIUM 3.7 mmol/L (3.5-5.0)
[2021-02-14] MEDS: PANTOPRAZOLE 40 MG TABLET PO SCH ×2 (08:54→21:21)
[2021-02-14] MEDS: THIAMINE 100 MG TABLET PO SCH (08:54)
[2021-02-14] MEDS: guaiFENesin 600 MG TABLET PO SCH ×2 (08:54→21:21)
[2021-02-14] MEDS: SACCHAROMYCES BOULARDII 250 MG CAPSULE PO SCH ×2 (08:54→17:06)
[2021-02-14] MEDS: HYDROmorphone 0.5 MG/0.5 ML SYRINGE IVP PRN (08:54)
[2021-02-14] MEDS: FONDAPARINUX 7.5 MG/0.6 ML SYRINGE SUBQ SCH (16:27)
--- NOTE | 2021-02-14 16:46 | PROVIDER PROGRESS NOTE ---
Assessment/Plan - Problem List (1) Anasarca Assessment/Plan: She is many liters positive in fluid balance since she required aggressive hydration during her septic shock in the ICU. Because she were SCDs, her ankles were not swollen but her thighs have 4+ edema posteriorly. We will start IV Lasix daily. Follow I's and O's and daily weights (2) Elevated LFTs Assessment/Plan: Her bilirubinis rising. Her AST and ALT have not increased. The Alk Phos is also elevated. She is visibly more jaundiced yesterday and today. She has no abd pain, no N/V to consider cholestasis. She did have hypotension for the first day and a half, required vasopressors. The elevated LFTs could be a sign of shock liver Avoid hepatotoxins. We stopped the prn Tylenol. We changed her soft diet to a low protein and low-fat diet Follow LFTs daily Will consider abdominal imaging. (3) Thrombocytopenia Assessment/Plan: She has had dropping platelets for several days now. This is coincident with being more icteric and the bilirubin has increased. Fibrinogen has been normal x2, ruling out DIC. She had not gotten Heparin, no HIT. She possibly has drug-induced thrombocytopenia since she got ceftriaxone, Tylenol, Lasix and Zofran, all of which can cause this (per [employer]) Will give no further Lasix, Tylenol or Zofran. Ceftriaxone has been stopped Follow CBC daily. (4) DVT of left axillary vein, acute Assessment/Plan: The patient complained of pain in the left arm The RN brought to my attention that she had a very large and painful left antecubital hematoma. Ultrasound was done to evaluate for DVT and she does have a DVT in the L arm. Her INR was 1.5 but her platelets were dropping for the last 2 days. So we cannot use Lovenox. Will start Fondaparinox once a day. Plan to start a DOAC when plts are > 100,000. Follow CBC daily. (5) Bacteremia due to Klebsiella pneumoniae Assessment/Plan: This Klebsiella came from the urine where it is growing as well. Her empiric ceftriaxone was changed to cephalosporin several days ago, when sensitivities showed resistance of this Klebsiella to ceftriaxone. She complained of burning from the cephalosporin. Thus we changed the iv cephalosporin to meropenem Her femoral CVP line was removed after placement of a R upper extremity PICC line by Anesthesia, and she was transferred out of the ICU Continue iv meropenem, and duration of treatment will be determined. (6) E. coli UTI Assessment/Plan: Will continue with meropenem as described above; this E. coli is pansensitive (7) Cough Assessment/Plan: Patient's cough has decreased slightly with use of Robitussin with codeine and with scheduled Mucinex. She also describes having a cough "all the time" for which she uses an inhaler. Her chest x-ray showed volume overload. We have started daily IV Lasix, and the rapid IV fluid infusions have stopped. She got Albumen iv to prevent 3rd spacing as well, since serum Alb is low. We are continuing the Robitussin, Mucinex and inhaler (8) Cold sore Assessment/Plan: We ordered po Valtrex, since the topical Lysine that she requested is not on formulary and family cannot bring her's in. (9) Severe anemia Assessment/Plan: At admission her hemoglobin was 4, she has required several units transfused. Since that time the hemoglobin has been stable at 7.8-8. She is a history of iron deficiency in the past and has not tolerated p.o. iron, has needed IV iron. Follow CBC, transfuse if under 7 (10) Red blood cell antibody positive, compatible PRBC difficult to obtain Assessment/Plan: As per history. Therefore it takes longer to crossmatch blood if she needs it (11) Hyponatremia Assessment/Plan: Sodium has plateaued, was improving slowly over the past several days. We have stopped her IV saline. Follow BMP daily (12) Hypomagnesemia Assessment/Plan: Likely related to getting IV Lasix and from poor nutrition when she was septic. Will replace with magnesium IV riders. Follow magnesium level daily (13) Alcoholic cirrhosis Qualifiers: Ascites presence: without ascites Qualified Code(s): K70.30 - Alcoholic cirrhosis of liver without ascites Assessment/Plan: Patient has cirrhosis from years of binging alcohol. She was admitted with a very elevated INR which is improved slightly down to 1.5. Her platelet count is low. Bili is very elevated. Avoid hepatotoxins. Follow LFTs daily (14) S/P colostomy Assessment/Plan: As per Hx, stable (15) Hypoglycemia Assessment/Plan: Resolved after iv replaced and now eating - Current Meds Current Meds: Current Medications Generic Name Dose Route Start Last Admin Trade Name Davidq PRN Reason Stop Dose Admin Acyclovir 200 mg 02/13/21 14:00 02/14/21 13:28 Acyclovir 200 Mg Capsule PO 200 mg 5XD CHRISTINE Administration Albuterol 2.5 mg 02/08/21 16:41 02/11/21 07:55 Albuterol Neb 2.5 Mg/3 Ml INH 2.5 mg Q4HR PRN Administration Wheezing Fondaparinux 7.5 mg 02/12/21 16:41 02/14/21 16:27 Fondaparinux 7.5 Mg/0.6 Ml Syringe SUBQ 7.5 mg DAILY@1630 CHRISTINE Administration Guaifenesin 600 mg 02/10/21 21:00 02/14/21 08:54 Guaifenesin 600 Mg Tablet PO 600 mg BID CHRISTINE Administration Guaifenesin/Codeine Phosphate 5 ml 02/10/21 18:30 02/14/21 13:27 Guaifenesin/Codeine 5 Ml Udc PO 5 ml Q6HR PRN Administration Cough Hydrocortisone 1 applic 02/13/21 08:12 02/13/21 09:19 Hydrocortisone 1% Cream 28 Gm Tube TOP 1 applic Q8H PRN Administration ITCHING Hydromorphone HCl 0.5 mg 02/12/21 18:28 02/14/21 08:54 Hydromorphone 0.5 Mg/0.5 Ml Syringe IVP 0.5 mg Q2H PRN Administration Severe Pain Meropenem 1 gm/ Sodium 100 mls @ 200 mls/hr 02/12/21 12:00 02/14/21 14:10 Chloride IV Infused TID CHRISTINE Infusion Lidocaine 1 patch 02/09/21 18:54 02/09/21 20:28 Lidocaine Patch 5% TOP 1 patch DAILY PRN Administration PAIN Lidocaine HCl 15 ml 02/13/21 11:25 02/13/21 11:54 Lidocaine Viscous 2% 100 Ml Bottle MM 15 ml Q6HR PRN Administration Mouth Sore Pain Morphine Sulfate 2 mg 02/11/21 13:11 02/14/21 16:27 Morphine 2 Mg/Ml Carpuject IVP 2 mg Q8HR PRN Administration Severe Pain Pantoprazole Sodium 40 mg 02/13/21 18:00 02/14/21 08:54 Pantoprazole 40 Mg Tablet PO 40 mg BID CHRISTINE Administration Saccharomyces Boulardii 250 mg 02/11/21 17:00 02/14/21 08:54 Saccharomyces Boulardii 250 Mg Capsule PO 250 mg BIDWM CHRISTINE Administration Sodium Chloride 10 ml 02/08/21 17:00 02/14/21 16:27 Sodium Chloride Flush 0.9% 10 Ml Syringe IVP 10 ml 0100,0900,1700 CHRISTINE Administration Sodium Chloride 10 ml 02/08/21 16:41 02/14/21 08:54 Sodium Chloride Flush 0.9% 10 Ml Syringe IVP 10 ml PRN PRN Administration NEEDED PER PROVIDER ORDERS Sodium Chloride 20 ml 02/09/21 22:27 02/13/21 08:05 Sodium Chloride Flush 0.9% 10 Ml Syringe IVP 20 ml PRN PRN Administration After Blood Draw Thiamine HCl 100 mg 02/12/21 09:00 02/14/21 08:54 Thiamine 100 Mg Tablet PO 100 mg DAILY CHRISTINE Administration Throat Lozenges 1 lozenge 02/08/21 23:17 02/14/21 15:43 Benzocaine/Menthol Lozenge MM 1 lozenge Q2HR PRN Administration Throat pain - Lab Result Fish Bone Diagrams: 02/15/21 06:10 02/15/21 06:10 - Additional Planning My Orders: My Active Orders 02/13/21 18:00 Pantoprazole [Protonix] 40 mg PO BID 02/14/21 09:36 RBC, LEUKOREDUCED Routine TYPE AND SCREEN Routine 02/14/21 21:00 Patient Own Med [Patient Own Medication] 1 each PO QPM traZODone [Desyrel] 200 mg PO QPM 02/15/21 05:00 CMP [COMPREHENSIVE METABOLIC PANEL] [CHEM] DAILYLAB 02/16/21 05:00 CMP [COMPREHENSIVE METABOLIC PANEL] [CHEM] DAILYLAB Subjective - Subjective Patient Reports: Feeling Better, Other (Complains of very swollen legs, especially her posterior thighs) Objective Vital Signs: Vital Signs - 24 hr 02/13/21 02/13/21 02/14/21 17:25 20:47 01:43 Temperature 37.5 C 37.1 C Heart Rate [ 107 H 107 H Monitoring electrodes] Respiratory 20 16 Rate Blood Pressure 102/61 109/65 123/90 H [Right Radial artery] O2 Saturation 98 95 02/14/21 02/14/21 02/14/21 05:26 07:30 11:09 Temperature 36.8 C 37.0 C 37.1 C Heart Rate [ 105 H 107 H 103 H Monitoring electrodes] Respiratory 16 18 19 Rate Blood Pressure 107/57 L 105/63 100/65 [Right Radial artery] O2 Saturation 96 96 95 02/14/21 15:38 Temperature 37.0 C Heart Rate [ 94 Monitoring electrodes] Respiratory 22 Rate Blood Pressure 106/70 [Right Radial artery] O2 Saturation 98 Oxygen O2 Source [Without Activity] Room air O2 Source Room air I&O (Last 24 Hrs): Intake and Output Totals x24h 02/12/21 02/13/21 02/14/21 23:59 23:59 23:59 Intake Total 3368.333 1780 914 Output Total 5690 1650 700 Balance -2321.667 130 214 General: Alert, Oriented x3 HEENT: Mucous membr. moist/pink, Other (Icteric, lip sore healing, still has aphthous ulcers in mouth) Neck: Supple Neuro: Alert, Non Focal, Other (No tremor) Cardiovascular: Regular rate, No murmurs Respiratory: Wheezes, Other (dry cough spasms) Abdomen: Soft Extremities: Other (4+ edema of posterior thighs, not lower legs (wearing SCDs)) - Results Results: Laboratory Results WBC 12.2 x10^3/uL (4.8-10.8) H 02/14/21 05:35 RBC 2.97 10^6/uL (4.20-5.40) L 02/14/21 05:35 Hgb 7.9 g/dL (12.0-16.0) L 02/14/21 05:35 Hct 24.8 % (37.0-47.0) L 02/14/21 05:35 MCV 83.5 fL (81.0-99.0) 02/14/21 05:35 MCH 26.6 pg (27.0-31.0) L 02/14/21 05:35 MCHC 31.9 g/dL (32.0-36.0) L 02/14/21 05:35 RDW 19.2 % (12.0-15.0) H 02/14/21 05:35 Plt Count 79 10^3/uL (130-450) L 02/14/21 05:35 MPV 10.8 fL (7.9-10.8) 02/14/21 05:35 Neut # (Auto) 8.5 10^3/uL (1.5-6.6) H 02/14/21 05:35 Lymph # (Auto) 2.3 10^3/uL (1.5-3.5) 02/14/21 05:35 [place] # (Auto) 1.0 10^3/uL (0.0-1.0) 02/14/21 05:35 Eos # (Auto) 0.2 10^3/uL (0.0-0.7) 02/14/21 05:35 Baso # (Auto) 0.1 10^3/uL (0.0-0.1) 02/14/21 05:35 Absolute Nucleated RBC 0.00 x10^3/uL 02/14/21 05:35 Total Counted 100 02/11/21 04:30 Band Neuts % (Manual) 9 % (0-10) 02/11/21 04:30 Abnorm Lymph % (Manual) 0 % 02/11/21 04:30 Metamyelocytes % 1 % (-0) H 02/10/21 05:10 Myelocytes % 1 % (-0) H 02/10/21 05:10 Nucleated RBC % 0.0 /100WBC 02/14/21 05:35 Neutrophils # (Manual) 15.7 10^3/uL (1.5-6.6) H 02/11/21 04:30 Lymphocytes # (Manual) 2.6 10^3/uL (1.5-3.5) 02/11/21 04:30 Monocytes # (Manual) 1.8 10^3/uL (0.0-1.0) H 02/11/21 04:30 Eosinophils # (Manual) 0.0 10^3/uL (0-0.7) 02/11/21 04:30 Basophils # (Manual) 0.0 10^3/uL (0-0.1) 02/11/21 04:30 Nucleated RBCs 24 % 02/08/21 11:02 Differential Comment MANUAL DIFFERENTIAL 02/11/21 04:30 Platelet Estimate DECREASED (<130,000) (NORMAL) 02/11/21 04:30 Platelet Morphology NORMAL APPEARANCE (NORMAL) 02/09/21 04:50 RBC Morph Micro Appear 1+ MICROCYTOSIS (NORMAL) 2+ HYPOCHROMASIA (NORMAL) 1+ OVALOCYTES (NORMAL) 02/11/21 04:30 RBC Morph Micro Appear 1+ MICROCYTOSIS (NORMAL) 2+ HYPOCHROMASIA (NORMAL) 1+ OVALOCYTES (NORMAL) 02/11/21 04:30 RBC Morph Micro Appear 1+ MICROCYTOSIS (NORMAL) 2+ HYPOCHROMASIA (NORMAL) 1+ OVALOCYTES (NORMAL) 02/11/21 04:30 PT 20.1 secs (9.9-12.6) H 02/13/21 08:05 INR 1.8 (0.8-1.2) H 02/13/21 08:05 APTT 31.5 secs (24.9-33.3) 02/08/21 11:34 Fibrinogen 311 mg/dL (220-496) 02/13/21 08:05 VBG pH 7.377 (7.31-7.41) 02/13/21 06:50 Ionized Calcium 1.07 mmol/L (1.15-1.33) L 02/13/21 06:50 Sodium 132 mmol/L (135-145) L 02/14/21 05:35 Potassium 3.7 mmol/L (3.5-5.0) 02/14/21 05:35 Chloride 104 mmol/L (101-111) 02/14/21 05:35 Carbon Dioxide 21 mmol/L (21-32) 02/14/21 05:35 Anion Gap 7.0 (6-13) 02/14/21 05:35 BUN 6 mg/dL (6-20) 02/14/21 05:35 Creatinine 0.3 mg/dL (0.4-1.0) L 02/14/21 05:35 Estimated GFR (MDRD) 237 (>89) 02/14/21 05:35 Glucose 97 mg/dL (70-100) 02/14/21 05:35 Lactic Acid 2.7 mmol/L (0.5-2.2) H 02/10/21 14:09 Calcium 6.9 mg/dL (8.5-10.3) L 02/14/21 05:35 Phosphorus 2.1 mg/dL (2.5-4.6) L 02/14/21 05:35 Magnesium 1.8 mg/dL (1.7-2.8) 02/14/21 05:35 Iron 35 ug/dL (28-170) 02/08/21 11:02 TIBC 321 ug/dL (250-450) 02/08/21 11:02 % Saturation 11 % (20-50) L 02/08/21 11:02 Transferrin 229 mg/dL (192-382) 02/08/21 11:02 Ferritin 15.9 ng/mL (11.0-306.8) 02/08/21 11:02 Total Bilirubin 13.6 mg/dL (0.2-1.0) H 02/14/21 05:35 Direct Bilirubin 9.0 mg/dL (0.1-0.5) H 02/14/21 09:26 AST 40 IU/L (10-42) 02/14/21 05:35 ALT 21 IU/L (10-60) 02/14/21 05:35 Alkaline Phosphatase 148 IU/L (42-121) H 02/14/21 05:35 Troponin I High Sens 23.3 ng/L (2.3-14.8) H* 02/08/21 17:02 B-Natriuretic Peptide 249 pg/mL (5-100) H 02/08/21 11:02 Total Protein 5.0 g/dL (6.7-8.2) L 02/14/21 05:35 Albumin 2.0 g/dL (3.2-5.5) L 02/14/21 05:35 Globulin 3.0 g/dL (2.1-4.2) 02/14/21 05:35 Albumin/Globulin Ratio 0.7 (1.0-2.2) L 02/14/21 05:35 Lipase 24 U/L (22-51) 02/08/21 11:02 Vitamin B12 572 pg/mL (180-914) 02/08/21 11:02 Folate 7.36 ng/mL (5.90 - >24.8) 02/08/21 11:02 Urine Color BROWN 02/08/21 12:53 Urine Clarity CLOUDY (CLEAR) 02/08/21 12:53 Urine pH 7.0 PH (5.0-7.5) 02/08/21 12:53 Ur Specific [place] 1.015 (1.002-1.030) 02/08/21 12:53 Urine Protein >=300 mg/dL (NEGATIVE) H 02/08/21 12:53 Urine Glucose (UA) NEGATIVE mg/dL (NEGATIVE) 02/08/21 12:53 Urine Ketones TRACE mg/dL (NEGATIVE) 02/08/21 12:53 Urine Occult Blood LARGE (NEGATIVE) H 02/08/21 12:53 Urine Nitrite POSITIVE (NEGATIVE) H 02/08/21 12:53 Urine Bilirubin NEGATIVE (NEGATIVE) 02/08/21 12:53 Urine Urobilinogen 1 (NORMAL) E.U./dL (NORMAL) 02/08/21 12:53 Ur Leukocyte Esterase MODERATE (NEGATIVE) H 02/08/21 12:53 Urine RBC TNTC /HPF (0-5) H 02/08/21 12:53 Urine WBC >25 /HPF (0-5) H 02/08/21 12:53 Ur Squamous Epith Cells RARE Squamous (<= Few) 02/08/21 12:53 Urine Bacteria Moderate /HPF (None Seen) H 02/08/21 12:53 Ur Microscopic Review INDICATED 02/08/21 12:53 Urine Culture Comments INDICATED 02/08/21 12:53 Nasal Adenovirus (PCR) NOT DETECTED 02/08/21 11:02 Nasal B. parapertussis DNA (PCR) NOT DETECTED 02/08/21 11:02 Nasal Coronavir 229E PCR NOT DETECTED 02/08/21 11:02 Nasal Coronavir HKU1 PCR NOT DETECTED 02/08/21 11:02 Nasal Coronavir NL63 PCR NOT DETECTED 02/08/21 11:02 Nasal Coronavir OC43 PCR NOT DETECTED 02/08/21 11:02 Nasal Enterovir/Rhinovir PCR NOT DETECTED 02/08/21 11:02 Nasal Influenza B PCR NOT DETECTED 02/08/21 11:02 Nasal Influenza A PCR NOT DETECTED 02/08/21 11:02 Nasal Parainfluen 1 PCR NOT DETECTED 02/08/21 11:02 Nasal Parainfluen 2 PCR NOT DETECTED 02/08/21 11:02 Nasal Parainfluen 3 PCR NOT DETECTED 02/08/21 11:02 Nasal Parainfluen 4 PCR NOT DETECTED 02/08/21 11:02 Nasal RSV (PCR) NOT DETECTED 02/08/21 11:02 Nasal Screen MRSA (PCR) NEGATIVE (NEGATIVE) 02/08/21 19:55 Nasal B.pertussis DNA PCR NOT DETECTED 02/08/21 11:02 Nasal C.pneumoniae (PCR) NOT DETECTED 02/08/21 11:02 Yan Human Metapneumo PCR NOT DETECTED 02/08/21 11:02 Nasal M.pneumoniae (PCR) NOT DETECTED 02/08/21 11:02 Nasal SARS-CoV-2 (PCR) NOT DETECTED 02/08/21 11:02 Blood Type A POSITIVE 02/14/21 09:36 Antibody Screen NEGATIVE 02/14/21 09:36 Crossmatch See Detail 02/14/21 09:36 - Procedures Procedures: Procedures TRANSFUSE NONAUT RED BLOOD CELLS IN PERIPH VEIN, [facility] (09/23/20) Sepsis Event Note (H) - Evaluation Current Stage of Sepsis: Septic shock - Sepsis Criteria Sepsis Criteria: Recorded Heart Rate greater than 90 bpm, Recorded Respiratory Rate greater than 20, WBC count greater than 12,000 or less than 4000, SBP drop more than 40mHg, SBP less than 90 mmHg, Metabolic: lactate > 2 mmol/L, Hem atologic: platelets < 100,000; INR > 1.5, or a PTT>60 seconds
[2021-02-14] MEDS ORDERED: FUROSEMIDE 20 MG/2 ML VIAL IVP STA (16:48)
[2021-02-14] MEDS: NORETHINDRONE 0.35 MG PO SCH (21:21)
[2021-02-14] MEDS: traZODone 50 MG TABLET PO SCH (21:21)
[2021-02-15] MEDS: SODIUM CHLORIDE FLUSH 0.9% 10 ML SYRINGE IVP SCH ×3 (00:34→18:23)
[2021-02-15] MEDS: SODIUM CHLORIDE FLUSH 0.9% 10 ML SYRINGE IVP PRN ×3 (00:34→21:11)
[2021-02-15] MEDS: MEROPENEM 1 GM in SODIUM CHLORIDE 0.9% MINIBAG 100 ML IV SCH ×3 (05:32→22:59)
[2021-02-15] MEDS: ACYCLOVIR 200 MG CAPSULE PO SCH ×5 (05:33→22:59)
[2021-02-15 06:42] LABS: BASOPHILS % (AUTO) 0.4 %; EOSINOPHILS # (AUTO) 0.2 10^3/uL (0.0-0.7); EOSINOPHILS % (AUTO) 2.3 %; HCT - HEMATOCRIT 22.2 % (37.0-47.0); HGB - HEMOGLOBIN 7.1 g/dL (12.0-16.0); LYMPHOCYTES # (AUTO) 1.2 10^3/uL (1.5-3.5); LYMPHOCYTES % (AUTO) 17.2 %; MEAN CORPUSCULAR HEMOGLOBIN 26.7 pg (27.0-31.0); MEAN CORPUSCULAR VOLUME 83.5 fL (81.0-99.0); MEAN PLATELET VOLUME 10.8 fL (7.9-10.8); MONOCYTES # (AUTO) 0.5 10^3/uL (0.0-1.0); MONOCYTES % (AUTO) 6.5 %; NEUTROPHILS # (AUTO) 5.2 10^3/uL (1.5-6.6); NEUTROPHILS % (AUTO) 73.2 %; PLT - PLATELET COUNT 73 10^3/uL (130-450); RED BLOOD COUNT 2.66 10^6/uL (4.20-5.40); RED CELL DISTRIBUTION WIDTH 19.8 % (12.0-15.0)
[2021-02-15 06:54] LABS: ALBUMIN 1.9 g/dL (3.2-5.5); ALBUMIN/GLOBULIN RATIO 0.7 (1.0-2.2); BILIRUBIN,TOTAL 12.4 mg/dL (0.2-1.0); CREATININE 0.3 mg/dL (0.4-1.0); MAGNESIUM 1.4 mg/dL (1.7-2.8); PHOSPHORUS 1.8 mg/dL (2.5-4.6); POTASSIUM 2.6 mmol/L (3.5-5.0); TOTAL PROTEIN 4.8 g/dL (6.7-8.2)
[2021-02-15 06:57] LABS: CALCIUM 6.5 mg/dL (8.5-10.3)
[2021-02-15] MEDS ORDERED: MAGNESIUM SULFATE 2 GRAM 2 GM/50 ML BAG IV ONE (07:11)
[2021-02-15] MEDS ORDERED: POTASSIUM CHLORIDE 20 MEQ TABLET PO ONE (08:00)
[2021-02-15] MEDS ORDERED: CALCIUM GLUCONATE 1,000 MG in SODIUM CHLORIDE 0.9% 50 ML IV ONE (09:00)
[2021-02-15] MEDS ORDERED: FUROSEMIDE 20 MG/2 ML VIAL IVP SCH (09:00)
[2021-02-15] MEDS: guaiFENesin 600 MG TABLET PO SCH ×2 (09:47→22:59)
[2021-02-15] MEDS: PANTOPRAZOLE 40 MG TABLET PO SCH ×2 (09:47→22:59)
[2021-02-15] MEDS: SACCHAROMYCES BOULARDII 250 MG CAPSULE PO SCH ×2 (09:48→18:22)
[2021-02-15] MEDS: THIAMINE 100 MG TABLET PO SCH (09:48)
[2021-02-15] MEDS ORDERED: POTASSIUM PHOSPHATE 21 MMOL in SODIUM CHLORIDE 0.9% 250 ML IV ONE (12:00)
[2021-02-15] MEDS: PRENATAL VITAMIN TABLET PO SCH (15:54)
[2021-02-15] MEDS ORDERED: SACCHAROMYCES BOULARDII 250 MG CAPSULE ONE (16:32)
[2021-02-15] MEDS ORDERED: HYDROmorphone 0.5 MG/0.5 ML SYRINGE ONE (16:36)
[2021-02-15] MEDS ORDERED: SODIUM CHLORIDE FLUSH 0.9% 10 ML SYRINGE IVP ONE ×2 (16:37→21:07)
[2021-02-15] MEDS ORDERED: BENZOCAINE/MENTHOL LOZENGE MM ONE (16:37)
[2021-02-15] MEDS: FONDAPARINUX 7.5 MG/0.6 ML SYRINGE SUBQ SCH (18:22)
[2021-02-15] MEDS: BENZOCAINE/MENTHOL LOZENGE MM PRN ×2 (19:04→21:27)
--- NOTE | 2021-02-15 19:17 | PROVIDER PROGRESS NOTE ---
Assessment/Plan - Problem List (1) Anasarca Assessment/Plan: She is many liters positive in fluid balance because she required aggressive hydration during her septic shock in the ICU. Because she wore SCDs, her ankles were not swollen (until today) but her thighs have 4+ edema posteriorly. We started IV Lasix daily. Follow I's and O's and daily weights (2) Elevated LFTs Assessment/Plan: Her bilirubin was rising. Her AST and ALT have not increased. The Alk Phos is also elevated. She is visibly more jaundiced yesterday and today. She has no abd pain, no N/V to consider cholestasis. She did have hypotension for the first day and a half and required vasopressors. The elevated LFTs could be a sign of shock liver Avoid hepatotoxins. We stopped the prn Tylenol. We changed her soft diet to a low protein and low-fat diet Follow LFTs daily (3) Thrombocytopenia Assessment/Plan: She has had dropping platelets for several days now. This is coincident with being more icteric and the bilirubin has increased. Fibrinogen has been normal x2, ruling out DIC. She had not gotten Heparin, no HIT. She possibly has drug-induced thrombocytopenia since she got ceftriaxone, Tylenol, Lasix and Zofran, all of which can cause this (per [employer]) Will give no further Lasix, Tylenol or Zofran. Ceftriaxone has been stopped Follow CBC daily. (4) DVT of left axillary vein, acute Assessment/Plan: The patient complained of pain in the left arm several days ago. The RN brought to my attention that she had a very large and painful left antecubital hematoma. Ultrasound was done to evaluate for DVT and she does have a DVT in the L upper arm. Her INR was 1.5 but her platelets were dropping for the last 3 days. So we cannot use Lovenox or Heparin. We started Fondaparinox once a day. Plan to start a DOAC when plts are > 100,000. Follow CBC daily. (5) Bacteremia due to Klebsiella pneumoniae Assessment/Plan: This Klebsiella bacteremia came from the urine where Klebsiella is growing as well. Her empiric ceftriaxone was changed to cephalosporin several days ago, when sensitivities showed resistance of this Klebsiella to ceftriaxone. She complained of burning from the cephalosporin. Thus we changed the iv cephalosporin to meropenem. Her femoral CVP line was removed after placement of a R upper extremity PICC line by Anesthesia, and she was transferred out of the ICU. Continue iv meropenem, a course of treatment of 7 days of Meropenam is planned. (6) E. coli UTI Assessment/Plan: Will continue with meropenem as described above; this E. coli is pansensitive (7) Cough Assessment/Plan: Patient's cough has decreased slightly with use of Robitussin with codeine and with scheduled Mucinex. She also describes having a cough "all the time" for which she uses an inhaler. Her chest x-ray showed volume overload. We have started daily IV Lasix, and the rapid IV fluid infusions have stopped. She got Albumen iv to prevent 3rd spacing as well, since serum Alb is low. We are continuing the Robitussin, Mucinex and inhaler (8) Cold sore Assessment/Plan: We ordered po Valtrex, since the topical Lysine that she requested is not on formulary and family cannot bring her's in. (9) Severe anemia Assessment/Plan: At admission her hemoglobin was 4, she has required several units transfused. Since that time the hemoglobin has been stable at 7.8-8. She is a history of iron deficiency in the past and has not tolerated p.o. iron, has needed IV iron. Follow CBC, transfuse if under 7 (10) Red blood cell antibody positive, compatible PRBC difficult to obtain Assessment/Plan: As per history. Therefore it takes longer to crossmatch blood if she needs it (11) Hyponatremia Assessment/Plan: Sodium has plateaued, was improving slowly over the past several days. We have stopped her IV saline. Follow BMP daily (12) Hypomagnesemia Assessment/Plan: Likely related to getting IV Lasix and from poor nutrition when she was septic. Will replace with magnesium IV riders. Follow magnesium level daily (13) Alcoholic cirrhosis Qualifiers: Ascites presence: without ascites Qualified Code(s): K70.30 - Alcoholic cirrhosis of liver without ascites Assessment/Plan: Patient has cirrhosis from years of binging alcohol. She was admitted with a very elevated INR which is improved slightly down to 1.5. Her platelet count is low. Bili is very elevated. Avoid hepatotoxins. Follow LFTs daily (14) S/P colostomy Assessment/Plan: As per Hx, stable (15) Hypoglycemia Assessment/Plan: Resolved after iv replaced and now eating (16) Septic shock Assessment/Plan: Resolved - Current Meds Current Meds: Current Medications Generic Name Dose Route Start Last Admin Trade Name Freq PRN Reason Stop Dose Admin Acyclovir 200 mg 02/13/21 14:00 02/15/21 18:23 Acyclovir 200 Mg Capsule PO Not Given 5XD CHRISTINE Albuterol 2.5 mg 02/08/21 16:41 02/11/21 07:55 Albuterol Neb 2.5 Mg/3 Ml INH 2.5 mg Q4HR PRN Administration Wheezing Fondaparinux 7.5 mg 02/12/21 16:41 02/15/21 18:22 Fondaparinux 7.5 Mg/0.6 Ml Syringe SUBQ Not Given DAILY@1630 CHRISTINE Furosemide 20 mg 02/15/21 09:00 02/15/21 09:47 Furosemide 20 Mg/2 Ml Vial IVP 20 mg DAILY CHRISTINE Administration Guaifenesin 600 mg 02/10/21 21:00 02/15/21 09:47 Guaifenesin 600 Mg Tablet PO 600 mg BID CHRISTINE Administration Guaifenesin/Codeine Phosphate 5 ml 02/10/21 18:30 02/14/21 21:21 Guaifenesin/Codeine 5 Ml Udc PO 5 ml Q6HR PRN Administration Cough Hydrocortisone 1 applic 02/13/21 08:12 02/13/21 09:19 Hydrocortisone 1% Cream 28 Gm Tube TOP 1 applic Q8H PRN Administration ITCHING Hydromorphone HCl 0.5 mg 02/12/21 18:28 02/14/21 08:54 Hydromorphone 0.5 Mg/0.5 Ml Syringe IVP 0.5 mg Q2H PRN Administration Severe Pain Meropenem 1 gm/ Sodium 100 mls @ 200 mls/hr 02/12/21 12:00 02/15/21 15:54 Chloride IV Not Given TID CHRISTINE Lidocaine 1 patch 02/09/21 18:54 02/09/21 20:28 Lidocaine Patch 5% TOP 1 patch DAILY PRN Administration PAIN Lidocaine HCl 15 ml 02/13/21 11:25 02/13/21 11:54 Lidocaine Viscous 2% 100 Ml Bottle MM 15 ml Q6HR PRN Administration Mouth Sore Pain Morphine Sulfate 2 mg 02/11/21 13:11 02/14/21 16:27 Morphine 2 Mg/Ml Carpuject IVP 2 mg Q8HR PRN Administration Severe Pain Pantoprazole Sodium 40 mg 02/13/21 18:00 02/15/21 09:47 Pantoprazole 40 Mg Tablet PO 40 mg BID CHRISTINE Administration Norethindrone [ 1 each 02/14/21 21:00 02/14/21 21:21 Norethindrone] 0.35 PO Not Given Mg Tablet QPM CHRISTINE Multivit/Folic Acid/Iron 1 tab 02/15/21 11:00 02/15/21 15:54 Vitamin Tablet PO Not Given DAILYWM [facility] Saccharomyces Boulardii 250 mg 02/11/21 17:00 02/15/21 18:22 Saccharomyces Boulardii 250 Mg Capsule PO Not Given BIDWM [facility] Sodium Chloride 10 ml 02/08/21 17:00 02/15/21 18:23 Sodium Chloride Flush 0.9% 10 Ml Syringe IVP Not Given 0100,0900,1700 CHRISTINE Sodium Chloride 10 ml 02/08/21 16:41 02/15/21 05:33 Sodium Chloride Flush 0.9% 10 Ml Syringe IVP 10 ml PRN PRN Administration NEEDED PER PROVIDER ORDERS Sodium Chloride 20 ml 02/09/21 22:27 02/15/21 00:34 Sodium Chloride Flush 0.9% 10 Ml Syringe IVP 20 ml PRN PRN Administration After Blood Draw Thiamine HCl 100 mg 02/12/21 09:00 02/15/21 09:48 Thiamine 100 Mg Tablet PO 100 mg DAILY CHRISTINE Administration Throat Lozenges 1 lozenge 02/08/21 23:17 02/15/21 19:04 Benzocaine/Menthol Lozenge MM 1 lozenge Q2HR PRN Administration Throat pain Trazodone HCl 200 mg 02/14/21 21:00 02/14/21 21:21 Trazodone 50 Mg Tablet PO 200 mg QPM CHRISTINE Administration - Lab Result Fish Bone Diagrams: 02/15/21 06:10 02/15/21 06:10 - Additional Planning My Orders: My Active Orders 02/14/21 21:00 Patient Own Med [Patient Own Medication] 1 each PO QPM traZODone [Desyrel] 200 mg PO QPM 02/15/21 09:00 FUROSEMIDE INJ 20mg VIAL [LASIX INJ 20mg VIAL] 20 mg IVP DAILY 02/15/21 11:00 Vitamin [Trinatal Rx 1] 1 tab PO DAILYWM 02/16/21 05:00 CMP [COMPREHENSIVE METABOLIC PANEL] [CHEM] DAILYLAB MAGNESIUM [CHEM] DAILYLAB PHOSPHORUS [CHEM] DAILYLAB 02/17/21 05:00 MAGNESIUM [CHEM] DAILYLAB Subjective - Subjective Patient Reports: Feeling Better, Cough, Other (leg edema is "still alot") Objective Vital Signs: Vital Signs - 24 hr 02/14/21 02/15/21 02/15/21 20:38 00:25 00:34 Temperature 37.7 C 37.2 C Heart Rate Heart Rate [ 104 H 100 Monitoring electrodes] Heart Rate [ Radial] Respiratory 21 24 Rate Blood Pressure 99/48 L 87/42 L 92/49 L [Right Radial artery] O2 Saturation 95 94 02/15/21 02/15/21 02/15/21 05:35 08:18 09:48 Temperature 37.0 C 37.1 C 37.1 C Heart Rate 100 Heart Rate [ 93 Monitoring electrodes] Heart Rate [ 102 H Radial] Respiratory 20 20 20 Rate Blood Pressure 95/58 L 93/54 L [Right Radial artery] O2 Saturation 96 94 94 02/15/21 16:25 Temperature 36.8 C Heart Rate Heart Rate [ Monitoring electrodes] Heart Rate [ 98 Radial] Respiratory 20 Rate Blood Pressure 110/67 [Right Radial artery] O2 Saturation 100 Oxygen O2 Source [Without Activity] Room air O2 Source Room air I&O (Last 24 Hrs): Intake and Output Totals x24h 02/13/21 02/14/21 02/15/21 23:59 23:59 23:59 Intake Total 1780 1734 390 Output Total 1650 2075 1000 Balance 130 -341 -610 General: Alert, Oriented x3 HEENT: Mucous membr. moist/pink, Other (Icteric) Neck: Supple Neuro: Alert, Non Focal, Other (No tremor) Cardiovascular: Regular rate, No murmurs Respiratory: No respiratory distress, Other (Has dry cough spasms) Abdomen: Normal bowel sounds, Soft Extremities: Other (4+ edema from ankles to posterior upper thighs) - Results Results: Laboratory Results WBC 7.0 x10^3/uL (4.8-10.8) 02/15/21 06:10 RBC 2.66 10^6/uL (4.20-5.40) L 02/15/21 06:10 Hgb 7.1 g/dL (12.0-16.0) L 02/15/21 06:10 Hct 22.2 % (37.0-47.0) L 02/15/21 06:10 MCV 83.5 fL (81.0-99.0) 02/15/21 06:10 MCH 26.7 pg (27.0-31.0) L 02/15/21 06:10 MCHC 32.0 g/dL (32.0-36.0) 02/15/21 06:10 RDW 19.8 % (12.0-15.0) H 02/15/21 06:10 Plt Count 73 10^3/uL (130-450) L 02/15/21 06:10 MPV 10.8 fL (7.9-10.8) 02/15/21 06:10 Neut # (Auto) 5.2 10^3/uL (1.5-6.6) 02/15/21 06:10 Lymph # (Auto) 1.2 10^3/uL (1.5-3.5) L 02/15/21 06:10 [place] # (Auto) 0.5 10^3/uL (0.0-1.0) 02/15/21 06:10 Eos # (Auto) 0.2 10^3/uL (0.0-0.7) 02/15/21 06:10 Baso # (Auto) 0.0 10^3/uL (0.0-0.1) 02/15/21 06:10 Absolute Nucleated RBC 0.00 x10^3/uL 02/15/21 06:10 Total Counted 100 02/11/21 04:30 Band Neuts % (Manual) 9 % (0-10) 02/11/21 04:30 Abnorm Lymph % (Manual) 0 % 02/11/21 04:30 Metamyelocytes % 1 % (-0) H 02/10/21 05:10 Myelocytes % 1 % (-0) H 02/10/21 05:10 Nucleated RBC % 0.0 /100WBC 02/15/21 06:10 Neutrophils # (Manual) 15.7 10^3/uL (1.5-6.6) H 02/11/21 04:30 Lymphocytes # (Manual) 2.6 10^3/uL (1.5-3.5) 02/11/21 04:30 Monocytes # (Manual) 1.8 10^3/uL (0.0-1.0) H 02/11/21 04:30 Eosinophils # (Manual) 0.0 10^3/uL (0-0.7) 02/11/21 04:30 Basophils # (Manual) 0.0 10^3/uL (0-0.1) 02/11/21 04:30 Nucleated RBCs 24 % 02/08/21 11:02 Differential Comment MANUAL DIFFERENTIAL 02/11/21 04:30 Platelet Estimate DECREASED (<130,000) (NORMAL) 02/11/21 04:30 Platelet Morphology NORMAL APPEARANCE (NORMAL) 02/09/21 04:50 RBC Morph Micro Appear 1+ MICROCYTOSIS (NORMAL) 2+ HYPOCHROMASIA (NORMAL) 1+ OVALOCYTES (NORMAL) 02/11/21 04:30 RBC Morph Micro Appear 1+ MICROCYTOSIS (NORMAL) 2+ HYPOCHROMASIA (NORMAL) 1+ OVALOCYTES (NORMAL) 02/11/21 04:30 RBC Morph Micro Appear 1+ MICROCYTOSIS (NORMAL) 2+ HYPOCHROMASIA (NORMAL) 1+ OVALOCYTES (NORMAL) 02/11/21 04:30 PT 20.1 secs (9.9-12.6) H 02/13/21 08:05 INR 1.8 (0.8-1.2) H 02/13/21 08:05 APTT 31.5 secs (24.9-33.3) 02/08/21 11:34 Fibrinogen 311 mg/dL (220-496) 02/13/21 08:05 VBG pH 7.377 (7.31-7.41) 02/13/21 06:50 Ionized Calcium 1.07 mmol/L (1.15-1.33) L 02/13/21 06:50 Sodium 130 mmol/L (135-145) L 02/15/21 06:10 Potassium 2.6 mmol/L (3.5-5.0) L 02/15/21 06:10 Chloride 101 mmol/L (101-111) 02/15/21 06:10 Carbon Dioxide 21 mmol/L (21-32) 02/15/21 06:10 Anion Gap 8.0 (6-13) 02/15/21 06:10 BUN 5 mg/dL (6-20) L 02/15/21 06:10 Creatinine 0.3 mg/dL (0.4-1.0) L 02/15/21 06:10 Estimated GFR (MDRD) 237 (>89) 02/15/21 06:10 Glucose 114 mg/dL (70-100) H 02/15/21 06:10 Lactic Acid 2.7 mmol/L (0.5-2.2) H 02/10/21 14:09 Calcium 6.5 mg/dL (8.5-10.3) L* 02/15/21 06:10 Phosphorus 1.8 mg/dL (2.5-4.6) L 02/15/21 06:10 Magnesium 1.4 mg/dL (1.7-2.8) L 02/15/21 06:10 Iron 35 ug/dL (28-170) 02/08/21 11:02 TIBC 321 ug/dL (250-450) 02/08/21 11:02 % Saturation 11 % (20-50) L 02/08/21 11:02 Transferrin 229 mg/dL (192-382) 02/08/21 11:02 Ferritin 15.9 ng/mL (11.0-306.8) 02/08/21 11:02 Total Bilirubin 12.4 mg/dL (0.2-1.0) H 02/15/21 06:10 Direct Bilirubin 9.0 mg/dL (0.1-0.5) H 02/14/21 09:26 AST 37 IU/L (10-42) 02/15/21 06:10 ALT 19 IU/L (10-60) 02/15/21 06:10 Alkaline Phosphatase 138 IU/L (42-121) H 02/15/21 06:10 Troponin I High Sens 23.3 ng/L (2.3-14.8) H* 02/08/21 17:02 B-Natriuretic Peptide 249 pg/mL (5-100) H 02/08/21 11:02 Total Protein 4.8 g/dL (6.7-8.2) L 02/15/21 06:10 Albumin 1.9 g/dL (3.2-5.5) L 02/15/21 06:10 Globulin 2.9 g/dL (2.1-4.2) 02/15/21 06:10 Albumin/Globulin Ratio 0.7 (1.0-2.2) L 02/15/21 06:10 Lipase 24 U/L (22-51) 02/08/21 11:02 Vitamin B12 572 pg/mL (180-914) 02/08/21 11:02 Folate 7.36 ng/mL (5.90 - >24.8) 02/08/21 11:02 Urine Color BROWN 02/08/21 12:53 Urine Clarity CLOUDY (CLEAR) 02/08/21 12:53 Urine pH 7.0 PH (5.0-7.5) 02/08/21 12:53 Ur Specific [place] 1.015 (1.002-1.030) 02/08/21 12:53 Urine Protein >=300 mg/dL (NEGATIVE) H 02/08/21 12:53 Urine Glucose (UA) NEGATIVE mg/dL (NEGATIVE) 02/08/21 12:53 Urine Ketones TRACE mg/dL (NEGATIVE) 02/08/21 12:53 Urine Occult Blood LARGE (NEGATIVE) H 02/08/21 12:53 Urine Nitrite POSITIVE (NEGATIVE) H 02/08/21 12:53 Urine Bilirubin NEGATIVE (NEGATIVE) 02/08/21 12:53 Urine Urobilinogen 1 (NORMAL) E.U./dL (NORMAL) 02/08/21 12:53 Ur Leukocyte Esterase MODERATE (NEGATIVE) H 02/08/21 12:53 Urine RBC TNTC /HPF (0-5) H 02/08/21 12:53 Urine WBC >25 /HPF (0-5) H 02/08/21 12:53 Ur Squamous Epith Cells RARE Squamous (<= Few) 02/08/21 12:53 Urine Bacteria Moderate /HPF (None Seen) H 02/08/21 12:53 Ur Microscopic Review INDICATED 02/08/21 12:53 Urine Culture Comments INDICATED 02/08/21 12:53 Nasal Adenovirus (PCR) NOT DETECTED 02/08/21 11:02 Nasal B. parapertussis DNA (PCR) NOT DETECTED 02/08/21 11:02 Nasal Coronavir 229E PCR NOT DETECTED 02/08/21 11:02 Nasal Coronavir HKU1 PCR NOT DETECTED 02/08/21 11:02 Nasal Coronavir NL63 PCR NOT DETECTED 02/08/21 11:02 Nasal Coronavir OC43 PCR NOT DETECTED 02/08/21 11:02 Nasal Enterovir/Rhinovir PCR NOT DETECTED 02/08/21 11:02 Nasal Influenza B PCR NOT DETECTED 02/08/21 11:02 Nasal Influenza A PCR NOT DETECTED 02/08/21 11:02 Nasal Parainfluen 1 PCR NOT DETECTED 02/08/21 11:02 Nasal Parainfluen 2 PCR NOT DETECTED 02/08/21 11:02 Nasal Parainfluen 3 PCR NOT DETECTED 02/08/21 11:02 Nasal Parainfluen 4 PCR NOT DETECTED 02/08/21 11:02 Nasal RSV (PCR) NOT DETECTED 02/08/21 11:02 Nasal Screen MRSA (PCR) NEGATIVE (NEGATIVE) 02/08/21 19:55 Nasal B.pertussis DNA PCR NOT DETECTED 02/08/21 11:02 Nasal C.pneumoniae (PCR) NOT DETECTED 02/08/21 11:02 Yan Human Metapneumo PCR NOT DETECTED 02/08/21 11:02 Nasal M.pneumoniae (PCR) NOT DETECTED 02/08/21 11:02 Nasal SARS-CoV-2 (PCR) NOT DETECTED 02/08/21 11:02 Blood Type A POSITIVE 02/14/21 09:36 Antibody Screen NEGATIVE 02/14/21 09:36 Crossmatch See Detail 02/14/21 09:36 - Procedures Procedures: Procedures TRANSFUSE NONAUT RED BLOOD CELLS IN PERIPH VEIN, [facility] (09/23/20) Sepsis Event Note (H) - Evaluation Current Stage of Sepsis: Septic shock - Sepsis Criteria Sepsis Criteria: Recorded Heart Rate greater than 90 bpm, Recorded Respiratory Rate greater than 20, WBC count greater than 12,000 or less than 4000, SBP drop more than 40mHg, SBP less than 90 mmHg, Metabolic: lactate > 2 mmol/L, Hematologic: platelets < 100,000; INR > 1.5, or a PTT>60 seconds
[2021-02-15] MEDS: guaiFENesin/CODEINE 5 ML UDC PO PRN (20:05)
[2021-02-15] MEDS ORDERED: ONDANSETRON 4 MG/2 ML VIAL ONE (21:07)
[2021-02-15] MEDS: ONDANSETRON 4 MG/2 ML VIAL IVP PRN (21:10)
[2021-02-15 21:18] LABS: HCT - HEMATOCRIT 21.5 % (37.0-47.0)
[2021-02-15 21:29] LABS: HGB - HEMOGLOBIN 6.5 g/dL (12.0-16.0)
[2021-02-15] MEDS: traZODone 50 MG TABLET PO SCH (22:59)
[2021-02-15] MEDS: NORETHINDRONE 0.35 MG PO SCH (23:00)
[2021-02-16] MEDS: MORPHINE 2 MG/ML CARPUJECT IVP PRN (00:45)
[2021-02-16] MEDS: SODIUM CHLORIDE FLUSH 0.9% 10 ML SYRINGE IVP SCH ×3 (00:46→16:53)
[2021-02-16 04:48] LABS: BASOPHILS % (AUTO) 0.3 %; EOSINOPHILS # (AUTO) 0.1 10^3/uL (0.0-0.7); LYMPHOCYTES # (AUTO) 1.2 10^3/uL (1.5-3.5); LYMPHOCYTES % (AUTO) 18.4 %; MEAN CORPUSCULAR HEMOGLOBIN 27.5 pg (27.0-31.0); MEAN CORPUSCULAR HGB CONC 32.4 g/dL (32.0-36.0); MEAN PLATELET VOLUME 11.5 fL (7.9-10.8); MONOCYTES # (AUTO) 0.5 10^3/uL (0.0-1.0); MONOCYTES % (AUTO) 6.9 %; NEUTROPHILS # (AUTO) 4.9 10^3/uL (1.5-6.6); PLT - PLATELET COUNT 81 10^3/uL (130-450); RED CELL DISTRIBUTION WIDTH 19.2 % (12.0-15.0); WHITE BLOOD COUNT 6.7 x10^3/uL (4.8-10.8)
[2021-02-16 05:01] LABS: ALBUMIN 1.5 g/dL (3.2-5.5); ALBUMIN/GLOBULIN RATIO 0.6 (1.0-2.2); BILIRUBIN,TOTAL 9.4 mg/dL (0.2-1.0); CREATININE 0.3 mg/dL (0.4-1.0); MAGNESIUM 1.6 mg/dL (1.7-2.8); POTASSIUM 3.3 mmol/L (3.5-5.0); TOTAL PROTEIN 4.1 g/dL (6.7-8.2)
[2021-02-16 05:04] LABS: CALCIUM 6.2 mg/dL (8.5-10.3); HGB - HEMOGLOBIN 5.5 g/dL (12.0-16.0)
[2021-02-16 05:06] LABS: INR 1.8 (0.8-1.2)
[2021-02-16] MEDS ORDERED: LACTATED RINGERS 1,000 ML IV ONE (05:12)
[2021-02-16] MEDS: guaiFENesin/CODEINE 5 ML UDC PO PRN ×2 (05:13→16:52)
[2021-02-16] MEDS: BENZOCAINE/MENTHOL LOZENGE MM PRN ×2 (05:13→21:34)
[2021-02-16] MEDS: ACYCLOVIR 200 MG CAPSULE PO SCH ×5 (05:14→21:33)
[2021-02-16] MEDS: HYDROCORTISONE 1% CREAM 28 GM TUBE TOP PRN (05:16)
[2021-02-16] MEDS: MEROPENEM 1 GM in SODIUM CHLORIDE 0.9% MINIBAG 100 ML IV SCH ×3 (06:28→21:34)
[2021-02-16] MEDS ORDERED: MAGNESIUM SULFATE 2 GRAM 2 GM/50 ML BAG IV ONE (07:00)
[2021-02-16] MEDS ORDERED: CALCIUM GLUCONATE 1,000 MG in SODIUM CHLORIDE 0.9% 50 ML IV ONE (09:00)
[2021-02-16] MEDS: POTASSIUM CHLOR 10 MEQ/100 ML 10 MEQ/100 ML BAG IV SCH ×2 (09:20→10:47)
[2021-02-16] MEDS: SACCHAROMYCES BOULARDII 250 MG CAPSULE PO SCH ×2 (09:23→17:35)
[2021-02-16] MEDS: THIAMINE 100 MG TABLET PO SCH (09:23)
[2021-02-16] MEDS: guaiFENesin 600 MG TABLET PO SCH ×2 (09:23→20:13)
[2021-02-16] MEDS: PRENATAL VITAMIN TABLET PO SCH (09:23)
[2021-02-16] MEDS: PANTOPRAZOLE 40 MG VIAL IVP SCH ×2 (09:23→20:13)
[2021-02-16] MEDS ORDERED: POTASSIUM PHOSPHATE 15 MMOL in SODIUM CHLORIDE 0.9% 250 ML IV ONE (11:00)
[2021-02-16] MEDS: HYDROmorphone 0.5 MG/0.5 ML SYRINGE IVP PRN ×3 (11:54→21:33)
[2021-02-16] MEDS: SPIRONOLACTONE 25 MG TABLET PO SCH ×2 (11:54→20:13)
--- NOTE | 2021-02-16 13:33 | PROVIDER PROGRESS NOTE ---
Subjective - Prog Note Date Prog Note Date: 02/16/21 Prog Note Time: 13:33 - Subjective Subjective: Patient reports that she is doing okay, she states that for a few hours after she became worse yesterday she felt very ill but feels slightly improved now. She is out of bed in her chair. She has been NPO since this morning pending surgical evaluation but tolerated her meal well. Objective - Vital Signs/Intake & Output Vital Signs: Vital Signs x48h Temp Pulse Resp BP Pulse Ox 02/16/21 09:55 36.6 C 97 20 106/68 02/16/21 09:00 99 02/16/21 06:39 36.8 C 89 16 101/54 L 02/16/21 06:14 36.7 C 93 17 99/49 L Intake & Output: Intake & Output 02/13/21 02/14/21 02/15/21 02/16/21 23:59 23:59 23:59 23:59 Intake Total 1780 1734 1000 2214 Output Total 1650 2075 2350 Balance 130 -341 -1350 2214 - Objective General Appearance: negative: No acute distress Eyes Bilateral: negative: Normal inspection, PERRL Respiratory: negative: No respiratory distress Cardiovascular: negative: Regular rate & rhythm Abdomen: negative: Non-tender, No organomegaly, Hepatomegaly, Other (no jaundice, encephalopathy, asterixis) Skin: negative: Color nml Extremities: negative: Pedal edema Neurologic/Psychiatric: negative: Oriented x3 - Lab Results Fish Bones: 02/17/21 04:30 02/17/21 04:30 Other Labs: Lab Results x24hrs 02/16/21 02/16/21 02/16/21 Range/Units 04:38 04:38 04:38 WBC 6.7 (4.8-10.8) x10^3/uL RBC 2.00 L (4.20-5.40) 10^6/uL Hgb 5.5 L* (12.0-16.0) g/dL Hct 17.0 L* (37.0-47.0) % MCV 85.0 (81.0-99.0) fL MCH 27.5 (27.0-31.0) pg MCHC 32.4 (32.0-36.0) g/dL RDW 19.2 H (12.0-15.0) % Plt Count 81 L (130-450) 10^3/uL MPV 11.5 H (7.9-10.8) fL Neut # (Auto) 4.9 (1.5-6.6) 10^3/uL Lymph # (Auto) 1.2 L (1.5-3.5) 10^3/uL [place] # (Auto) 0.5 (0.0-1.0) 10^3/uL Eos # (Auto) 0.1 (0.0-0.7) 10^3/uL Baso # (Auto) 0.0 (0.0-0.1) 10^3/uL Absolute Nucleated RBC 0.00 x10^3/uL Nucleated RBC % 0.0 /100WBC PT 20.0 H (9.9-12.6) secs INR 1.8 H (0.8-1.2) Sodium 131 L (135-145) mmol/L Potassium 3.3 L (3.5-5.0) mmol/L Chloride 102 (101-111) mmol/L Carbon Dioxide 23 (21-32) mmol/L Anion Gap 6.0 (6-13) BUN 5 L (6-20) mg/dL Creatinine 0.3 L (0.4-1.0) mg/dL Estimated GFR (MDRD) 237 (>89) Glucose 89 (70-100) mg/dL Calcium 6.2 L* (8.5-10.3) mg/dL Phosphorus 2.0 L (2.5-4.6) mg/dL Magnesium 1.6 L (1.7-2.8) mg/dL Total Bilirubin 9.4 H (0.2-1.0) mg/dL AST 34 (10-42) IU/L ALT 15 (10-60) IU/L Alkaline Phosphatase 118 (42-121) IU/L Total Protein 4.1 L (6.7-8.2) g/dL Albumin 1.5 L (3.2-5.5) g/dL Globulin 2.6 (2.1-4.2) g/dL Albumin/Globulin Ratio 0.6 L (1.0-2.2) Blood Type Antibody Screen Crossmatch 02/15/21 02/14/21 Range/Units 21:11 09:36 WBC (4.8-10.8) x10^3/uL RBC (4.20-5.40) 10^6/uL Hgb 6.5 L* (12.0-16.0) g/dL Hct 21.5 L (37.0-47.0) % MCV (81.0-99.0) fL MCH (27.0-31.0) pg MCHC (32.0-36.0) g/dL RDW (12.0-15.0) % Plt Count (130-450) 10^3/uL MPV (7.9-10.8) fL Neut # (Auto) (1.5-6.6) 10^3/uL Lymph # (Auto) (1.5-3.5) 10^3/uL [place] # (Auto) (0.0-1.0) 10^3/uL Eos # (Auto) (0.0-0.7) 10^3/uL Baso # (Auto) (0.0-0.1) 10^3/uL Absolute Nucleated RBC x10^3/uL Nucleated RBC % /100WBC PT (9.9-12.6) secs INR (0.8-1.2) Sodium (135-145) mmol/L Potassium (3.5-5.0) mmol/L Chloride (101-111) mmol/L Carbon Dioxide (21-32) mmol/L Anion Gap (6-13) BUN (6-20) mg/dL Creatinine (0.4-1.0) mg/dL Estimated GFR (MDRD) (>89) Glucose (70-100) mg/dL Calcium (8.5-10.3) mg/dL Phosphorus (2.5-4.6) mg/dL Magnesium (1.7-2.8) mg/dL Total Bilirubin (0.2-1.0) mg/dL AST (10-42) IU/L ALT (10-60) IU/L Alkaline Phosphatase (42-121) IU/L Total Protein (6.7-8.2) g/dL Albumin (3.2-5.5) g/dL Globulin (2.1-4.2) g/dL Albumin/Globulin Ratio (1.0-2.2) Blood Type A POSITIVE Antibody Screen NEGATIVE Crossmatch See Detail Sepsis Event Note (H) - Evaluation Current Stage of Sepsis: Septic shock - Sepsis Criteria Sepsis Criteria: Recorded Heart Rate greater than 90 bpm, Recorded Respiratory Rate greater than 20, WBC count greater than 12,000 or less than 4000, SBP drop more than 40mHg, SBP less than 90 mmHg, Metabolic: lactate > 2 mmol/L, Hematologic: platelets < 100,000; INR > 1.5, or a PTT>60 seconds Assessment/Plan - Problem List (1) Bacteremia due to Klebsiella pneumoniae Impression: Assessment/Plan: This Klebsiella bacteremia came from the urine where Klebsiella is growing as well. Her empiric ceftriaxone was changed to cephalosporin several days ago, when sensitivities showed resistance of this Klebsiella to ceftriaxone. She complained of burning from the cephalosporin. Thus we changed the iv cephalosporin to meropenem. Her femoral CVP line was removed after placement of a R upper extremity PICC line by Anesthesia, and she was transferred out of the ICU. Continue iv meropenem, a course of treatment of 14 days of Meropenam is planned. (2) Lower Extremity Edema Assessment/Plan: Patient continues to have lower extremity edema due to volume overloading. Started Spirinolactone to address this. (3) Elevated LFTs Assessment/Plan: Her bilirubin was rising. Her AST and ALT have not increased. The Alk Phos is also elevated. She is visibly more jaundiced yesterday. She has no abd pain, no N/V to consider cholestasis. She did have hypotension for the first day and a half and required vasopressors. The elevated LFTs could be a sign of shock liver Avoid hepatotoxins. We stopped the prn Tylenol. We changed her soft diet to a low protein and low-fat diet Follow LFTs daily Discussed continued declining liver function with her GI specialist Dr Lima. He is in agreement with the current plan of care. Her calculated MELD score is 25 points which correlates to an estimated 3 month mortality rate of 19.6% (4) Thrombocytopenia Assessment/Plan: She has had dropping platelets for several days now. This is coincident with being more icteric and the bilirubin has increased. Fibrinogen has been normal x2, ruling out DIC. She had not gotten Heparin, no HIT. She possibly has drug-induced thrombocytopenia since she got ceftriaxone, Tylenol, Lasix and Zofran, all of which can cause this (per UpToDate) Will give no further Lasix, Tylenol or Zofran. Ceftriaxone has been stopped. Follow CBC daily. (5) DVT of left axillary vein, acute Assessment/Plan: The patient complained of pain in the left arm several days ago. The RN brought to my attention that she had a very large and painful left antecubital hematoma. Ultrasound was done to evaluate for DVT and she does have a DVT in the L upper arm. Her INR was 1.5 but her platelets were dropping for the last 3 days. So we cannot use Lovenox or Heparin. We started Fondaparinox once a day. Plan to start a DOAC when plts are > 100,000. Follow CBC daily. (6) Anasarca Assessment/Plan: She is many liters positive in fluid balance because she required aggressive hydration during her septic shock in the ICU. We started IV Lasix daily. Follow I's and O's and daily weights (6) E. coli UTI Assessment/Plan: Will continue with meropenem as described above; this E. coli is pansensitive (9) Cough Assessment/Plan: Patient's cough has decreased slightly with use of Robitussin with codeine and with scheduled Mucinex. She also describes having a cough "all the times" for which she uses an inhaler. Her chest x-ray showed volume overload. We have started daily IV Lasix, and the rapid IV fluid infusions have stopped. She got Albumen iv to prevent 3rd spacing as well, since serum Alb is low. We are continuing the Robitussin, Mucinex and inhaler (9) Cold sore Assessment/Plan: We ordered po Valtrex, since the topical Lysine that she requested is not on formulary and family cannot bring her's in. (10) Severe anemia Assessment/Plan: At admission her hemoglobin was 4, she has required several units transfused. Her most recent Hgb this morning was 5.5 after which time she received one unit of packed RBCs. She is a history of iron deficiency in the past and has not tolerated p.o. iron, has needed IV iron. Follow CBC, and continue to transfuse if under 7. Surgery has been consulted to evaluate patient later today. (11) Red blood cell antibody positive, compatible PRBC difficult to obtain Assessment/Plan: As per history. Therefore it takes longer to crossmatch blood if she needs it. (12) Hyponatremia Assessment/Plan: Sodium has plateaued, was improving slowly over the past several days. We have stopped her IV saline and will continue to follow BMP daily. (13) Hypomagnesemia Assessment/Plan: Likely related to getting IV Lasix and from poor nutrition when she was septic. Will replace with magnesium IV riders. Continue to follow magnesium level daily (14) Alcoholic cirrhosis Qualifiers: Ascites presence: without ascites Qualified Code(s): K70.30 - Alcoholic cirrhosis of liver without ascites Assessment/Plan: Patient has cirrhosis from years of binging alcohol. She was admitted with a very elevated INR which is improved slightly down to 1.5. Her platelet count is low. Bili is very elevated. Avoid hepatotoxins and continue to follow LFTs daily. Pt is not a candidate for liver transplant as she is still consuming alcohol and has no interest in cessation at this time. (15) S/P colostomy Assessment/Plan: As per Hx, stable (16) Hypoglycemia Assessment/Plan: Resolved (17) Septic shock Assessment/Plan: Resolved
[2021-02-16 14:59] LABS: ABSOLUTE RETICS # AUTO 0.092 10^6/uL (0.020-0.110); RED BLOOD COUNT 2.64 10^6/uL (4.20-5.40); RETICULOCYTE COUNT % (AUTO) 3.49 % (0.5-2.3)
--- NOTE | 2021-02-16 17:44 | CONSULTATION NOTE ---
Referring Provider Consult Date: 02/16/21 Chief Complaint - Chief Complaint Chief Complaint: bleeding yesterday am History of Present Illness - History Obtained From Records Reviewed: yes History obtained from: pt Exam Limitations: none - History of Present Illness HPI Comment/Other: She has history of anemia and thorough work up for anemia including EGD, colonoscopy, capsule endoscopy, bone marrow biopsy. This was all done with in the last year. She has history of gastritis, esophageal varicies, normal colonoscopy by chart review. Her flight test shop mechanic is Dr Lima at [facility]. She has history of right colectomy with ileostomy for diverticular disease. 2016 she had conversion of ileostomy to distal colostomy at . 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 She states yesterday am she had blood in her stoma bag, out her rectum with mucous and blood per urethra all at the same time. CT scan cirrhosis with ascites otherwise unremarkable Distal sigmoid and rectum present. History - Past Medical History Cardiovascular: reports: None Respiratory: reports: Asthma Neuro: reports: None Endocrine/Autoimmune: reports: None GI: reports: GERD, GI bleed, Cirrhosis, Diverticulitis CORRECTIONAL OFFICER: reports: None : reports: Frequency, Other HEENT: reports: Dental implants Psych: reports: Anxiety Musculoskeletal: reports: Scoliosis Derm: reports: Eczema MRSA Hx?: No Other Past Medical History: colostomy 3 years; frequent UTI - Past Surgical History General: reports: Appendectomy, Colonoscopy, EGD, Other - Family & Social History Family History: Mother: Alive and Well, Cancer, Father: Alive and Well, Cancer Family History Comment/Other: Her father had prostate cancer and her mother had colon cancer. Living arrangement: At home Living Situation: With family Social History Notes: She lives at home with her parents. She is independent of activities of daily living. She denies smoking. Still admits to alcohol use although reports it is only occasional compared to the regular alcohol use that she previously had. She has been drinking for over 20 years. She will occasionally use THC and CBD. - POLST Patient has POLST: No POLST Status: Full Code Meds/Allgy - Home Medications Home Medications: Ambulatory Orders Medication Instructions Recorded Confirmed Trazodone HCl 200 mg PO QPM 11/26/19 02/08/21 Albuterol [Proventil Hfa] 2 puffs PO Q4H PRN 09/24/20 02/09/21 traMADol [Ultram] 25 mg PO Q8H PRN 09/24/20 02/08/21 Norethindrone 1 tab PO QPM 02/09/21 02/09/21 - Allergies Allergies/Adverse Reactions: Allergies Allergy/AdvReac Type Severity Reaction Status Date / Time cephalexin Allergy Unknown Verified 02/08/21 10:54 sertraline Allergy Unknown Verified 02/08/21 10:54 ceftriaxone AdvReac Intermediate Burning in Verified 02/12/21 11:08 arms Review of Systems - Other Findings Other Findings: 10 pt ros as above otherwise unremarkable Exam - Vital Signs Vital Signs: Vital Signs x48h Temp Pulse Pulse Resp BP BP Pulse Ox 02/16/21 17:00 36.7 C 88 18 109/62 98 02/16/21 13:00 36.7 C 89 20 93/51 L 98 02/16/21 09:55 36.6 C 97 20 106/68 Conclusion/Plan - Problem List (1) GI bleeding Conclusion/Plan: She describes blood per rectum, blood per urethra, blood in colostomy bag yesterday am. No bleeding since and she feels well. Agree with present care. She has had a fairly recent thorough work up with endoscopy. She would like to eat. I recommend repeat EGD, colonoscopy, proctoscopy if she has recurrent bleeding. If she remains stable I recommend she follow up with her flight test shop mechanic at [facility]. I discussed with her she has abnormal clotting due to liver disease and she needs to do everything she can to prevent further damage to her liver. 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 A flight test shop mechanic would be best equipped to manage this. She is not a surgical candidate. Qualifiers: GI bleed type/associated pathology: melena Qualified Code(s): K92.1 - Melena - Lab Results Lab results reviewed: Yes Fish Bones: 02/16/21 04:38 02/16/21 04:38
[2021-02-16 18:58] LABS: HCT - HEMATOCRIT 23.2 % (37.0-47.0); HGB - HEMOGLOBIN 7.5 g/dL (12.0-16.0); MEAN CORPUSCULAR HEMOGLOBIN 27.2 pg (27.0-31.0); MEAN CORPUSCULAR HGB CONC 32.3 g/dL (32.0-36.0); MEAN CORPUSCULAR VOLUME 84.1 fL (81.0-99.0); MEAN PLATELET VOLUME 11.2 fL (7.9-10.8); RED BLOOD COUNT 2.76 10^6/uL (4.20-5.40); RED CELL DISTRIBUTION WIDTH 19.4 % (12.0-15.0); WHITE BLOOD COUNT 8.8 x10^3/uL (4.8-10.8)
[2021-02-16] MEDS: traZODone 50 MG TABLET PO SCH (20:14)
[2021-02-16] MEDS: NORETHINDRONE 0.35 MG PO SCH (20:14)
[2021-02-17] MEDS: SODIUM CHLORIDE FLUSH 0.9% 10 ML SYRINGE IVP PRN ×6 (01:36→23:19)
[2021-02-17] MEDS: SODIUM CHLORIDE FLUSH 0.9% 10 ML SYRINGE IVP SCH ×6 (01:36→23:19)
[2021-02-17] MEDS: BENZOCAINE/MENTHOL LOZENGE MM PRN ×6 (01:39→23:37)
[2021-02-17] MEDS: guaiFENesin/CODEINE 5 ML UDC PO PRN ×3 (01:39→21:14)
[2021-02-17] MEDS: ACYCLOVIR 200 MG CAPSULE PO SCH ×5 (05:08→21:15)
[2021-02-17] MEDS: MEROPENEM 1 GM in SODIUM CHLORIDE 0.9% MINIBAG 100 ML IV SCH ×3 (05:34→21:15)
[2021-02-17 05:56] LABS: BUN - BLOOD UREA NITROGEN < 5 mg/dL (6-20); CALCIUM 6.8 mg/dL (8.5-10.3); CARBON DIOXIDE - CO2 22 mmol/L (21-32); CHLORIDE 101 mmol/L (101-111); CREATININE 0.3 mg/dL (0.4-1.0); GFR - MDRD 237 (>89); GLUCOSE 93 mg/dL (70-100); MAGNESIUM 1.8 mg/dL (1.7-2.8); POTASSIUM 3.6 mmol/L (3.5-5.0); SODIUM 131 mmol/L (135-145)
[2021-02-17 06:20] LABS: BASOPHILS % (AUTO) 0.4 %; EOSINOPHILS # (AUTO) 0.1 10^3/uL (0.0-0.7); EOSINOPHILS % (AUTO) 1.2 %; HCT - HEMATOCRIT 22.7 % (37.0-47.0); HGB - HEMOGLOBIN 7.4 g/dL (12.0-16.0); LYMPHOCYTES # (AUTO) 1.2 10^3/uL (1.5-3.5); LYMPHOCYTES % (AUTO) 15.8 %; MEAN CORPUSCULAR HEMOGLOBIN 27.4 pg (27.0-31.0); MEAN CORPUSCULAR HGB CONC 32.6 g/dL (32.0-36.0); MEAN CORPUSCULAR VOLUME 84.1 fL (81.0-99.0); MEAN PLATELET VOLUME 11.2 fL (7.9-10.8); MONOCYTES # (AUTO) 0.5 10^3/uL (0.0-1.0); MONOCYTES % (AUTO) 6.4 %; NEUTROPHILS # (AUTO) 5.7 10^3/uL (1.5-6.6); NEUTROPHILS % (AUTO) 75.7 %; PLT - PLATELET COUNT 121 10^3/uL (130-450); RED CELL DISTRIBUTION WIDTH 19.6 % (12.0-15.0); WHITE BLOOD COUNT 7.5 x10^3/uL (4.8-10.8)
[2021-02-17] MEDS: THIAMINE 100 MG TABLET PO SCH (08:52)
[2021-02-17] MEDS: SPIRONOLACTONE 25 MG TABLET PO SCH ×2 (08:52→21:15)
[2021-02-17] MEDS: PRENATAL VITAMIN TABLET PO SCH (08:53)
[2021-02-17] MEDS: SACCHAROMYCES BOULARDII 250 MG CAPSULE PO SCH ×2 (08:53→17:43)
[2021-02-17] MEDS: guaiFENesin 600 MG TABLET PO SCH ×2 (08:53→21:14)
[2021-02-17] MEDS: PANTOPRAZOLE 40 MG VIAL IVP SCH ×2 (08:53→21:14)
[2021-02-17] MEDS: HYDROmorphone 0.5 MG/0.5 ML SYRINGE IVP PRN ×3 (09:27→21:41)
--- NOTE | 2021-02-17 09:32 | PROVIDER PROGRESS NOTE ---
Subjective - Prog Note Date Prog Note Date: 02/17/21 - Subjective Pt reports feeling: Improved (feels well. no apparent bleeding since am 2 days ago no blood per rectum or stoma) Objective - Vital Signs/Intake & Output Vital Signs: Vital Signs x48h Temp Pulse Resp BP BP Pulse Ox 02/17/21 09:00 36.6 C 96 20 103/69 100 02/17/21 05:00 36.7 C 96 17 104/59 L 96 02/17/21 01:47 36.7 C 88 16 96/58 L 95 Intake & Output: Intake & Output 02/14/21 02/15/21 02/16/21 02/17/21 23:59 23:59 23:59 23:59 Intake Total 1734 1000 3149 300 Output Total 2075 2350 150 500 Balance -341 -1350 2999 -200 - Objective General Appearance: positive: No acute distress, Alert Eyes Bilateral: positive: PERRL, EOMI Respiratory: positive: No respiratory distress Abdomen: positive: Non-tender, No distention Neurologic/Psychiatric: positive: Oriented x3 - Lab Results Fish Bones: 02/17/21 04:30 02/17/21 04:30 Other Labs: Lab Results x24hrs 02/17/21 02/17/21 02/16/21 Range/Units 04:30 04:30 18:53 WBC 7.5 8.8 (4.8-10.8) x10^3/uL RBC 2.70 L 2.76 L (4.20-5.40) 10^6/uL Hgb 7.4 L 7.5 L (12.0-16.0) g/dL Hct 22.7 L 23.2 L (37.0-47.0) % MCV 84.1 84.1 (81.0-99.0) fL MCH 27.4 27.2 (27.0-31.0) pg MCHC 32.6 32.3 (32.0-36.0) g/dL RDW 19.6 H 19.4 H (12.0-15.0) % Plt Count 121 L 124 L (130-450) 10^3/uL MPV 11.2 H 11.2 H (7.9-10.8) fL Reticulocyte % (Auto) (0.5-2.3) % Neut # (Auto) 5.7 (1.5-6.6) 10^3/uL Lymph # (Auto) 1.2 L (1.5-3.5) 10^3/uL [place] # (Auto) 0.5 (0.0-1.0) 10^3/uL Eos # (Auto) 0.1 (0.0-0.7) 10^3/uL Baso # (Auto) 0.0 (0.0-0.1) 10^3/uL Absolute Nucleated RBC 0.00 x10^3/uL Nucleated RBC % 0.0 /100WBC Absolute Retic (0.020-0.110) 10^6/uL Sodium 131 L (135-145) mmol/L Potassium 3.6 (3.5-5.0) mmol/L Chloride 101 (101-111) mmol/L Carbon Dioxide 22 (21-32) mmol/L Anion Gap 8.0 (6-13) BUN < 5 L (6-20) mg/dL Creatinine 0.3 L (0.4-1.0) mg/dL Estimated GFR (MDRD) 237 (>89) Glucose 93 (70-100) mg/dL Calcium 6.8 L (8.5-10.3) mg/dL Magnesium 1.8 (1.7-2.8) mg/dL Lactate Dehydrogenase (91-225) IU/L Vitamin B12 (180-914) pg/mL Blood Type Antibody Screen Crossmatch 02/16/21 02/16/21 02/16/21 Range/Units 14:30 14:30 14:30 WBC (4.8-10.8) x10^3/uL RBC 2.64 L (4.20-5.40) 10^6/uL Hgb (12.0-16.0) g/dL Hct (37.0-47.0) % MCV (81.0-99.0) fL MCH (27.0-31.0) pg MCHC (32.0-36.0) g/dL RDW (12.0-15.0) % Plt Count (130-450) 10^3/uL MPV (7.9-10.8) fL Reticulocyte % (Auto) 3.49 H (0.5-2.3) % Neut # (Auto) (1.5-6.6) 10^3/uL Lymph # (Auto) (1.5-3.5) 10^3/uL [place] # (Auto) (0.0-1.0) 10^3/uL Eos # (Auto) (0.0-0.7) 10^3/uL Baso # (Auto) (0.0-0.1) 10^3/uL Absolute Nucleated RBC x10^3/uL Nucleated RBC % /100WBC Absolute Retic 0.092 (0.020-0.110) 10^6/uL Sodium (135-145) mmol/L Potassium (3.5-5.0) mmol/L Chloride (101-111) mmol/L Carbon Dioxide (21-32) mmol/L Anion Gap (6-13) BUN (6-20) mg/dL Creatinine (0.4-1.0) mg/dL Estimated GFR (MDRD) (>89) Glucose (70-100) mg/dL Calcium (8.5-10.3) mg/dL Magnesium (1.7-2.8) mg/dL Lactate Dehydrogenase 132 (91-225) IU/L Vitamin B12 1630 H (180-914) pg/mL Blood Type Antibody Screen Crossmatch 02/14/21 Range/Units 09:36 WBC (4.8-10.8) x10^3/uL RBC (4.20-5.40) 10^6/uL Hgb (12.0-16.0) g/dL Hct (37.0-47.0) % MCV (81.0-99.0) fL MCH (27.0-31.0) pg MCHC (32.0-36.0) g/dL RDW (12.0-15.0) % Plt Count (130-450) 10^3/uL MPV (7.9-10.8) fL Reticulocyte % (Auto) (0.5-2.3) % Neut # (Auto) (1.5-6.6) 10^3/uL Lymph # (Auto) (1.5-3.5) 10^3/uL [place] # (Auto) (0.0-1.0) 10^3/uL Eos # (Auto) (0.0-0.7) 10^3/uL Baso # (Auto) (0.0-0.1) 10^3/uL Absolute Nucleated RBC x10^3/uL Nucleated RBC % /100WBC Absolute Retic (0.020-0.110) 10^6/uL Sodium (135-145) mmol/L Potassium (3.5-5.0) mmol/L Chloride (101-111) mmol/L Carbon Dioxide (21-32) mmol/L Anion Gap (6-13) BUN (6-20) mg/dL Creatinine (0.4-1.0) mg/dL Estimated GFR (MDRD) (>89) Glucose (70-100) mg/dL Calcium (8.5-10.3) mg/dL Magnesium (1.7-2.8) mg/dL Lactate Dehydrogenase (91-225) IU/L Vitamin B12 (180-914) pg/mL Blood Type A POSITIVE Antibody Screen NEGATIVE Crossmatch See Detail Sepsis Event Note (H) - Evaluation Current Stage of Sepsis: Septic shock - Sepsis Criteria Sepsis Criteria: Recorded Heart Rate greater than 90 bpm, Recorded Respiratory Rate greater than 20, WBC count greater than 12,000 or less than 4000, SBP drop more than 40mHg, SBP less than 90 mmHg, Metabolic: lactate > 2 mmol/L, Hematologic: platelets < 100,000; INR > 1.5, or a PTT>60 seconds Assessment/Plan - Problem List (1) GI bleeding Impression: No apparent bleeding for 48 hours. H and H nearly stable. Down just very sl ight. platelet count improved. recommend she follow up with her portfolio specialist at [facility] after d/c Qualifiers: GI bleed type/associated pathology: melena Qualified Code(s): K92.1 - Melena
--- NOTE | 2021-02-17 12:39 | PROVIDER PROGRESS NOTE ---
Subjective - Prog Note Date Prog Note Date: 02/17/21 Prog Note Time: 12:31 - Subjective Pt reports feeling: Improved Subjective: Pt reports she is feeling improved from yesterday. She continues to cough. Objective - Vital Signs/Intake & Output Vital Signs: Vital Signs x48h Temp Pulse Resp BP Pulse Ox 02/17/21 09:00 36.6 C 96 20 103/69 100 02/17/21 05:00 36.7 C 96 17 104/59 L 96 Intake & Output: Intake & Output 02/14/21 02/15/21 02/16/21 02/17/21 23:59 23:59 23:59 23:59 Intake Total 1734 1000 3149 420 Output Total 2075 2350 150 500 Balance -341 -1350 2999 -80 - Objective General Appearance: negative: No acute distress Eyes Bilateral: negative: Normal inspection, PERRL Respiratory: positive: Other (nonproductive continuous cough) Cardiovascular: negative: Regular rate & rhythm, JVD present Abdomen: negative: Non-tender Skin: negative: Color nml (jaundice improved), Cyanosis, Diaphoresis Extremities: negative: Nml appearance, No pedal edema Neurologic/Psychiatric: negative: Oriented x3, Mood/affect nml - Lab Results Fish Bones: 02/17/21 04:30 02/17/21 04:30 Other Labs: Lab Results x24hrs 02/17/21 02/17/21 02/16/21 Range/Units 04:30 04:30 18:53 WBC 7.5 8.8 (4.8-10.8) x10^3/uL RBC 2.70 L 2.76 L (4.20-5.40) 10^6/uL Hgb 7.4 L 7.5 L (12.0-16.0) g/dL Hct 22.7 L 23.2 L (37.0-47.0) % MCV 84.1 84.1 (81.0-99.0) fL MCH 27.4 27.2 (27.0-31.0) pg MCHC 32.6 32.3 (32.0-36.0) g/dL RDW 19.6 H 19.4 H (12.0-15.0) % Plt Count 121 L 124 L (130-450) 10^3/uL MPV 11.2 H 11.2 H (7.9-10.8) fL Reticulocyte % (Auto) (0.5-2.3) % Neut # (Auto) 5.7 (1.5-6.6) 10^3/uL Lymph # (Auto) 1.2 L (1.5-3.5) 10^3/uL [place] # (Auto) 0.5 (0.0-1.0) 10^3/uL Eos # (Auto) 0.1 (0.0-0.7) 10^3/uL Baso # (Auto) 0.0 (0.0-0.1) 10^3/uL Absolute Nucleated RBC 0.00 x10^3/uL Nucleated RBC % 0.0 /100WBC Absolute Retic (0.020-0.110) 10^6/uL Sodium 131 L (135-145) mmol/L Potassium 3.6 (3.5-5.0) mmol/L Chloride 101 (101-111) mmol/L Carbon Dioxide 22 (21-32) mmol/L Anion Gap 8.0 (6-13) BUN < 5 L (6-20) mg/dL Creatinine 0.3 L (0.4-1.0) mg/dL Estimated GFR (MDRD) 237 (>89) Glucose 93 (70-100) mg/dL Calcium 6.8 L (8.5-10.3) mg/dL Magnesium 1.8 (1.7-2.8) mg/dL Lactate Dehydrogenase (91-225) IU/L Vitamin B12 (180-914) pg/mL Blood Type Antibody Screen Crossmatch 02/16/21 02/16/21 02/16/21 Range/Units 14:30 14:30 14:30 WBC (4.8-10.8) x10^3/uL RBC 2.64 L (4.20-5.40) 10^6/uL Hgb (12.0-16.0) g/dL Hct (37.0-47.0) % MCV (81.0-99.0) fL MCH (27.0-31.0) pg MCHC (32.0-36.0) g/dL RDW (12.0-15.0) % Plt Count (130-450) 10^3/uL MPV (7.9-10.8) fL Reticulocyte % (Auto) 3.49 H (0.5-2.3) % Neut # (Auto) (1.5-6.6) 10^3/uL Lymph # (Auto) (1.5-3.5) 10^3/uL [place] # (Auto) (0.0-1.0) 10^3/uL Eos # (Auto) (0.0-0.7) 10^3/uL Baso # (Auto) (0.0-0.1) 10^3/uL Absolute Nucleated RBC x10^3/uL Nucleated RBC % /100WBC Absolute Retic 0.092 (0.020-0.110) 10^6/uL Sodium (135-145) mmol/L Potassium (3.5-5.0) mmol/L Chloride (101-111) mmol/L Carbon Dioxide (21-32) mmol/L Anion Gap (6-13) BUN (6-20) mg/dL Creatinine (0.4-1.0) mg/dL Estimated GFR (MDRD) (>89) Glucose (70-100) mg/dL Calcium (8.5-10.3) mg/dL Magnesium (1.7-2.8) mg/dL Lactate Dehydrogenase 132 (91-225) IU/L Vitamin B12 1630 H (180-914) pg/mL Blood Type Antibody Screen Crossmatch 02/14/21 Range/Units 09:36 WBC (4.8-10.8) x10^3/uL RBC (4.20-5.40) 10^6/uL Hgb (12.0-16.0) g/dL Hct (37.0-47.0) % MCV (81.0-99.0) fL MCH (27.0-31.0) pg MCHC (32.0-36.0) g/dL RDW (12.0-15.0) % Plt Count (130-450) 10^3/uL MPV (7.9-10.8) fL Reticulocyte % (Auto) (0.5-2.3) % Neut # (Auto) (1.5-6.6) 10^3/uL Lymph # (Auto) (1.5-3.5) 10^3/uL [place] # (Auto) (0.0-1.0) 10^3/uL Eos # (Auto) (0.0-0.7) 10^3/uL Baso # (Auto) (0.0-0.1) 10^3/uL Absolute Nucleated RBC x10^3/uL Nucleated RBC % /100WBC Absolute Retic (0.020-0.110) 10^6/uL Sodium (135-145) mmol/L Potassium (3.5-5.0) mmol/L Chloride (101-111) mmol/L Carbon Dioxide (21-32) mmol/L Anion Gap (6-13) BUN (6-20) mg/dL Creatinine (0.4-1.0) mg/dL Estimated GFR (MDRD) (>89) Glucose (70-100) mg/dL Calcium (8.5-10.3) mg/dL Magnesium (1.7-2.8) mg/dL Lactate Dehydrogenase (91-225) IU/L Vitamin B12 (180-914) pg/mL Blood Type A POSITIVE Antibody Screen NEGATIVE Crossmatch See Detail Sepsis Event Note (H) - Evaluation Current Stage of Sepsis: Septic shock - Sepsis Criteria Sepsis Criteria: Recorded Heart Rate greater than 90 bpm, Recorded Respiratory Rate greater than 20, WBC count greater than 12,000 or less than 4000, SBP drop more than 40mHg, SBP less than 90 mmHg, Metabolic: lactate > 2 mmol/L, Hematologic: platelets < 100,000; INR > 1.5, or a PTT>60 seconds Assessment/Plan - Problem List (1) Bacteremia due to Klebsiella pneumoniae Impression: Assessment/Plan: This Klebsiella bacteremia came from the urine where Klebsiella is growing as well. She complained of burning from the cephalosporin. Thus we changed the iv cephalosporin to meropenem. Her femoral CVP line was removed after placement of a R upper extremity PICC line by Anesthesia, and she was transferred out of the ICU. Continue iv meropenem, a course of treatment of 14 days of Meropenam is planned. (2) Lower Extremity Edema Assessment/Plan: Patient continues to have lower extremity edema due to volume overloading. Started Spirinolactone to address this. (3) Alcoholic cirrhosis Qualifiers: Ascites presence: without ascites Qualified Code(s): K70.30 - Alcoholic cirrhosis of liver without ascites Assessment/Plan: Patient has cirrhosis from years of binging alcohol. She was admitted with a very elevated INR which is improved slightly down to 1.5. Her platelet count is low. Bili is very elevated. Avoid hepatotoxins and continue to follow LFTs daily. Pt is not a candidate for liver transplant as she is still consuming alcohol and has no interest in cessation at this time. Discussed continued declining liver function with her GI specialist Dr Lima. He is in agreement with the current plan of care. Her calculated MELD score is 25 points which correlates to an estimated 3 month mortality rate of 19.6%. Discussed the necessity of alcohol cessation with the patient in depth today. We talked about her mortality risk score and that she is not a candidate for further interventions such as liver transplant while she is still consuming alcohol. Pt did disclose that she attributes the drinking to high anxiety levels and times of stress as a coping mechanism. She has never tried medications in the outpatient setting for management. Will trial venlafaxine while inpatient to support alcohol cessation. (4) Thrombocytopenia Assessment/Plan: She has had dropping platelets for several days now. This is coincident with being more icteric and the bilirubin has increased. Fibrinogen has been normal x2, ruling out DIC. She had not gotten Heparin, no HIT. She possibly has drug-induced thrombocytopenia since she got ceftriaxone, Tylenol, Lasix and Zofran, all of which can cause this (per UpToDate) Will give no further Lasix, Tylenol or Zofran. Ceftriaxone has been stopped. Follow CBC daily. (5) DVT of left axillary vein, acute Assessment/Plan: The patient complained of pain in the left arm several days ago. The RN brought to my attention that she had a very large and painful left antecubital hematoma. Ultrasound was done to evaluate for DVT and she does have a DVT in the L upper arm. Her INR was 1.5 but her platelets were dropping for the last 3 days. So we cannot use Lovenox or Heparin. We started Fondaparinox once a day. Start a DOAC today as plts are > 100,000. Follow CBC daily. (6) Anasarca Assessment/Plan: She is many liters positive in fluid balance because she required aggressive hydration during her septic shock in the ICU. We started IV Lasix daily. Follow I's and O's and daily weights (7) E. coli UTI Assessment/Plan: Will continue with meropenem as described above; this E. coli is pansensitive (8) Cough Assessment/Plan: Patient's cough has decreased slightly with use of Robitussin with codeine and with scheduled Mucinex. She also describes having a cough "all the times" for which she uses an inhaler. Her chest x-ray showed volume overload. We have started daily IV Lasix, and the rapid IV fluid infusions have stopped. She got Albumen iv to prevent 3rd spacing as well, since serum Alb is low. We are continuing the Robitussin, Mucinex and inhaler (9) Cold sore Assessment/Plan: We ordered po Valtrex, since the topical Lysine that she requested is not on formulary and family cannot bring her's in. (10) Severe anemia Assessment/Plan: At admission her hemoglobin was 4, she has required several units transfused. Her most recent Hgb this morning was 5.5 after which time she received one unit of packed RBCs. She is a history of iron deficiency in the past and has not tolerated p.o. iron, has needed IV iron. Follow CBC, and continue to transfuse if under 7. Surgery evaluated patient yesterday and determined there was no need for additional intervention. (11) Red blood cell antibody positive, compatible PRBC difficult to obtain Assessment/Plan: As per history. Therefore it takes longer to crossmatch blood if she needs it. (12) Hyponatremia Assessment/Plan: Sodium has plateaued, was improving slowly over the past several days. We have stopped her IV saline and will continue to follow BMP daily. (13) Hypomagnesemia Assessment/Plan: Likely related to getting IV Lasix and from poor nutrition when she was septic. Will replace with magnesium IV riders. Continue to follow magnesium level daily (14) Elevated LFTs Assessment/Plan: Resolved , most recent LFTs are within normal limits (15) S/P colostomy Assessment/Plan: As per Hx, stable (16) Hypoglycemia Assessment/Plan: Resolved (17) Septic shock Assessment/Plan: Resolved
[2021-02-17] MEDS: VENLAFAXINE ER 37.5 MG CAPSULE PO SCH (13:24)
[2021-02-17] MEDS: traZODone 50 MG TABLET PO SCH (21:15)
[2021-02-17] MEDS: NORETHINDRONE 0.35 MG PO SCH (21:16)
[2021-02-17] MEDS: ONDANSETRON 4 MG/2 ML VIAL IVP PRN (21:40)
[2021-02-18] MEDS: ACYCLOVIR 200 MG CAPSULE PO SCH ×5 (06:04→21:15)
[2021-02-18] MEDS: MEROPENEM 1 GM in SODIUM CHLORIDE 0.9% MINIBAG 100 ML IV SCH ×3 (06:04→21:16)
[2021-02-18] MEDS: guaiFENesin/CODEINE 5 ML UDC PO PRN ×3 (06:04→21:16)
[2021-02-18] MEDS: BENZOCAINE/MENTHOL LOZENGE MM PRN ×8 (06:04→21:23)
[2021-02-18] MEDS: SODIUM CHLORIDE FLUSH 0.9% 10 ML SYRINGE IVP PRN ×7 (06:05→18:21)
[2021-02-18] MEDS: SODIUM CHLORIDE FLUSH 0.9% 10 ML SYRINGE IVP SCH ×2 (06:05→21:16)
[2021-02-18 06:10] LABS: BASOPHILS % (AUTO) 0.3 %; EOSINOPHILS # (AUTO) 0.1 10^3/uL (0.0-0.7); EOSINOPHILS % (AUTO) 1.2 %; HCT - HEMATOCRIT 21.8 % (37.0-47.0); LYMPHOCYTES # (AUTO) 0.8 10^3/uL (1.5-3.5); LYMPHOCYTES % (AUTO) 11.7 %; MEAN CORPUSCULAR HEMOGLOBIN 27.1 pg (27.0-31.0); MEAN CORPUSCULAR HGB CONC 32.1 g/dL (32.0-36.0); MEAN CORPUSCULAR VOLUME 84.5 fL (81.0-99.0); MEAN PLATELET VOLUME 10.2 fL (7.9-10.8); MONOCYTES # (AUTO) 0.4 10^3/uL (0.0-1.0); NEUTROPHILS # (AUTO) 5.5 10^3/uL (1.5-6.6); NEUTROPHILS % (AUTO) 80.4 %; PLT - PLATELET COUNT 138 10^3/uL (130-450); RED BLOOD COUNT 2.58 10^6/uL (4.20-5.40); RED CELL DISTRIBUTION WIDTH 20.1 % (12.0-15.0); WHITE BLOOD COUNT 6.8 x10^3/uL (4.8-10.8)
[2021-02-18 06:26] LABS: BUN - BLOOD UREA NITROGEN < 5 mg/dL (6-20); CARBON DIOXIDE - CO2 22 mmol/L (21-32); CHLORIDE 104 mmol/L (101-111); CREATININE 0.3 mg/dL (0.4-1.0); GFR - MDRD 237 (>89); GLUCOSE 89 mg/dL (70-100); POTASSIUM 3.4 mmol/L (3.5-5.0); SODIUM 132 mmol/L (135-145)
[2021-02-18 06:39] LABS: SLIDE REVIEW? Indicated
[2021-02-18 07:15] LABS: PLATELET ESTIMATE, MANUAL NORMAL (130-450,000) (NORMAL)
[2021-02-18] MEDS: ONDANSETRON 4 MG/2 ML VIAL IVP PRN ×2 (08:34→18:21)
[2021-02-18] MEDS: SPIRONOLACTONE 25 MG TABLET PO SCH ×2 (08:35→21:15)
[2021-02-18] MEDS: PANTOPRAZOLE 40 MG VIAL IVP SCH (08:35)
[2021-02-18] MEDS: SACCHAROMYCES BOULARDII 250 MG CAPSULE PO SCH ×2 (08:35→16:56)
[2021-02-18] MEDS: guaiFENesin 600 MG TABLET PO SCH ×2 (08:35→21:15)
[2021-02-18] MEDS: THIAMINE 100 MG TABLET PO SCH (08:35)
[2021-02-18] MEDS: PRENATAL VITAMIN TABLET PO SCH (08:35)
[2021-02-18] MEDS: VENLAFAXINE ER 37.5 MG CAPSULE PO SCH (08:35)
[2021-02-18] MEDS: HYDROmorphone 0.5 MG/0.5 ML SYRINGE IVP PRN ×2 (09:45→21:23)
--- NOTE | 2021-02-18 10:47 | PROVIDER PROGRESS NOTE ---
<Paulette Sorto - Last Filed: 02/19/21 18:11> Subjective - Prog Note Date Prog Note Date: 02/18/21 Prog Note Time: 10:40 - Subjective Pt reports feeling: No change Subjective: Patients reports no change from yesterday. She is alert and sitting up in bed. She denies any continued bleeding. Objective - Vital Signs/Intake & Output Vital Signs: Vital Signs x48h Temp Pulse Resp BP Pulse Ox 02/18/21 08:27 36.7 C 105 H 19 108/68 95 02/18/21 06:38 36.6 C 97 17 112/63 96 Intake & Output: Intake & Output 02/15/21 02/16/21 02/17/21 02/18/21 23:59 23:59 23:59 23:59 Intake Total 1000 3149 1891 320 Output Total 2350 150 1400 500 Balance -1350 2999 491 -180 - Objective General Appearance: positive: Other (quiet but pleasant with appropriate affect. She is awake, sitting and on her computer. She ambulates without help.). negative: No acute distress, Alert, Lethargic Eyes Bilateral: negative: Normal inspection Respiratory: negative: No respiratory distress Cardiovascular: negative: Regular rate & rhythm Neurologic/Psychiatric: negative: Oriented x3, Mood/affect nml - Lab Results Fish Bones: 02/18/21 06:00 02/18/21 06:00 Other Labs: Lab Results x24hrs 02/18/21 02/18/21 02/14/21 Range/Units 06:00 06:00 09:36 WBC 6.8 (4.8-10.8) x10^3/uL RBC 2.58 L (4.20-5.40) 10^6/uL Hgb 7.0 L* (12.0-16.0) g/dL Hct 21.8 L (37.0-47.0) % MCV 84.5 (81.0-99.0) fL MCH 27.1 (27.0-31.0) pg MCHC 32.1 (32.0-36.0) g/dL RDW 20.1 H (12.0-15.0) % Plt Count 138 (130-450) 10^3/uL MPV 10.2 (7.9-10.8) fL Neut # (Auto) 5.5 (1.5-6.6) 10^3/uL Lymph # (Auto) 0.8 L (1.5-3.5) 10^3/uL [place] # (Auto) 0.4 (0.0-1.0) 10^3/uL Eos # (Auto) 0.1 (0.0-0.7) 10^3/uL Baso # (Auto) 0.0 (0.0-0.1) 10^3/uL Absolute Nucleated RBC 0.00 x10^3/uL Nucleated RBC % 0.0 /100WBC Manual Slide Review Indicated Platelet Estimate NORMAL (130-450,000) (NORMAL) RBC Morph Micro Appear 1+ OVALOCYTES (NORMAL) Sodium 132 L (135-145) mmol/L Potassium 3.4 L (3.5-5.0) mmol/L Chloride 104 (101-111) mmol/L Carbon Dioxide 22 (21-32) mmol/L Anion Gap 6.0 (6-13) BUN < 5 L (6-20) mg/dL Creatinine 0.3 L (0.4-1.0) mg/dL Estimated GFR (MDRD) 237 (>89) Glucose 89 (70-100) mg/dL Calcium 7.0 L (8.5-10.3) mg/dL Crossmatch See Detail Sepsis Event Note (H) - Evaluation Current Stage of Sepsis: Septic shock - Sepsis Criteria Sepsis Criteria: Recorded Heart Rate greater than 90 bpm, Recorded Respiratory Rate greater than 20, WBC count greater than 12,000 or less than 4000, SBP drop more than 40mHg, SBP less than 90 mmHg, Metabolic: lactate > 2 mmol/L, Hematologic: platelets < 100,000; INR > 1.5, or a PTT>60 seconds Assessment/Plan - Problem List (1) Bacteremia due to Klebsiella pneumoniae Impression: Assessment/Plan: This Klebsiella bacteremia came from the urine where Klebsiella is growing as well. She complained of burning from the cephalosporin. Thus we changed the iv cephalosporin to meropenem. Her femoral CVP line was removed after placement of a R upper extremity PICC line by Anesthesia, and she was transferred out of the ICU. Continue iv meropenem, a course of treatment of 14 days of Meropenam is planned (day 7 of 14) putting her earliest discharge at 02/25. Other medications have been transitioned to oral form today including her pain management. (2) Lower Extremity Edema Assessment/Plan: Patient continues to have lower extremity edema due to volume overloading. Started Spirinolactone to address this. (3) Alcoholic cirrhosis Qualifiers: Ascites presence: without ascites Qualified Code(s): K70.30 - Alcoholic cirrhosis of liver without ascites Assessment/Plan: Patient has cirrhosis from years of binging alcohol. She was admitted with a very elevated INR which is improved slightly down to 1.5. Her platelet count is low. Bili is very elevated. Avoid hepatotoxins and continue to follow LFTs daily. Pt is not a candidate for liver transplant as she is still consuming alcohol and has no interest in cessation at this time. Discussed continued declining liver function with her GI specialist Dr Lima. He is in agreement with the current plan of care. Her calculated MELD score is 25 points which correlates to an estimated 3 month mortality rate of 19.6%. Discussed the necessity of alcohol cessation with the patient in depth yesterday. We talked about her mortality risk score and that she is not a candidate for further interventions such as liver transplant while she is still consuming alcohol. Pt did disclose that she attributes the drinking to high anxiety levels and times of stress as a coping mechanism. She has never tried medications in the outpatient setting for management. Was started on venlafaxine while inpatient to support alcohol cessation. (4) Thrombocytopenia Assessment/Plan: She has had dropping platelets for several days now. This has coincided with being more icteric and the bilirubin has increased. Fibrinogen has been normal x2, ruling out DIC. She had not gotten Heparin, no HIT. She possibly has drug-induced thrombocytopenia since she got ceftriaxone, Tylenol, Lasix and Zofran, all of which can cause this (per UpToDate) Will give no further Lasix, Tylenol or Zofran. Ceftriaxone has been stopped. Follow CBC daily. (5) DVT of left axillary vein, acute Assessment/Plan: The patient complained of pain in the left arm several days ago. The RN brought to my attention that she had a very large and painful left antecubital hematoma. Ultrasound was done to evaluate for DVT and she does have a DVT in the L upper arm. Her INR was 1.5 but her platelets were dropping so we cannot use Lovenox or Heparin. We started Fondaparinox once a day. Started a DOAC yesterday as plts are > 100,000. Follow CBC daily. (6) Anasarca Assessment/Plan: She is many liters positive in fluid balance because she required aggressive hydration during her septic shock in the ICU. We started IV Lasix daily. Follow I's and O's and daily weights (7) E. coli UTI Assessment/Plan: Will continue with meropenem as described above; this E. coli is pansensitive (8) Cough Assessment/Plan: Patient's cough has decreased slightly with use of Robitussin with codeine and with scheduled Mucinex. She also describes having a cough "all the times" for which she uses an inhaler. Her chest x-ray showed volume overload. We have started daily IV Lasix, and the rapid IV fluid infusions have stopped. She got Albumen iv to prevent 3rd spacing as well, since serum Alb is low. We are continuing the Robitussin, Mucinex and inhaler (9) Cold sore Assessment/Plan: We ordered po Valtrex, since the topical Lysine that she requested is not on formulary and family cannot bring her's in. (10) Severe anemia Assessment/Plan: At admission her hemoglobin was 4, she has required several units transfused. Her most recent Hgb this morning was 7.0 and another transfusion is planned for today. No current evidence of bleeding. She is a history of iron deficiency in the past and has not tolerated p.o. iron, has needed IV iron. Follow CBC, and continue to transfuse if under 7. (11) Red blood cell antibody positive, compatible PRBC difficult to obtain Assessment/Plan: As per history. Therefore it takes longer to crossmatch blood if she needs it. (12) Hyponatremia Assessment/Plan: Sodium has plateaued, was improving slowly over the past several days. We have stopped her IV saline and will continue to follow BMP daily. (13) Hypomagnesemia Assessment/Plan: Likely related to getting IV Lasix and from poor nutrition when she was septic. Will replace with magnesium IV riders. Continue to follow magnesium level daily (14) Elevated LFTs Assessment/Plan: Resolved , most recent LFTs are within normal limits (15) S/P colostomy Assessment/Plan: As per Hx, stable (16) Hypoglycemia Assessment/Plan: Resolved (17) Septic shock Assessment/Plan: Resolved <Chen,Sherlyn Bryan - Last Filed: 02/19/21 18:14> Objective - Vital Signs/Intake & Output Vital Signs: Vital Signs x48h Temp Pulse Resp BP Pulse Ox 02/19/21 16:08 36.7 C 98 20 121/78 98 02/19/21 13:07 36.7 C 102 H 16 121/81 H 99 Intake & Output: Intake & Output 02/16/21 02/17/21 02/18/21 02/19/21 23:59 23:59 23:59 23:59 Intake Total 3149 1891 1275 620 Output Total 150 1400 1150 850 Balance 2999 491 125 -230 - Lab Results Fish Bones: 02/19/21 05:25 02/19/21 05:25 Other Labs: Lab Results x24hrs 02/19/21 02/19/21 Range/Units 05:25 05:25 WBC 7.4 (4.8-10.8) x10^3/uL RBC 3.16 L (4.20-5.40) 10^6/uL Hgb 8.7 L (12.0-16.0) g/dL Hct 26.8 L (37.0-47.0) % MCV 84.8 (81.0-99.0) fL MCH 27.5 (27.0-31.0) pg MCHC 32.5 (32.0-36.0) g/dL RDW 19.6 H (12.0-15.0) % Plt Count 189 (130-450) 10^3/uL MPV 10.6 (7.9-10.8) fL Neut # (Auto) 5.5 (1.5-6.6) 10^3/uL Lymph # (Auto) 1.3 L (1.5-3.5) 10^3/uL [place] # (Auto) 0.4 (0.0-1.0) 10^3/uL Eos # (Auto) 0.2 (0.0-0.7) 10^3/uL Baso # (Auto) 0.0 (0.0-0.1) 10^3/uL Absolute Nucleated RBC 0.00 x10^3/uL Nucleated RBC % 0.0 /100WBC Sodium 136 (135-145) mmol/L Potassium 3.6 (3.5-5.0) mmol/L Chloride 108 (101-111) mmol/L Carbon Dioxide 22 (21-32) mmol/L Anion Gap 6.0 (6-13) BUN < 5 L (6-20) mg/dL Creatinine 0.3 L (0.4-1.0) mg/dL Estimated GFR (MDRD) 237 (>89) Glucose 79 (70-100) mg/dL Calcium 7.2 L (8.5-10.3) mg/dL
[2021-02-18] MEDS: PANTOPRAZOLE 40 MG TABLET PO SCH (16:56)
[2021-02-18] MEDS: traMADol 50 MG TABLET PO PRN (18:20)
[2021-02-18] MEDS: traZODone 50 MG TABLET PO SCH (21:15)
[2021-02-18] MEDS: NORETHINDRONE 0.35 MG PO SCH (21:15)
[2021-02-19] MEDS: BENZOCAINE/MENTHOL LOZENGE MM PRN ×5 (00:31→23:58)
[2021-02-19] MEDS: SODIUM CHLORIDE FLUSH 0.9% 10 ML SYRINGE IVP PRN ×3 (00:31→23:58)
[2021-02-19] MEDS: SODIUM CHLORIDE FLUSH 0.9% 10 ML SYRINGE IVP SCH ×3 (00:31→23:58)
[2021-02-19] MEDS: guaiFENesin/CODEINE 5 ML UDC PO PRN ×4 (05:22→23:58)
[2021-02-19] MEDS: ACYCLOVIR 200 MG CAPSULE PO SCH ×5 (05:23→21:22)
[2021-02-19] MEDS: PANTOPRAZOLE 40 MG TABLET PO SCH ×2 (05:28→16:37)
[2021-02-19] MEDS: MEROPENEM 1 GM in SODIUM CHLORIDE 0.9% MINIBAG 100 ML IV SCH ×3 (05:29→21:25)
[2021-02-19 06:11] LABS: BASOPHILS % (AUTO) 0.5 %; EOSINOPHILS # (AUTO) 0.2 10^3/uL (0.0-0.7); EOSINOPHILS % (AUTO) 2.2 %; HCT - HEMATOCRIT 26.8 % (37.0-47.0); HGB - HEMOGLOBIN 8.7 g/dL (12.0-16.0); LYMPHOCYTES # (AUTO) 1.3 10^3/uL (1.5-3.5); LYMPHOCYTES % (AUTO) 17.4 %; MEAN CORPUSCULAR HEMOGLOBIN 27.5 pg (27.0-31.0); MEAN CORPUSCULAR HGB CONC 32.5 g/dL (32.0-36.0); MEAN CORPUSCULAR VOLUME 84.8 fL (81.0-99.0); MEAN PLATELET VOLUME 10.6 fL (7.9-10.8); MONOCYTES # (AUTO) 0.4 10^3/uL (0.0-1.0); MONOCYTES % (AUTO) 4.9 %; NEUTROPHILS # (AUTO) 5.5 10^3/uL (1.5-6.6); NEUTROPHILS % (AUTO) 74.6 %; PLT - PLATELET COUNT 189 10^3/uL (130-450); RED BLOOD COUNT 3.16 10^6/uL (4.20-5.40); RED CELL DISTRIBUTION WIDTH 19.6 % (12.0-15.0); WHITE BLOOD COUNT 7.4 x10^3/uL (4.8-10.8)
[2021-02-19 06:26] LABS: BUN - BLOOD UREA NITROGEN < 5 mg/dL (6-20); CALCIUM 7.2 mg/dL (8.5-10.3); CARBON DIOXIDE - CO2 22 mmol/L (21-32); CHLORIDE 108 mmol/L (101-111); CREATININE 0.3 mg/dL (0.4-1.0); GFR - MDRD 237 (>89); GLUCOSE 79 mg/dL (70-100); POTASSIUM 3.6 mmol/L (3.5-5.0); SODIUM 136 mmol/L (135-145)
[2021-02-19] MEDS: VENLAFAXINE ER 37.5 MG CAPSULE PO SCH (08:57)
[2021-02-19] MEDS: PRENATAL VITAMIN TABLET PO SCH (08:58)
[2021-02-19] MEDS: SPIRONOLACTONE 25 MG TABLET PO SCH ×2 (08:58→16:37)
[2021-02-19] MEDS: THIAMINE 100 MG TABLET PO SCH (08:58)
[2021-02-19] MEDS: guaiFENesin 600 MG TABLET PO SCH ×2 (08:58→21:22)
[2021-02-19] MEDS: SACCHAROMYCES BOULARDII 250 MG CAPSULE PO SCH ×2 (08:58→16:37)
--- NOTE | 2021-02-19 10:48 | PROVIDER PROGRESS NOTE ---
Subjective - Prog Note Date Prog Note Date: 02/19/21 Prog Note Time: 10:46 - Subjective Pt reports feeling: Improved Subjective: Patient states that she is feeling improved today. She does not cough while we are in the room. She endorses that she feels she is back at her previous baseline and that although she must stay to 02/25 for the antibiotic course, she would be ready to leave today. She is sitting comfortably. Objective - Vital Signs/Intake & Output Vital Signs: Vital Signs x48h Temp Pulse Resp BP Pulse Ox 02/19/21 07:57 36.6 C 94 16 102/68 102 H 02/19/21 05:11 36.7 C 87 16 109/67 97 Intake & Output: Intake & Output 02/16/21 02/17/21 02/18/21 02/19/21 23:59 23:59 23:59 23:59 Intake Total 3149 1891 1275 320 Output Total 150 1400 1150 850 Balance 2999 491 125 -530 - Objective General Appearance: positive: Other (Patient is sitting comfortably in bed in no acute distress. She is alert with appropriate affect.) Eyes Bilateral: negative: Normal inspection Neck: negative: Nml inspection Respiratory: positive: Wheezes (soft expiratory wheeze heard over R lung). neg ative: No respiratory distress Cardiovascular: negative: Regular rate & rhythm Abdomen: negative: Non-tender Skin: negative: Color nml, Cyanosis, Diaphoresis Neurologic/Psychiatric: negative: Oriented x3, Mood/affect nml, Weakness, Sensory loss - Lab Results Fish Bones: 02/19/21 05:25 02/19/21 05:25 Other Labs: Lab Results x24hrs 02/19/21 02/19/21 02/18/21 Range/Units 05:25 05:25 08:24 WBC 7.4 (4.8-10.8) x10^3/uL RBC 3.16 L (4.20-5.40) 10^6/uL Hgb 8.7 L (12.0-16.0) g/dL Hct 26.8 L (37.0-47.0) % MCV 84.8 (81.0-99.0) fL MCH 27.5 (27.0-31.0) pg MCHC 32.5 (32.0-36.0) g/dL RDW 19.6 H (12.0-15.0) % Plt Count 189 (130-450) 10^3/uL MPV 10.6 (7.9-10.8) fL Neut # (Auto) 5.5 (1.5-6.6) 10^3/uL Lymph # (Auto) 1.3 L (1.5-3.5) 10^3/uL [place] # (Auto) 0.4 (0.0-1.0) 10^3/uL Eos # (Auto) 0.2 (0.0-0.7) 10^3/uL Baso # (Auto) 0.0 (0.0-0.1) 10^3/uL Absolute Nucleated RBC 0.00 x10^3/uL Nucleated RBC % 0.0 /100WBC Sodium 136 (135-145) mmol/L Potassium 3.6 (3.5-5.0) mmol/L Chloride 108 (101-111) mmol/L Carbon Dioxide 22 (21-32) mmol/L Anion Gap 6.0 (6-13) BUN < 5 L (6-20) mg/dL Creatinine 0.3 L (0.4-1.0) mg/dL Estimated GFR (MDRD) 237 (>89) Glucose 79 (70-100) mg/dL Calcium 7.2 L (8.5-10.3) mg/dL Blood Type A POSITIVE Antibody Screen NEGATIVE Crossmatch See Detail Sepsis Event Note (H) - Evaluation Current Stage of Sepsis: Septic shock - Sepsis Criteria Sepsis Criteria: Recorded Heart Rate greater than 90 bpm, Recorded Respiratory Rate greater than 20, WBC count greater than 12,000 or less than 4000, SBP drop more than 40mHg, SBP less than 90 mmHg, Metabolic: lactate > 2 mmol/L, Hematologic: platelets < 100,000; INR > 1.5, or a PTT>60 seconds Assessment/Plan - Problem List (1) Bacteremia due to Klebsiella pneumoniae Impression: Assessment/Plan: This Klebsiella bacteremia came from the urine where Klebsiella is growing as well. She complained of burning from the cephalosporin. Thus we changed the iv cephalosporin to meropenem. Her femoral CVP line was removed after placement of a R upper extremity PICC line by Anesthesia, and she was transferred out of the ICU. Continue iv meropenem, a course of treatment of 14 days of Meropenam is planned (day 8 of 14) putting her earliest discharge at 02/25. Other medications have been transitioned to oral form including her pain management. She expresses her understanding with the current plan and endorses readiness for discharge at this time. She states that she feels she has returned to her baseline. (2) Alcoholic cirrhosis Qualifiers: Ascites presence: without ascites Qualified Code(s): K70.30 - Alcoholic cirrhosis of liver without ascites Assessment/Plan: Patient has cirrhosis from years of binging alcohol. Avoid hepatotoxins and continue to follow LFTs daily. Discussed continued declining liver function with her GI specialist Dr Lima. He is in agreement with the current plan of care. Her calculated MELD score is 25 points which correlates to an estimated 3 month mortality rate of 19.6%. Discussed the necessity of alcohol cessation with the patient in depth. We talked about her mortality risk score and that she is not a candidate for further interventions such as liver transplant while she is still consuming alcohol. Pt did disclose that she attributes the drinking to high anxiety levels and times of stress as a coping mechanism. She has never tried medications in the outpatient setting for management. Was started on venlafaxine while inpatient to support alcohol cessation. Will check amonia levels tomorrow and assess need for addition of lactulose. (3) Cough Assessment/Plan: Patient describes having a cough "all the times" for which she uses an inhaler. We are continuing the Robitussin, Mucinex and inhaler. Wheezing is hear on auscultation today and discussed initiating incentive spriometry to further address this. (4) Severe anemia Assessment/Plan: At admission her hemoglobin was 4, she has required several units transfused. Her most recent Hgb this morning was 8.7 following transfusion yesterday. No current evidence of bleeding. She is a history of iron deficiency in the past and has not tolerated p.o. iron, has needed IV iron. Follow CBC, and continue to transfuse if under 7. (5) Thrombocytopenia Assessment/Plan: Platelets have stabilize, continuing to follow CBC daily. (6) E. coli UTI Assessment/Plan: Will continue with meropenem as described above; this E. coli is pansensitive (7) Cold sore Assessment/Plan: We ordered po Valtrex, since the topical Lysine that she requested is not on formulary and family cannot bring her's in. (8) DVT of left axillary vein, acute Assessment/Plan: Pt started on daily Fondaparinox, following CBC daily. (9) Anasarca Assessment/Plan: Resolved with lasix, will continue to follow I's and O's and daily weights (10) Red blood cell antibody positive, compatible PRBC difficult to obtain Assessment/Plan: As per history. Therefore it takes longer to crossmatch blood if she needs it. (11) Hyponatremia Assessment/Plan: Resolved (12) Hypomagnesemia Assessment/Plan: Resolved (13) Lower Extremity Edema Assessment/Plan: Resolved with spirinolactone addition. (14) Elevated LFTs Assessment/Plan: Resolved , most recent LFTs are within normal limits (15) S/P colostomy Assessment/Plan: As per Hx, stable (16) Hypoglycemia Assessment/Plan: Resolved (17) Septic shock Assessment/Plan: Resolved
[2021-02-19] MEDS: traMADol 50 MG TABLET PO PRN ×2 (13:08→19:21)
[2021-02-19] MEDS: HYDROmorphone 0.5 MG/0.5 ML SYRINGE IVP PRN (16:37)
[2021-02-19] MEDS: traZODone 50 MG TABLET PO SCH (21:22)
[2021-02-19] MEDS: NORETHINDRONE 0.35 MG PO SCH (21:23)
[2021-02-20] MEDS: ACYCLOVIR 200 MG CAPSULE PO SCH ×2 (05:39→08:38)
[2021-02-20] MEDS: SPIRONOLACTONE 25 MG TABLET PO SCH ×2 (05:39→15:40)
[2021-02-20] MEDS: MEROPENEM 1 GM in SODIUM CHLORIDE 0.9% MINIBAG 100 ML IV SCH ×3 (05:39→20:37)
[2021-02-20] MEDS: PANTOPRAZOLE 40 MG TABLET PO SCH ×2 (05:39→15:40)
[2021-02-20] MEDS: SODIUM CHLORIDE FLUSH 0.9% 10 ML SYRINGE IVP PRN ×4 (05:39→20:39)
[2021-02-20 05:56] LABS: BASOPHILS # (AUTO) 0.1 10^3/uL (0.0-0.1); BASOPHILS % (AUTO) 0.7 %; EOSINOPHILS # (AUTO) 0.2 10^3/uL (0.0-0.7); EOSINOPHILS % (AUTO) 2.4 %; HCT - HEMATOCRIT 26.4 % (37.0-47.0); HGB - HEMOGLOBIN 8.6 g/dL (12.0-16.0); LYMPHOCYTES # (AUTO) 0.9 10^3/uL (1.5-3.5); LYMPHOCYTES % (AUTO) 12.6 %; MEAN CORPUSCULAR HEMOGLOBIN 27.9 pg (27.0-31.0); MEAN CORPUSCULAR HGB CONC 32.6 g/dL (32.0-36.0); MEAN CORPUSCULAR VOLUME 85.7 fL (81.0-99.0); MEAN PLATELET VOLUME 10.1 fL (7.9-10.8); MONOCYTES # (AUTO) 0.5 10^3/uL (0.0-1.0); MONOCYTES % (AUTO) 6.9 %; NEUTROPHILS # (AUTO) 5.5 10^3/uL (1.5-6.6); NEUTROPHILS % (AUTO) 77.1 %; PLT - PLATELET COUNT 216 10^3/uL (130-450); RED BLOOD COUNT 3.08 10^6/uL (4.20-5.40); RED CELL DISTRIBUTION WIDTH 19.9 % (12.0-15.0); WHITE BLOOD COUNT 7.1 x10^3/uL (4.8-10.8)
[2021-02-20 06:13] LABS: BUN - BLOOD UREA NITROGEN < 5 mg/dL (6-20); CALCIUM 7.1 mg/dL (8.5-10.3); CARBON DIOXIDE - CO2 20 mmol/L (21-32); CHLORIDE 104 mmol/L (101-111); CREATININE 0.3 mg/dL (0.4-1.0); GFR - MDRD 237 (>89); GLUCOSE 91 mg/dL (70-100); POTASSIUM 3.3 mmol/L (3.5-5.0); SODIUM 130 mmol/L (135-145)
[2021-02-20] MEDS: guaiFENesin 600 MG TABLET PO SCH ×2 (08:35→20:37)
[2021-02-20] MEDS: VENLAFAXINE ER 37.5 MG CAPSULE PO SCH (08:36)
[2021-02-20] MEDS: SODIUM CHLORIDE FLUSH 0.9% 10 ML SYRINGE IVP SCH ×2 (08:36→15:41)
[2021-02-20] MEDS: SACCHAROMYCES BOULARDII 250 MG CAPSULE PO SCH ×2 (08:36→15:40)
[2021-02-20] MEDS: PRENATAL VITAMIN TABLET PO SCH (08:36)
[2021-02-20] MEDS: THIAMINE 100 MG TABLET PO SCH (08:36)
[2021-02-20] MEDS: LACTULOSE 10 GM /15 ML UDC PO SCH (11:08)
[2021-02-20] MEDS: BENZOCAINE/MENTHOL LOZENGE MM PRN ×3 (11:18→19:40)
--- NOTE | 2021-02-20 12:14 | PROVIDER PROGRESS NOTE ---
Subjective - Prog Note Date Prog Note Date: 02/20/21 Prog Note Time: 12:13 - Subjective Pt reports feeling: No change Subjective: Patient is still feeling well today. Nurse states that she is hesitant to ambulate and has requested pain medication overnight. Will continue to have her move to chair three times daily. This afternoon pt stated there was bright red blood in toilet with stool, likely due to internal hemorrhoid secondary to portal hypertensions. Hgb remains stable. Objective - Vital Signs/Intake & Output Vital Signs: Vital Signs x48h Temp Pulse Resp BP Pulse Ox 02/20/21 09:00 36.7 C 114 H 16 114/72 96 02/20/21 08:33 36 C L 109 H 18 114/72 96 02/20/21 04:14 36.7 C 100 18 108/70 97 Intake & Output: Intake & Output 02/17/21 02/18/21 02/19/21 02/20/21 23:59 23:59 23:59 23:59 Intake Total 1891 1275 1360 370 Output Total 1400 1150 1250 900 Balance 491 125 110 -530 - Objective General Appearance: positive: Other (patient is comfortable resting in bed). negative: No acute distress, Alert Eyes Bilateral: negative: Normal inspection, PERRL Respiratory: negative: Chest non-tender, No respiratory distress, Breath sounds nml Cardiovascular: negative: Regular rate & rhythm Abdomen: negative: Non-tender Neurologic/Psychiatric: negative: Oriented x3, Motor nml, Sensation nml, Mood/affect nml - Lab Results Fish Bones: 02/20/21 05:30 02/20/21 05:30 Other Labs: Lab Results x24hrs 02/20/21 02/20/21 02/20/21 Range/Units 05:30 05:30 05:30 WBC 7.1 (4.8-10.8) x10^3/uL RBC 3.08 L (4.20-5.40) 10^6/uL Hgb 8.6 L (12.0-16.0) g/dL Hct 26.4 L (37.0-47.0) % MCV 85.7 (81.0-99.0) fL MCH 27.9 (27.0-31.0) pg MCHC 32.6 (32.0-36.0) g/dL RDW 19.9 H (12.0-15.0) % Plt Count 216 (130-450) 10^3/uL MPV 10.1 (7.9-10.8) fL Neut # (Auto) 5.5 (1.5-6.6) 10^3/uL Lymph # (Auto) 0.9 L (1.5-3.5) 10^3/uL [place] # (Auto) 0.5 (0.0-1.0) 10^3/uL Eos # (Auto) 0.2 (0.0-0.7) 10^3/uL Baso # (Auto) 0.1 (0.0-0.1) 10^3/uL Absolute Nucleated RBC 0.00 x10^3/uL Nucleated RBC % 0.0 /100WBC Sodium 130 L (135-145) mmol/L Potassium 3.3 L (3.5-5.0) mmol/L Chloride 104 (101-111) mmol/L Carbon Dioxide 20 L (21-32) mmol/L Anion Gap 6.0 (6-13) BUN < 5 L (6-20) mg/dL Creatinine 0.3 L (0.4-1.0) mg/dL Estimated GFR (MDRD) 237 (>89) Glucose 91 (70-100) mg/dL Calcium 7.1 L (8.5-10.3) mg/dL Ammonia 65.0 H (7-35) umol/L Sepsis Event Note (H) - Evaluation Current Stage of Sepsis: Septic shock - Sepsis Criteria Sepsis Criteria: Recorded Heart Rate greater than 90 bpm, Recorded Respiratory Rate greater than 20, WBC count greater than 12,000 or less than 4000, SBP drop more than 40mHg, SBP less than 90 mmHg, Metabolic: lactate > 2 mmol/L, Hematologic: platelets < 100,000; INR > 1.5, or a PTT>60 seconds Assessment/Plan - Problem List (1) Bacteremia due to Klebsiella pneumoniae Impression: Assessment/Plan: This Klebsiella bacteremia came from the urine where Klebsiella is growing as well. She complained of burning from the cephalosporin. Thus we changed the iv cephalosporin to meropenem. Her femoral CVP line was removed after placement of a R upper extremity PICC line by Anesthesia, and she was transferred out of the ICU. Continue iv meropenem, a course of treatment of 14 days of Meropenam is planned (day 9 of 14) putting her earliest discharge at 02/25. Other medications have bee n transitioned to oral form including her pain management. She expresses her understanding with the current plan and endorses readiness for discharge at this time. She states that she feels she has returned to her baseline. (2) Alcoholic cirrhosis Qualifiers: Ascites presence: without ascites Qualified Code(s): K70.30 - Alcoholic cirrhosis of liver without ascites Assessment/Plan: Patient has cirrhosis from years of binging alcohol. Avoid hepatotoxins and continue to follow LFTs daily. Discussed continued declining liver function with her GI specialist Dr Lima. He is in agreement with the current plan of care. Her calculated MELD score is 25 points which correlates to an estimated 3 month mortality rate of 19.6%. Discussed the necessity of alcohol cessation with the patient in depth. We mike ked about her mortality risk score and that she is not a candidate for further interventions such as liver transplant while she is still consuming alcohol. Pt did disclose that she attributes the drinking to high anxiety levels and times of stress as a coping mechanism. She has never tried medications in the outpatient setting for management. Was started on venlafaxine while inpatient to support alcohol cessation. Ammonia levels were high at 65 today, added low dose lactulose to see if this can further improve her lethargy/weakness. She states that she has constant loose stools so will start at low dose. (3) Cough Assessment/Plan: Patient describes having a cough "all the times" for which she uses an inhaler. We are continuing the Robitussin, Mucinex and inhaler. Wheezing is hear on auscultation today and discussed initiating incentive spriometry to further address this. (4) Severe anemia Assessment/Plan: At admission her hemoglobin was 4, she has required several units transfused. Her most recent Hgb this morning was 8.6. No current evidence of bleeding. She is a history of iron deficiency in the past and has not tolerated p.o. iron, has need ed IV iron. Follow CBC, and continue to transfuse if under 7. (5) Thrombocytopenia Assessment/Plan: Platelets have stabilized, continuing to follow CBC daily. (6) E. coli UTI Assessment/Plan: Will continue with meropenem as described above; this E. coli is pansensitive (7) DVT of left axillary vein, acute Assessment/Plan: Pt started on daily Fondaparinox, following CBC daily. (8) Cold sore Assessment/Plan: Resolved per pt, discontinued acyclovir. (9) Anasarca Assessment/Plan: Resolved with lasix, will continue to follow I's and O's and daily weights (10) Red blood cell antibody positive, compatible PRBC difficult to obtain Assessment/Plan: As per history. Therefore it takes longer to crossmatch blood if she needs it. (11) Hyponatremia Assessment/Plan: Resolved (12) Hypomagnesemia Assessment/Plan: Resolved (13) Lower Extremity Edema Assessment/Plan: Resolved with spirinolactone addition. (14) Elevated LFTs Assessment/Plan: Resolved, most recent LFTs are within normal limits (15) S/P colostomy Assessment/Plan: As per Hx, stable (16) Hypoglycemia Assessment/Plan: Resolved (17) Septic shock Assessment/Plan: Resolved
[2021-02-20] MEDS: traMADol 50 MG TABLET PO PRN (15:39)
[2021-02-20] MEDS: guaiFENesin/CODEINE 5 ML UDC PO PRN (15:40)
[2021-02-20] MEDS: HYDROmorphone 0.5 MG/0.5 ML SYRINGE IVP PRN (19:40)
[2021-02-20] MEDS: NORETHINDRONE 0.35 MG PO SCH (20:34)
[2021-02-20] MEDS: traZODone 50 MG TABLET PO SCH (20:37)
[2021-02-20] MEDS ORDERED: POTASSIUM CHLORIDE 20 MEQ TABLET PO ONE (22:58)
[2021-02-21] MEDS: PHENAZOPYRIDINE 100 MG TABLET PO SCH ×2 (00:06→05:37)
[2021-02-21] MEDS: SODIUM CHLORIDE FLUSH 0.9% 10 ML SYRINGE IVP SCH ×3 (00:06→15:57)
[2021-02-21] MEDS: SODIUM CHLORIDE FLUSH 0.9% 10 ML SYRINGE IVP PRN ×4 (00:06→21:12)
[2021-02-21] MEDS: MEROPENEM 1 GM in SODIUM CHLORIDE 0.9% MINIBAG 100 ML IV SCH ×3 (05:37→21:11)
[2021-02-21] MEDS: PANTOPRAZOLE 40 MG TABLET PO SCH ×2 (05:37→15:57)
[2021-02-21] MEDS: BENZOCAINE/MENTHOL LOZENGE MM PRN ×7 (05:37→21:12)
[2021-02-21] MEDS: SPIRONOLACTONE 25 MG TABLET PO SCH ×2 (06:29→15:57)
--- NOTE | 2021-02-21 08:12 | PROVIDER PROGRESS NOTE ---
Subjective - Prog Note Date Prog Note Date: 02/21/21 Prog Note Time: 10:27 - Subjective Pt reports feeling: Improved Subjective: Pt is comfortable in bed and reports she feels good today. She states that her last void was 4pm yesterday and she has experienced severe urgency but has not been able to urinate. She reports that there was watery yellow discharge from her rectum, and the only thing that came out of her urethra was a blood clot. She has been eating and ambulating without issue. She reports that her cough is somewhat improved but still not resolved. She denies any adverse reactions since starting the Venlafaxine and would like to continue taking. Objective - Vital Signs/Intake & Output Vital Signs: Vital Signs x48h Temp Pulse Resp BP Pulse Ox 02/21/21 05:41 36.8 C 105 H 15 98/62 98 Intake & Output: Intake & Output 02/18/21 02/19/21 02/20/21 02/21/21 23:59 23:59 23:59 23:59 Intake Total 1275 1360 1890 100 Output Total 1150 1250 1200 950 Balance 125 110 690 -850 - Lab Results Fish Bones: 02/21/21 08:40 02/21/21 08:40 Other Labs: Lab Results x24hrs 02/18/21 Range/Units 08:24 Crossmatch See Detail Sepsis Event Note (H) - Evaluation Current Stage of Sepsis: Septic shock - Sepsis Criteria Sepsis Criteria: Recorded Heart Rate greater than 90 bpm, Recorded Respiratory Rate greater than 20, WBC count greater than 12,000 or less than 4000, SBP drop more than 40mHg, SBP less than 90 mmHg, Metabolic: lactate > 2 mmol/L, Hematologic: platelets < 100,000; INR > 1.5, or a PTT>60 seconds Assessment/Plan - Problem List (1) Urinary retention Impression: Assessment/Plan: Patient describes passing blood clots through her urethra and urine from her rectum. This is suspicious for a vesicorectal fistula. Patients has already undergone extensive work up for a potential GI bleed that was unremarkable. Will order CT with rectal contrast to examine potential fistula. Will consult with general surgery as needed. (2) Bacteremia due to Klebsiella pneumoniae Assessment/Plan: Continued course of iv meropenem currently day 9 putting planned discharge at 02/25. Other medications have been transitioned to oral form including her pain management. She expresses her understanding with the current plan and endorses readiness for discharge at this time. She states that she feels she has returned to her baseline. (3) Alcoholic cirrhosis Qualifiers: Ascites presence: without ascites Qualified Code(s): K70.30 - Alcoholic cirrhosis of liver without ascites Assessment/Plan: Patient has cirrhosis from years of binging alcohol. Avoid hepatotoxins and continue to follow LFTs daily. Discussed continued declining liver function with her GI specialist Dr Lima. He is in agreement with the current plan of care. Her calculated MELD score is 25 points which correlates to an estimated 3 month mortality rate of 19.6%. Discussed the necessity of alcohol cessation with the patient in depth. We talked about her mortality risk score and that she is not a candidate for fu rther interventions such as liver transplant while she is still consuming alcohol. Pt did disclose that she attributes the drinking to high anxiety levels and times of stress as a coping mechanism. She has never tried medications in the outpatient setting for management. Was started on venlafaxine while inpatient to support alcohol cessation, no adverse effects have been reported. Low dose lactulose was added due to high ammonia levels to see if this can further improve her lethargy/weakness. (4) Cough Assessment/Plan: Patient describes having a cough "all the times" for which she uses an inhaler. We are continuing the Robitussin, Mucinex and inhaler. She reports improvement since starting spirometry. Will continue to monitor. (5) Severe anemia Assessment/Plan: At admission her hemoglobin was 4, she has required several units transfused. Her most recent Hgb this morning was 8.6. No current evidence of GI bleeding. She is a history of iron deficiency in the past and has not tolerated p.o. iron, has need ed IV iron. Follow CBC, and continue to transfuse if under 7. (6) Thrombocytopenia Assessment/Plan: Platelets have stabilized, continuing to follow CBC daily. (7) E. coli UTI Assessment/Plan: Will continue with meropenem as described above; this E. coli is pansensitive. Pyridium discontinued per pt request. (8) DVT of left axillary vein, acute Assessment/Plan: Pt started on daily Fondaparinox, following CBC daily. (9) Cold sore Assessment/Plan: Resolved per pt, discontinued acyclovir. (10) Anasarca Assessment/Plan: Resolved with lasix, will continue to follow I's and O's and daily weights (11) Red blood cell antibody positive, compatible PRBC difficult to obtain Assessment/Plan: As per history. Therefore it takes longer to crossmatch blood if she needs it. (12) Hyponatremia Assessment/Plan: Resolved (13) Hypomagnesemia Assessment/Plan: Resolved (14) Lower Extremity Edema Assessment/Plan: Resolved with spirinolactone addition. (15) Elevated LFTs Assessment/Plan: Resolved, most recent LFTs are within normal limits (16) S/P colostomy Assessment/Plan: As per Hx, stable (17) Hypoglycemia Assessment/Plan: Resolved (18) Septic shock Assessment/Plan: Resolved
[2021-02-21 08:47] LABS: BASOPHILS # (AUTO) 0.1 10^3/uL (0.0-0.1); BASOPHILS % (AUTO) 0.9 %; EOSINOPHILS # (AUTO) 0.1 10^3/uL (0.0-0.7); EOSINOPHILS % (AUTO) 1.7 %; HCT - HEMATOCRIT 26.9 % (37.0-47.0); HGB - HEMOGLOBIN 8.6 g/dL (12.0-16.0); LYMPHOCYTES # (AUTO) 0.8 10^3/uL (1.5-3.5); MEAN CORPUSCULAR HEMOGLOBIN 27.9 pg (27.0-31.0); MEAN CORPUSCULAR VOLUME 87.3 fL (81.0-99.0); MEAN PLATELET VOLUME 9.7 fL (7.9-10.8); MONOCYTES # (AUTO) 0.4 10^3/uL (0.0-1.0); MONOCYTES % (AUTO) 6.3 %; NEUTROPHILS # (AUTO) 5.1 10^3/uL (1.5-6.6); NEUTROPHILS % (AUTO) 78.8 %; PLT - PLATELET COUNT 239 10^3/uL (130-450); RED BLOOD COUNT 3.08 10^6/uL (4.20-5.40); RED CELL DISTRIBUTION WIDTH 20.3 % (12.0-15.0); WHITE BLOOD COUNT 6.5 x10^3/uL (4.8-10.8)
[2021-02-21 08:56] LABS: BUN - BLOOD UREA NITROGEN < 5 mg/dL (6-20); CALCIUM 7.6 mg/dL (8.5-10.3); CARBON DIOXIDE - CO2 19 mmol/L (21-32); CHLORIDE 109 mmol/L (101-111); CREATININE 0.3 mg/dL (0.4-1.0); GFR - MDRD 237 (>89); GLUCOSE 103 mg/dL (70-100); POTASSIUM 3.9 mmol/L (3.5-5.0); SODIUM 137 mmol/L (135-145)
[2021-02-21] MEDS: guaiFENesin 600 MG TABLET PO SCH ×2 (08:56→21:12)
[2021-02-21] MEDS: VENLAFAXINE ER 37.5 MG CAPSULE PO SCH (08:56)
[2021-02-21] MEDS: THIAMINE 100 MG TABLET PO SCH (08:56)
[2021-02-21] MEDS: SACCHAROMYCES BOULARDII 250 MG CAPSULE PO SCH ×2 (08:56→15:56)
[2021-02-21] MEDS: PRENATAL VITAMIN TABLET PO SCH (08:56)
[2021-02-21] MEDS: guaiFENesin/CODEINE 5 ML UDC PO PRN ×2 (09:34→15:56)
[2021-02-21] MEDS: HYDROmorphone 0.5 MG/0.5 ML SYRINGE IVP PRN ×2 (10:56→21:12)
[2021-02-21] MEDS: LACTULOSE 10 GM /15 ML UDC PO SCH (10:57)
[2021-02-21] MEDS: LIDOCAINE PATCH 5% TOP PRN (12:52)
[2021-02-21] MEDS ORDERED: IOPAMIDOL-300 50 ML VIAL ONE (13:42)
--- NOTE | 2021-02-21 14:57 | CT Report ---
PROCEDURE: PELVIS WO INDICATIONS: urine from rectum, blood from bladder TECHNIQUE: After rectal contrast was given 3 mm axial sections acquired through the bony pelvis, with coronal an d sagittal reformatting. For radiation dose reduction, the following was used: automated exposure co ntrol, adjustment of mA and/or kV according to patient size. COMPARISON: CT abdomen and pelvis dated 02/08/2021 FINDINGS: Image quality: Excellent. Bones: Degenerative changes of the spine without acute osseous abnormality. No suspicious osseous le radha. Soft tissues: Postsurgical changes of prior sigmoidectomy is noted with rectal stump. There appears to be tethering of the left side of the bladder wall with postsurgical changes of the rectum. Contrast is noted with in the urinary bladder as well as the rectal stump. Given timing of prior CT, contrast should not be noted within the urinary bladder. There is diffuse anasarca with moderate amount of ascites. Vascular calcifications are noted within the imaged aorta. IMPRESSION: Contrast is noted within the bladder as well as the rectum with tethering of the left side of the xiang dder wall with surgical changes of the rectal stump. 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 Moderate amount of ascites and diffuse anasarca. Findings discussed with the ordering provider Dr. Chen by Dr. Gil Rosado at approximately 1350 hour s [place] standard time on 02/21/2021. Reviewed by: Gil Rosado DO on 02/21/2021 1:56 PM [place] Approved by: Gil Rosado DO on 02/21/2021 1:56 PM [facility] Station ID: [id number]
--- NOTE | 2021-02-21 16:49 | CONSULTATION NOTE ---
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 She was much improved and doing well but endorsed some bloody urine as well as what she thought was urine from her rectum earlier today. 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 Patient has had recurrent UTIs associated with urinary retention for the past year for which she has needed catheterization and antibiotics approximately monthly. Her history is significant for emergent Kalin's for perforated diverticulitis 3 years ago at [facility]. She says she recovered well, although did require PICC and TPN postopertively for possible ileus. She was told she could have her ostomy reversed but due to COVID this never happened. She has had colonoscopies through her colostomy which have been normal, but does not believe she has had a proctoscopy. Her colostomy is functioning appropriately. She has also had what sounds like ileocecectomy with ileostomy and mucus fistula for appendicitis about 4 years ago, and this was reversed about a year before her Kalin's. Regarding her cirrhosis, she is still drinking intermittently. 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 She has known esophageal varices but denies prior GIB from these. She has never needed a tap for ascites and denies encephalopathy. Kidney function is good. History - Past Medical History Cardiovascular: reports: None Respiratory: reports: Asthma Neuro: reports: None Endocrine/Autoimmune: reports: None GI: reports: GERD, GI bleed, Cirrhosis, Diverticulitis SPOT WELDER LINE: reports: None : reports: Frequency, Other HEENT: reports: Dental implants Psych: reports: Anxiety Musculoskeletal: reports: Scoliosis Derm: reports: Eczema MRSA Hx?: No Other Past Medical History: colostomy 3 years; frequent UTI - Past Surgical History General: reports: Appendectomy, Colonoscopy, EGD, Other - Family & Social History Family History: Mother: Alive and Well, Cancer, Father: Alive and Well, Cancer Family History Comment/Other: Her father had prostate cancer and her mother had colon cancer. Living arrangement: At home Living Situation: With family Social History Notes: She lives at home with her parents. She is independent of activities of daily living. She denies smoking. Still admits to alcohol use although reports it is only occasional compared to the regular alcohol use that she previously had. She has been drinking for over 20 years. She will occasionally use THC and CBD. - Substance History Use: Uses substance without health or social issues: Alcohol - POLST Patient has POLST: No POLST Status: Full Code Meds/Allgy - Home Medications Home Medications: Ambulatory Orders Medication Instructions Recorded Confirmed Trazodone HCl 200 mg PO QPM 11/26/19 02/08/21 Albuterol [Proventil Hfa] 2 puffs PO Q4H PRN 09/24/20 02/09/21 traMADol [Ultram] 25 mg PO Q8H PRN 09/24/20 02/08/21 Norethindrone 1 tab PO QPM 02/09/21 02/09/21 - Allergies Allergies/Adverse Reactions: Allergies Allergy/AdvReac Type Severity Reaction Status Date / Time cephalexin Allergy Unknown Verified 02/08/21 10:54 sertraline Allergy Unknown Verified 02/08/21 10:54 ceftriaxone AdvReac Intermediate Burning in Verified 02/12/21 11:08 arms Review of Systems - Constitutional Constitutional: reports: Fatigue, Weakness, Poor appetite, Weight loss - Respiratory Respiratory: reports: Cough - Genitourinary Genitourinary: reports: Dysuria, Frequency, Urgency, Hematuria - Integumentary Integumentary: reports: Other (Recent jaundice) - All Other Systems All Other Systems: reports: Reviewed and negative Exam - Vital Signs Reviewed Vital Signs: Yes Vital Signs: Vital Signs x48h Temp Pulse Resp BP Pulse Ox 02/21/21 16:10 36.7 C 112 H 18 129/78 100 02/21/21 13:00 36.8 C 112 H 15 116/78 100 02/21/21 08:55 117 H 17 119/81 H 100 - Physical Exam General Appearance: positive: No acute distress, Other (Weak appearing with jaundice) Eyes Bilateral: positive: Other (Scleral icterus) ENT: positive: ENT inspection nml Neck: positive: Nml inspection Respiratory: positive: No respiratory distress Cardiovascular: positive: Regular rate & rhythm, Other (Anasarca with 2+ pitting edema) Abdomen: positive: Non-tender, No distention, Other (Laparotomy scar, two prior ostomy scars in R upper and lower quadrant; Left sided colostomy with stool in bag) Rectal: positive: Non-tender, Other (No masses or blood) Skin: positive: Other (Jaundice) Extremities: positive: Full ROM, Nml appearance Neurologic/Psychiatric: positive: Oriented x3, CN's nml (2-12) Conclusion/Plan - Problem List (1) Colovesical fistula Conclusion/Plan: Colovesical fistula c/b recurrent UTI, with 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 Despite fecal diversion of a fistula (with Hartmanns), they are unfortunately still fraught with problems like recurrent UTIs due to fistula to distal sigmoid colon/rectum. Takedown of the fistula at the time of Kalin's reversal would be definitive treatment, although unfortunately this patient's surgical risk is prohibitively high due to her cirrhosis. Patient has EtOH cirrhosis, Child's C, MELD-Na of 23, with esophageal varices. This is associated with a very high perioperative mortality (82%). In any event, no urgent surgical intervention is indicated at this time. We discussed that it is most prudent that she stop drinking and follow up with her sewage plant supervisor. Recurrence of UTIs should continue to be treated with antibiotics and nonoperative management at this time. Thank you for this consult and please feel free to call with questions. Greg Bautista MD - Lab Results Lab results reviewed: Yes Fish Bones: 02/21/21 08:40 02/21/21 08:40 - Diagnostic Imaging Results Diagnostic Imaging Results: positive: Final report reviewed, Read independently
[2021-02-21] MEDS: traZODone 50 MG TABLET PO SCH (21:12)
[2021-02-21] MEDS: NORETHINDRONE 0.35 MG PO SCH (21:14)
[2021-02-22] MEDS: SODIUM CHLORIDE FLUSH 0.9% 10 ML SYRINGE IVP SCH ×3 (01:07→16:46)
[2021-02-22] MEDS: BENZOCAINE/MENTHOL LOZENGE MM PRN ×5 (05:12→21:18)
[2021-02-22] MEDS: guaiFENesin/CODEINE 5 ML UDC PO PRN ×2 (05:12→18:09)
[2021-02-22] MEDS: MEROPENEM 1 GM in SODIUM CHLORIDE 0.9% MINIBAG 100 ML IV SCH ×3 (07:15→21:18)
[2021-02-22] MEDS: SPIRONOLACTONE 25 MG TABLET PO SCH ×2 (07:15→16:46)
[2021-02-22] MEDS: PANTOPRAZOLE 40 MG TABLET PO SCH ×2 (07:15→16:46)
[2021-02-22] MEDS: SODIUM CHLORIDE FLUSH 0.9% 10 ML SYRINGE IVP PRN (07:16)
[2021-02-22 07:47] LABS: BASOPHILS # (AUTO) 0.1 10^3/uL (0.0-0.1); BASOPHILS % (AUTO) 0.9 %; EOSINOPHILS # (AUTO) 0.2 10^3/uL (0.0-0.7); EOSINOPHILS % (AUTO) 1.9 %; HCT - HEMATOCRIT 25.6 % (37.0-47.0); HGB - HEMOGLOBIN 8.3 g/dL (12.0-16.0); LYMPHOCYTES # (AUTO) 1.3 10^3/uL (1.5-3.5); LYMPHOCYTES % (AUTO) 16.7 %; MEAN CORPUSCULAR HEMOGLOBIN 27.9 pg (27.0-31.0); MEAN CORPUSCULAR HGB CONC 32.4 g/dL (32.0-36.0); MEAN CORPUSCULAR VOLUME 85.9 fL (81.0-99.0); MEAN PLATELET VOLUME 9.6 fL (7.9-10.8); MONOCYTES # (AUTO) 0.6 10^3/uL (0.0-1.0); MONOCYTES % (AUTO) 8.2 %; NEUTROPHILS # (AUTO) 5.5 10^3/uL (1.5-6.6); NEUTROPHILS % (AUTO) 71.8 %; PLT - PLATELET COUNT 260 10^3/uL (130-450); RED BLOOD COUNT 2.98 10^6/uL (4.20-5.40); RED CELL DISTRIBUTION WIDTH 20.9 % (12.0-15.0); WHITE BLOOD COUNT 7.7 x10^3/uL (4.8-10.8)
[2021-02-22] MEDS: PRENATAL VITAMIN TABLET PO SCH (08:05)
[2021-02-22] MEDS: SACCHAROMYCES BOULARDII 250 MG CAPSULE PO SCH ×2 (08:05→16:46)
[2021-02-22] MEDS: LACTULOSE 10 GM /15 ML UDC PO SCH (08:05)
[2021-02-22] MEDS: guaiFENesin 600 MG TABLET PO SCH ×2 (08:05→21:18)
[2021-02-22] MEDS: THIAMINE 100 MG TABLET PO SCH (08:05)
[2021-02-22] MEDS: VENLAFAXINE ER 37.5 MG CAPSULE PO SCH (08:05)
[2021-02-22 08:20] LABS: BUN - BLOOD UREA NITROGEN < 5 mg/dL (6-20); CALCIUM 7.4 mg/dL (8.5-10.3); CARBON DIOXIDE - CO2 21 mmol/L (21-32); CHLORIDE 106 mmol/L (101-111); CREATININE 0.4 mg/dL (0.4-1.0); GFR - MDRD 170 (>89); GLUCOSE 90 mg/dL (70-100); POTASSIUM 3.6 mmol/L (3.5-5.0); SODIUM 133 mmol/L (135-145)
[2021-02-22] MEDS: HYDROmorphone 0.5 MG/0.5 ML SYRINGE IVP PRN ×2 (11:44→18:09)
--- NOTE | 2021-02-22 11:53 | PROVIDER PROGRESS NOTE ---
Subjective - Prog Note Date Prog Note Date: 02/22/21 Prog Note Time: 16:36 - Subjective Pt reports feeling: No change Subjective: Patient is resting comfortably in bed working from her computer. She states that she hall been able to urinate normally since her CT yesterday. She has had no continued signs of bleeding. She does complain of continued swelling and discomfort from cirrhosis associated ascites. Objective - Vital Signs/Intake & Output Vital Signs: Vital Signs x48h Temp Pulse Resp BP Pulse Ox 02/22/21 09:00 36.8 C 42 L 18 109/65 96 02/22/21 08:00 110 H 02/22/21 05:49 36.7 C 110 H 17 103/69 97 Intake & Output: Intake & Output 02/19/21 02/20/21 02/21/21 02/22/21 23:59 23:59 23:59 23:59 Intake Total 1360 1890 2560 320 Output Total 1250 1200 950 Balance 249 898 7718 320 - Objective General Appearance: positive: No acute distress, Alert, Other (she is alert and able to speak in full sentences.) Eyes Bilateral: positive: Normal inspection, PERRL Neck: positive: Nml inspection, Thyroid nml Respiratory: positive: Chest non-tender, No respiratory distress, Breath sounds nml Cardiovascular: positive: Regular rate & rhythm, No murmur, No gallop Abdomen: positive: Nml bowel sounds, Other (ascites present from abdomen to thighs, associated generalized tenderness) Rectal: positive: Non-tender. negative: Black stool, Bloody stool Skin: positive: Color nml, No rash, Warm, Dry Extremities: positive: Non-tender, Nml appearance Neurologic/Psychiatric: positive: Oriented x3, Motor nml, Sensation nml, Other (She does have a flat affect throughout the conversation. little expressed emotion.) - Lab Results Fish Bones: 02/22/21 07:37 02/22/21 07:37 Other Labs: Lab Results x24hrs 02/22/21 02/22/21 Range/Units 07:37 07:37 WBC 7.7 (4.8-10.8) x10^3/uL RBC 2.98 L (4.20-5.40) 10^6/uL Hgb 8.3 L (12.0-16.0) g/dL Hct 25.6 L (37.0-47.0) % MCV 85.9 (81.0-99.0) fL MCH 27.9 (27.0-31.0) pg MCHC 32.4 (32.0-36.0) g/dL RDW 20.9 H (12.0-15.0) % Plt Count 260 (130-450) 10^3/uL MPV 9.6 (7.9-10.8) fL Neut # (Auto) 5.5 (1.5-6.6) 10^3/uL Lymph # (Auto) 1.3 L (1.5-3.5) 10^3/uL [place] # (Auto) 0.6 (0.0-1.0) 10^3/uL Eos # (Auto) 0.2 (0.0-0.7) 10^3/uL Baso # (Auto) 0.1 (0.0-0.1) 10^3/uL Absolute Nucleated RBC 0.00 x10^3/uL Nucleated RBC % 0.0 /100WBC Sodium 133 L (135-145) mmol/L Potassium 3.6 (3.5-5.0) mmol/L Chloride 106 (101-111) mmol/L Carbon Dioxide 21 (21-32) mmol/L Anion Gap 6.0 (6-13) BUN < 5 L (6-20) mg/dL Creatinine 0.4 (0.4-1.0) mg/dL Estimated GFR (MDRD) 170 (>89) Glucose 90 (70-100) mg/dL Calcium 7.4 L (8.5-10.3) mg/dL Sepsis Event Note (H) - Evaluation Current Stage of Sepsis: Septic shock - Sepsis Criteria Sepsis Criteria: Recorded Heart Rate greater than 90 bpm, Recorded Respiratory Rate greater than 20, WBC count greater than 12,000 or less than 4000, SBP drop more than 40mHg, SBP less than 90 mmHg, Metabolic: lactate > 2 mmol/L, Hematologic: platelets < 100,000; INR > 1.5, or a PTT>60 seconds Assessment/Plan - Problem List (1) Vesicorectal fistula Impression: Assessment/Plan: Patient described passing blood clots through her urethra and urine from her rectum. Patients has already undergone extensive work up for a potential GI bleed that was unremarkable. CT of the pelvis shows that the left side of the patient's bladder is tethered to the rectal stump that remains post-colostomy, and is suggestive of a fistula formation. General surgery was consulted and dete rmined that while the fistula needs surgical repair, the patient is not a candidate due to her mortality risk and ongoing alcoholism. Current plan is to talk to Dr. Bautista to see if there are any other supportive management options to help with patient's symptoms and prevent future infection risk. 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 She expresses understanding of the diagnosis. (2) Bacteremia due to Klebsiella pneumoniae Assessment/Plan: Continued course of iv meropenem currently day 10 14 putting planned discharge at 02/25. Other medications have been transitioned to oral form including her pain management. She expresses her understanding with the current plan and endorses readiness for discharge at this time. She states that she feels she has returned to her baseline. (3) Alcoholic cirrhosis Assessment/Plan: Patient has cirrhosis from years of binging alcohol. Avoid hepatotoxins and continue to follow LFTs daily. Discussed continued declining liver function with her GI specialist Dr Lima. He is in agreement with the current plan of care. Her calculated MELD score is 25 points which correlates to an estimated 3 month mortality rate of 19.6%. Discussed the necessity of alcohol cessation with the patient in depth. We talked about her mortality risk score and that she is not a candidate for further interventions such as liver transplant while she is still consuming alcohol. (4) Cough Assessment/Plan: Patient describes having a cough "all the times" for which she uses an inhaler. We are continuing the Robitussin, Mucinex and inhaler. She reports improvement since starting spirometry. Will continue to monitor. (5) Severe anemia Assessment/Plan: At admission her hemoglobin was 4, she has required several units transfused. Her Hgb has stabilized at 8.6. No current evidence of GI bleeding. She is a history of iron deficiency in the past and has not tolerated p.o. iron, has need ed IV iron. Follow CBC, and continue to transfuse if under 7. (6) Thrombocytopenia Assessment/Plan: Platelets have stabilized, continuing to follow CBC daily. (7) E. coli UTI Assessment/Plan: Will continue with meropenem as described above; this E. coli is pansensitive. Pyridium discontinued per pt request. (8) DVT of left axillary vein, acute Assessment/Plan: Pt started on daily Fondaparinox, following CBC daily. (9) Cold sore Assessment/Plan: Resolved per pt, discontinued acyclovir. (10) Anasarca Assessment/Plan: Resolved with lasix, will continue to follow I's and O's and daily weights (11) Red blood cell antibody positive, compatible PRBC difficult to obtain Assessment/Plan: As per history. Therefore it takes longer to crossmatch blood if she needs it. (12) Hyponatremia Assessment/Plan: Resolved (13) Hypomagnesemia Assessment/Plan: Resolved (14) Lower Extremity Edema Assessment/Plan: Resolved with spirinolactone addition. (15) Elevated LFTs Assessment/Plan: Resolved, most recent LFTs are within normal limits (16) S/P colostomy Assessment/Plan: As per Hx, stable (17) Hypoglycemia Assessment/Plan: Resolved (18) Septic shock Assessment/Plan: Resolved
[2021-02-22] MEDS: traZODone 50 MG TABLET PO SCH (21:18)
[2021-02-22] MEDS: traMADol 50 MG TABLET PO PRN (21:18)
[2021-02-22] MEDS: NORETHINDRONE 0.35 MG PO SCH (21:19)
[2021-02-23] MEDS: guaiFENesin/CODEINE 5 ML UDC PO PRN ×3 (00:25→13:30)
[2021-02-23] MEDS: BENZOCAINE/MENTHOL LOZENGE MM PRN ×6 (00:25→21:48)
[2021-02-23] MEDS: HYDROmorphone 0.5 MG/0.5 ML SYRINGE IVP PRN ×3 (00:25→16:59)
[2021-02-23] MEDS: SODIUM CHLORIDE FLUSH 0.9% 10 ML SYRINGE IVP SCH ×5 (00:25→23:26)
[2021-02-23] MEDS: PANTOPRAZOLE 40 MG TABLET PO SCH ×2 (07:01→16:56)
[2021-02-23] MEDS: MEROPENEM 1 GM in SODIUM CHLORIDE 0.9% MINIBAG 100 ML IV SCH ×3 (07:01→21:48)
[2021-02-23] MEDS: traMADol 50 MG TABLET PO PRN ×2 (07:01→21:48)
[2021-02-23] MEDS: SPIRONOLACTONE 25 MG TABLET PO SCH ×2 (07:02→16:57)
[2021-02-23] MEDS: THIAMINE 100 MG TABLET PO SCH (07:56)
[2021-02-23] MEDS: LACTULOSE 10 GM /15 ML UDC PO SCH (07:56)
[2021-02-23] MEDS: guaiFENesin 600 MG TABLET PO SCH ×2 (07:56→21:48)
[2021-02-23] MEDS: PRENATAL VITAMIN TABLET PO SCH (07:56)
[2021-02-23] MEDS: VENLAFAXINE ER 37.5 MG CAPSULE PO SCH (07:56)
[2021-02-23] MEDS: SACCHAROMYCES BOULARDII 250 MG CAPSULE PO SCH ×2 (07:56→16:57)
[2021-02-23 09:28] LABS: BASOPHILS % (AUTO) 0.5 %; EOSINOPHILS # (AUTO) 0.2 10^3/uL (0.0-0.7); EOSINOPHILS % (AUTO) 2.9 %; HGB - HEMOGLOBIN 8.2 g/dL (12.0-16.0); LYMPHOCYTES # (AUTO) 0.9 10^3/uL (1.5-3.5); LYMPHOCYTES % (AUTO) 14.6 %; MEAN CORPUSCULAR HEMOGLOBIN 27.6 pg (27.0-31.0); MEAN CORPUSCULAR HGB CONC 31.5 g/dL (32.0-36.0); MEAN CORPUSCULAR VOLUME 87.5 fL (81.0-99.0); MEAN PLATELET VOLUME 9.9 fL (7.9-10.8); MONOCYTES # (AUTO) 0.5 10^3/uL (0.0-1.0); MONOCYTES % (AUTO) 8.9 %; NEUTROPHILS # (AUTO) 4.2 10^3/uL (1.5-6.6); NEUTROPHILS % (AUTO) 72.6 %; PLT - PLATELET COUNT 276 10^3/uL (130-450); RED BLOOD COUNT 2.97 10^6/uL (4.20-5.40); WHITE BLOOD COUNT 5.8 x10^3/uL (4.8-10.8)
[2021-02-23 09:35] LABS: CALCIUM 7.2 mg/dL (8.5-10.3); CREATININE 0.4 mg/dL (0.4-1.0); POTASSIUM 3.4 mmol/L (3.5-5.0)
[2021-02-23] MEDS: ONDANSETRON 4 MG/2 ML VIAL IVP PRN (09:40)
[2021-02-23] MEDS: SODIUM CHLORIDE FLUSH 0.9% 10 ML SYRINGE IVP PRN ×2 (10:10→23:26)
[2021-02-23] MEDS ORDERED: POTASSIUM CHLORIDE 20 MEQ TABLET PO ONE (10:30)
--- NOTE | 2021-02-23 14:23 | PROVIDER PROGRESS NOTE ---
Assessment/Plan - Problem List (1) Bacteremia due to Klebsiella pneumoniae Assessment/Plan: 02/23 pt is meropenem IV by PICC for treatment for her bacteremia with multiple drug resistant klebsiella pneumoniae. pt has normal arrange WBC, pt has no fever, pt is comfortable, she has no complaints. this is day11 on meropenem, 3 days left for treatment course. At this point, not necessary to repeat blood cul ture. (2) Vesicorectal fistula Patient denies rectal or vaginal bleed, she also denies abdomina pain, Her HGB is stable. pt is on treatment with IV meropenem. surgeon was consulted, and believed a very high perioperative mortality and no urgent surgical intervention is indicated at this time and suggested nonoperative management at this time. pt may followup with out-pt surgeon at this time. we will continue vital and lab monitor. (3) Alcoholic cirrhosis discussed with pt about her advanced alcoholic liver cirrhosis. strongly advise pt no more alcohol. her MELD score is 25 points which correlates to an estimated 3 month mortality rate of 19.6%. Patient has cirrhosis from years of binging alcohol. we will Avoid hepatotoxins and continue to follow LFTs daily. per previous provider, Discussed continued declining liver function with her GI specialist Dr Lima. He is in agreement with the current plan of care. Her calculated MELD score is 25 points which correlates to an estimated 3 month mortality rate of 19.6%. Discussed the necessity of alcohol cessation with the patient in depth. We talked about her mortality risk score and that she is not a candidate for further interventions such as liver transplant while she is still consuming alcohol. (4) Cough Assessment/Plan: improved. We are continuing the Robitussin, Mucinex and inhaler. She reports improvement since starting spirometry. Will continue to monitor. (5) GI bleed with Severe anemia Assessment/Plan: occult blood test was positive, consulted with our GI surgeon, suggest A registered nurse first assistant would be best equipped to manage for pt and pt is not a surgical candidate, and she was recommend to follow up with her registered nurse first assistant at [facility] after d/c pt's fondaparinux was hold due to GI bleed by other provider. pt has stable HGB now, follow up with her registered nurse first assistant at [facility] after d/c by GI surgeon's recommendation. continue protonix bid and lab monitor (6) Thrombocytopenia Assessment/Plan: Platelets have stabilized, continuing to follow CBC daily. (7) E. coli UTI Assessment/Plan: Will continue with meropenem as described above; this E. coli is pansensitive. Pyridium discontinued per pt request. (8) DVT of left axillary vein, acute Assessment/Plan: hold Fondaparinox by other provider due to GI bleed. followup with PCP and registered nurse first assistant after pt's GI bleed is resolved. pt hold blood thinner since 02/16/21 , pt has respiratory distress, continue closely vital monitor, we may have CTA of chest to monitor pt (9) Cold sore Assessment/Plan: Resolved per pt, discontinued acyclovir. (10) Anasarca Assessment/Plan: Resolved with lasix, will continue to follow I's and O's and daily weights (11) Red blood cell antibody positive, compatible PRBC difficult to obtain Assessment/Plan: As per history. Therefore it takes longer to crossmatch blood if she needs it. (12) Hyponatremia Assessment/Plan: Na 131, pt has hx of advanced liver failure (13) Hypomagnesemia Assessment/Plan: Resolved (14) Lower Extremity Edema Assessment/Plan: Resolved with spirinolactone addition. (15) Elevated LFTs Assessment/Plan: Resolved, most recent LFTs are within normal limits (16) S/P colostomy Assessment/Plan: As per Hx, stable (17) Hypoglycemia Assessment/Plan: Resolved (18) Septic shock Assessment/Plan: Resolved - Current Meds Current Meds: Current Medications Generic Name Dose Route Start Last Admin Trade Name Freq PRN Reason Stop Dose Admin Albuterol 2.5 mg 02/08/21 16:41 02/11/21 07:55 Albuterol Neb 2.5 Mg/3 Ml INH 2.5 mg Q4HR PRN Administration Wheezing Guaifenesin 600 mg 02/10/21 21:00 02/23/21 07:56 Guaifenesin 600 Mg Tablet PO 600 mg BID CHRISTINE Administration Guaifenesin/Codeine Phosphate 5 ml 02/10/21 18:30 02/23/21 13:30 Guaifenesin/Codeine 5 Ml Udc PO 5 ml Q6HR PRN Administration Cough Hydrocortisone 1 applic 02/13/21 08:12 02/16/21 05:16 Hydrocortisone 1% Cream 28 Gm Tube TOP 1 applic Q8H PRN Administration ITCHING Hydromorphone HCl 0.5 mg 02/12/21 18:28 02/23/21 10:09 Hydromorphone 0.5 Mg/0.5 Ml Syringe IVP 0.5 mg Q2H PRN Administration Severe Pain Meropenem 1 gm/ Sodium 100 mls @ 200 mls/hr 02/12/21 12:00 02/23/21 13:30 Chloride IV 200 mls/hr TID CHRISTINE Administration Lactulose 10 gm 02/20/21 10:00 02/23/21 07:56 Lactulose 10 Gm /15 Ml Udc PO 10 gm DAILY CHRISTINE Administration Lidocaine 1 patch 02/09/21 18:54 02/21/21 12:52 Lidocaine Patch 5% TOP 1 patch DAILY PRN Administration PAIN Lidocaine HCl 15 ml 02/13/21 11:25 02/13/21 11:54 Lidocaine Viscous 2% 100 Ml Bottle MM 15 ml Q6HR PRN Administration Mouth Sore Pain Morphine Sulfate 2 mg 02/11/21 13:11 02/16/21 00:45 Morphine 2 Mg/Ml Carpuject IVP 2 mg Q8HR PRN Administration Severe Pain Ondansetron HCl 4 mg 02/15/21 20:55 02/23/21 09:40 Ondansetron 4 Mg/2 Ml Vial IVP 4 mg Q6HR PRN Administration Nausea / Vomiting Pantoprazole Sodium 40 mg 02/18/21 16:00 02/23/21 07:01 Pantoprazole 40 Mg Tablet PO 40 mg BIDAC CHRISTINE Administration Norethindrone [ 1 each 02/14/21 21:00 02/22/21 21:19 Norethindrone] 0.35 PO Not Given Mg Tablet QPM [facility] Multivit/Folic Acid/Iron 1 tab 02/15/21 11:00 02/23/21 07:56 Vitamin Tablet PO 1 tab DAILYWM CHRISTINE Administration Saccharomyces Boulardii 250 mg 02/11/21 17:00 02/23/21 07:56 Saccharomyces Boulardii 250 Mg Capsule PO 250 mg BIDWM CHRISTINE Administration Sodium Chloride 10 ml 02/08/21 17:00 02/23/21 09:40 Sodium Chloride Flush 0.9% 10 Ml Syringe IVP 10 ml 0100,0900,1700 CHRISTINE Administration Sodium Chloride 10 ml 02/08/21 16:41 02/23/21 10:10 Sodium Chloride Flush 0.9% 10 Ml Syringe IVP 20 ml PRN PRN Administration NEEDED PER PROVIDER ORDERS Sodium Chloride 20 ml 02/09/21 22:27 02/21/21 15:57 Sodium Chloride Flush 0.9% 10 Ml Syringe IVP 20 ml PRN PRN Administration After Blood Draw Spironolactone 25 mg 02/19/21 17:00 02/23/21 07:02 Spironolactone 25 Mg Tablet PO 25 mg 0700,1700 CHRISTINE Administration Thiamine HCl 100 mg 02/12/21 09:00 02/23/21 07:56 Thiamine 100 Mg Tablet PO 100 mg DAILY CHRISTINE Administration Throat Lozenges 1 lozenge 02/08/21 23:17 02/23/21 13:30 Benzocaine/Menthol Lozenge MM 1 lozenge Q2HR PRN Administration Throat pain Tramadol HCl 50 mg 02/18/21 10:10 02/23/21 07:01 Tramadol 50 Mg Tablet PO 50 mg Q4HR PRN Administration PAIN Trazodone HCl 200 mg 02/14/21 21:00 02/22/21 21:18 Trazodone 50 Mg Tablet PO 200 mg QPM CHRISTINE Administration Venlafaxine HCl 37.5 mg 02/17/21 13:00 02/23/21 07:56 Venlafaxine Er 37.5 Mg Capsule PO 37.5 mg DAILY CHRISTINE Administration - Lab Result Fish Bone Diagrams: 02/23/21 09:15 02/23/21 09:15 - Additional Planning My Orders: My Active Orders 02/24/21 05:00 AMMONIA [CHEM] DAILYLAB BMP - BASIC METABOLIC PANEL [CHEM] DAILYLAB CBC - COMP BLD CT W/AUTO DIFF [HEME] DAILYLAB 02/25/21 05:00 AMMONIA [CHEM] DAILYLAB BMP - BASIC METABOLIC PANEL [CHEM] DAILYLAB CBC - COMP BLD CT W/AUTO DIFF [HEME] DAILYLAB 02/26/21 05:00 AMMONIA [CHEM] DAILYLAB BMP - BASIC METABOLIC PANEL [CHEM] DAILYLAB CBC - COMP BLD CT W/AUTO DIFF [HEME] DAILYLAB 02/27/21 05:00 AMMONIA [CHEM] DAILYLAB BMP - BASIC METABOLIC PANEL [CHEM] DAILYLAB CBC - COMP BLD CT W/AUTO DIFF [HEME] DAILYLAB 02/28/21 05:00 AMMONIA [CHEM] DAILYLAB BMP - BASIC METABOLIC PANEL [CHEM] DAILYLAB CBC - COMP BLD CT W/AUTO DIFF [HEME] DAILYLAB 03/01/21 05:00 AMMONIA [CHEM] DAILYLAB BMP - BASIC METABOLIC PANEL [CHEM] DAILYLAB CBC - COMP BLD CT W/AUTO DIFF [HEME] DAILYLAB Subjective - Subjective Patient Reports: Feeling Better, Resting Comfortably Objective Vital Signs: Vital Signs - 24 hr 02/22/21 02/22/21 02/23/21 15:59 20:56 00:05 Temperature 36.9 C 36.7 C 36.8 C Heart Rate [ 109 H 104 H 100 Radial] Respiratory 20 20 16 Rate Blood Pressure 119/80 121/80 116/70 [Right Radial artery] O2 Saturation 98 97 97 02/23/21 02/23/21 07:58 10:38 Temperature 36.9 C Heart Rate [ 107 H Radial] Respiratory 20 Rate Blood Pressure 108/67 [Right Radial artery] O2 Saturation 96 Oxygen O2 Source [Without Activity] Room air O2 Source Room air I&O (Last 24 Hrs): Intake and Output Totals x24h 02/21/21 02/22/21 02/23/21 23:59 23:59 23:59 Intake Total 2560 1561 780 Output Total 950 Balance 1610 1561 780 General: Alert, Oriented x3, Cooperative, No acute distress HEENT: Atraumatic Neck: Supple Lymphatic: no adenopathy Neuro: Alert, Non Focal, Oriented Times 3 Cardiovascular: Regular rate, Normal S1, Normal S2 Respiratory: Chest non-tender Abdomen: Normal bowel sounds, Soft Extremities: Normal pulses - Results Results: Laboratory Results WBC 5.8 x10^3/uL (4.8-10.8) 02/23/21 09:15 RBC 2.97 10^6/uL (4.20-5.40) L 02/23/21 09:15 Hgb 8.2 g/dL (12.0-16.0) L 02/23/21 09:15 Hct 26.0 % (37.0-47.0) L 02/23/21 09:15 MCV 87.5 fL (81.0-99.0) 02/23/21 09:15 MCH 27.6 pg (27.0-31.0) 02/23/21 09:15 MCHC 31.5 g/dL (32.0-36.0) L 02/23/21 09:15 RDW 21.0 % (12.0-15.0) H 02/23/21 09:15 Plt Count 276 10^3/uL (130-450) 02/23/21 09:15 MPV 9.9 fL (7.9-10.8) 02/23/21 09:15 Reticulocyte % (Auto) 3.49 % (0.5-2.3) H 02/16/21 14:30 Neut # (Auto) 4.2 10^3/uL (1.5-6.6) 02/23/21 09:15 Lymph # (Auto) 0.9 10^3/uL (1.5-3.5) L 02/23/21 09:15 Beltrami # (Auto) 0.5 10^3/uL (0.0-1.0) 02/23/21 09:15 Eos # (Auto) 0.2 10^3/uL (0.0-0.7) 02/23/21 09:15 Baso # (Auto) 0.0 10^3/uL (0.0-0.1) 02/23/21 09:15 Absolute Nucleated RBC 0.00 x10^3/uL 02/23/21 09:15 Total Counted 100 02/11/21 04:30 Band Neuts % (Manual) 9 % (0-10) 02/11/21 04:30 Abnorm Lymph % (Manual) 0 % 02/11/21 04:30 Metamyelocytes % 1 % (-0) H 02/10/21 05:10 Myelocytes % 1 % (-0) H 02/10/21 05:10 Nucleated RBC % 0.0 /100WBC 02/23/21 09:15 Neutrophils # (Manual) 15.7 10^3/uL (1.5-6.6) H 02/11/21 04:30 Lymphocytes # (Manual) 2.6 10^3/uL (1.5-3.5) 02/11/21 04:30 Monocytes # (Manual) 1.8 10^3/uL (0.0-1.0) H 02/11/21 04:30 Eosinophils # (Manual) 0.0 10^3/uL (0-0.7) 02/11/21 04:30 Basophils # (Manual) 0.0 10^3/uL (0-0.1) 02/11/21 04:30 Nucleated RBCs 24 % 02/08/21 11:02 Differential Comment MANUAL DIFFERENTIAL 02/11/21 04:30 Manual Slide Review Indicated 02/18/21 06:00 Platelet Estimate NORMAL (130-450,000) (NORMAL) 02/18/21 06:00 Platelet Morphology NORMAL APPEARANCE (NORMAL) 02/09/21 04:50 RBC Morph Micro Appear 1+ ANISOCYTOSIS (NORMAL) 1+ HYPOCHROMASIA (NORMAL) 1+ OVALOCYTES (NORMAL) 02/18/21 06:00 RBC Morph Micro Appear 1+ ANISOCYTOSIS (NORMAL) 1+ HYPOCHROMASIA (NORMAL) 1+ OVALOCYTES (NORMAL) 02/18/21 06:00 RBC Morph Micro Appear 1+ ANISOCYTOSIS (NORMAL) 1+ HYPOCHROMASIA (NORMAL) 1+ OVALOCYTES (NORMAL) 02/18/21 06:00 Absolute Retic 0.092 10^6/uL (0.020-0.110) 02/16/21 14:30 PT 20.0 secs (9.9-12.6) H 02/16/21 04:38 INR 1.8 (0.8-1.2) H 02/16/21 04:38 APTT 31.5 secs (24.9-33.3) 02/08/21 11:34 Fibrinogen 311 mg/dL (220-496) 02/13/21 08:05 VBG pH 7.377 (7.31-7.41) 02/13/21 06:50 Ionized Calcium 1.07 mmol/L (1.15-1.33) L 02/13/21 06:50 Sodium 131 mmol/L (135-145) L 02/23/21 09:15 Potassium 3.4 mmol/L (3.5-5.0) L 02/23/21 09:15 Chloride 106 mmol/L (101-111) 02/23/21 09:15 Carbon Dioxide 19 mmol/L (21-32) L 02/23/21 09:15 Anion Gap 6.0 (6-13) 02/23/21 09:15 BUN 5 mg/dL (6-20) L 02/23/21 09:15 Creatinine 0.4 mg/dL (0.4-1.0) 02/23/21 09:15 Estimated GFR (MDRD) 170 (>89) 02/23/21 09:15 Glucose 139 mg/dL (70-100) H 02/23/21 09:15 Lactic Acid 2.7 mmol/L (0.5-2.2) H 02/10/21 14:09 Calcium 7.2 mg/dL (8.5-10.3) L 02/23/21 09:15 Phosphorus 2.0 mg/dL (2.5-4.6) L 02/16/21 04:38 Magnesium 1.8 mg/dL (1.7-2.8) 02/17/21 04:30 Iron 35 ug/dL (28-170) 02/08/21 11:02 TIBC 321 ug/dL (250-450) 02/08/21 11:02 % Saturation 11 % (20-50) L 02/08/21 11:02 Transferrin 229 mg/dL (192-382) 02/08/21 11:02 Ferritin 15.9 ng/mL (11.0-306.8) 02/08/21 11:02 Total Bilirubin 9.4 mg/dL (0.2-1.0) H 02/16/21 04:38 Direct Bilirubin 9.0 mg/dL (0.1-0.5) H 02/14/21 09:26 AST 34 IU/L (10-42) 02/16/21 04:38 ALT 15 IU/L (10-60) 02/16/21 04:38 Alkaline Phosphatase 118 IU/L (42-121) 02/16/21 04:38 Ammonia 63.6 umol/L (7-35) H 02/23/21 09:15 Lactate Dehydrogenase 132 IU/L (91-225) 02/16/21 14:30 Troponin I High Sens 23.3 ng/L (2.3-14.8) H* 02/08/21 17:02 B-Natriuretic Peptide 249 pg/mL (5-100) H 02/08/21 11:02 Total Protein 4.1 g/dL (6.7-8.2) L 02/16/21 04:38 Albumin 1.5 g/dL (3.2-5.5) L 02/16/21 04:38 Globulin 2.6 g/dL (2.1-4.2) 02/16/21 04:38 Albumin/Globulin Ratio 0.6 (1.0-2.2) L 02/16/21 04:38 Lipase 24 U/L (22-51) 02/08/21 11:02 Vitamin B12 1630 pg/mL (180-914) H 02/16/21 14:30 Folate 7.36 ng/mL (5.90 - >24.8) 02/08/21 11:02 Urine Color BROWN 02/08/21 12:53 Urine Clarity CLOUDY (CLEAR) 02/08/21 12:53 Urine pH 7.0 PH (5.0-7.5) 02/08/21 12:53 Ur Specific [place] 1.015 (1.002-1.030) 02/08/21 12:53 Urine Protein >=300 mg/dL (NEGATIVE) H 02/08/21 12:53 Urine Glucose (UA) NEGATIVE mg/dL (NEGATIVE) 02/08/21 12:53 Urine Ketones TRACE mg/dL (NEGATIVE) 02/08/21 12:53 Urine Occult Blood LARGE (NEGATIVE) H 02/08/21 12:53 Urine Nitrite POSITIVE (NEGATIVE) H 02/08/21 12:53 Urine Bilirubin NEGATIVE (NEGATIVE) 02/08/21 12:53 Urine Urobilinogen 1 (NORMAL) E.U./dL (NORMAL) 02/08/21 12:53 Ur Leukocyte Esterase MODERATE (NEGATIVE) H 02/08/21 12:53 Urine RBC TNTC /HPF (0-5) H 02/08/21 12:53 Urine WBC >25 /HPF (0-5) H 02/08/21 12:53 Ur Squamous Epith Cells RARE Squamous (<= Few) 02/08/21 12:53 Urine Bacteria Moderate /HPF (None Seen) H 02/08/21 12:53 Ur Microscopic Review INDICATED 02/08/21 12:53 Urine Culture Comments INDICATED 02/08/21 12:53 Nasal Adenovirus (PCR) NOT DETECTED 02/08/21 11:02 Nasal B. parapertussis DNA (PCR) NOT DETECTED 02/08/21 11:02 Nasal Coronavir 229E PCR NOT DETECTED 02/08/21 11:02 Nasal Coronavir HKU1 PCR NOT DETECTED 02/08/21 11:02 Nasal Coronavir NL63 PCR NOT DETECTED 02/08/21 11:02 Nasal Coronavir OC43 PCR NOT DETECTED 02/08/21 11:02 Nasal Enterovir/Rhinovir PCR NOT DETECTED 02/08/21 11:02 Nasal Influenza B PCR NOT DETECTED 02/08/21 11:02 Nasal Influenza A PCR NOT DETECTED 02/08/21 11:02 Nasal Parainfluen 1 PCR NOT DETECTED 02/08/21 11:02 Nasal Parainfluen 2 PCR NOT DETECTED 02/08/21 11:02 Nasal Parainfluen 3 PCR NOT DETECTED 02/08/21 11:02 Nasal Parainfluen 4 PCR NOT DETECTED 02/08/21 11:02 Nasal RSV (PCR) NOT DETECTED 02/08/21 11:02 Nasal Screen MRSA (PCR) NEGATIVE (NEGATIVE) 02/08/21 19:55 Nasal B.pertussis DNA PCR NOT DETECTED 02/08/21 11:02 Nasal C.pneumoniae (PCR) NOT DETECTED 02/08/21 11:02 Yan Human Metapneumo PCR NOT DETECTED 02/08/21 11:02 Nasal M.pneumoniae (PCR) NOT DETECTED 02/08/21 11:02 Nasal SARS-CoV-2 (PCR) NOT DETECTED 02/08/21 11:02 Blood Type A POSITIVE 02/18/21 08:24 Antibody Screen NEGATIVE 02/18/21 08:24 Crossmatch See Detail 02/18/21 08:24 - Procedures Procedures: Procedures TRANSFUSE NONAUT RED BLOOD CELLS IN PERIPH VEIN, [facility] (09/23/20) Sepsis Event Note (H) - Evaluation Current Stage of Sepsis: Septic shock - Sepsis Criteria Sepsis Criteria: Recorded Heart Rate greater than 90 bpm, Recorded Respiratory Rate greater than 20, WBC count greater than 12,000 or less than 4000, SBP drop more than 40mHg, SBP less than 90 mmHg, Metabolic: lactate > 2 mmol/L, Hematologic: platelets < 100,000; INR > 1.5, or a PTT>60 seconds ABX Reporting Has patient been on IV antibiotics over the past 48 hours?: Yes Current Medications - Current Medications Current Medications: Active Medications Albuterol (Albuterol Neb 2.5 Mg/3 Ml) 2.5 mg INH Q4HR PRN PRN Reason: Wheezing Last Admin: 02/11/21 07:55 Dose: 2.5 mg Guaifenesin (Guaifenesin 600 Mg Tablet) 600 mg PO BID [facility] Last Admin: 02/23/21 07:56 Dose: 600 mg Guaifenesin/Codeine Phosphate (Guaifenesin/Codeine 5 Ml Udc) 5 ml PO Q6HR PRN PRN Reason: Cough Last Admin: 02/23/21 13:30 Dose: 5 ml Hydrocortisone (Hydrocortisone 1% Cream 28 Gm Tube) 1 applic TOP Q8H PRN PRN Reason: ITCHING Last Admin: 02/16/21 05:16 Dose: 1 applic Hydromorphone HCl (Hydromorphone 0.5 Mg/0.5 Ml Syringe) 0.5 mg IVP Q2H PRN PRN Reason: Severe Pain Last Admin: 02/23/21 10:09 Dose: 0.5 mg Meropenem 1 gm/ Sodium (Chloride) 100 mls @ 200 mls/hr IV TID [facility] Last Infusion: 02/23/21 14:00 Dose: Infused Lactulose (Lactulose 10 Gm /15 Ml Udc) 10 gm PO DAILY [facility] Last Admin: 02/23/21 07:56 Dose: 10 gm Lidocaine (Lidocaine Patch 5%) 1 patch TOP DAILY PRN PRN Reason: PAIN Last Admin: 02/21/21 12:52 Dose: 1 patch Lidocaine HCl (Lidocaine Viscous 2% 100 Ml Bottle) 15 ml MM Q6HR PRN PRN Reason: Mouth Sore Pain Last Admin: 02/13/21 11:54 Dose: 15 ml Lorazepam (Lorazepam 2 Mg/Ml Vial) 0.5 mg IVP Q8H PRN PRN Reason: Anxiety Morphine Sulfate (Morphine 2 Mg/Ml Carpuject) 2 mg IVP Q8HR PRN PRN Reason: Severe Pain Last Admin: 02/16/21 00:45 Dose: 2 mg Ondansetron HCl (Ondansetron 4 Mg/2 Ml Vial) 4 mg IVP Q6HR PRN PRN Reason: Nausea / Vomiting Last Admin: 02/23/21 09:40 Dose: 4 mg Pantoprazole Sodium (Pantoprazole 40 Mg Tablet) 40 mg PO BIDAC [facility] Last Admin: 02/23/21 07:01 Dose: 40 mg Norethindrone [ Norethindrone] 0.35 Mg Tablet 1 each PO QPM [facility] Last Admin: 02/22/21 21:19 Dose: Not Given Multivit/Folic Acid/Iron ( Vitamin Tablet) 1 tab PO DAILYWM [facility] Last Admin: 02/23/21 07:56 Dose: 1 tab Saccharomyces Boulardii (Saccharomyces Boulardii 250 Mg Capsule) 250 mg PO BIDWM [facility] Last Admin: 02/23/21 07:56 Dose: 250 mg Sodium Chloride (Sodium Chloride Flush 0.9% 10 Ml Syringe) 10 ml IVP 0100,0900,1700 [facility] Last Admin: 02/23/21 09:40 Dose: 10 ml Sodium Chloride (Sodium Chloride Flush 0.9% 10 Ml Syringe) 10 ml IVP PRN PRN PRN Reason: NEEDED PER PROVIDER ORDERS Last Admin: 02/23/21 10:10 Dose: 20 ml Sodium Chloride (Sodium Chloride Flush 0.9% 10 Ml Syringe) 20 ml IVP PRN PRN PRN Reason: After Blood Draw Last Admin: 02/21/21 15:57 Dose: 20 ml Spironolactone (Spironolactone 25 Mg Tablet) 25 mg PO 0700,1700 [facility] Last Admin: 02/23/21 07:02 Dose: 25 mg Thiamine HCl (Thiamine 100 Mg Tablet) 100 mg PO DAILY [facility] Last Admin: 02/23/21 07:56 Dose: 100 mg Throat Lozenges (Benzocaine/Menthol Lozenge) 1 lozenge MM Q2HR PRN PRN Reason: Throat pain Last Admin: 02/23/21 13:30 Dose: 1 lozenge Tramadol HCl (Tramadol 50 Mg Tablet) 50 mg PO Q4HR PRN PRN Reason: PAIN Last Admin: 02/23/21 07:01 Dose: 50 mg Trazodone HCl (Trazodone 50 Mg Tablet) 200 mg PO QPM [facility] Last Admin: 02/22/21 21:18 Dose: 200 mg Venlafaxine HCl (Venlafaxine Er 37.5 Mg Capsule) 37.5 mg PO DAILY [facility] Last Admin: 02/23/21 07:56 Dose: 37.5 mg Trazodone HCl 200 mg PO QPM 11/26/19 Albuterol [Proventil Hfa] 2 puffs PO Q4H PRN 09/24/20 traMADol [Ultram] 25 mg PO Q8H PRN 09/24/20 Norethindrone 1 tab PO QPM 02/09/21
[2021-02-23] MEDS ORDERED: iohexoL-300 100 ML VIAL ONE (15:14)
--- NOTE | 2021-02-23 16:18 | CT Report ---
PROCEDURE: ANGIO CHEST W/WO INDICATIONS: DVT on upper extremity, respiratory distress CONTRAST: IV CONTRAST: Isovue 300 ml: 80 PO CONTRAST: *NO PO CONTRAST TECHNIQUE: After the administration of intravenous contrast, 2 mm axial images were acquired from the pulmonary apices to the posterior costophrenic angles during the arterial phase. In addition, 1 mm lung kernel and 5 mm soft tissue kernel reconstructions were performed. 3-dimensional coronal oblique maximum int ensity projection (MIP) reformats, 8 mm axial MIP, and 5 mm coronal and sagittal MPR reformats were t hen performed through the thorax. For radiation dose reduction, the following was used: automated exp osure control, adjustment of mA and/or kV according to patient size. COMPARISON: 08/17/2020 CT examination FINDINGS: Image quality: Excellent. Pulmonary arteries: Pulmonary arteries are normal in size, and demonstrate no intraluminal filling d efects to suggest central pulmonary embolism. Lungs and pleura: There is mild dependent bibasilar atelectasis versus pneumonia. No pleural effusion s or pneumothorax. Central and peripheral airways are patent. Mediastinum: Heart size is normal, without pericardial effusion. No mediastinal or hilar adenopathy . Thoracic aorta is normal in caliber and enhancement. Esophagus is normal in caliber, without hiat al hernia. Bones and chest wall: No suspicious bony lesions. Ribs and thoracic spine appear intact throughout. No axillary or supraclavicular adenopathy. The thyroid is normal in size. There is a 11 mm low-den sity right adrenal nodule. Abdomen: Visualized portions of the upper abdomen demonstrate a small amount of ascites. IMPRESSION: 1. No pulmonary embolus. 2. Bibasilar atelectasis versus pneumonia. 3. Right thyroid nodule. This could be further assessed with ultrasound, if clinically indicated. 4. Small amount of ascites. CLINICAL RECOMMENDATION STATEMENTS: In patients <35 years with an ITN detected on CT, MRI, or extrathyroidal ultrasound, the Committee re commends further evaluation with dedicated thyroid ultrasound if the nodule is "e1 cm and has no susp icious imaging features, and if the patient has normal life expectancy. In patients "e35 years with an ITN detected on CT, MRI, or extrathyroidal ultrasound, the Committee r ecommends further evaluation with dedicated thyroid ultrasound if the nodule is "e1.5 cm and has no s uspicious imaging features, and if the patient has normal life expectancy. (ACR, 2014) Reviewed by: Garry Guajardo MD on 02/23/2021 4:17 PM PST Approved by: Garry Guajardo MD on 02/23/2021 4:17 PM PST Station ID: [id number]
[2021-02-23] MEDS ORDERED: iohexoL-300 100 ML VIAL IVP ONE (21:36)
[2021-02-23] MEDS: traZODone 50 MG TABLET PO SCH (21:48)
[2021-02-23] MEDS: NORETHINDRONE 0.35 MG PO SCH (21:49)
[2021-02-23] MEDS: LIDOCAINE PATCH 5% TOP PRN (23:33)
[2021-02-24] MEDS: guaiFENesin/CODEINE 5 ML UDC PO PRN ×2 (03:40→11:20)
[2021-02-24] MEDS: HYDROmorphone 0.5 MG/0.5 ML SYRINGE IVP PRN ×4 (03:40→21:37)
[2021-02-24] MEDS: MEROPENEM 1 GM in SODIUM CHLORIDE 0.9% MINIBAG 100 ML IV SCH ×3 (06:13→21:42)
[2021-02-24] MEDS: SPIRONOLACTONE 25 MG TABLET PO SCH ×2 (06:14→18:02)
[2021-02-24] MEDS: BENZOCAINE/MENTHOL LOZENGE MM PRN ×3 (06:14→11:20)
[2021-02-24] MEDS: PANTOPRAZOLE 40 MG TABLET PO SCH ×2 (06:14→16:13)
[2021-02-24 06:32] LABS: BASOPHILS % (AUTO) 0.7 %; EOSINOPHILS # (AUTO) 0.2 10^3/uL (0.0-0.7); EOSINOPHILS % (AUTO) 2.9 %; HGB - HEMOGLOBIN 7.6 g/dL (12.0-16.0); LYMPHOCYTES # (AUTO) 0.9 10^3/uL (1.5-3.5); LYMPHOCYTES % (AUTO) 16.5 %; MEAN CORPUSCULAR HEMOGLOBIN 27.6 pg (27.0-31.0); MEAN CORPUSCULAR HGB CONC 31.7 g/dL (32.0-36.0); MEAN CORPUSCULAR VOLUME 87.3 fL (81.0-99.0); MEAN PLATELET VOLUME 9.9 fL (7.9-10.8); MONOCYTES # (AUTO) 0.5 10^3/uL (0.0-1.0); MONOCYTES % (AUTO) 8.8 %; NEUTROPHILS % (AUTO) 70.6 %; PLT - PLATELET COUNT 230 10^3/uL (130-450); RED BLOOD COUNT 2.75 10^6/uL (4.20-5.40); RED CELL DISTRIBUTION WIDTH 20.5 % (12.0-15.0); WHITE BLOOD COUNT 5.6 x10^3/uL (4.8-10.8)
[2021-02-24 06:35] LABS: SLIDE REVIEW? Indicated
[2021-02-24 06:40] LABS: CALCIUM 7.3 mg/dL (8.5-10.3); CREATININE 0.3 mg/dL (0.4-1.0); POTASSIUM 3.6 mmol/L (3.5-5.0)
[2021-02-24 06:48] LABS: PLATELET ESTIMATE, MANUAL NORMAL (130-450,000) (NORMAL); PLATELET MORPHOLOGY NORMAL APPEARANCE (NORMAL); WBC MORPHOLOGY (MULTIPLE) NORMAL APPEARANCE (NORMAL)
[2021-02-24] MEDS: PRENATAL VITAMIN TABLET PO SCH (08:08)
[2021-02-24] MEDS: SACCHAROMYCES BOULARDII 250 MG CAPSULE PO SCH ×2 (08:08→18:02)
[2021-02-24 08:27] LABS: MAGNESIUM 1.6 mg/dL (1.7-2.8); PHOSPHORUS 1.7 mg/dL (2.5-4.6)
[2021-02-24] MEDS: LACTULOSE 10 GM /15 ML UDC PO SCH (11:03)
[2021-02-24] MEDS: NEUTRA-PHOS 250 MG TABLET PO SCH ×3 (11:04→18:02)
[2021-02-24] MEDS: VENLAFAXINE ER 37.5 MG CAPSULE PO SCH (11:05)
[2021-02-24] MEDS: THIAMINE 100 MG TABLET PO SCH (11:06)
[2021-02-24] MEDS: MAGNESIUM OXIDE 400 MG TABLET PO SCH (11:06)
[2021-02-24] MEDS: guaiFENesin 600 MG TABLET PO SCH ×2 (11:06→21:37)
--- NOTE | 2021-02-24 11:23 | PROVIDER PROGRESS NOTE ---
Assessment/Plan - Problem List (1) Bacteremia due to Klebsiella pneumoniae Assessment/Plan: 02/24 per pharmacy report tomorrow is pt's last day for her 14days IV meropenem. repeat blood culture. pt has normal arrange WBC, pt has no fever, pt is comfortable, she has no complaints. she really hope she can go home on tomorrow. will continue finish IV of meropenem until tomorrow, then switch to PO antibiotics although she finished the IV treatment course because of vesicorectal fistula, pt is at the high risk for recurrent UTI. pt refused to have surgery to fix vesicorectal fistula, although surgeon recommended medical management at this point because of her high surgery mortality rate. 02/23 pt is meropenem IV by PICC for treatment for her bacteremia with multiple drug resistant klebsiella pneumoniae. pt has normal arrange WBC, pt has no fever, pt is comfortable, she has no complaints. this is day11 on meropenem, 3 days left for treatment course. At this point, not necessary to repeat blood cu lture. (2) Vesicorectal fistula 02/24 pt herself clearly refused to have surgery to fix her vesicorectal fistula, although surgeon also recommended medical management, not surgery candidate at this point because of her high surgery mortality rate. pt denies to have GI or vaginal bleeding. Her HGB is 7.6, slight drop from previous, we will order H&H monitor pt. pt denies abdominal pain, she feel good, she has no complaints. Patient denies rectal or vaginal bleed, she also denies abdomina pain, Her HGB is stable. pt is on treatment with IV meropenem. surgeon was consulted, and believed a very high perioperative mortality and no urgent surgical intervention is indicated at this time and suggested nonoperative management at this time. pt may followup with out-pt surgeon at this time. we will continue vital and lab monitor. (3) Alcoholic cirrhosis 02/24 discussed pt about her high possible poor prognosis based on her liver failure with her complications, recommend pt has palliative care as out-pt. strongly advise pt no more alcohol, at this point, she agreed. discussed with pt about her advanced alcoholic liver cirrhosis. strongly advise pt no more alcohol. her MELD score is 25 points which correlates to an estimated 3 month mortality rate of 19.6%. Patient has cirrhosis from years of binging alcohol. we will Avoid hepatotoxins and continue to follow LFTs daily. per previous provider, Discussed continued declining liver function with her GI specialist Dr Lima. He is in agreement with the current plan of care. Her calculated MELD score is 25 points which correlates to an estimated 3 month mortality rate of 19.6%. Discussed the necessity of alcohol cessation with the patient in depth. We talked about her mortality risk score and that she is not a candidate for further interventions such as liver transplant while she is still consuming alcohol. (4) GI bleed with Severe anemia Assessment/Plan: 02/24 pt's anemia is likely combination of her liver failure chronic disease, GI rectal bleed with hx of varices, and vesicorectal fistula. we consulted two surgeon, both recommended pt was not candidate to have surgery based on her high mortality rate, also pt herself refused to have surgery. we order iron pill and H&H monitor pt to see if she need another blood transfusion, then followup with PCP to monitor her HGB, and followup with r programmer and Senior Sas Developer as out-pt. occult blood test was positive, consulted with our GI surgeon, suggest A biofuels plant operations engineer would be best equipped to manage for pt and pt is not a surgical candidate, and she was recommend to follow up with her biofuels plant operations engineer at [facility] after d/c pt's fondaparinux was hold due to GI bleed by other provider. pt has stable HGB now, follow up with her biofuels plant operations engineer at [facility] after d/c by GI surgeon's recommendation. continue protonix bid and lab monitor (5) Cough Assessment/Plan: improved. We are continuing the Robitussin, Mucinex and inhaler. She reports improvement since starting spirometry. Will continue to monitor. (6) Thrombocytopenia Assessment/Plan: Platelets have stabilized, continuing to follow CBC daily. (7) E. coli UTI Assessment/Plan: Will continue with meropenem as described above; this E. coli is pansensitive. Pyridium discontinued per pt request. (8) DVT of left axillary vein, acute Assessment/Plan: 02/24 CTA of chest reveals no PE, continue hold blood thinner based on pt's anemia, GI bleed and vesicorectal fistula hold Fondaparinox by other provider due to GI bleed. followup with PCP and [place] stroenterologist after pt's GI bleed is resolved. pt hold blood thinner since 02/16/21 , pt has respiratory distress, continue closely vital monitor, we may have CTA of chest to monitor pt (9) Cold sore Assessment/Plan: Resolved per pt, discontinued acyclovir. (10) Anasarca Assessment/Plan: Resolved with lasix, will continue to follow I's and O's and daily weights (11) Red blood cell antibody positive, compatible PRBC difficult to obtain Assessment/Plan: As per history. Therefore it takes longer to crossmatch blood if she needs it. (12) Hyponatremia Assessment/Plan: Na 131, pt has hx of advanced liver failure (13) Hypomagnesemia Assessment/Plan: Resolved (14) Lower Extremity Edema Assessment/Plan: Resolved with spirinolactone addition. (15) Elevated LFTs Assessment/Plan: Resolved, most recent LFTs are within normal limits (16) S/P colostomy Assessment/Plan: As per Hx, stable (17) Hypoglycemia Assessment/Plan: Resolved (18) Septic shock Assessment/Plan: Resolved - Current Meds Current Meds: Current Medications Generic Name Dose Route Start Last Admin Trade Name Freq PRN Reason Stop Dose Admin Albuterol 2.5 mg 02/08/21 16:41 02/11/21 07:55 Albuterol Neb 2.5 Mg/3 Ml INH 2.5 mg Q4HR PRN Administration Wheezing Guaifenesin 600 mg 02/10/21 21:00 02/24/21 11:06 Guaifenesin 600 Mg Tablet PO 600 mg BID CHRISTINE Administration Guaifenesin/Codeine Phosphate 5 ml 02/10/21 18:30 02/24/21 03:40 Guaifenesin/Codeine 5 Ml Udc PO 5 ml Q6HR PRN Administration Cough Hydrocortisone 1 applic 02/13/21 08:12 02/16/21 05:16 Hydrocortisone 1% Cream 28 Gm Tube TOP 1 applic Q8H PRN Administration ITCHING Hydromorphone HCl 0.5 mg 02/12/21 18:28 02/24/21 03:40 Hydromorphone 0.5 Mg/0.5 Ml Syringe IVP 0.5 mg Q2H PRN Administration Severe Pain Meropenem 1 gm/ Sodium 100 mls @ 200 mls/hr 02/12/21 12:00 02/24/21 06:43 Chloride IV Infused TID CHRISTINE Infusion Lactulose 10 gm 02/20/21 10:00 02/24/21 11:03 Lactulose 10 Gm /15 Ml Udc PO 10 gm DAILY CHRISTINE Administration Lidocaine 1 patch 02/09/21 18:54 02/23/21 23:33 Lidocaine Patch 5% TOP 1 patch DAILY PRN Administration PAIN Lidocaine HCl 15 ml 02/13/21 11:25 02/13/21 11:54 Lidocaine Viscous 2% 100 Ml Bottle MM 15 ml Q6HR PRN Administration Mouth Sore Pain Magnesium Oxide 400 mg 02/24/21 10:00 02/24/21 11:06 Magnesium Oxide 400 Mg Tablet PO 400 mg DAILYWM CHRISTINE Administration Morphine Sulfate 2 mg 02/11/21 13:11 02/16/21 00:45 Morphine 2 Mg/Ml Carpuject IVP 2 mg Q8HR PRN Administration Severe Pain Ondansetron HCl 4 mg 02/15/21 20:55 02/23/21 09:40 Ondansetron 4 Mg/2 Ml Vial IVP 4 mg Q6HR PRN Administration Nausea / Vomiting Pantoprazole Sodium 40 mg 02/18/21 16:00 02/24/21 06:14 Pantoprazole 40 Mg Tablet PO 40 mg BIDAC CHRISTINE Administration Norethindrone [ 1 each 02/14/21 21:00 02/23/21 21:49 Norethindrone] 0.35 PO Not Given Mg Tablet QPM CHRISTINE Multivit/Folic Acid/Iron 1 tab 02/15/21 11:00 02/24/21 08:08 Vitamin Tablet PO 1 tab DAILYWM CHRISTINE Administration Saccharomyces Boulardii 250 mg 02/11/21 17:00 02/24/21 08:08 Saccharomyces Boulardii 250 Mg Capsule PO 250 mg BIDWM CHRISTINE Administration Sodium Chloride 10 ml 02/08/21 17:00 02/23/21 23:26 Sodium Chloride Flush 0.9% 10 Ml Syringe IVP 10 ml 0100,0900,1700 CHRISTINE Administration Sodium Chloride 10 ml 02/08/21 16:41 02/23/21 23:26 Sodium Chloride Flush 0.9% 10 Ml Syringe IVP 10 ml PRN PRN Administration NEEDED PER PROVIDER ORDERS Sodium Chloride 20 ml 02/09/21 22:27 02/21/21 15:57 Sodium Chloride Flush 0.9% 10 Ml Syringe IVP 20 ml PRN PRN Administration After Blood Draw Sodium Phosphate 250 mg 02/24/21 09:12 02/24/21 11:04 Neutra-Phos 250 Mg Tablet PO 250 mg TIDWM CHRISTINE Administration Spironolactone 25 mg 02/19/21 17:00 02/24/21 06:14 Spironolactone 25 Mg Tablet PO 25 mg 0700,1700 CHRISTINE Administration Thiamine HCl 100 mg 02/12/21 09:00 02/24/21 11:06 Thiamine 100 Mg Tablet PO 100 mg DAILY CHRISTINE Administration Throat Lozenges 1 lozenge 02/08/21 23:17 02/24/21 09:41 Benzocaine/Menthol Lozenge MM 1 lozenge Q2HR PRN Administration Throat pain Tramadol HCl 50 mg 02/18/21 10:10 02/23/21 21:48 Tramadol 50 Mg Tablet PO 50 mg Q4HR PRN Administration PAIN Trazodone HCl 200 mg 02/14/21 21:00 02/23/21 21:48 Trazodone 50 Mg Tablet PO 200 mg QPM CHRISTINE Administration Venlafaxine HCl 37.5 mg 02/17/21 13:00 02/24/21 11:05 Venlafaxine Er 37.5 Mg Capsule PO 37.5 mg DAILY CHRISTINE Administration - Lab Result Fish Bone Diagrams: 02/24/21 06:00 02/24/21 06:00 - Additional Planning My Orders: My Active Orders 02/24/21 08:40 Blood Culture [CULTURE, BLOOD #1] [] Urgent 02/24/21 09:01 Blood Culture [CULTURE, BLOOD #2] [] Urgent 02/24/21 09:12 Neutra-Phos [K-Phos Neutral] 250 mg PO TIDWM 02/24/21 10:00 Magnesium Oxide [Mag Ox] 400 mg PO DAILYWM 02/24/21 11:00 Ferrous Gluconate [Fergon] 324 mg PO DAILYWM 02/24/21 15:00 H&H [HEMOGLOBIN AND HEMATOCRIT] [HEME] Timed 02/25/21 05:00 AMMONIA [CHEM] DAILYLAB BMP - BASIC METABOLIC PANEL [CHEM] DAILYLAB CBC - COMP BLD CT W/AUTO DIFF [HEME] DAILYLAB MAGNESIUM [CHEM] DAILYLAB PHOSPHORUS [CHEM] DAILYLAB 02/26/21 05:00 AMMONIA [CHEM] DAILYLAB BMP - BASIC METABOLIC PANEL [CHEM] DAILYLAB CBC - COMP BLD CT W/AUTO DIFF [HEME] DAILYLAB MAGNESIUM [CHEM] DAILYLAB PHOSPHORUS [CHEM] DAILYLAB 02/27/21 05:00 AMMONIA [CHEM] DAILYLAB BMP - BASIC METABOLIC PANEL [CHEM] DAILYLAB CBC - COMP BLD CT W/AUTO DIFF [HEME] DAILYLAB 02/28/21 05:00 AMMONIA [CHEM] DAILYLAB BMP - BASIC METABOLIC PANEL [CHEM] DAILYLAB CBC - COMP BLD CT W/AUTO DIFF [HEME] DAILYLAB 03/01/21 05:00 AMMONIA [CHEM] DAILYLAB BMP - BASIC METABOLIC PANEL [CHEM] DAILYLAB CBC - COMP BLD CT W/AUTO DIFF [HEME] DAILYLAB Subjective - Subjective Patient Reports: Resting Comfortably Objective Vital Signs: Vital Signs - 24 hr 02/23/21 02/23/21 02/24/21 15:50 23:26 08:00 Temperature 36.6 C 36.6 C 36.7 C Heart Rate [ 108 H 107 H 110 H Radial] Respiratory 20 16 14 Rate Blood Pressure 122/70 110/71 122/78 [Right Radial artery] O2 Saturation 99 97 99 Oxygen O2 Source [Without Activity] Room air O2 Source Room air I&O (Last 24 Hrs): Intake and Output Totals x24h 02/22/21 02/23/21 02/24/21 23:59 23:59 23:59 Intake Total 1561 1280 1000 Balance 1561 1280 1000 General: Alert, Oriented x3, Cooperative, No acute distress HEENT: Atraumatic Neck: Supple Lymphatic: no adenopathy Neuro: Alert, Non Focal, Oriented Times 3 Cardiovascular: Regular rate, Normal S1, Normal S2 Respiratory: Chest non-tender, No respiratory distress Abdomen: Normal bowel sounds, Soft Extremities: Normal pulses - Results Results: Laboratory Results WBC 5.6 x10^3/uL (4.8-10.8) 02/24/21 06:00 RBC 2.75 10^6/uL (4.20-5.40) L 02/24/21 06:00 Hgb 7.6 g/dL (12.0-16.0) L 02/24/21 06:00 Hct 24.0 % (37.0-47.0) L 02/24/21 06:00 MCV 87.3 fL (81.0-99.0) 02/24/21 06:00 MCH 27.6 pg (27.0-31.0) 02/24/21 06:00 MCHC 31.7 g/dL (32.0-36.0) L 02/24/21 06:00 RDW 20.5 % (12.0-15.0) H 02/24/21 06:00 Plt Count 230 10^3/uL (130-450) 02/24/21 06:00 MPV 9.9 fL (7.9-10.8) 02/24/21 06:00 Reticulocyte % (Auto) 3.49 % (0.5-2.3) H 02/16/21 14:30 Neut # (Auto) 4.0 10^3/uL (1.5-6.6) 02/24/21 06:00 Lymph # (Auto) 0.9 10^3/uL (1.5-3.5) L 02/24/21 06:00 [place] # (Auto) 0.5 10^3/uL (0.0-1.0) 02/24/21 06:00 Eos # (Auto) 0.2 10^3/uL (0.0-0.7) 02/24/21 06:00 Baso # (Auto) 0.0 10^3/uL (0.0-0.1) 02/24/21 06:00 Absolute Nucleated RBC 0.00 x10^3/uL 02/24/21 06:00 Total Counted 100 02/11/21 04:30 Band Neuts % (Manual) 9 % (0-10) 02/11/21 04:30 Abnorm Lymph % (Manual) 0 % 02/11/21 04:30 Metamyelocytes % 1 % (-0) H 02/10/21 05:10 Myelocytes % 1 % (-0) H 02/10/21 05:10 Nucleated RBC % 0.0 /100WBC 02/24/21 06:00 Neutrophils # (Manual) 15.7 10^3/uL (1.5-6.6) H 02/11/21 04:30 Lymphocytes # (Manual) 2.6 10^3/uL (1.5-3.5) 02/11/21 04:30 Monocytes # (Manual) 1.8 10^3/uL (0.0-1.0) H 02/11/21 04:30 Eosinophils # (Manual) 0.0 10^3/uL (0-0.7) 02/11/21 04:30 Basophils # (Manual) 0.0 10^3/uL (0-0.1) 02/11/21 04:30 Nucleated RBCs 24 % 02/08/21 11:02 Differential Comment MANUAL DIFFERENTIAL 02/11/21 04:30 Manual Slide Review Indicated 02/24/21 06:00 WBC Morphology NORMAL APPEARANCE (NORMAL) 02/24/21 06:00 Platelet Estimate NORMAL (130-450,000) (NORMAL) 02/24/21 06:00 Platelet Morphology NORMAL APPEARANCE (NORMAL) 02/24/21 06:00 RBC Morph Micro Appear 1+ ANISOCYTOSIS (NORMAL) 1+ HYPOCHROMASIA (NORMAL) 02/24/21 06:00 RBC Morph Micro Appear 1+ ANISOCYTOSIS (NORMAL) 1+ HYPOCHROMASIA (NORMAL) 02/24/21 06:00 Absolute Retic 0.092 10^6/uL (0.020-0.110) 02/16/21 14:30 PT 20.0 secs (9.9-12.6) H 02/16/21 04:38 INR 1.8 (0.8-1.2) H 02/16/21 04:38 APTT 31.5 secs (24.9-33.3) 02/08/21 11:34 Fibrinogen 311 mg/dL (220-496) 02/13/21 08:05 VBG pH 7.377 (7.31-7.41) 02/13/21 06:50 Ionized Calcium 1.07 mmol/L (1.15-1.33) L 02/13/21 06:50 Sodium 134 mmol/L (135-145) L 02/24/21 06:00 Potassium 3.6 mmol/L (3.5-5.0) 02/24/21 06:00 Chloride 107 mmol/L (101-111) 02/24/21 06:00 Carbon Dioxide 22 mmol/L (21-32) 02/24/21 06:00 Anion Gap 5.0 (6-13) L 02/24/21 06:00 BUN 5 mg/dL (6-20) L 02/24/21 06:00 Creatinine 0.3 mg/dL (0.4-1.0) L 02/24/21 06:00 Estimated GFR (MDRD) 237 (>89) 02/24/21 06:00 Glucose 88 mg/dL (70-100) 02/24/21 06:00 Lactic Acid 2.7 mmol/L (0.5-2.2) H 02/10/21 14:09 Calcium 7.3 mg/dL (8.5-10.3) L 02/24/21 06:00 Phosphorus 1.7 mg/dL (2.5-4.6) L 02/24/21 06:00 Magnesium 1.6 mg/dL (1.7-2.8) L 02/24/21 06:00 Iron 35 ug/dL (28-170) 02/08/21 11:02 TIBC 321 ug/dL (250-450) 02/08/21 11:02 % Saturation 11 % (20-50) L 02/08/21 11:02 Transferrin 229 mg/dL (192-382) 02/08/21 11:02 Ferritin 15.9 ng/mL (11.0-306.8) 02/08/21 11:02 Total Bilirubin 9.4 mg/dL (0.2-1.0) H 02/16/21 04:38 Direct Bilirubin 9.0 mg/dL (0.1-0.5) H 02/14/21 09:26 AST 34 IU/L (10-42) 02/16/21 04:38 ALT 15 IU/L (10-60) 02/16/21 04:38 Alkaline Phosphatase 118 IU/L (42-121) 02/16/21 04:38 Ammonia 50.7 umol/L (7-35) H 02/24/21 06:00 Lactate Dehydrogenase 132 IU/L (91-225) 02/16/21 14:30 Troponin I High Sens 23.3 ng/L (2.3-14.8) H* 02/08/21 17:02 B-Natriuretic Peptide 249 pg/mL (5-100) H 02/08/21 11:02 Total Protein 4.1 g/dL (6.7-8.2) L 02/16/21 04:38 Albumin 1.5 g/dL (3.2-5.5) L 02/16/21 04:38 Globulin 2.6 g/dL (2.1-4.2) 02/16/21 04:38 Albumin/Globulin Ratio 0.6 (1.0-2.2) L 02/16/21 04:38 Lipase 24 U/L (22-51) 02/08/21 11:02 Vitamin B12 1630 pg/mL (180-914) H 02/16/21 14:30 Folate 7.36 ng/mL (5.90 - >24.8) 02/08/21 11:02 Urine Color BROWN 02/08/21 12:53 Urine Clarity CLOUDY (CLEAR) 02/08/21 12:53 Urine pH 7.0 PH (5.0-7.5) 02/08/21 12:53 Ur Specific [place] 1.015 (1.002-1.030) 02/08/21 12:53 Urine Protein >=300 mg/dL (NEGATIVE) H 02/08/21 12:53 Urine Glucose (UA) NEGATIVE mg/dL (NEGATIVE) 02/08/21 12:53 Urine Ketones TRACE mg/dL (NEGATIVE) 02/08/21 12:53 Urine Occult Blood LARGE (NEGATIVE) H 02/08/21 12:53 Urine Nitrite POSITIVE (NEGATIVE) H 02/08/21 12:53 Urine Bilirubin NEGATIVE (NEGATIVE) 02/08/21 12:53 Urine Urobilinogen 1 (NORMAL) E.U./dL (NORMAL) 02/08/21 12:53 Ur Leukocyte Esterase MODERATE (NEGATIVE) H 02/08/21 12:53 Urine RBC TNTC /HPF (0-5) H 02/08/21 12:53 Urine WBC >25 /HPF (0-5) H 02/08/21 12:53 Ur Squamous Epith Cells RARE Squamous (<= Few) 02/08/21 12:53 Urine Bacteria Moderate /HPF (None Seen) H 02/08/21 12:53 Ur Microscopic Review INDICATED 02/08/21 12:53 Urine Culture Comments INDICATED 02/08/21 12:53 Nasal Adenovirus (PCR) NOT DETECTED 02/08/21 11:02 Nasal B. parapertussis DNA (PCR) NOT DETECTED 02/08/21 11:02 Nasal Coronavir 229E PCR NOT DETECTED 02/08/21 11:02 Nasal Coronavir HKU1 PCR NOT DETECTED 02/08/21 11:02 Nasal Coronavir NL63 PCR NOT DETECTED 02/08/21 11:02 Nasal Coronavir OC43 PCR NOT DETECTED 02/08/21 11:02 Nasal Enterovir/Rhinovir PCR NOT DETECTED 02/08/21 11:02 Nasal Influenza B PCR NOT DETECTED 02/08/21 11:02 Nasal Influenza A PCR NOT DETECTED 02/08/21 11:02 Nasal Parainfluen 1 PCR NOT DETECTED 02/08/21 11:02 Nasal Parainfluen 2 PCR NOT DETECTED 02/08/21 11:02 Nasal Parainfluen 3 PCR NOT DETECTED 02/08/21 11:02 Nasal Parainfluen 4 PCR NOT DETECTED 02/08/21 11:02 Nasal RSV (PCR) NOT DETECTED 02/08/21 11:02 Nasal Screen MRSA (PCR) NEGATIVE (NEGATIVE) 02/08/21 19:55 Nasal B.pertussis DNA PCR NOT DETECTED 02/08/21 11:02 Nasal C.pneumoniae (PCR) NOT DETECTED 02/08/21 11:02 Yan Human Metapneumo PCR NOT DETECTED 02/08/21 11:02 Nasal M.pneumoniae (PCR) NOT DETECTED 02/08/21 11:02 Nasal SARS-CoV-2 (PCR) NOT DETECTED 02/08/21 11:02 Cold Agglutinins NONE DETECTED Titer (NONE DETECTED) 02/17/21 09:00 Blood Type A POSITIVE 02/18/21 08:24 Antibody Screen NEGATIVE 02/18/21 08:24 Crossmatch See Detail 02/18/21 08:24 - Procedures Procedures: Procedures TRANSFUSE NONAUT RED BLOOD CELLS IN PERIPH VEIN, [facility] (09/23/20) Sepsis Event Note (H) - Evaluation Current Stage of Sepsis: Septic shock - Sepsis Criteria Sepsis Criteria: Recorded Heart Rate greater than 90 bpm, Recorded Respiratory Rate greater than 20, WBC count greater than 12,000 or less than 4000, SBP drop more than 40mHg, SBP less than 90 mmHg, Metabolic: lactate > 2 mmol/L, Hematologic: platelets < 100,000; INR > 1.5, or a PTT>60 seconds ABX Reporting Has patient been on IV antibiotics over the past 48 hours?: Yes Current Medications - Current Medications Current Medications: Active Medications Albuterol (Albuterol Neb 2.5 Mg/3 Ml) 2.5 mg INH Q4HR PRN PRN Reason: Wheezing Last Admin: 02/11/21 07:55 Dose: 2.5 mg Ferrous Gluconate (Ferrous Gluconate 324 Mg Tablet) 324 mg PO DAILYWM [facility] Guaifenesin (Guaifenesin 600 Mg Tablet) 600 mg PO BID [facility] Last Admin: 02/24/21 11:06 Dose: 600 mg Guaifenesin/Codeine Phosphate (Guaifenesin/Codeine 5 Ml Udc) 5 ml PO Q6HR PRN PRN Reason: Cough Last Admin: 02/24/21 11:20 Dose: 5 ml Hydrocortisone (Hydrocortisone 1% Cream 28 Gm Tube) 1 applic TOP Q8H PRN PRN Reason: ITCHING Last Admin: 02/16/21 05:16 Dose: 1 applic Hydromorphone HCl (Hydromorphone 0.5 Mg/0.5 Ml Syringe) 0.5 mg IVP Q2H PRN PRN Reason: Severe Pain Last Admin: 02/24/21 11:21 Dose: 0.5 mg Meropenem 1 gm/ Sodium (Chloride) 100 mls @ 200 mls/hr IV TID [facility] Last Infusion: 02/24/21 06:43 Dose: Infused Lactulose (Lactulose 10 Gm /15 Ml Udc) 10 gm PO DAILY [facility] Last Admin: 02/24/21 11:03 Dose: 10 gm Lidocaine (Lidocaine Patch 5%) 1 patch TOP DAILY PRN PRN Reason: PAIN Last Admin: 02/23/21 23:33 Dose: 1 patch Lidocaine HCl (Lidocaine Viscous 2% 100 Ml Bottle) 15 ml MM Q6HR PRN PRN Reason: Mouth Sore Pain Last Admin: 02/13/21 11:54 Dose: 15 ml Lorazepam (Lorazepam 2 Mg/Ml Vial) 0.5 mg IVP Q8H PRN PRN Reason: Anxiety Magnesium Oxide (Magnesium Oxide 400 Mg Tablet) 400 mg PO DAILYWM [facility] Last Admin: 02/24/21 11:06 Dose: 400 mg Morphine Sulfate (Morphine 2 Mg/Ml Carpuject) 2 mg IVP Q8HR PRN PRN Reason: Severe Pain Last Admin: 02/16/21 00:45 Dose: 2 mg Ondansetron HCl (Ondansetron 4 Mg/2 Ml Vial) 4 mg IVP Q6HR PRN PRN Reason: Nausea / Vomiting Last Admin: 02/23/21 09:40 Dose: 4 mg Pantoprazole Sodium (Pantoprazole 40 Mg Tablet) 40 mg PO BIDAC [facility] Last Admin: 02/24/21 06:14 Dose: 40 mg Norethindrone [ Norethindrone] 0.35 Mg Tablet 1 each PO QPM [facility] Last Admin: 02/23/21 21:49 Dose: Not Given Multivit/Folic Acid/Iron ( Vitamin Tablet) 1 tab PO DAILYWM [facility] Last Admin: 02/24/21 08:08 Dose: 1 tab Saccharomyces Boulardii (Saccharomyces Boulardii 250 Mg Capsule) 250 mg PO BID WM [facility] Last Admin: 02/24/21 08:08 Dose: 250 mg Sodium Chloride (Sodium Chloride Flush 0.9% 10 Ml Syringe) 10 ml IVP 0100,0900,1700 [facility] Last Admin: 02/23/21 23:26 Dose: 10 ml Sodium Chloride (Sodium Chloride Flush 0.9% 10 Ml Syringe) 10 ml IVP PRN PRN PRN Reason: NEEDED PER PROVIDER ORDERS Last Admin: 02/23/21 23:26 Dose: 10 ml Sodium Chloride (Sodium Chloride Flush 0.9% 10 Ml Syringe) 20 ml IVP PRN PRN PRN Reason: After Blood Draw Last Admin: 02/21/21 15:57 Dose: 20 ml Sodium Phosphate (Neutra-Phos 250 Mg Tablet) 250 mg PO TIDWM [facility] Last Admin: 02/24/21 11:04 Dose: 250 mg Spironolactone (Spironolactone 25 Mg Tablet) 25 mg PO 0700,1700 [facility] Last Admin: 02/24/21 06:14 Dose: 25 mg Thiamine HCl (Thiamine 100 Mg Tablet) 100 mg PO DAILY [facility] Last Admin: 02/24/21 11:06 Dose: 100 mg Throat Lozenges (Benzocaine/Menthol Lozenge) 1 lozenge MM Q2HR PRN PRN Reason: Throat pain Last Admin: 02/24/21 11:20 Dose: 1 lozenge Tramadol HCl (Tramadol 50 Mg Tablet) 50 mg PO Q4HR PRN PRN Reason: PAIN Last Admin: 02/23/21 21:48 Dose: 50 mg Trazodone HCl (Trazodone 50 Mg Tablet) 200 mg PO QPM [facility] Last Admin: 02/23/21 21:48 Dose: 200 mg Venlafaxine HCl (Venlafaxine Er 37.5 Mg Capsule) 37.5 mg PO DAILY [facility] Last Admin: 02/24/21 11:05 Dose: 37.5 mg Trazodone HCl 200 mg PO QPM 11/26/19 Albuterol [Proventil Hfa] 2 puffs PO Q4H PRN 09/24/20 traMADol [Ultram] 25 mg PO Q8H PRN 09/24/20 Norethindrone 1 tab PO QPM 02/09/21
[2021-02-24] MEDS: SODIUM CHLORIDE FLUSH 0.9% 10 ML SYRINGE IVP SCH ×2 (14:05→16:18)
[2021-02-24] MEDS: FERROUS GLUCONATE 324 MG TABLET PO SCH (16:13)
[2021-02-24] MEDS: SODIUM CHLORIDE FLUSH 0.9% 10 ML SYRINGE IVP PRN ×3 (16:15→22:57)
[2021-02-24 16:34] LABS: HCT - HEMATOCRIT 26.9 % (37.0-47.0); HGB - HEMOGLOBIN 8.6 g/dL (12.0-16.0)
[2021-02-24] MEDS: traZODone 50 MG TABLET PO SCH (21:37)
[2021-02-24] MEDS: NORETHINDRONE 0.35 MG PO SCH (21:38)
[2021-02-25] MEDS: HYDROmorphone 0.5 MG/0.5 ML SYRINGE IVP PRN (02:43)
[2021-02-25] MEDS: SODIUM CHLORIDE FLUSH 0.9% 10 ML SYRINGE IVP SCH ×2 (02:44→09:19)
[2021-02-25] MEDS: BENZOCAINE/MENTHOL LOZENGE MM PRN ×2 (02:45→09:54)
[2021-02-25] MEDS: ONDANSETRON 4 MG/2 ML VIAL IVP PRN (02:45)
[2021-02-25] MEDS: PANTOPRAZOLE 40 MG TABLET PO SCH (05:56)
[2021-02-25] MEDS: SPIRONOLACTONE 25 MG TABLET PO SCH (05:56)
[2021-02-25] MEDS: MEROPENEM 1 GM in SODIUM CHLORIDE 0.9% MINIBAG 100 ML IV SCH ×2 (05:56→13:25)
[2021-02-25 06:08] LABS: BASOPHILS % (AUTO) 0.5 %; EOSINOPHILS # (AUTO) 0.3 10^3/uL (0.0-0.7); EOSINOPHILS % (AUTO) 3.4 %; HCT - HEMATOCRIT 23.9 % (37.0-47.0); HGB - HEMOGLOBIN 7.6 g/dL (12.0-16.0); LYMPHOCYTES # (AUTO) 1.1 10^3/uL (1.5-3.5); MEAN CORPUSCULAR HEMOGLOBIN 27.4 pg (27.0-31.0); MEAN CORPUSCULAR HGB CONC 31.8 g/dL (32.0-36.0); MEAN CORPUSCULAR VOLUME 86.3 fL (81.0-99.0); MEAN PLATELET VOLUME 9.6 fL (7.9-10.8); MONOCYTES # (AUTO) 0.6 10^3/uL (0.0-1.0); MONOCYTES % (AUTO) 8.1 %; NEUTROPHILS # (AUTO) 5.8 10^3/uL (1.5-6.6); NEUTROPHILS % (AUTO) 73.4 %; PLT - PLATELET COUNT 239 10^3/uL (130-450); RED BLOOD COUNT 2.77 10^6/uL (4.20-5.40); RED CELL DISTRIBUTION WIDTH 20.4 % (12.0-15.0); WHITE BLOOD COUNT 7.9 x10^3/uL (4.8-10.8)
[2021-02-25 06:09] LABS: SLIDE REVIEW? Indicated
[2021-02-25 06:18] LABS: BUN - BLOOD UREA NITROGEN < 5 mg/dL (6-20); CALCIUM 7.3 mg/dL (8.5-10.3); CARBON DIOXIDE - CO2 22 mmol/L (21-32); CHLORIDE 104 mmol/L (101-111); CREATININE 0.3 mg/dL (0.4-1.0); GFR - MDRD 237 (>89); GLUCOSE 84 mg/dL (70-100); MAGNESIUM 1.6 mg/dL (1.7-2.8); PHOSPHORUS 1.9 mg/dL (2.5-4.6); POTASSIUM 3.3 mmol/L (3.5-5.0); SODIUM 132 mmol/L (135-145)
[2021-02-25 06:24] LABS: PLATELET ESTIMATE, MANUAL NORMAL (130-450,000) (NORMAL); PLATELET MORPHOLOGY NORMAL APPEARANCE (NORMAL); WBC MORPHOLOGY (MULTIPLE) NORMAL APPEARANCE (NORMAL)
[2021-02-25] MEDS ORDERED: MAGNESIUM SULFATE 2 GRAM 2 GM/50 ML BAG IV ONE (07:22)
[2021-02-25] MEDS ORDERED: POTASSIUM CHLORIDE 20 MEQ TABLET PO ONE (07:22)
[2021-02-25 08:46] VITALS: BP 103/68
[2021-02-25] MEDS: guaiFENesin 600 MG TABLET PO SCH (09:18)
[2021-02-25] MEDS: THIAMINE 100 MG TABLET PO SCH (09:18)
[2021-02-25] MEDS: PRENATAL VITAMIN TABLET PO SCH (09:18)
[2021-02-25] MEDS: SACCHAROMYCES BOULARDII 250 MG CAPSULE PO SCH (09:18)
[2021-02-25] MEDS: FERROUS GLUCONATE 324 MG TABLET PO SCH (09:18)
[2021-02-25] MEDS: VENLAFAXINE ER 37.5 MG CAPSULE PO SCH (09:18)
[2021-02-25] MEDS: traMADol 50 MG TABLET PO PRN (09:19)
[2021-02-25] MEDS: LACTULOSE 10 GM /15 ML UDC PO SCH (09:19)
[2021-02-25] MEDS: MAGNESIUM OXIDE 400 MG TABLET PO SCH (09:19)
[2021-02-25] MEDS: NEUTRA-PHOS 250 MG TABLET PO SCH ×2 (09:19→12:07)
[2021-02-25] MEDS: guaiFENesin/CODEINE 5 ML UDC PO PRN (09:54)
--- NOTE | 2021-02-25 10:52 | Discharge Plan ---
Discharge Plan Problem Reviewed?: Yes Disposition: Home, Self Care Condition: Poor Prescriptions: Spironolactone [Aldactone] 25 mg PO DAILY #30 tablet Lactulose 10 gm PO DAILY #30 vial Pnv No.95/Ferrous Fum/Folic AC [ Tablet] 1 each PO DAILY #30 tablet Pantoprazole [Protonix] 40 mg PO DAILY #30 tablet traMADol [Ultram] 50 mg PO Q8H PRN #15 tab PRN Reason: Pain Thiamine [Vitamin B-1] 100 mg PO DAILY #30 tablet Diet: Regular Activity Restrictions: Activity as Tolerated Shower Restrictions: No (fall precaution) Instruction Topics: Pantoprazole tablets, Lactulose oral solution, Spironolactone tablets, Bleeding Gastrointestinal, NAFLD, ED Cirrhosis Liver Health Concerns: alcoholic liver failure, UTI/bacteremia, GI bleed/vaginal bleed, DVT on left axillary vein Plan of Treatment: strongly advise you quit alcohol completely. You may followup with your dispenser operator very closely in one to two weeks for alcoholic hepatic failure. You were found to have bacteremia and UTI infection. You were treated with antibiotics and you finished antibiotics treatment course in the hospital. Repeating blood culture is negative and Your acute infection is resolved. your abdominal/pelvis CT concern of vesicorectal fistula. You were consulted with surgeon, and be considered for high risk to have surgical intervention. You also declined to have surgical intervention. You may followup with your PCP and surgeon as soon as possible after discharge from hospital to monitor your this medical situation. Your HGB is stable, you denies GI and vaginal bleeding any more. You are prescribed Protonix. your blood thinner is hold now until you see your PCP. You may followup with [facility] as out-pt. You may followup with your PCP in one week to have HGB monitor. You were found to have DVT on left axillary vein. CTA of chest did not find PE in your lung. Because of GI and vaginal bleeding, blood thinner is hold for you now. You may followup with your PCP to continue manage this medical issue. Care Goals: Stabilization and improvement of your medical conditions Assessment: Discussed the care plan in detail with the you, answered to your question, you understood Additional Instructions or Follow Up instructions: You may follow-up with your PCP in 1 week and have hemoglobin monitor, follow-up dispenser operator, GI, surgeon as outpatient. Should your symptoms return or worse, you may present to the ER or call 911 for help No Smoking: If you smoke, Please STOP! Call for help.
[2021-02-25] MEDS: LIDOCAINE PATCH 5% TOP PRN (12:06)
--- NOTE | 2021-02-25 13:36 | DISCHARGE SUMMARY ---
Discharge Summary Admit Date: 02/08/21 Discharge Date: 02/25/21 Discharging Provider: Jose Maria Mckeon Condition at Discharge: Poor Discharge Disposition: Home, Self Care Discharge Facility Name: home - DIAGNOSES Discharge Diagnoses with Status of Each Condition: Called pt's mother, Lyn Sandoval, at phone [phone]. discussed pt's very complicate medical conditions special liver failure and GI track complications, medical conditions pt should pay attention at home, and strongly advise pt quit alcohol, and followup with skeins yarn examiner as soon as possible to discuss the possibility for liver transplant, and answered Lyn's questions and concerns. she is appreciate my call to her. (1) Bacteremia due to Klebsiella pneumoniae resolved. repeat blood culture is negative for bacteremia. pt finished two weeks IV antibiotics. 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 pt has no fever, WBC is at normal arrange. pt feel good and no complaints. pt's CT of abdomen and pelvis reveals concern of vesicorectal fistula. surgeon was consulted. Surgeon consider a very high perioperative mortality to have surgery intervention and no urgent surgical intervention is indicated at this ti ct. pt herself clearly declined to have surgery for her vesicorectal fistula. Discussed with pt and pt's mother about medical conditions pt should pay attention at home. pt may followup with surgeon as out-pt as soon as possible. (3) Alcoholic cirrhosis/hepatic failure Her calculated MELD score is 25 points which correlates to an estimated 3 month mortality rate of 19.6%. Discussed the necessity of alcohol cessation with the patient in depth. discussed the complications from liver failure with pt and pt's mother. pt may followup with her skeins yarn examiner as soon as possible. (4) GI bleed with Severe anemia pt's occult stool test is positive. pt had total 7 unit of blood transfusion at hospital. pt has hx of hepatic failure with varices as well. Consulted with GI surgeon, recommended medical management, no intervention. pt denies any more GI bleed. her HGB is stable. Her blood thinner was hold. pt is prescribed Protonix, and iron pill. Followup with PCP in one week to have HGB monitor and followup with GI as out-pt. (5) Cough resolved (6) Thrombocytopenia resolved. Plt is 239 today (7) UTI UA culture is positive for Ecoli and klebdiella Pneumoniae. pt finished two weeks of IV antibiotics. pt has no fever, WBC is normal arrange. pt has no urinary symptoms (8) DVT of left axillary vein, acute Assessment/Plan: US reveals DVT at left anillary vein. CTA of chest reveals no PE. because of pt's GI bleed and vesicorectal fistula bleeding, hold blood thinner until pt is seen by her PCP and her bleeding is resolved. Discussed the above conditions with pt, pt understood and agreed the plan. (9) Cold sore Resolved (10) Anasarca significantly improved, pt is prescribed Spironolactone. (11) Red blood cell antibody positive, compatible PRBC difficult to obtain per pt's history (12) Hyponatremia Assessment/Plan: Na 132 and stable. pt has hx of hyponatremia and advanced liver failure (13) Hypomagnesemia replaced (14) Lower Extremity Edema stable/Resolved with spirinolactone prescribed. (15) Elevated LFTs stable. hx of liver failure (16) S/P colostomy stable (17) Hypoglycemia Resolved. (18) Septic shock Resolved (19)vaginal bleed resolved. pt denies vaginal bleed. consulted with OBGYN, home meds norethindrone is hold. pt was given once depo-provera in the hospital. called pt and discussed with pt to hold norethindrone, followup with OBGYN as out-pt. pt state she already did not take any more norethindrone, and will make an appointment to see her OBGYN - HPI History of Present Illness: refer from 's HPI on 02/08/21 This is a 50-year-old female with a past medical history significant for alcoholic liver cirrhosis, history of esophageal varices, anemia who presents today complaining of body pain and fever. She states she been feeling unwell for the past 2 weeks. She has had fevers as high as 103. She reports fatigue and generalized weakness as well as body aches. She has had decreased appetite due to nausea and vomiting as well as nonspecific abdominal pain. She has not had decreased output in her ostomy. She has not noticed any obvious bleeding. Her ostomy output is dark which does occur at times. She does report dysuria and urgency. She states she just feels terrible overall. She still occasionally drinks alcohol but reports her last drink was early this month. She believes she was scoped earlier this year and that she does have a history of varices and gastric ulcers. In the emergency department, she noted to be hypotensive with systolics in the 80s, tachycardic with heart rate in the 140s. Labs were significant for lactic acid greater than 10, creatinine of 1.3 compared to baseline of 0.5. Her hemoglobin was less than 5. Her bicarb was decreased at 9 and she had an elevated anion gap. She underwent chest x-ray which is unremarkable. CT of the abdomen pelvis showed no acute abnormality. She was given Levaquin in the emergency department. An attempt was made to transfer her to our facility as it was felt she would likely need a higher level of care but unfortunate there are no beds available at any of the [facility] and so medicine was consulted for admission. I did discuss goals of care and she would like to be a full code. - ALLERGIES Allergies/Adverse Reactions: Allergies Allergy/AdvReac Type Severity Reaction Status Date / Time cephalexin Allergy Unknown Verified 02/08/21 10:54 sertraline Allergy Unknown Verified 02/08/21 10:54 ceftriaxone AdvReac Intermediate Burning in Verified 02/12/21 11:08 arms - MEDICATIONS Home Medications: Ambulatory Orders Medication Instructions Recorded Confirmed Trazodone HCl 200 mg PO QPM 11/26/19 02/08/21 Albuterol [Proventil Hfa] 2 puffs PO Q4H PRN 09/24/20 02/09/21 Lactulose 10 gm PO DAILY #30 vial 02/25/21 Pantoprazole [Protonix] 40 mg PO DAILY #30 tablet 02/25/21 Pnv No.95/Ferrous Fum/Folic AC 1 each PO DAILY #30 tablet 02/25/21 [ Tablet] Spironolactone [Aldactone] 25 mg PO DAILY #30 tablet 02/25/21 Thiamine [Vitamin B-1] 100 mg PO DAILY #30 tablet 02/25/21 traMADol [Ultram] 50 mg PO Q8H PRN #15 tab 02/25/21 - PHYSICAL EXAM AT DISCHARGE General Appearance: positive: No acute distress, Alert. negative: Lethargic Eyes Bilateral: positive: Normal inspection, No lid inflammation ENT: positive: ENT inspection nml. negative: Purulent nasal drainage Neck: positive: Nml inspection, Trachea midline. negative: Tracheal deviation Respiratory: positive: Chest non-tender, No respiratory distress. negative: Wheezes, Rales Cardiovascular: positive: Regular rate & rhythm, No murmur. negative: Systolic murmur, Diastolic murmur Peripheral Pulses: positive: 2+ Abdomen: positive: Non-tender, Nml bowel sounds, No distention. negative: Tenderness Back: positive: Nml inspection Skin: positive: No rash, Warm, Dry. negative: Cyanosis Extremities: positive: Non-tender, Full ROM, Nml appearance Neurologic/Psychiatric: positive: Oriented x3, Motor nml, Sensation nml. negative: Weakness, Sensory loss, Facial droop, Slurred/abnml speech, Depressed mood/affect - LABS Result Diagrams: 02/25/21 10:14 02/25/21 06:00 - SEPSIS Current Stage of Sepsis: Septic shock Sepsis Criteria: Recorded Heart Rate greater than 90 bpm, Recorded Respiratory Rate greater than 20, WBC count greater than 12,000 or less than 4000, SBP drop more than 40mHg, SBP less than 90 mmHg, Metabolic: lactate > 2 mmol/L, Hematologic: platelets < 100,000; INR > 1.5, or a PTT>60 seconds - FOLLOW UP Follow Up: strongly advise you quit alcohol completely. You may followup with your skeins yarn examiner very closely in one to two weeks for alcoholic hepatic failure. You were found to have bacteremia and UTI infection. You were treated with antibiotics and you finished antibiotics treatment course in the hospital. Repeating blood culture is negative and Your acute infection is resolved. your abdominal/pelvis CT concern of vesicorectal fistula. You were consulted w ith surgeon, and be considered for high risk to have surgical intervention. You also declined to have surgical intervention. You may followup with your PCP and surgeon as soon as possible after discharge from hospital to monitor your this medical situation. Your HGB is stable, you denies GI and vaginal bleeding any more. You are prescribed Protonix. your blood thinner is hold now until you see your PCP. You may followup with [facility] as out-pt. You may followup with your PCP in one week to have HGB monitor. You were found to have DVT on left axillary vein. CTA of chest did not find PE in your lung. Because of GI and vaginal bleeding, blood thinner is hold for you now. You may followup with your PCP to continue manage this medical issue. You may follow-up with your PCP in 1 week and have hemoglobin monitor, follow-up skeins yarn examiner, GI, surgeon as outpatient. Should your symptoms return or worse, you may present to the ER or call 911 for help - TIME SPENT Time Spent in Discharge (Minutes): 45
== END 2021-02-25 15:00 | disposition home or self-care (01) | DRG 871 ==
LOC: EDUNIT# → EDBD → ED 10:20 → ICU 16:41 → MS2 02-12 15:40
PROVIDERS: ADMIT Internal Medicine; ATTEND Nurse Practitioner Gerontology
PROC: 30233N1 Transfusion of Nonautologous Red Blood Cells into Peripheral Vein, Percutaneous Approach (ICD-10-PCS; principal; 2021-02-08)
PROC: 06H033Z Insertion of Infusion Device into Inferior Vena Cava, Percutaneous Approach (ICD-10-PCS; 2021-02-09)
PROC: 02HV33Z Insertion of Infusion Device into Superior Vena Cava, Percutaneous Approach (ICD-10-PCS; 2021-02-12)
DX: A41.59 Other Gram-negative sepsis (principal); R65.21 Severe sepsis with septic shock; N39.0 Urinary tract infection, site not specified; Z16.19 Resistance to other specified beta lactam antibiotics; N32.1 Vesicointestinal fistula; K92.1 Melena; E87.1 Hypo-osmolality and hyponatremia; I82.A12 Acute embolism and thrombosis of left axillary vein; E87.2 Acidosis; N17.9 Acute kidney failure, unspecified; I85.00 Esophageal varices without bleeding; D62 Acute posthemorrhagic anemia; K76.6 Portal hypertension; Z16.24 Resistance to multiple antibiotics; A41.51 Sepsis due to Escherichia coli [E. coli]; R60.0 Localized edema; K70.40 Alcoholic hepatic failure without coma; R05.9 Cough, unspecified; D69.6 Thrombocytopenia, unspecified; Z93.3 Colostomy status; E16.2 Hypoglycemia, unspecified; K21.9 Gastro-esophageal reflux disease without esophagitis; J45.909 Unspecified asthma, uncomplicated; Z87.19 Personal history of other diseases of the digestive system; R31.9 Hematuria, unspecified; F10.21 Alcohol dependence, in remission; E87.6 Hypokalemia; Z90.49 Acquired absence of other specified parts of digestive tract; Z79.01 Long term (current) use of anticoagulants; K70.31 Alcoholic cirrhosis of liver with ascites; Z87.440 Personal history of urinary (tract) infections; E61.1 Iron deficiency; N93.8 Other specified abnormal uterine and vaginal bleeding; B00.1 Herpesviral vesicular dermatitis; K64.8 Other hemorrhoids; R33.8 Other retention of urine; Z20.822 Contact with and (suspected) exposure to COVID-19; Z88.1 Allergy status to other antibiotic agents; I95.9 Hypotension, unspecified; D69.59 Other secondary thrombocytopenia; T36.1X5A Adverse effect of cephalosporins and other beta-lactam antibiotics, initial encounter; Y92.230 Patient room in hospital as the place of occurrence of the external cause; T39.1X5A Adverse effect of 4-Aminophenol derivatives, initial encounter; T50.1X5A Adverse effect of loop [high-ceiling] diuretics, initial encounter; T45.0X5A Adverse effect of antiallergic and antiemetic drugs, initial encounter
CPT/HCPCS: 0202U; 36415; 36430; 71045; 71275; 72192; 74018; 74177; 76830; 76856; 80048; 80053; 80076; 81001; 82140; 82248; 82272; 82330; 82607; 82728; 82746; 83540; 83605; 83615; 83690; 83735; 83880; 84100; 84132; 84466; 84484; 85014; 85018; 85025; 85027; 85045; 85384; 85610; 85730; 86157; 86850; 86900; 86901; 86922; 87040; 87077; 87086; 87150; 87181; 93005; 93971; 93975; 94640; 94664; 96365; 96375; 97110; 97116; 97162; 97530; 99232; 99291; 99292; A9270; C1751; J1050; J1170; J1200; J1652; J2060; J2185; J3370; J3411; J7040; J7120; P9016; P9047; Q9967; 81003

== ENCOUNTER 2021-03-11 08:00 | Outpatient (CLI) | payer OTHER | END 2021-03-11 23:59 | LOC: LAB 08:00 | PROVIDERS: ATTEND Family Medicine | DX: R30.0 Dysuria (principal) | CPT/HCPCS: 87077; 87086; 87181 ==

== ENCOUNTER 2021-09-08 14:53 | Outpatient (CLI) | payer OTHER ==
--- NOTE | 2021-09-09 09:36 | Mammography Report ---
BILATERAL DIGITAL SCREENING MAMMOGRAM 3D/2D: 09/08/2021 CLINICAL: Routine screening. Baseline exam. No prior exams were available for comparison. The tissue of both breasts is heterogeneously dense. T his may lower the sensitivity of mammography. There are loosely grouped fine and round calcifications in the right breast at 4 o'clock anterior dep th. There are benign calcifications in both breasts. No other significant masses, calcifications, or othe r findings are seen in either breast. IMPRESSION: INCOMPLETE: NEEDS ADDITIONAL IMAGING EVALUATION Loosely grouped fine and round calcifications in the right breast are indeterminate. Additional views are recommended. Based on the Tyrer Cuzick model (a risk assessment model) the patients lifetime risk is 8.5% and her 10 year risk is 1.8%. According to the ACR, ACS, and NCCN guidelines, an annual breast MRI exam shyam g with mammogram is recommended if the patients lifetime risk is 20% or greater. This exam was interpreted at Station ID: [id number]. NOTE: For mammograms, a report in lay terms will be sent to the patient. Approximately 15% of breast malignancies will not be visualized mammographically. In the management of a palpable breast mass, a negative mammogram must not discourage biopsy of a clinically suspicious lesion. Electronically Signed By: Chirag Reynoso M.D. slc/:09/08/2021 17:25:57 ACR BI-RADS Category 0: Incomplete 3340F PARENCHYMAL PATTERN: (D) - The breast(s) demonstrate(s) heterogeneously dense fibroglandular parenchy ma. BI-RADS CATEGORY: (0) - 0 RECOMMENDATION: (ADDMAM) - Recommend additional mammographic views. [id number] Immediate follow-up LATERALITY: (B)
== END 2021-09-08 14:54 | disposition home or self-care (01) ==
LOC: DI.N 14:53
PROVIDERS: ATTEND Obstetrics & Gynecology
DX: Z12.31 Encounter for screening mammogram for malignant neoplasm of breast (principal); R92.1 Mammographic calcification found on diagnostic imaging of breast

== ENCOUNTER 2021-12-06 08:00 | Outpatient (CLI) | payer OTHER | END 2021-12-06 23:59 | disposition home or self-care (01) | LOC: LAB.N 08:00 | PROVIDERS: ATTEND Registered Nurse | DX: R82.79 Other abnormal findings on microbiological examination of urine (principal); R35.0 Frequency of micturition | CPT/HCPCS: 87077; 87086; 87181 ==

== ENCOUNTER 2021-12-07 16:34 | Outpatient (CLI) | payer OTHER ==
--- NOTE | 2021-12-07 19:03 | XRAY Report ---
PROCEDURE: Ribs w/PA Chest LT INDICATIONS: L RIB PX TECHNIQUE: 3 views of the left ribs were acquired, along with a single view chest. COMPARISON: 08/17/2020 chest radiograph. FINDINGS: Surgical changes and devices: None. Bones and chest wall: Minimally displaced left posterior lateral eighth and ninth rib fractures are s een No suspicious bony lesions. Overlying soft tissues appear unremarkable. Lungs and pleura: No pleural effusions or pneumothorax. Left basilar atelectasis and blunting of lef t costophrenic angle is noted. Mediastinum: Mediastinal contours appear normal. Heart size is normal. IMPRESSION: Slightly displaced left posterior lateral eighth and ninth rib fractures. Left basilar atelectasis an d suggestion of trace left pleural effusion. No pneumothorax. Reviewed by: Greg Blandon MD on 12/07/2021 7:02 PM PDT Approved by: Greg Blandon MD on 12/07/2021 7:02 PM PDT Station ID: [id number]
== END 2021-12-07 16:35 | disposition home or self-care (01) ==
LOC: DI.N 16:34
PROVIDERS: ATTEND Registered Nurse
DX: S22.42XA Multiple fractures of ribs, left side, initial encounter for closed fracture (principal); J98.11 Atelectasis

== ENCOUNTER 2022-01-05 12:29 | Outpatient (CLI) | payer OTHER ==
--- NOTE | 2022-01-10 10:56 | Mammography Report ---
UNILATERAL RIGHT DIGITAL DIAGNOSTIC MAMMOGRAM 3D/2D WITH MAGNIFICATION: 01/05/2022 CLINICAL: Patient returns for magnification views of microcalcifications in the right breast. Comparison is made to exam dated: 09/08/2021 mammogram - [facility]. The right breast is heterogeneously dense, which may obscure small masses (category c / 51-75% glandu lar tissue). There are grouped punctate calcifications in the right breast at 4 o'clock anterior depth. No other significant masses or calcifications are seen in the breast. IMPRESSION: PROBABLY BENIGN The grouped punctate calcifications in the right breast are probably benign. A follow-up mammogram in 6 months is recommended to demonstrate stability. Based on the Tyrer Cuzick model (a risk assessment model) the patients lifetime risk is 9.6% and her 10 year risk is 2.1%. According to the ACR, ACS, and NCCN guidelines, an annual breast MRI exam shyam g with mammogram is recommended if the patients lifetime risk is 20% or greater. This exam was interpreted at Station ID: [id number]. NOTE: For mammograms, a report in lay terms will be sent to the patient. Approximately 15% of breast malignancies will not be visualized mammographically. In the management of a palpable breast mass, a negative mammogram must not discourage biopsy of a clinically suspicious lesion. Electronically Signed By: Skye schmid/vitaliy:01/05/2022 13:00:43 ACR BI-RADS Category 3: Probably benign 3343F PARENCHYMAL PATTERN: (D) - The breast(s) demonstrate(s) heterogeneously dense fibroglandular earline lorenzo. BI-RADS CATEGORY: (3) - 3 Mammogram [id number] 6 month follow-up LATERALITY: (B)
== END 2022-01-05 12:30 | disposition home or self-care (01) ==
LOC: DI 12:29
PROVIDERS: ATTEND Obstetrics & Gynecology
DX: R92.1 Mammographic calcification found on diagnostic imaging of breast (principal)

== ENCOUNTER 2022-01-24 08:00 | Outpatient (CLI) | payer OTHER | END 2022-01-24 23:59 | disposition home or self-care (01) | LOC: LAB.N 08:00 | PROVIDERS: ATTEND Nurse Practitioner | DX: N39.0 Urinary tract infection, site not specified (principal) | CPT/HCPCS: 87077; 87086; 87181 ==

== ENCOUNTER 2022-04-02 10:44 | Outpatient (CLI) | payer OTHER | END 2022-04-02 10:45 | disposition critical access hospital (66) | LOC: EMS 10:44 | DX: R06.09 Other forms of dyspnea (principal); I95.9 Hypotension, unspecified; R73.9 Hyperglycemia, unspecified; R00.0 Tachycardia, unspecified; R53.1 Weakness | CPT/HCPCS: A0425; A0427 ==

== ENCOUNTER 2022-04-02 11:06 | Inpatient (IN) | payer OTHER ==
[2022-04-02] MEDS ORDERED: PANTOPRAZOLE 40 MG VIAL IVP STA (11:13)
[2022-04-02] MEDS ORDERED: TRANEXAMIC ACID 1,000 MG in SODIUM CHLORIDE 0.9% 100ML 100 ML IV STA (11:21)
--- NOTE | 2022-04-02 11:21 | ED Physician Documentation ---
History of Present Illness - Stated complaint Stated Complaint: SOA - Chief complaint Chief Complaint: General - History obtained from History obtained from: Patient, EMS - History of Present Illness Pain level max: 0 Pain level now: 0 - Additonal information Additional information: Patient has a past medical history of alcoholic liver cirrhosis, esophageal varices, vesicorectal fistula. Has a left-sided abdominal stoma. She has had multiple transfusions for anemia in the past. The patient has a history of having multiple antibodies to red blood cells, often will need treatments fusions of PRBCs that are brought in from [place]. Patient has been complaining of increasing weakness over the past several days. She called 911 because she was increasingly weak today. EMS took a blood sugar that read as 20. They did give her oral glucose. They started an IV but this infiltrated. Patient states that most of her care is at [facility]. Review of Systems Constitutional: denies: Fever, Chills Nose: denies: Rhinorrhea / runny nose, Congestion Cardiac: denies: Chest pain / pressure Respiratory: reports: Dyspnea (feels short of breath with any exertion) GI: reports: Other (blood in the ostomy bag x 3 days). 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 : Frequency, Other HEENT: Dental implants Psych: Anxiety Musculoskeletal: Scoliosis Derm: Eczema - Past Surgical History Past Surgical History: Yes General: Appendectomy, Colonoscopy, EGD, Other - Present Medications Home Medications: Ambulatory Orders Medication Instructions Recorded Confirmed Trazodone HCl 200 mg PO QPM 11/26/19 04/02/22 Pnv No.95/Ferrous Fum/Folic AC 1 each PO DAILY #30 tablet 02/25/21 07/17/21 [ Tablet] Thiamine [Vitamin B-1] 100 mg PO DAILY #30 tablet 02/25/21 07/17/21 Albuterol Sulf [Ventolin Hfa 2 puffs INH Q4HR PRN 04/02/22 04/02/22 Inhaler] Pantoprazole [Protonix] 40 mg PO BIDAC 04/02/22 04/02/22 - Allergies Allergies/Adverse Reactions: Allergies Allergy/AdvReac Type Severity Reaction Status Date / Time cephalexin Allergy Unknown Verified 04/02/22 11:19 sertraline Allergy Unknown Verified 04/02/22 11:19 ceftriaxone AdvReac Intermediate Burning in Verified 04/02/22 11:19 arms - Social History Does the pt smoke?: No Smoking Status: Never smoker Does the pt drink ETOH?: Yes Does the pt have substance abuse?: No - Immunizations Immunizations are current?: Yes Immunizations: TDAP current <10years - POLST Patient has POLST: No POLST Status: Full Code PD ED PE NORMAL - Vitals Vital signs reviewed: Yes - General General: Alert and oriented X 3, Other (pale appearing) - HEENT HEENT: Moist mucous membranes - Neck Neck: Supple, no meningeal sign - Cardiac Cardiac: RRR, Strong equal pulses - Respiratory Respiratory: No respiratory distress, Clear bilaterally - Abdomen Abdomen: Soft, Non tender, Non distended, Other (dark blood in the ostomy bag) - Derm Derm: Warm and dry - Extremities Extremities: No edema - Neuro Neuro: Alert and oriented X 3 Results - Vitals Vitals: Vital Signs - 24 hr 04/02/22 04/02/22 04/02/22 11:11 11:48 12:18 Temperature 34.4 C L 33.8 C L Heart Rate 105 H 97 98 Respiratory 40 H 31 H 33 H Rate Blood Pressure 77/47 L 65/42 L 86/44 L O2 Saturation 100 100 100 04/02/22 04/02/22 12:30 12:56 Temperature Heart Rate 98 97 Respiratory 28 H 23 Rate Blood Pressure 90/45 L 82/52 L O2 Saturation 100 100 Oxygen O2 Source [Without Activity] Room air O2 Source Room air - Labs Labs: Laboratory Tests 04/02/22 04/02/22 04/02/22 11:18 11:18 11:18 WBC 30.7 H RBC 1.69 L Hgb 3.9 L* Hct 16.3 L* MCV 96.4 MCH 23.1 L MCHC 23.9 L RDW 17.4 H Plt Count 389 MPV 9.8 Neut # (Auto) 24.4 H Lymph # (Auto) 2.5 Tripp # (Auto) 3.2 H Eos # (Auto) 0.0 Baso # (Auto) 0.1 Absolute Nucleated RBC 0.18 Band Neuts % (Manual) Not Reportable Abnorm Lymph % (Manual) Not Reportable Nucleated RBC % 0.6 Neutrophils # (Manual) Not Reportable Lymphocytes # (Manual) Not Reportable Monocytes # (Manual) Not Reportable Eosinophils # (Manual) Not Reportable Basophils # (Manual) Not Reportable Differential Comment MANUAL=AUTO DIFF Manual Slide Review Indicated WBC Morphology NORMAL SUNDEEP Platelet Estimate NORMAL (130-450,000) Platelet Morphology NORMAL SUNDEEP RBC Morph Micro Appear 1+ TEARDROP CELLS PT INR APTT Sodium 142 Potassium 4.4 Chloride 98 L Carbon Dioxide < 6 L* Anion Gap 38.0 H BUN 22 H Creatinine 1.9 H Estimated GFR (MDRD) 28 L Glucose 91 Lactic Acid Calcium 8.7 Phosphorus Magnesium Total Bilirubin 2.6 H AST 163 H ALT 52 Alkaline Phosphatase 293 H Total Protein 6.2 L Albumin 2.8 L Globulin 3.4 Albumin/Globulin Ratio 0.8 L Lipase 35 Nasal Adenovirus (PCR) Nasal B. parapertussis DNA (PCR) Nasal Coronavir 229E PCR Nasal Coronavir HKU1 PCR Nasal Coronavir NL63 PCR Nasal Coronavir OC43 PCR Nasal Enterovir/Rhinovir PCR Nasal Influenza B PCR Nasal Influenza A PCR Nasal Parainfluen 1 PCR Nasal Parainfluen 2 PCR Nasal Parainfluen 3 PCR Nasal Parainfluen 4 PCR Nasal RSV (PCR) Nasal B.pertussis DNA PCR Nasal C.pneumoniae (PCR) Yan Human Metapneumo PCR Nasal M.pneumoniae (PCR) Nasal SARS-CoV-2 (PCR) Blood Type A POSITIVE Antibody Screen POSITIVE TONJA, IgG Specific NEGATIVE TONJA, Polyspecific NEGATIVE TONJA, C3d Specific NEGATIVE Crossmatch See Detail 04/02/22 04/02/22 04/02/22 11:18 11:55 12:35 WBC RBC Hgb Hct MCV MCH MCHC RDW Plt Count MPV Neut # (Auto) Lymph # (Auto) Tripp # (Auto) Eos # (Auto) Baso # (Auto) Absolute Nucleated RBC Band Neuts % (Manual) Abnorm Lymph % (Manual) Nucleated RBC % Neutrophils # (Manual) Lymphocytes # (Manual) Monocytes # (Manual) Eosinophils # (Manual) Basophils # (Manual) Differential Comment Manual Slide Review WBC Morphology Platelet Estimate Platelet Morphology RBC Morph Micro Appear PT 17.4 H INR 1.6 H APTT 44.2 H Sodium Potassium Chloride Carbon Dioxide Anion Gap BUN Creatinine Estimated GFR (MDRD) Glucose Lactic Acid Calcium Phosphorus > 12.0 H Magnesium 2.5 Total Bilirubin AST ALT Alkaline Phosphatase Total Protein Albumin Globulin Albumin/Globulin Ratio Lipase Nasal Adenovirus (PCR) NOT DETECTED Nasal B. parapertussis DNA (PCR) NOT DETECTED Nasal Coronavir 229E PCR NOT DETECTED Nasal Coronavir HKU1 PCR NOT DETECTED Nasal Coronavir NL63 PCR NOT DETECTED Nasal Coronavir OC43 PCR NOT DETECTED Nasal Enterovir/Rhinovir PCR NOT DETECTED Nasal Influenza B PCR NOT DETECTED Nasal Influenza A PCR NOT DETECTED Nasal Parainfluen 1 PCR NOT DETECTED Nasal Parainfluen 2 PCR NOT DETECTED Nasal Parainfluen 3 PCR NOT DETECTED Nasal Parainfluen 4 PCR NOT DETECTED Nasal RSV (PCR) NOT DETECTED Nasal B.pertussis DNA PCR NOT DETECTED Nasal C.pneumoniae (PCR) NOT DETECTED Yan Human Metapneumo PCR NOT DETECTED Nasal M.pneumoniae (PCR) NOT DETECTED Nasal SARS-CoV-2 (PCR) DETECTED A Blood Type Antibody Screen TONJA, IgG Specific TONJA, Polyspecific TONJA, C3d Specific Crossmatch 04/02/22 12:35 WBC RBC Hgb Hct MCV MCH MCHC RDW Plt Count MPV Neut # (Auto) Lymph # (Auto) Tripp # (Auto) Eos # (Auto) Baso # (Auto) Absolute Nucleated RBC Band Neuts % (Manual) Abnorm Lymph % (Manual) Nucleated RBC % Neutrophils # (Manual) Lymphocytes # (Manual) Monocytes # (Manual) Eosinophils # (Manual) Basophils # (Manual) Differential Comment Manual Slide Review WBC Morphology Platelet Estimate Platelet Morphology RBC Morph Micro Appear PT INR APTT Sodium Potassium Chloride Carbon Dioxide Anion Gap BUN Creatinine Estimated GFR (MDRD) Glucose Lactic Acid > 10.0 H* Calcium Phosphorus Magnesium Total Bilirubin AST ALT Alkaline Phosphatase Total Protein Albumin Globulin Albumin/Globulin Ratio Lipase Nasal Adenovirus (PCR) Nasal B. parapertussis DNA (PCR) Nasal Coronavir 229E PCR Nasal Coronavir HKU1 PCR Nasal Coronavir NL63 PCR Nasal Coronavir OC43 PCR Nasal Enterovir/Rhinovir PCR Nasal Influenza B PCR Nasal Influenza A PCR Nasal Parainfluen 1 PCR Nasal Parainfluen 2 PCR Nasal Parainfluen 3 PCR Nasal Parainfluen 4 PCR Nasal RSV (PCR) Nasal B.pertussis DNA PCR Nasal C.pneumoniae (PCR) Yan Human Metapneumo PCR Nasal M.pneumoniae (PCR) Nasal SARS-CoV-2 (PCR) Blood Type Antibody Screen TONJA, IgG Specific TONJA, Polyspecific TONJA, C3d Specific Crossmatch PD Medical Decision Making - ED course Complexity details: reviewed results, re-evaluated patient, considered differential, d/w patient, d/w family, d/w road consultant ED course: I spoke with GI at [facility]. They state that the patient did an endoscopy on March 04, 2022 at their facility. There were no esophageal varices or gastric varices at that time. They state that they believe she is having bleeding from around the ostomy. They do not feel that this is acute. They do not feel that this would need acute intervention. They recommend that she have a blood transfusion, monitor in the ICU And transfer if needed, but do not require intervention at this time. Patient was given IV Protonix, TXA and ciprofloxacin here. She has a significant leukocytosis. Likely reactive. Expect that her lactate will be significantly elevated as well due to her significant liver disease and inability to clear lactate efficiently. As the patient had a recent endoscopy, does not have varices. We will admit the patient for further care. Discussed the case with the hospitalist, Dr. Chen who accepts. Blood transfusion will be delayed secondary to multiple antibodies in her blood. This document was made in part using voice recognition software. While efforts are made to proofread this document, sound alike and grammatical errors may occur. Departure - Departure Disposition: ED Place in Observation Clinical Impression: Hypoglycemia, Metabolic acidosis GI bleed Qualifiers: GI bleed type/associated pathology: unspecified gastrointestinal hemorrhage type Qualified Code(s): K92.2 - Gastrointestinal hemorrhage, unspecified Cirrhosis of liver Qualifiers: Hepatic cirrhosis type: alcoholic cirrhosis Ascites presence: unspecified Qualified Code(s): K70.30 - Alcoholic cirrhosis of liver without ascites Anemia Qualifiers: Anemia type: unspecified type Qualified Code(s): D64.9 - Anemia, unspecified Condition: Serious
[2022-04-02] MEDS ORDERED: SODIUM CHLORIDE 0.9% 1,000 ML IV STA (11:22)
[2022-04-02] MEDS ORDERED: SODIUM CHLORIDE 0.9% 500 ML IV STA ×2 (11:22→12:20)
[2022-04-02 11:25] LABS: BASOPHILS # (AUTO) 0.1 10^3/uL (0.0-0.1); BASOPHILS % (AUTO) 0.2 %; LYMPHOCYTES # (AUTO) 2.5 10^3/uL (1.5-3.5); MEAN CORPUSCULAR HEMOGLOBIN 23.1 pg (27.0-31.0); MEAN CORPUSCULAR HGB CONC 23.9 g/dL (32.0-36.0); MEAN CORPUSCULAR VOLUME 96.4 fL (81.0-99.0); MEAN PLATELET VOLUME 9.8 fL (7.9-10.8); MONOCYTES # (AUTO) 3.2 10^3/uL (0.0-1.0); MONOCYTES % (AUTO) 10.4 %; NEUTROPHILS # (AUTO) 24.4 10^3/uL (1.5-6.6); NEUTROPHILS % (AUTO) 79.5 %; NRBC ABSOLUTE COUNT (AUTO) 0.18 x10^3/uL; NUCLEATED RED BLOOD CELLS AUTO 0.6 /100WBC; PLT - PLATELET COUNT 389 10^3/uL (130-450); RED BLOOD COUNT 1.69 10^6/uL (4.20-5.40); RED CELL DISTRIBUTION WIDTH 17.4 % (12.0-15.0); WHITE BLOOD COUNT 30.7 x10^3/uL (4.8-10.8)
[2022-04-02] MEDS ORDERED: CIPROFLOXACIN 400 MG/200 ML 400 MG/200 ML BAG IV STA (11:25)
[2022-04-02] MEDS ORDERED: TRANEXAMIC ACID IN NACL 1,000 MG/100 ML BAG IV STA (11:25)
[2022-04-02 11:30] LABS: HGB - HEMOGLOBIN 3.9 g/dL (12.0-16.0)
[2022-04-02 11:31] LABS: HCT - HEMATOCRIT 16.3 % (37.0-47.0); SLIDE REVIEW? Indicated
[2022-04-02 11:41] LABS: INR 1.6 (0.8-1.2); PT - PROTHROMBIN TIME 17.4 secs (9.9-12.6)
[2022-04-02 11:48] LABS: PARTIAL THROMBOPLASTIN TIME 44.2 secs (24.9-33.3)
[2022-04-02 12:02] LABS: DIFFERENTIAL COMMENT MANUAL=AUTO DIFF; PLATELET ESTIMATE, MANUAL NORMAL (130-450,000) (NORMAL); PLATELET MORPHOLOGY NORMAL APP (NORMAL); WBC MORPHOLOGY (MULTIPLE) NORMAL APP (NORMAL)
[2022-04-02 12:09] LABS: ALBUMIN 2.8 g/dL (3.2-5.5); ALBUMIN/GLOBULIN RATIO 0.8 (1.0-2.2); ALKALINE PHOSPHATASE 293 IU/L (42-121); ALT ALANINE AMINOTRANSFERASE 52 IU/L (10-60); AST ASPARTATE AMINOTRANSFERASE 163 IU/L (10-42); BILIRUBIN,TOTAL 2.6 mg/dL (0.2-1.0); BUN - BLOOD UREA NITROGEN 22 mg/dL (6-20); CALCIUM 8.7 mg/dL (8.5-10.3); CHLORIDE 98 mmol/L (101-111); CREATININE 1.9 mg/dL (0.4-1.0); GFR - MDRD 28 (>89); GLUCOSE 91 mg/dL (70-100); LIPASE 35 U/L (22-51); POTASSIUM 4.4 mmol/L (3.5-5.0); SODIUM 142 mmol/L (135-145); TOTAL PROTEIN 6.2 g/dL (6.7-8.2)
[2022-04-02 12:13] LABS: CARBON DIOXIDE - CO2 < 6 mmol/L (21-32)
[2022-04-02 13:32] LABS: MAGNESIUM 2.5 mg/dL (1.7-2.8)
[2022-04-02 13:34] LABS: PHOSPHORUS > 12.0 mg/dL (2.5-4.6)
[2022-04-02 13:36] LABS: B. PARAPERTUSSIS- RESP PCR PAN NOT DETECTED; B. PERTUSSIS- RESP PCR PANEL NOT DETECTED; C. PNEUMONIAE- RESP PCR PANEL NOT DETECTED; CORONAVIRUS 229E-RESP PCR NOT DETECTED; CORONAVIRUS HKU1-RESP PCR NOT DETECTED; CORONAVIRUS NL63-RESP PCR NOT DETECTED; CORONAVIRUS OC43-RESP PCR NOT DETECTED; HUMAN METAPNEUMOVIRUS NOT DETECTED; INFLUENZA A- RESP PCR PANEL NOT DETECTED; INFLUENZA B - RESP PCR PANEL NOT DETECTED; M. PNEUMONIAE- RESP PCR PANEL NOT DETECTED; PARAINFLUENZA VIRUS 1 NOT DETECTED; PARAINFLUENZA VIRUS 2 NOT DETECTED; PARAINFLUENZA VIRUS 3 NOT DETECTED; PARAINFLUENZA VIRUS 4 NOT DETECTED; RHINOVIRUS/ENTEROVIRUS NOT DETECTED; RSV- RESP PCR PANEL NOT DETECTED
[2022-04-02 13:38] LABS: SARS-CoV-2 -RESP PCR PANEL DETECTED
[2022-04-02] MEDS ORDERED: SODIUM CHLORIDE FLUSH 0.9% 10 ML SYRINGE IVP PRN (14:02)
[2022-04-02] MEDS ORDERED: ACETAMINOPHEN 325 MG TABLET PO PRN (14:08)
[2022-04-02] MEDS ORDERED: ONDANSETRON ODT 4 MG TABLET TL PRN (14:08)
--- NOTE | 2022-04-02 14:23 | HISTORY & PHYSICAL EXAMINATION ---
Chief Complaint - Chief Complaint Chief Complaint: weakness, nausea, muscle pain History of Present Illness - Admitted From Admitted From:: home - History Obtained From Records Reviewed: this admission History obtained from: chart review/ patient Exam Limitations: none - History of Present Illness HPI Comment/Other: 51 yo female never smoker with PMH of alcoholic liver cirrhosis, hx of multiple blood transfusions for anemia in the past, diverticulitis, colostomy, asthma. Her symptoms started several days ago, increasing weakness, nausea, vomiting, loss of apatite, and bleeding from her stoma. 911 Called today because she could not get up. Admitted for severe anemia requiring blood transfusions. Also found to have COVID-19 infection on admission. 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 Living Situation: With family Social History Notes: She lives at home with her parents. She is independent of activities of daily living. She denies smoking. Still admits to alcohol use although reports it is only occasional compared to the regular alcohol use that she previously had. She has been drinking for over 20 years. She will occasionally use THC and CBD. - Substance History Use: Uses substance without health or social issues: Alcohol, Cannabis (occasional edibble ) - POLST Patient has POLST: No POLST Status: Full Code Meds/Allgy - Home Medications Home Medications: Ambulatory Orders Medication Instructions Recorded Confirmed Trazodone HCl 200 mg PO QPM 11/26/19 04/02/22 Pnv No.95/Ferrous Fum/Folic AC 1 each PO DAILY #30 tablet 02/25/21 07/17/21 [ Tablet] Thiamine [Vitamin B-1] 100 mg PO DAILY #30 tablet 02/25/21 07/17/21 Albuterol Sulf [Ventolin Hfa 2 puffs INH Q4HR PRN 04/02/22 04/02/22 Inhaler] Pantoprazole [Protonix] 40 mg PO BIDAC 04/02/22 04/02/22 - Allergies Allergies/Adverse Reactions: Allergies Allergy/AdvReac Type Severity Reaction Status Date / Time cephalexin Allergy Unknown Verified 04/02/22 11:19 sertraline Allergy Unknown Verified 04/02/22 11:19 ceftriaxone AdvReac Intermediate Burning in Verified 04/02/22 11:19 arms Review of Systems - Constitutional Constitutional: reports: Fatigue, Chills, Malaise, Weakness, Poor appetite - Ears, Nose & Throat Ears, Nose & Throat: reports: Other (dental implants) - Respiratory Respiratory: reports: SOB at rest - Gastrointestinal Gastrointestinal: reports: Abdominal pain, Bloody stools (colostomy) - Musculoskeletal Musculoskeletal: reports: Muscle pain - All Other Systems All Other Systems: reports: Reviewed and negative Prior Level of Functionality: drives her self to appointment, does not need help with ADLs, fully functioning adult Exam - Vital Signs Reviewed Vital Signs: Yes Vital Signs: Vital Signs x48h Temp Pulse Resp BP Pulse Ox 04/02/22 12:56 97 23 82/52 L 100 04/02/22 12:30 98 28 H 90/45 L 100 04/02/22 12:18 98 33 H 86/44 L 100 04/02/22 11:48 33.8 C L 97 31 H 65/42 L 100 04/02/22 11:11 34.4 C L 105 H 40 H 77/47 L 100 - Physical Exam General Appearance: positive: Mild distress, Other (Ill appearing woman shivering in bed, sipping water, with blue lips, mildy jaundiced appearing skin) Eyes Bilateral: positive: Normal inspection ENT: positive: ENT inspection nml Neck: positive: Nml inspection Respiratory: positive: Chest non-tender, No respiratory distress Cardiovascular: positive: Tachycardia Abdomen: positive: Non-tender, Other (colostomy LLQ, bleeding) Rectal: positive: Bloody stool (from colostomy bag) Back: positive: Nml inspection Skin: positive: Other (cool skin, blue lips, mildly jaundiced coloring) Extremities: positive: Non-tender Neurologic/Psychiatric: positive: Oriented x3 Conclusion/Plan - Problem List (1) Severe anemia Conclusion/Plan: H&H 3.9/16.3, ED provider spoke with [facility] that states on endoscopy on March 04, 2022 there were no esophageal varices or gastic varices seen. Alisa blood seen in colostomy bag and oozing noted from stoma. Plan: Transfuse 3 units PRBCs, may need to start levophed if blood does not arrive from [facility] in time. (2) Cirrhosis of liver Conclusion/Plan: AST/ALT ratio 2:1, continues to drink occasionally, used to drink more in the past. MELD score 21 points, 19.6% 3 month mortality Plan: stop drinking all alcohol Qualifiers: Hepatic cirrhosis type: alcoholic cirrhosis Ascites presence: unspecified Qualified Code(s): K70.30 - Alcoholic cirrhosis of liver without ascites (3) S/P colostomy Conclusion/Plan: alisa bleeding and old blood seen in and around colostomy. Plan: follow up for surgical revision at (4) COVID-19 Conclusion/Plan: Pt reports feeling ill for the past week. COVID-19 positive by PCR this admission, does report some chest tightness Plan: supplemental O2 in order to keep SpO2>93% - Lab Results Fish Bones: 04/02/22 11:18 04/02/22 11:18 - EKG Results EKG Interpreted Independently: No Core Measures - Anticipated LOS I expect patient to be DC'd or transferred within 96 hours.: Yes - DVT/VTE - Prophylaxis VTE/DVT Device ordered at admit?: No Not Ordered - Low Risk: Very low risk (pt already has elevated INR and PT)
[2022-04-02] MEDS ORDERED: ONDANSETRON 4 MG/2 ML VIAL ONE (15:23)
[2022-04-02] MEDS: ONDANSETRON 4 MG/2 ML VIAL IVP PRN (21:14)
[2022-04-02] MEDS: SODIUM CHLORIDE FLUSH 0.9% 10 ML SYRINGE IVP SCH (21:14)
[2022-04-02] MEDS ORDERED: traZODone 50 MG TABLET PO STA (21:34)
[2022-04-02 21:52] LABS: BILIRUBIN,URINE NEGATIVE (NEGATIVE); GLUCOSE, URINE (UA) NEGATIVE (NEGATIVE); KETONES,URINE (UA) TRACE mg/dL (NEGATIVE); LEUKOCYTE ESTERASE, URINE NEGATIVE (NEGATIVE); NITRITE,URINE NEGATIVE (NEGATIVE); OCCULT BLOOD,URINE MODERATE (NEGATIVE); PH,URINE 5.5 PH (5.0-7.5); PROTEIN,URINE 30 mg/dL (NEGATIVE); UROBILINOGEN,URINE 0.2 (NORMAL) E.U./dL (NORMAL)
[2022-04-02 21:59] LABS: CLARITY,URINE HAZY (CLEAR)
[2022-04-02 22:05] LABS: RBC,URINE 0-5 /HPF (0-5); SQUAMOUS EPITHELIAL CELL,UR FEW Squamous (<= Few); WBC,URINE 0-3 /HPF (0-5)
[2022-04-02 22:06] LABS: BACTERIA,URINE Few /HPF (None Seen)
[2022-04-02] MEDS ORDERED: PROCHLORPERAZINE 10 MG/2 ML VIAL IVP PRN (23:35)
[2022-04-03] MEDS ORDERED: PANTOPRAZOLE 80 MG in SODIUM CHLORIDE 0.9% 100ML 100 ML IV SCH ×2
[2022-04-03] MEDS: NOREPINEPHRINE/0.9 % NS 8 MG/250 ML BAG IV SCH ×3 (00:51→12:12)
[2022-04-03] MEDS: SODIUM CHLORIDE FLUSH 0.9% 10 ML SYRINGE IVP SCH ×3 (01:11→16:57)
[2022-04-03] MEDS ORDERED: SODIUM CHLORIDE 0.9% 1,000 ML IV ONE (03:09)
[2022-04-03 05:35] LABS: BUN - BLOOD UREA NITROGEN 30 mg/dL (6-20); CALCIUM 6.8 mg/dL (8.5-10.3); CHLORIDE 103 mmol/L (101-111); CREATININE 1.9 mg/dL (0.4-1.0); GFR - MDRD 28 (>89); POTASSIUM 5.5 mmol/L (3.5-5.0); SODIUM 139 mmol/L (135-145)
[2022-04-03 05:38] LABS: CARBON DIOXIDE - CO2 < 6 mmol/L (21-32); GLUCOSE 39 mg/dL (70-100)
[2022-04-03] MEDS ORDERED: DEXTROSE GEL 37.5 GM TUBE ONE (05:48)
[2022-04-03] MEDS ORDERED: DEXTROSE 50% ABBOJECT 25 GM/50 ML SYRINGE IVP ONE (05:55)
[2022-04-03] MEDS ORDERED: DEXTROSE 50% ABBOJECT 25 GM/50 ML SYRINGE ONE (06:02)
[2022-04-03] MEDS: PANTOPRAZOLE 40 MG TABLET PO SCH ×2 (06:10→16:57)
[2022-04-03] MEDS ORDERED: SODIUM CHLORIDE 0.9% 1,000 ML IV SCH (07:00)
[2022-04-03] MEDS ORDERED: PIPERACILLIN/TAZOBACTAM 3.375 GM in SODIUM CHLORIDE 0.9% MINIBAG 100 ML IV ONE (07:00)
[2022-04-03] MEDS ORDERED: VANCOMYCIN INJ 1.25 GM in SODIUM CHLORIDE 0.9% 250 ML IV ONE (07:00)
--- NOTE | 2022-04-03 07:47 | PROVIDER PROGRESS NOTE ---
Subjective - Prog Note Date Prog Note Date: 04/03/22 Prog Note Time: 07:47 - Subjective Subjective: 51 yo female never smoker with PMH of alcoholic liver cirrhosis, hx of multiple blood transfusions for anemia in the past, diverticulitis, colostomy, asthma. Overnight events: lactic >10, hypotensive, transferred to ICU, norepinephrine started, received 1 unit of blood overnight, NS @125mL/hr started, vancomycin, ciprofloxacin, protonix drip started. I encounter Neda semi upright in bed. Her lips appear less blue today, she is still having nausea and did vomit up a little bile. I informed her that we do not believe she has an active infection but that her lactic is raised because of her liver failure and her low blood pressure is due to her anemia. I asked again who she would want to have making decisions for her if she cannot speak for herself, she again stated she wants her daughters to make decisions for her. Daughters: Shruthi Faust Odilia Current Medications - Current Medications Current Medications: Acetaminophen (Acetaminophen 325 Mg Tablet) 650 mg PO Q4HR PRN PRN Reason: Pain 1 to 4, or Fever Pantoprazole Sodium 80 mg/ (Sodium Chloride) 100 mls @ 10 mls/hr IV .Q10H [facility] Last Admin: 04/03/22 01:59 Dose: 10 mls/hr NOREPINEPHRINE/0.9 % NS (Levophed 8 Mg/250-0.9% Nacl) 8 mg in 250 mls @ 15 mls/hr IV .[id number] [facility]; Protocol Last Admin: 04/03/22 06:11 Dose: 30 mcg/min, 56.25 mls/hr Sodium Chloride (Normal Saline 0.9%) 1,000 mls @ 125 mls/hr IV .Q8H [facility] Last Admin: 04/03/22 06:48 Dose: 125 mls/hr Vancomycin HCl 1.25 gm/ Sodium (Chloride) 250 mls @ 166.667 mls/hr IV ONCE ONE Stop: 04/03/22 08:29 Ondansetron HCl (Ondansetron Odt 4 Mg Tablet) 4 mg TL Q6HR PRN PRN Reason: Nausea / Vomiting Last Admin: 04/02/22 15:28 Dose: 4 mg Ondansetron HCl (Ondansetron 4 Mg/2 Ml Vial) 4 mg IVP Q6HR PRN PRN Reason: Nausea / Vomiting Last Admin: 04/02/22 21:14 Dose: 4 mg Pantoprazole Sodium (Pantoprazole 40 Mg Tablet) 40 mg PO BIDAC [facility] Last Admin: 04/03/22 06:10 Dose: Not Given Prochlorperazine Edisylate (Prochlorperazine 10 Mg/2 Ml Vial) 5 mg IVP Q6HR PRN PRN Reason: Nausea / Vomiting Last Admin: 04/03/22 06:15 Dose: 5 mg Sodium Chloride (Sodium Chloride Flush 0.9% 10 Ml Syringe) 10 ml IVP PRN PRN PRN Reason: NEEDED PER PROVIDER ORDERS Sodium Chloride (Sodium Chloride Flush 0.9% 10 Ml Syringe) 10 ml IVP 0100,0900,1700 [facility] Last Admin: 04/03/22 01:11 Dose: 10 ml Trazodone HCl (Trazodone 50 Mg Tablet) 200 mg PO QPM [facility] Vancomycin HCl (Vancomycin: Pharmacy To Dose) 1 each ONCE PRN PRN Reason: PER PHARMACY Objective - Vital Signs/Intake & Output Reviewed Vital Signs: Yes Vital Signs: Vital Signs x48h Temp Pulse Pulse Resp BP BP Pulse Ox 04/03/22 07:00 37.1 C 141 H 29 H 116/70 04/03/22 06:54 37.0 C 142 H 32 H 117/69 04/03/22 06:47 37.0 C 143 H 37 H 116/66 04/03/22 06:39 36.9 C 142 H 32 H 108/63 04/03/22 05:52 36.6 C 134 H 32 H 111/54 L 04/03/22 05:49 36.5 C 133 H 27 H 108/50 L 04/03/22 05:34 36.4 C L 130 H 29 H 99/62 04/03/22 05:00 36.2 C L 129 H 30 H 99/63 04/03/22 04:52 36.0 C L 127 H 29 H 105/50 L 04/03/22 04:46 36.0 C L 128 H 31 H 105/50 L 04/03/22 04:45 36.0 C L 127 H 29 H 105/50 L 100 04/03/22 04:39 35.8 C L 128 H 29 H 93/63 96 04/03/22 04:30 35.8 C L 127 H 28 H 93/63 100 04/03/22 04:00 35.4 C L 127 H 25 H 89/54 L 100 04/03/22 03:53 35.1 C L 123 H 21 93/67 100 04/03/22 03:47 35 C L 123 H 24 96/60 100 04/03/22 03:42 34.9 C L 123 H 26 H 105/65 100 04/03/22 03:37 34.8 C L 119 H 26 H 95/51 L 100 04/03/22 03:32 34.8 C L 119 H 22 89/48 L 100 04/03/22 03:27 34.7 C L 118 H 26 H 85/54 L 100 04/03/22 03:22 34.7 C L 117 H 23 87/54 L 100 04/03/22 03:15 34.7 C L 118 H 23 86/57 L 100 04/03/22 03:14 115 H 26 H 92/44 L 100 04/03/22 02:34 34.4 C L 109 H 22 79/43 L 100 04/03/22 02:00 34.1 C L 107 H 20 83/41 L 100 04/03/22 01:46 37.1 C 107 H 25 H 78/54 L 100 04/03/22 01:16 37.1 C 111 H 29 H 120/54 L 96 04/03/22 01:10 34.1 C L 110 H 25 H 113/67 100 04/03/22 01:05 34.1 C L 109 H 24 95/56 L 100 04/03/22 01:00 34.1 C L 105 H 27 H 81/43 L 100 04/03/22 00:55 34.1 C L 106 H 29 H 85/59 L 100 04/03/22 00:52 106 H 29 H 82/59 L 100 04/03/22 00:50 107 H 26 H 66/55 L 100 04/03/22 00:48 107 H 27 H 85/45 L 100 04/03/22 00:46 107 H 30 H 95/45 L 100 04/03/22 00:43 109 H 25 H 87/52 L 100 04/03/22 00:40 106 H 29 H 83/45 L 100 04/03/22 00:36 105 H 22 83/47 L 100 04/03/22 00:34 105 H 34 H 88/74 L 98 04/03/22 00:31 105 H 34 H 80/40 L 96 04/03/22 00:30 105 H 90/51 L 04/03/22 00:05 106 H 04/03/22 00:00 106 H 25 H 66/39 L 100 04/02/22 23:53 71/43 L O2 Flow Rate 04/03/22 07:00 04/03/22 06:54 04/03/22 06:47 04/03/22 06:39 04/03/22 05:52 04/03/22 05:49 04/03/22 05:34 04/03/22 05:00 04/03/22 04:52 04/03/22 04:46 04/03/22 04:45 04/03/22 04:39 04/03/22 04:30 04/03/22 04:00 04/03/22 03:53 04/03/22 03:47 04/03/22 03:42 04/03/22 03:37 04/03/22 03:32 04/03/22 03:27 04/03/22 03:22 04/03/22 03:15 04/03/22 03:14 04/03/22 02:34 04/03/22 02:00 04/03/22 01:46 04/03/22 01:16 04/03/22 01:10 04/03/22 01:05 04/03/22 01:00 04/03/22 00:55 04/03/22 00:52 04/03/22 00:50 04/03/22 00:48 04/03/22 00:46 04/03/22 00:43 04/03/22 00:40 04/03/22 00:36 04/03/22 00:34 04/03/22 00:31 04/03/22 00:30 04/03/22 00:05 04/03/22 00:00 2 04/02/22 23:53 Intake & Output: Intake & Output 02/1604/01/22 04/02/22 04/03/22 23:59 23:59 23:59 23:59 Intake Total 1810 1457.625 Output Total 825 425 Balance 985 1032.625 - Objective General Appearance: positive: No acute distress (A frail, marsh faced, ill appearing woman sitting up in bed holding a vomit bag.) Eyes Bilateral: positive: Normal inspection, Other (scleral icterus) ENT: positive: ENT inspection nml Neck: positive: Nml inspection Respiratory: positive: Chest non-tender, Other (clear apex diminished bases, no crackles) Cardiovascular: positive: Tachycardia Peripheral Pulses: 1+ Radial (R), 1+ Radial (L), 1+ Dorsalis pedis (R), 1+ Dorsalis pedis (L) Abdomen: positive: Non-tender Back: positive: Nml inspection Skin: positive: Other (light jaundice) Extremities: positive: Other (bilateral ankles) Neurologic/Psychiatric: positive: Oriented x3 - Lab Results Fish Bones: 04/02/22 11:18 04/03/22 05:18 Other Labs: Lab Results x24hrs 04/03/22 04/03/22 04/03/22 Range/Units 05:18 05:18 05:18 WBC (4.8-10.8) x10^3/uL RBC (4.20-5.40) 10^6/uL Hgb (12.0-16.0) g/dL Hct (37.0-47.0) % MCV (81.0-99.0) fL MCH (27.0-31.0) pg MCHC (32.0-36.0) g/dL RDW (12.0-15.0) % Plt Count (130-450) 10^3/uL MPV (7.9-10.8) fL Neut # (Auto) (1.5-6.6) 10^3/uL Lymph # (Auto) (1.5-3.5) 10^3/uL Talbot # (Auto) (0.0-1.0) 10^3/uL Eos # (Auto) (0.0-0.7) 10^3/uL Baso # (Auto) (0.0-0.1) 10^3/uL Absolute Nucleated RBC x10^3/uL Band Neuts % (Manual) Abnorm Lymph % (Manual) Nucleated RBC % /100WBC Neutrophils # (Manual) Lymphocytes # (Manual) Monocytes # (Manual) Eosinophils # (Manual) Basophils # (Manual) Differential Comment Manual Slide Review WBC Morphology (NORMAL) Platelet Estimate (NORMAL) Platelet Morphology (NORMAL) RBC Morph Micro Appear (NORMAL) PT (9.9-12.6) secs INR (0.8-1.2) APTT (24.9-33.3) secs Sodium 139 (135-145) mmol/L Potassium 5.5 H (3.5-5.0) mmol/L Chloride 103 (101-111) mmol/L Carbon Dioxide < 6 L* (21-32) mmol/L Anion Gap 30.0 H (6-13) BUN 30 H (6-20) mg/dL Creatinine 1.9 H (0.4-1.0) mg/dL Estimated GFR (MDRD) 28 L (>89) Glucose 39 L* (70-100) mg/dL Lactic Acid > 10.0 H* (0.5-2.2) mmol/L Calcium 6.8 L (8.5-10.3) mg/dL Phosphorus (2.5-4.6) mg/dL Magnesium (1.7-2.8) mg/dL Total Bilirubin (0.2-1.0) mg/dL AST (10-42) IU/L ALT (10-60) IU/L Alkaline Phosphatase (42-121) IU/L Ammonia 65.6 H (7-35) umol/L Total Protein (6.7-8.2) g/dL Albumin (3.2-5.5) g/dL Globulin (2.1-4.2) g/dL Albumin/Globulin Ratio (1.0-2.2) Lipase (22-51) U/L Urine Color Urine Clarity (CLEAR) Urine pH (5.0-7.5) PH Ur Specific Se[place] (1.002-1.030) Urine Protein (NEGATIVE) mg/dL Urine Glucose (UA) (NEGATIVE) mg/dL Urine Ketones (NEGATIVE) mg/dL Urine Occult Blood (NEGATIVE) Urine Nitrite (NEGATIVE) Urine Bilirubin (NEGATIVE) Urine Urobilinogen (NORMAL) E.U./dL Ur Leukocyte Esterase (NEGATIVE) Urine RBC (0-5) /HPF Urine WBC (0-5) /HPF Ur Squamous Epith Cells (<= Few) Urine Bacteria (None Seen) /HPF Ur Microscopic Review Urine Culture Comments Nasal Adenovirus (PCR) Nasal B. parapertussis DNA (PCR) Nasal Coronavir 229E PCR Nasal Coronavir HKU1 PCR Nasal Coronavir NL63 PCR Nasal Coronavir OC43 PCR Nasal Enterovir/Rhinovir PCR Nasal Influenza B PCR Nasal Influenza A PCR Nasal Parainfluen 1 PCR Nasal Parainfluen 2 PCR Nasal Parainfluen 3 PCR Nasal Parainfluen 4 PCR Nasal RSV (PCR) Nasal Screen MRSA (PCR) (NEGATIVE) Nasal B.pertussis DNA PCR Nasal C.pneumoniae (PCR) Yan Human Metapneumo PCR Nasal M.pneumoniae (PCR) Nasal SARS-CoV-2 (PCR) Blood Type Antibody Screen Antibody Identification TONJA, IgG Specific TONJA, Polyspecific TONJA, C3d Specific Crossmatch 04/03/22 04/02/22 04/02/22 Range/Units 01:24 21:20 12:35 WBC (4.8-10.8) x10^3/uL RBC (4.20-5.40) 10^6/uL Hgb (12.0-16.0) g/dL Hct (37.0-47.0) % MCV (81.0-99.0) fL MCH (27.0-31.0) pg MCHC (32.0-36.0) g/dL RDW (12.0-15.0) % Plt Count (130-450) 10^3/uL MPV (7.9-10.8) fL Neut # (Auto) (1.5-6.6) 10^3/uL Lymph # (Auto) (1.5-3.5) 10^3/uL Talbot # (Auto) (0.0-1.0) 10^3/uL Eos # (Auto) (0.0-0.7) 10^3/uL Baso # (Auto) (0.0-0.1) 10^3/uL Absolute Nucleated RBC x10^3/uL Band Neuts % (Manual) Abnorm Lymph % (Manual) Nucleated RBC % /100WBC Neutrophils # (Manual) Lymphocytes # (Manual) Monocytes # (Manual) Eosinophils # (Manual) Basophils # (Manual) Differential Comment Manual Slide Review WBC Morphology (NORMAL) Platelet Estimate (NORMAL) Platelet Morphology (NORMAL) RBC Morph Micro Appear (NORMAL) PT (9.9-12.6) secs INR (0.8-1.2) APTT (24.9-33.3) secs Sodium (135-145) mmol/L Potassium (3.5-5.0) mmol/L Chloride (101-111) mmol/L Carbon Dioxide (21-32) mmol/L Anion Gap (6-13) BUN (6-20) mg/dL Creatinine (0.4-1.0) mg/dL Estimated GFR (MDRD) (>89) Glucose (70-100) mg/dL Lactic Acid > 10.0 H* (0.5-2.2) mmol/L Calcium (8.5-10.3) mg/dL Phosphorus (2.5-4.6) mg/dL Magnesium (1.7-2.8) mg/dL Total Bilirubin (0.2-1.0) mg/dL AST (10-42) IU/L ALT (10-60) IU/L Alkaline Phosphatase (42-121) IU/L Ammonia (7-35) umol/L Total Protein (6.7-8.2) g/dL Albumin (3.2-5.5) g/dL Globulin (2.1-4.2) g/dL Albumin/Globulin Ratio (1.0-2.2) Lipase (22-51) U/L Urine Color YELLOW Urine Clarity HAZY (CLEAR) Urine pH 5.5 (5.0-7.5) PH Ur Specific Se[place] >=1.030 H (1.002-1.030) Urine Protein 30 H (NEGATIVE) mg/dL Urine Glucose (UA) NEGATIVE (NEGATIVE) mg/dL Urine Ketones TRACE (NEGATIVE) mg/dL Urine Occult Blood MODERATE H (NEGATIVE) Urine Nitrite NEGATIVE (NEGATIVE) Urine Bilirubin NEGATIVE (NEGATIVE) Urine Urobilinogen 0.2 (NORMAL) (NORMAL) E.U./dL Ur Leukocyte Esterase NEGATIVE (NEGATIVE) Urine RBC 0-5 (0-5) /HPF Urine WBC 0-3 (0-5) /HPF Ur Squamous Epith Cells FEW Squamous (<= Few) Urine Bacteria Few (None Seen) /HPF Ur Microscopic Review INDICATED Urine Culture Comments NOT INDICATED Nasal Adenovirus (PCR) Nasal B. parapertussis DNA (PCR) Nasal Coronavir 229E PCR Nasal Coronavir HKU1 PCR Nasal Coronavir NL63 PCR Nasal Coronavir OC43 PCR Nasal Enterovir/Rhinovir PCR Nasal Influenza B PCR Nasal Influenza A PCR Nasal Parainfluen 1 PCR Nasal Parainfluen 2 PCR Nasal Parainfluen 3 PCR Nasal Parainfluen 4 PCR Nasal RSV (PCR) Nasal Screen MRSA (PCR) NEGATIVE (NEGATIVE) Nasal B.pertussis DNA PCR Nasal C.pneumoniae (PCR) Yan Human Metapneumo PCR Nasal M.pneumoniae (PCR) Nasal SARS-CoV-2 (PCR) Blood Type Antibody Screen Antibody Identification TONJA, IgG Specific TONJA, Polyspecific TONJA, C3d Specific Crossmatch 04/02/22 04/02/22 04/02/22 Range/Units 12:35 11:55 11:18 WBC (4.8-10.8) x10^3/uL RBC (4.20-5.40) 10^6/uL Hgb (12.0-16.0) g/dL Hct (37.0-47.0) % MCV (81.0-99.0) fL MCH (27.0-31.0) pg MCHC (32.0-36.0) g/dL RDW (12.0-15.0) % Plt Count (130-450) 10^3/uL MPV (7.9-10.8) fL Neut # (Auto) (1.5-6.6) 10^3/uL Lymph # (Auto) (1.5-3.5) 10^3/uL Talbot # (Auto) (0.0-1.0) 10^3/uL Eos # (Auto) (0.0-0.7) 10^3/uL Baso # (Auto) (0.0-0.1) 10^3/uL Absolute Nucleated RBC x10^3/uL Band Neuts % (Manual) Abnorm Lymph % (Manual) Nucleated RBC % /100WBC Neutrophils # (Manual) Lymphocytes # (Manual) Monocytes # (Manual) Eosinophils # (Manual) Basophils # (Manual) Differential Comment Manual Slide Review WBC Morphology (NORMAL) Platelet Estimate (NORMAL) Platelet Morphology (NORMAL) RBC Morph Micro Appear (NORMAL) PT 17.4 H (9.9-12.6) secs INR 1.6 H (0.8-1.2) APTT 44.2 H (24.9-33.3) secs Sodium (135-145) mmol/L Potassium (3.5-5.0) mmol/L Chloride (101-111) mmol/L Carbon Dioxide (21-32) mmol/L Anion Gap (6-13) BUN (6-20) mg/dL Creatinine (0.4-1.0) mg/dL Estimated GFR (MDRD) (>89) Glucose (70-100) mg/dL Lactic Acid (0.5-2.2) mmol/L Calcium (8.5-10.3) mg/dL Phosphorus > 12.0 H (2.5-4.6) mg/dL Magnesium 2.5 (1.7-2.8) mg/dL Total Bilirubin (0.2-1.0) mg/dL AST (10-42) IU/L ALT (10-60) IU/L Alkaline Phosphatase (42-121) IU/L Ammonia (7-35) umol/L Total Protein (6.7-8.2) g/dL Albumin (3.2-5.5) g/dL Globulin (2.1-4.2) g/dL Albumin/Globulin Ratio (1.0-2.2) Lipase (22-51) U/L Urine Color Urine Clarity (CLEAR) Urine pH (5.0-7.5) PH Ur Specific [place] (1.002-1.030) Urine Protein (NEGATIVE) mg/dL Urine Glucose (UA) (NEGATIVE) mg/dL Urine Ketones (NEGATIVE) mg/dL Urine Occult Blood (NEGATIVE) Urine Nitrite (NEGATIVE) Urine Bilirubin (NEGATIVE) Urine Urobilinogen (NORMAL) E.U./dL Ur Leukocyte Esterase (NEGATIVE) Urine RBC (0-5) /HPF Urine WBC (0-5) /HPF Ur Squamous Epith Cells (<= Few) Urine Bacteria (None Seen) /HPF Ur Microscopic Review Urine Culture Comments Nasal Adenovirus (PCR) NOT DETECTED Nasal B. parapertussis DNA (PCR) NOT DETECTED Nasal Coronavir 229E PCR NOT DETECTED Nasal Coronavir HKU1 PCR NOT DETECTED Nasal Coronavir NL63 PCR NOT DETECTED Nasal Coronavir OC43 PCR NOT DETECTED Nasal Enterovir/Rhinovir PCR NOT DETECTED Nasal Influenza B PCR NOT DETECTED Nasal Influenza A PCR NOT DETECTED Nasal Parainfluen 1 PCR NOT DETECTED Nasal Parainfluen 2 PCR NOT DETECTED Nasal Parainfluen 3 PCR NOT DETECTED Nasal Parainfluen 4 PCR NOT DETECTED Nasal RSV (PCR) NOT DETECTED Nasal Screen MRSA (PCR) (NEGATIVE) Nasal B.pertussis DNA PCR NOT DETECTED Nasal C.pneumoniae (PCR) NOT DETECTED Yan Human Metapneumo PCR NOT DETECTED Nasal M.pneumoniae (PCR) NOT DETECTED Nasal SARS-CoV-2 (PCR) DETECTED A Blood Type Antibody Screen Antibody Identification TONJA, IgG Specific TONJA, Polyspecific TONJA, C3d Specific Crossmatch 04/02/22 04/02/22 04/02/22 Range/Units 11:18 11:18 11:18 WBC 30.7 H (4.8-10.8) x10^3/uL RBC 1.69 L (4.20-5.40) 10^6/uL Hgb 3.9 L* (12.0-16.0) g/dL Hct 16.3 L* (37.0-47.0) % MCV 96.4 (81.0-99.0) fL MCH 23.1 L (27.0-31.0) pg MCHC 23.9 L (32.0-36.0) g/dL RDW 17.4 H (12.0-15.0) % Plt Count 389 (130-450) 10^3/uL MPV 9.8 (7.9-10.8) fL Neut # (Auto) 24.4 H (1.5-6.6) 10^3/uL Lymph # (Auto) 2.5 (1.5-3.5) 10^3/uL Talbot # (Auto) 3.2 H (0.0-1.0) 10^3/uL Eos # (Auto) 0.0 (0.0-0.7) 10^3/uL Baso # (Auto) 0.1 (0.0-0.1) 10^3/uL Absolute Nucleated RBC 0.18 x10^3/uL Band Neuts % (Manual) Not Reportable Abnorm Lymph % (Manual) Not Reportable Nucleated RBC % 0.6 /100WBC Neutrophils # (Manual) Not Reportable Lymphocytes # (Manual) Not Reportable Monocytes # (Manual) Not Reportable Eosinophils # (Manual) Not Reportable Basophils # (Manual) Not Reportable Differential Comment MANUAL=AUTO DIFF Manual Slide Review Indicated WBC Morphology NORMAL SUNDEEP (NORMAL) Platelet Estimate NORMAL (130-450,000) (NORMAL) Platelet Morphology NORMAL SUNDEEP (NORMAL) RBC Morph Micro Appear 1+ TEARDROP CELLS (NORMAL) PT (9.9-12.6) secs INR (0.8-1.2) APTT (24.9-33.3) secs Sodium 142 (135-145) mmol/L Potassium 4.4 (3.5-5.0) mmol/L Chloride 98 L (101-111) mmol/L Carbon Dioxide < 6 L* (21-32) mmol/L Anion Gap 38.0 H (6-13) BUN 22 H (6-20) mg/dL Creatinine 1.9 H (0.4-1.0) mg/dL Estimated GFR (MDRD) 28 L (>89) Glucose 91 (70-100) mg/dL Lactic Acid (0.5-2.2) mmol/L Calcium 8.7 (8.5-10.3) mg/dL Phosphorus (2.5-4.6) mg/dL Magnesium (1.7-2.8) mg/dL Total Bilirubin 2.6 H (0.2-1.0) mg/dL AST 163 H (10-42) IU/L ALT 52 (10-60) IU/L Alkaline Phosphatase 293 H (42-121) IU/L Ammonia (7-35) umol/L Total Protein 6.2 L (6.7-8.2) g/dL Albumin 2.8 L (3.2-5.5) g/dL Globulin 3.4 (2.1-4.2) g/dL Albumin/Globulin Ratio 0.8 L (1.0-2.2) Lipase 35 (22-51) U/L Urine Color Urine Clarity (CLEAR) Urine pH (5.0-7.5) PH Ur Specific [place] (1.002-1.030) Urine Protein (NEGATIVE) mg/dL Urine Glucose (UA) (NEGATIVE) mg/dL Urine Ketones (NEGATIVE) mg/dL Urine Occult Blood (NEGATIVE) Urine Nitrite (NEGATIVE) Urine Bilirubin (NEGATIVE) Urine Urobilinogen (NORMAL) E.U./dL Ur Leukocyte Esterase (NEGATIVE) Urine RBC (0-5) /HPF Urine WBC (0-5) /HPF Ur Squamous Epith Cells (<= Few) Urine Bacteria (None Seen) /HPF Ur Microscopic Review Urine Culture Comments Nasal Adenovirus (PCR) Nasal B. parapertussis DNA (PCR) Nasal Coronavir 229E PCR Nasal Coronavir HKU1 PCR Nasal Coronavir NL63 PCR Nasal Coronavir OC43 PCR Nasal Enterovir/Rhinovir PCR Nasal Influenza B PCR Nasal Influenza A PCR Nasal Parainfluen 1 PCR Nasal Parainfluen 2 PCR Nasal Parainfluen 3 PCR Nasal Parainfluen 4 PCR Nasal RSV (PCR) Nasal Screen MRSA (PCR) (NEGATIVE) Nasal B.pertussis DNA PCR Nasal C.pneumoniae (PCR) Yan Human Metapneumo PCR Nasal M.pneumoniae (PCR) Nasal SARS-CoV-2 (PCR) Blood Type A POSITIVE Antibody Screen POSITIVE Antibody Identification Anti-K TONJA, IgG Specific NEGATIVE TONJA, Polyspecific NEGATIVE TONJA, C3d Specific NEGATIVE Crossmatch See Detail ABX Reporting Has patient been on IV antibiotics over the past 48 hours?: Yes Assessment/Plan - Problem List (1) Severe anemia Impression: H&H 3.9/16.3, ED provider spoke with [facility] that states on endoscopy on March 04, 2022 there were no esophageal varices or gastic varices seen. Alisa blood seen in colostomy bag and oozing noted from stoma. Plan: Transfuse 3 units PRBCs, levophed started overnight. (2) Shock Impression: overnight pt became hypotensive requiring levophed to be started and transfer to ICU. Lactic>10, antibiotics started. Differentials include: hypovolemic, distributive, cardiogenic, obstructive Hypovolemic: anemia due to blood loss of from stoma, H&H 3.9/ 16- most likely Distributive: sepsis, WBC 30, is positive for COVID-19, lactic elevated, no fevers-possible Obstructive: tamponade, PE, no signs of these, lung clear SpO2 100% on RA Plan: bicarb drip, CXR, waiting on blood cultures to come back, continue PRBC replacement (3) Cirrhosis of liver Impression: AST/ALT ratio 2:1, continues to drink occasionally, used to drink more in the past. MELD score 21 points, 19.6% 3 month mortality Plan: stop drinking all alcohol, give lactulose for her elevated ammonia Qualifiers: Hepatic cirrhosis type: alcoholic cirrhosis Ascites presence: unspecified Qualified Code(s): K70.30 - Alcoholic cirrhosis of liver without ascites (4) S/P colostomy Impression: alisa bleeding and old blood seen in and around colostomy. Plan: follow up for surgical revision at , no bleeding seen this morning (5) COVID-19 Impression: Pt reports feeling ill for the past week. COVID-19 positive by PCR this admission, does report some chest tightness Plan: supplemental O2 in order to keep SpO2>93%
[2022-04-03] MEDS: SODIUM BICARBONATE 150 MEQ in DEXTROSE 5% 1,000 ML IV SCH (09:02)
[2022-04-03] MEDS: ONDANSETRON 4 MG/2 ML VIAL IVP PRN (10:17)
--- NOTE | 2022-04-03 12:06 | XRAY Report ---
PROCEDURE: Chest 1 View X-Ray INDICATIONS: cough, wbc 30K, Lactic 10 TECHNIQUE: One view of the chest was acquired. COMPARISON: Chest x-ray, 02/12/2021. Left rib with PA chest, 12/07/2021 FINDINGS: Surgical changes and devices: There is a Port-A-Cath with the tip projecting to the area of SVC. Lungs and pleura: No pleural effusions or pneumothorax. Lungs are clear. Mediastinum: Mediastinal contours appear normal. Heart size is normal. Bones and chest wall: Scoliosis. No suspicious bony lesions. Overlying soft tissues appear unremarka ble. IMPRESSION: No acute cardiopulmonary disease. Reviewed by: Yelena Parsons MD on 04/03/2022 12:04 PM PST Approved by: Yelena Parsons MD on 04/03/2022 12:04 PM PST Station ID: [id number]
[2022-04-03] MEDS: guaiFENesin 600 MG TABLET PO SCH ×2 (12:10→20:44)
--- NOTE | 2022-04-03 12:42 | PHARMACY PROGRESS NOTE ---
- Best Possible Medication History Admit Date and Time: 04/03/22 0825 Processed by: Pharmacy Medication History completed: Yes Patient Interview: Pt unable to participate Secondary Source(s): Pharmacy records, Insurance records As the person ultimately responsible for medication therapy, providers are able to order a medication from an existing home medication list in [facility] via the "Reconcile Routine" prior to Confirmation of that medication by customer support associate. Such practice is discouraged except when the physician, in their clinical judgment, deems that a medical need exists for a medication without regard to previous use.
[2022-04-03] MEDS: FUROSEMIDE 20 MG/2 ML VIAL IVP SCH (13:03)
[2022-04-03 14:21] LABS: HCT - HEMATOCRIT 21.4 % (37.0-47.0)
[2022-04-03 14:24] LABS: HGB - HEMOGLOBIN 6.5 g/dL (12.0-16.0)
[2022-04-03] MEDS ORDERED: NON FORMULARY MED (Remdesivir 200 MG) IVP SCH (19:15)
[2022-04-03] MEDS ORDERED: REMDESIVIR 100MG VIAL 200 MG in SODIUM CHLORIDE 0.9% 250 ML IV ONE (20:00)
[2022-04-03] MEDS: traZODone 50 MG TABLET PO SCH (20:44)
[2022-04-04] MEDS: SODIUM CHLORIDE FLUSH 0.9% 10 ML SYRINGE IVP SCH ×3 (00:45→12:21)
[2022-04-04] MEDS: SODIUM BICARBONATE 150 MEQ in DEXTROSE 5% 1,000 ML IV SCH ×2 (00:45→19:15)
[2022-04-04 06:12] LABS: BASOPHILS % (AUTO) 0.2 %; HGB - HEMOGLOBIN 8.2 g/dL (12.0-16.0); LYMPHOCYTES # (AUTO) 0.7 10^3/uL (1.5-3.5); LYMPHOCYTES % (AUTO) 13.9 %; MEAN CORPUSCULAR HEMOGLOBIN 26.9 pg (27.0-31.0); MEAN CORPUSCULAR HGB CONC 31.5 g/dL (32.0-36.0); MEAN CORPUSCULAR VOLUME 85.2 fL (81.0-99.0); MEAN PLATELET VOLUME 10.9 fL (7.9-10.8); MONOCYTES # (AUTO) 0.3 10^3/uL (0.0-1.0); MONOCYTES % (AUTO) 5.8 %; NEUTROPHILS % (AUTO) 79.7 %; PLT - PLATELET COUNT 93 10^3/uL (130-450); RED BLOOD COUNT 3.05 10^6/uL (4.20-5.40); RED CELL DISTRIBUTION WIDTH 16.3 % (12.0-15.0)
[2022-04-04 06:20] LABS: CALCIUM 6.6 mg/dL (8.5-10.3); CREATININE 0.9 mg/dL (0.4-1.0); POTASSIUM 3.1 mmol/L (3.5-5.0)
[2022-04-04] MEDS: PANTOPRAZOLE 40 MG TABLET PO SCH ×2 (06:54→15:52)
[2022-04-04] MEDS ORDERED: ALBUTEROL NEB 2.5 MG/3 ML INH PRN (08:02)
[2022-04-04] MEDS: guaiFENesin 600 MG TABLET PO SCH ×2 (08:14→20:08)
[2022-04-04] MEDS: FUROSEMIDE 20 MG/2 ML VIAL IVP SCH ×2 (08:15→08:36)
--- NOTE | 2022-04-04 08:45 | PROVIDER PROGRESS NOTE ---
Subjective - Prog Note Date Prog Note Date: 04/04/22 Prog Note Time: 08:43 - Subjective Pt reports feeling: Improved Subjective: 51 yo female never smoker with PMH of alcoholic liver cirrhosis, hx of multiple blood transfusions for anemia in the past, diverticulitis, colostomy, asthma. I encounter Neda sitting up in chair. She is awake, alert, and communicative. She reports feeling better. I informed her that our current plan is to discharge her home and for her to follow up with for a TIPS procedure. She is agreeable to this plan but states she is tired of all this and had hoped to have this behind her before she starts her new job. Current Medications - Current Medications Current Medications: Acetaminophen (Acetaminophen 325 Mg Tablet) 650 mg PO Q4HR PRN PRN Reason: Pain 1 to 4, or Fever Albuterol (Albuterol Neb 2.5 Mg/3 Ml) 2.5 mg INH RTQ4H PRN PRN Reason: Wheezing Guaifenesin (Guaifenesin 600 Mg Tablet) 600 mg PO BID CHRISTINE Last Admin: 04/04/22 08:14 Dose: 600 mg NOREPINEPHRINE/0.9 % NS (Levophed 8 Mg/250-0.9% Nacl) 8 mg in 250 mls @ 15 mls/hr IV .[id number] CHRISTINE; Protocol Last Titration: 04/03/22 16:30 Dose: 0 mcg/min, 0 mls/hr Sodium Bicarbonate 150 meq/ (Dextrose) 1,150 mls @ 100 mls/hr IV .[id number] CHRISTINE Stop: 04/04/22 11:00 Last Infusion: 04/04/22 08:15 Dose: 100 mls/hr Ondansetron HCl (Ondansetron Odt 4 Mg Tablet) 4 mg TL Q6HR PRN PRN Reason: Nausea / Vomiting Last Admin: 04/02/22 15:28 Dose: 4 mg Ondansetron HCl (Ondansetron 4 Mg/2 Ml Vial) 4 mg IVP Q6HR PRN PRN Reason: Nausea / Vomiting Last Admin: 04/03/22 10:17 Dose: 4 mg Pantoprazole Sodium (Pantoprazole 40 Mg Tablet) 40 mg PO BIDAC CHRISTINE Last Admin: 04/04/22 06:54 Dose: 40 mg Prochlorperazine Edisylate (Prochlorperazine 10 Mg/2 Ml Vial) 5 mg IVP Q6HR PRN PRN Reason: Nausea / Vomiting Last Admin: 04/03/22 06:15 Dose: 5 mg Sodium Chloride (Sodium Chloride Flush 0.9% 10 Ml Syringe) 10 ml IVP PRN PRN PRN Reason: NEEDED PER PROVIDER ORDERS Last Admin: 04/03/22 20:44 Dose: 10 ml Sodium Chloride (Sodium Chloride Flush 0.9% 10 Ml Syringe) 10 ml IVP 0100,0900,1700 [facility] Last Admin: 04/04/22 08:15 Dose: 10 ml Trazodone HCl (Trazodone 50 Mg Tablet) 200 mg PO QPM [facility] Last Admin: 04/03/22 20:44 Dose: 200 mg Objective - Vital Signs/Intake & Output Vital Signs: Vital Signs x48h Temp Pulse Resp BP Pulse Ox 04/04/22 08:00 37.6 C 107 H 24 107/60 96 04/04/22 07:00 37.6 C 108 H 25 H 103/63 94 04/04/22 06:00 37.6 C 114 H 18 102/60 96 04/04/22 05:00 107 H 19 108/66 95 04/04/22 04:00 103 H 19 102/59 L 93 04/04/22 03:00 37.6 C 104 H 20 104/60 93 04/04/22 02:00 37.7 C 105 H 20 105/58 L 94 04/04/22 01:00 37.8 C 106 H 20 100/57 L 94 Intake & Output: Intake & Output 04/01/22 04/02/22 04/03/22 04/04/22 23:59 23:59 23:59 23:59 Intake Total 1810 5705.907 750 Output Total 825 2155 923 Balance 985 3550.907 -173 - Objective General Appearance: positive: No acute distress (an ill, jaundiced, appearing woman with thin hair and marsh face, sitting upright in chair.) Eyes Bilateral: positive: Other (scleral icterus) ENT: positive: ENT inspection nml Neck: positive: Nml inspection Respiratory: positive: Chest non-tender, No respiratory distress, Breath sounds nml Cardiovascular: positive: Regular rate & rhythm Peripheral Pulses: 1+ Radial (R), 1+ Radial (L), 1+ Dorsalis pedis (R), 1+ Dorsalis pedis (L) Abdomen: positive: Non-tender, Other (stoma shows stool but no black or red blood on my inspection) Rectal: positive: Non-tender Back: positive: Nml inspection Skin: positive: Other (juandice) Extremities: positive: Other (there is some general anasarca as well as swelling bilateral ankles.) Neurologic/Psychiatric: positive: Oriented x3 - Lab Results Fish Bones: 04/04/22 05:00 04/04/22 05:00 Other Labs: Lab Results x24hrs 04/04/22 04/04/22 04/04/22 Range/Units 05:00 05:00 05:00 WBC 5.0 (4.8-10.8) x10^3/uL RBC 3.05 L (4.20-5.40) 10^6/uL Hgb 8.2 L (12.0-16.0) g/dL Hct 26.0 L (37.0-47.0) % MCV 85.2 (81.0-99.0) fL MCH 26.9 L (27.0-31.0) pg MCHC 31.5 L (32.0-36.0) g/dL RDW 16.3 H (12.0-15.0) % Plt Count 93 L (130-450) 10^3/uL MPV 10.9 H (7.9-10.8) fL Neut # (Auto) 4.0 (1.5-6.6) 10^3/uL Lymph # (Auto) 0.7 L (1.5-3.5) 10^3/uL Richardson # (Auto) 0.3 (0.0-1.0) 10^3/uL Eos # (Auto) 0.0 (0.0-0.7) 10^3/uL Baso # (Auto) 0.0 (0.0-0.1) 10^3/uL Absolute Nucleated RBC 0.00 x10^3/uL Nucleated RBC % 0.0 /100WBC Sodium (135-145) mmol/L Potassium (3.5-5.0) mmol/L Chloride (101-111) mmol/L Carbon Dioxide (21-32) mmol/L Anion Gap (6-13) BUN (6-20) mg/dL Creatinine (0.4-1.0) mg/dL Estimated GFR (MDRD) (>89) Glucose (70-100) mg/dL Lactic Acid 1.5 (0.5-2.2) mmol/L Calcium (8.5-10.3) mg/dL Ammonia 62.4 H (7-35) umol/L Blood Type Antibody Screen Antibody Identification TONJA, IgG Specific TONJA, Polyspecific TONJA, C3d Specific Crossmatch 04/04/22 04/03/22 04/03/22 Range/Units 05:00 14:00 10:14 WBC (4.8-10.8) x10^3/uL RBC (4.20-5.40) 10^6/uL Hgb 6.5 L* (12.0-16.0) g/dL Hct 21.4 L (37.0-47.0) % MCV (81.0-99.0) fL MCH (27.0-31.0) pg MCHC (32.0-36.0) g/dL RDW (12.0-15.0) % Plt Count (130-450) 10^3/uL MPV (7.9-10.8) fL Neut # (Auto) (1.5-6.6) 10^3/uL Lymph # (Auto) (1.5-3.5) 10^3/uL Richardson # (Auto) (0.0-1.0) 10^3/uL Eos # (Auto) (0.0-0.7) 10^3/uL Baso # (Auto) (0.0-0.1) 10^3/uL Absolute Nucleated RBC x10^3/uL Nucleated RBC % /100WBC Sodium 139 (135-145) mmol/L Potassium 3.1 L (3.5-5.0) mmol/L Chloride 100 L (101-111) mmol/L Carbon Dioxide 30 (21-32) mmol/L Anion Gap 9.0 (6-13) BUN 34 H (6-20) mg/dL Creatinine 0.9 (0.4-1.0) mg/dL Estimated GFR (MDRD) 67 L (>89) Glucose 134 H (70-100) mg/dL Lactic Acid 9.0 H* (0.5-2.2) mmol/L Calcium 6.6 L (8.5-10.3) mg/dL Ammonia (7-35) umol/L Blood Type Antibody Screen Antibody Identification TONJA, IgG Specific TONJA, Polyspecific TONJA, C3d Specific Crossmatch 04/02/22 Range/Units 11:18 WBC (4.8-10.8) x10^3/uL RBC (4.20-5.40) 10^6/uL Hgb (12.0-16.0) g/dL Hct (37.0-47.0) % MCV (81.0-99.0) fL MCH (27.0-31.0) pg MCHC (32.0-36.0) g/dL RDW (12.0-15.0) % Plt Count (130-450) 10^3/uL MPV (7.9-10.8) fL Neut # (Auto) (1.5-6.6) 10^3/uL Lymph # (Auto) (1.5-3.5) 10^3/uL Richardson # (Auto) (0.0-1.0) 10^3/uL Eos # (Auto) (0.0-0.7) 10^3/uL Baso # (Auto) (0.0-0.1) 10^3/uL Absolute Nucleated RBC x10^3/uL Nucleated RBC % /100WBC Sodium (135-145) mmol/L Potassium (3.5-5.0) mmol/L Chloride (101-111) mmol/L Carbon Dioxide (21-32) mmol/L Anion Gap (6-13) BUN (6-20) mg/dL Creatinine (0.4-1.0) mg/dL Estimated GFR (MDRD) (>89) Glucose (70-100) mg/dL Lactic Acid (0.5-2.2) mmol/L Calcium (8.5-10.3) mg/dL Ammonia (7-35) umol/L Blood Type A POSITIVE Antibody Screen POSITIVE Antibody Identification Anti-K TONJA, IgG Specific NEGATIVE TONJA, Polyspecific NEGATIVE TONJA, C3d Specific NEGATIVE Crossmatch See Detail ABX Reporting Has patient been on IV antibiotics over the past 48 hours?: Yes Sepsis Event Note (H) - Evaluation Current Stage of Sepsis: Ruled out Assessment/Plan - Problem List (1) Shock Impression: Resolved: Yesterday pt became hypotensive requiring levophed to be started and transfer to ICU. Today Lactic is normal 1.5, Vitals stable, norepinephrine is off. Blood cultures are negative. H&H 8.04/10 Differentials include: hypovolemic, distributive, obstructive Hypovolemic: anemia due to blood loss of from stoma, H7H 8.04/10 this am after 5 units PRBCs- resolved Distributive: sepsis, WBC 5 this am, is positive for COVID-19, lactic 1.5 this am, no fevers. - Ruled out Obstructive: tamponade, PE, no signs of these, lung clear SpO2 100% on RA- ruled out Plan: Stop bicarb drip, norepinephrine is off (2) Severe anemia Impression: Resolved: H&H 3.9/16.3 on admit, ED provider spoke with [facility] that states on endoscopy on March 04, 2022 there were no esophageal varices or gastic varices seen. No bleeding seen in stoma today. Per [facility] pt is bleeding into GI track due to portal hypertension and this blood is exiting through her stoma. Plan: Norepinephrine is off. s/p 5 units PRBCs- H&H today is 8.04/10, recheck H &H tomorrow morning. Okay to move out of ICU (3) Cirrhosis of liver Impression: AST/ALT ratio 2:1, continues to drink occasionally, used to drink more in the p ast. MELD score 21 points, 19.6% 3 month mortality Plan: stop drinking all alcohol, give lactulose for her elevated ammonia, follow-up with for TIPS Qualifiers: Hepatic cirrhosis type: alcoholic cirrhosis Ascites presence: unspecified Qualified Code(s): K70.30 - Alcoholic cirrhosis of liver without ascites (4) COVID-19 Impression: Pt reports feeling ill for the past week. COVID-19 positive by PCR this admission, does report some chest tightness Plan: supplemental O2 in order to keep SpO2>93% (5) S/P colostomy Impression: alisa bleeding and old blood seen in and around colostomy on admission. Plan: follow up for surgical revision at , no bleeding seen this morning
[2022-04-04] MEDS: POTASSIUM CHLOR 20 MEQ/100 ML 20 MEQ/100 ML BAG IV SCH ×2 (10:44→11:16)
[2022-04-04] MEDS ORDERED: POTASSIUM PHOSPHATE 21 MMOL in SODIUM CHLORIDE 0.9% 250 ML IV ONE (12:00)
[2022-04-04] MEDS: ONDANSETRON 4 MG/2 ML VIAL IVP PRN ×2 (12:12→19:48)
[2022-04-04] MEDS ORDERED: MAGNESIUM OXIDE 400 MG TABLET PO ONE (12:18)
[2022-04-04 18:33] LABS: VBG PH 7.477 (7.31-7.41)
[2022-04-04 18:34] LABS: CALCIUM, IONIZED 0.84 mmol/L (1.15-1.33)
[2022-04-04 18:44] LABS: MAGNESIUM 1.5 mg/dL (1.7-2.8); PHOSPHORUS 1.7 mg/dL (2.5-4.6); POTASSIUM 3.7 mmol/L (3.5-5.0)
[2022-04-04] MEDS ORDERED: LACTULOSE 10 GM /15 ML UDC PO STA (18:58)
[2022-04-04] MEDS ORDERED: CALCIUM GLUCONATE IN NS 0.9% 2,000 MG/100 ML BAG IV ONE (19:11)
[2022-04-04] MEDS ORDERED: MAGNESIUM SULFATE 2 GRAM 2 GM/50 ML BAG IV ONE (19:11)
[2022-04-04] MEDS ORDERED: POTASSIUM CHLORIDE 20 MEQ TABLET PO ONE (19:11)
[2022-04-04] MEDS ORDERED: NEUTRA-PHOS 250 MG TABLET PO SCH (20:00)
[2022-04-04] MEDS: traZODone 50 MG TABLET PO SCH (20:08)
[2022-04-04 21:03] VITALS: BP 106/69
[2022-04-05] MEDS ORDERED: LACTULOSE 10 GM /15 ML UDC PO SCH (09:00)
--- NOTE | 2022-04-06 15:59 | DISCHARGE SUMMARY ---
Discharge Summary Admit Date: 04/02/22 Discharge Date: 04/05/22 Discharging Provider: Telemedicine provider for Dr Chen Primary Care Provider: Angie Diaz NP Condition at Discharge: Serious Discharge Disposition: 02 Transfer Acute Care Hosp - [facility] History of Present Illness: 51 yo white female never smoker with PMH of alcoholic liver cirrhosis, hx of multiple blood transfusions for anemia in the past, diverticulitis, colostomy, asthma. PMH: The patient is an alcoholic liver disease patient who has been having anemia for quite some time. Probably a couple of years. The assumption for many visits was that her alcoholic liver disease had led to esophageal varices and that is where she was slowly leaking from. An endoscopy was done recently and laid that issue to rest. She does not have esophageal or gastric varices. She did have a ileostomy in the past. The ileostomy developed complications and there was intra-abdominal wall abscess. Ileostomy was taken down and a new ileostomy was placed. Again abdominal wall abscesses. That was taken down again and she was left with a colostomy. The colostomy has almost daily oozing. It is now felt that she has iron deficiency anemia from chronic bleeding from her bowel or ostomy. Her symptoms started several days ago, with increasing weakness, nausea, vomiting, loss of apatite, and bleeding from her stoma. She was seen by Dr. Cervantes at the surgical department at [facility] March 28. This was a consideration for taking down or revising her ostomy because of his bleeding. She did come back home from that visit exhausted, and she waffles on whether she had any sore throat, runny nose but was really tired and spending a lot of time in her room sleeping according to mom. She then went to [place] to get her blood drawn because she was feeling exceedingly tired and it was felt that she may need yet another blood transfusion. She was able to get to [place] and come back. An elective blood transfusion was scheduled for April 05. But the lab called her back and said that they wanted to reschedule the blood transfusion for April 04. Her hemoglobin was 6.8. Between that visit and today, the patient has had more bleeding from the ostomy. Jaycob clots. This morning she could not get up, was exhausted. Slightly confused. Mom and dad tried to get her in the car to drive to [place]. But they could not make it because the patient was a weight so they called an ambulance. Even though they told the ambulance service to drive to [place], they brought her here to our emergency room. The patient is very fatigued looking, edematous face, blue lips. Exhausted. She is hypotensive. That is not attributed to sepsis but is attributed to the fact that she has liver disease with hypotension. Lactic acid is greater than 10. Ph osphorus is very high at 12, and I do not know what that may be due to. Her liver enzymes are stable at 2.6, AST 163, ALT 52. She is COVID-positive, but does not appear to have many symptoms from this; she is 100% saturated on room air. Although we will be able to transfuse the patient, the blood bank tells me it will be a minimum of 8 hours before they can type and cross her due to multiple antibiotic reactions. Our goal is to transfuse her to 7, then discharge her. I will try make contact with Dr. Cervantes to update him on her admission here to our institution. She is being admitted for severe anemia requiring blood transfusions, also found to have COVID-19 infection on admission. - HOSPITAL COURSE Hospital Course: (1) Shock Pt remained hypotensive requiring levophed to be started and transfer to ICU. BP and Lactic Acid level (1.5) improved, and norepinephrine was weaned off. Blood cultures were negative. H/H improved to 8.2/26 after transfused 5 units PRBCs. I had reached out to Dr. Cervantes on April 03. He is a surgeon that saw her last Monday. He was not on-call but Dr. Haney was. Dr. Hanye reviewed the case with me and we went over her shock, anemia, lactic acidosis and the differential was infection, lactic acidosis from liver failure and lack of perfusion, and portal hypertension causing shock and bleeding. Of all of this we decided that she most likely had liver failure with shock from the bleeding. Dr. Danielle and I were not quite convinced that she had infection. She strongly recommended transfer to [facility] for TIPS. Dr. 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 She would be at high risk for mortality just from the surgery alone. By last night the patient was off Levophed. Already responding to transfusion. And lactic acid was coming down. This conversation was then we held with the MICU attending at . Which led me to a conversation to the MICU at [place]. This patient was accepted in transfer by Dr. Watson. She recommended FFP, CT of the abdomen, antibiotics. She did not think that the patient could come over last night and would reassess the patient with me this morning. This morning the patient is been doing very well. Still off Levophed. Vital signs are normal. Lactic acid is normal. She did not get FFP, nor did she get the CT or antibiotics. All day long the patient has been stable. As such I did not feel it was an appropriate use of an ICU bed at considering the bed shortage on the [facility]. The transfer center then connected me with a medical attending at . I rediscussed the case. By now the patient is a candidate for TIPS. She is hemodynamically stable. This attending now feels that I need to discuss the case with interventional radiology. As such the transfer center will be calling interventional radiology and asking them to discuss the case with me and between interventional radiology, myself, and the medical attending a decision will be made. This patient does not have the resources to get herself to the [facility] very easily. Bleeding from the stoma is about every month and can be copious and has bee a problem since the begining of 2021. She is mildly encephalopathic with a ammonia level of 62. I will be starting lactulose. Monitoring hemoglobin overnight with a every 8 hour hemogram. Consider FFP if she bleeds again as well as the CT per surgery. I have offered to update her family and DPOA and she declines. She was transferred to in stable condition by ambulance during iron molder helper. (2) Severe anemia H&H 3.9/16.3 on admit, ED provider spoke with [facility] that states on endoscopy on March 04, 2022 there were no esophageal varices or gastic varices seen. Bleeding from stoma stopped. Per [facility] pt is bleeding into GI track due to portal hypertension and this blood is exiting through her stoma. Her H/H improved to 8.2/26 after transfused 5 units PRBCs. (3) Alcoholic cirrhosis of liver without ascites AST/ALT ratio 2:1, she continues to drink occasionally, used to drink more in the past. MELD score 21 points, giving her a 19.6% 3 month mortality. She was advised to stop drinking all alcohol. She was given lactulose for her elevated ammonia. She was transferred to for TIPS. (4) Bleeding from colostomy stoma - K94.01 Jaycob bleeding and old blood were seen in and around colostomy on admission. She needs surgical revision at . No bleeding seen at transfer. (5) COVID-19 - U07.1 Pt reports feeling ill for the past week. COVID-19 positive by PCR this admission and here she did report some chest tightness. We ordered prn supplemental O2 in order to keep SpO2>93% - ALLERGIES Allergies/Adverse Reactions: Allergies Allergy/AdvReac Type Severity Reaction Status Date / Time cephalexin Allergy Unknown Verified 04/02/22 11:19 sertraline Allergy Unknown Verified 04/02/22 11:19 ceftriaxone AdvReac Intermediate Burning in Verified 04/02/22 11:19 arms - MEDICATIONS Home Medications: Ambulatory Orders Medication Instructions Recorded Confirmed Trazodone HCl 200 mg PO QPM 11/26/19 04/02/22 Pnv No.95/Ferrous Fum/Folic AC 1 each PO DAILY #30 tablet 02/25/21 04/03/22 [ Tablet] Thiamine [Vitamin B-1] 100 mg PO DAILY #30 tablet 02/25/21 04/03/22 Albuterol Sulf [Ventolin Hfa 2 puffs INH Q4HR PRN 04/02/22 04/02/22 Inhaler] Pantoprazole [Protonix] 40 mg PO BIDAC 04/02/22 04/02/22 - PHYSICAL EXAM AT DISCHARGE General Appearance: positive: No acute distress Eyes Bilateral: positive: Other (icteric) ENT: positive: Dry mucous membranes Neck: positive: Nml inspection Respiratory: positive: No respiratory distress Cardiovascular: positive: Regular rate & rhythm Abdomen: positive: Non-tender, Other (colostomy site) Skin: positive: Pallor Extremities: positive: Non-tender, No pedal edema Neurologic/Psychiatric: positive: Oriented x3 - LABS Result Diagrams: 04/04/22 05:00 04/04/22 18:20 - SEPSIS Current Stage of Sepsis: Ruled out - FOLLOW UP Follow Up: This will be determined after her stay at [facility].
== END 2022-04-04 22:27 | disposition short-term general hospital (02) | DRG 811 ==
LOC: EDUNIT# → ED 11:06 → MS2 14:02 → ICU 04-03 00:25 → OBSVTOIN 04-03 08:25
PROVIDERS: ADMIT Specialist; ATTEND Internal Medicine
PROC: 30233N1 Transfusion of Nonautologous Red Blood Cells into Peripheral Vein, Percutaneous Approach (ICD-10-PCS; principal; 2022-04-03)
DX: D50.0 Iron deficiency anemia secondary to blood loss (chronic) (principal); R57.8 Other shock; U07.1 COVID-19; K94.01 Colostomy hemorrhage; E87.20 Acidosis, unspecified; G93.40 Encephalopathy, unspecified; K76.6 Portal hypertension; K70.30 Alcoholic cirrhosis of liver without ascites; Y83.3 Surgical operation with formation of external stoma as the cause of abnormal reaction of the patient, or of later complication, without mention of misadventure at the time of the procedure; I95.9 Hypotension, unspecified; R60.0 Localized edema; K72.90 Hepatic failure, unspecified without coma; J45.909 Unspecified asthma, uncomplicated; F41.9 Anxiety disorder, unspecified; K21.9 Gastro-esophageal reflux disease without esophagitis; F32.A Depression, unspecified; F43.20 Adjustment disorder, unspecified; Z80.0 Family history of malignant neoplasm of digestive organs; Z80.42 Family history of malignant neoplasm of prostate
CPT/HCPCS: 36415; 36430; 71045; 80048; 80053; 81001; 82140; 82330; 83605; 83690; 83735; 84100; 84132; 85014; 85018; 85025; 85610; 85730; 86850; 86870; 86880; 86900; 86901; 86902; 86922; 87040; 87070; 87077; 87150; 87181; 87205; 87633; 93005; 96361; 96365; 96366; 96367; 96368; 96375; 96376; 99285; A9270; P9016; 81003; 87086

== ENCOUNTER 2022-05-09 08:37 | Emergency (ER) | payer OTHER ==
[2022-05-09] MEDS ORDERED: SODIUM CHLORIDE 0.9% 1,000 ML IV STA (08:41)
[2022-05-09 09:15] LABS: BASOPHILS # (AUTO) 0.1 10^3/uL (0.0-0.1); BASOPHILS % (AUTO) 0.9 %; EOSINOPHILS # (AUTO) 0.1 10^3/uL (0.0-0.7); EOSINOPHILS % (AUTO) 2.1 %; HCT - HEMATOCRIT 32.8 % (37.0-47.0); HGB - HEMOGLOBIN 9.9 g/dL (12.0-16.0); LYMPHOCYTES # (AUTO) 1.4 10^3/uL (1.5-3.5); LYMPHOCYTES % (AUTO) 26.8 %; MEAN CORPUSCULAR HGB CONC 30.2 g/dL (32.0-36.0); MEAN CORPUSCULAR VOLUME 89.4 fL (81.0-99.0); MEAN PLATELET VOLUME 8.7 fL (7.9-10.8); MONOCYTES # (AUTO) 0.3 10^3/uL (0.0-1.0); MONOCYTES % (AUTO) 5.1 %; NEUTROPHILS # (AUTO) 3.4 10^3/uL (1.5-6.6); NEUTROPHILS % (AUTO) 64.9 %; PLT - PLATELET COUNT 147 10^3/uL (130-450); RED BLOOD COUNT 3.67 10^6/uL (4.20-5.40); RED CELL DISTRIBUTION WIDTH 19.1 % (12.0-15.0); WHITE BLOOD COUNT 5.3 x10^3/uL (4.8-10.8)
[2022-05-09 09:22] LABS: INR 1.1 (0.8-1.2); PT - PROTHROMBIN TIME 12.1 secs (9.9-12.6)
[2022-05-09 09:30] LABS: ALBUMIN 2.7 g/dL (3.2-5.5); ALBUMIN/GLOBULIN RATIO 0.7 (1.0-2.2); BILIRUBIN,TOTAL 1.6 mg/dL (0.2-1.0); CALCIUM 7.9 mg/dL (8.5-10.3); CREATININE 0.4 mg/dL (0.4-1.0); POTASSIUM 2.9 mmol/L (3.5-5.0); TOTAL PROTEIN 6.7 g/dL (6.7-8.2)
--- NOTE | 2022-05-09 09:41 | ED Physician Documentation ---
History of Present Illness - Stated complaint Stated Complaint: NEAR SYNCOPE - Chief complaint Chief Complaint: General - History obtained from History obtained from: Patient, EMS - Additonal information Additional information: The patient comes to the emergency department via EMS for chief complaint of near syncope this morning. She states she woke up and felt a little weaker than usual but still okay and was able to get ready for work. However, when she came to walk into work, she suddenly felt whole body weakness and collapsed. She did not lose consciousness but states she just feels generally weak. She does admit to not drinking enough water in the last couple of days. She denies any chest pain or shortness of breath. No bleeding or dark tarry stools. She does have a history of chronic anemia for which she receives every 2-week transfusions. Her last transfusion was a little less than a week ago. 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 She states she is followed by [facility] and that they are still hoping to do a takedown and reanastomosis at some point. She has had no recent illness but did have COVID several months ago. No other complaints at this time. 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 RUNNER: Tubal ligation - Present Medications Home Medications: Ambulatory Orders Medication Instructions Recorded Confirmed Trazodone HCl 200 mg PO QPM 11/26/19 04/02/22 Pnv No.95/Ferrous Fum/Folic AC 1 each PO DAILY #30 tablet 02/25/21 04/03/22 [ Tablet] Thiamine [Vitamin B-1] 100 mg PO DAILY #30 tablet 02/25/21 04/03/22 Albuterol Sulf [Ventolin Hfa 2 puffs INH Q4HR PRN 04/02/22 04/02/22 Inhaler] Pantoprazole [Protonix] 40 mg PO BIDAC 04/02/22 04/02/22 Potassium Chloride [K-Dur] 20 meq PO BIDWM #14 tablet 05/09/22 - Allergies Allergies/Adverse Reactions: Allergies Allergy/AdvReac Type Severity Reaction Status Date / Time cephalexin Allergy Unknown Verified 05/09/22 08:49 sertraline Allergy Unknown Verified 05/09/22 08:49 ceftriaxone AdvReac Intermediate Burning in Verified 05/09/22 08:49 arms - Social History Does the pt smoke?: No Smoking Status: Never smoker Does the pt drink ETOH?: Yes Does the pt have substance abuse?: No - Immunizations Immunizations are current?: Yes Immunizations: TDAP current <10years - POLST Patient has POLST: No POLST Status: Full Code PD ED PE NORMAL - Vitals Vital signs reviewed: Yes - General General: Alert and oriented X 3, No acute distress, Other (Patient appears mildly chronically ill and older than stated age, but does not appear acutely ill.) - HEENT HEENT: Atraumatic, PERRL, EOMI, Moist mucous membranes - Neck Neck: Supple, no meningeal sign - Cardiac Cardiac: RRR, No murmur - Respiratory Respiratory: No respiratory distress, Clear bilaterally - Abdomen Abdomen: Soft, Non tender, Non distended, Other (Colostomy bag in place with good output, yellowish-brown stool with no blood.) - Derm Derm: Normal color, Warm and dry, No rash - Extremities Extremities: No deformity, No edema - Neuro Neuro: Alert and oriented X 3, Other (Grossly intact) - Psych Psych: Normal mood, Normal affect Results - Vitals Vitals: Oxygen O2 Source [] Room air O2 Source Room air - EKG (time done) 0841 EKG releavant findings:: EKG personally interpreted by author of this note. Relevant findings are: Rate: Rate (enter#) (105) Rhythm: Sinus tachycardia, JASEN [place]: Normal Intervals: Normal TN QRS: Normal, LVH (also consider RVH), Low voltage (precordial leads) Ischemia: Normal ST segments Compare to prior EKG: Old EKG unavailable Computer interpretation: Agree with computer - Labs Labs: Laboratory Tests 05/09/22 05/09/22 05/09/22 09:05 09:05 09:05 WBC 5.3 RBC 3.67 L Hgb 9.9 L Hct 32.8 L MCV 89.4 MCH 27.0 MCHC 30.2 L RDW 19.1 H Plt Count 147 MPV 8.7 Neut # (Auto) 3.4 Lymph # (Auto) 1.4 L [place] # (Auto) 0.3 Eos # (Auto) 0.1 Baso # (Auto) 0.1 Absolute Nucleated RBC 0.00 Nucleated RBC % 0.0 PT 12.1 INR 1.1 Sodium 142 Potassium 2.9 L Chloride 112 H Carbon Dioxide 23 Anion Gap 7.0 BUN 7 Creatinine 0.4 Estimated GFR (MDRD) 170 Glucose 109 H Calcium 7.9 L Total Bilirubin 1.6 H AST 35 ALT 13 Alkaline Phosphatase 381 H Troponin I High Sens Total Protein 6.7 Albumin 2.7 L Globulin 4.0 Albumin/Globulin Ratio 0.7 L Lipase 42 05/09/22 09:05 WBC RBC Hgb Hct MCV MCH MCHC RDW Plt Count MPV Neut # (Auto) Lymph # (Auto) [place] # (Auto) Eos # (Auto) Baso # (Auto) Absolute Nucleated RBC Nucleated RBC % PT INR Sodium Potassium Chloride Carbon Dioxide Anion Gap BUN Creatinine Estimated GFR (MDRD) Glucose Calcium Total Bilirubin AST ALT Alkaline Phosphatase Troponin I High Sens 8.9 Total Protein Albumin Globulin Albumin/Globulin Ratio Lipase PD Medical Decision Making - ED course Complexity details: reviewed results, re-evaluated patient, considered differential, d/w patient ED course: The patient was worked up with CBC, ER abdominal panel, EKG, and troponin, all of which were ordered and reviewed by me. The pt was hypokalemic at 2.9, and moderately anemic, but not within transfusion range. She was started on potassium supplements here, as well as given IV fluids. She was feeling better on re-evaluation and stable for d/c. We have discussed the need for follow-up and the usual indications for return. Departure - Departure Disposition: 01 Home, Self Care Clinical Impression: Muscle weakness, Hypokalemia, Dehydration Anemia Qualifiers: Anemia type: unspecified type Qualified Code(s): D64.9 - Anemia, unspecified Condition: Stable Instructions: ED Anemia Type Not Specified, ED Dehydration, ED Potassium Deficiency, ED Weakness UKO Prescriptions: Potassium Chloride [K-Dur] 20 meq PO BIDWM #14 tablet Comments: Your labs overall look okay, though your potassium somewhat low and as is always the case, you do have anemia. However, your hemoglobin today is 9.9 which is actually fairly decent for you and there is no need for an emergent transfusion. You have been started on a potassium replacement here in the emergency department and given that you do have the colostomy, would most likely benefit from potentially being on potassium replacements chronically. You may talk to your doctor about this. We will put you on a short-term potassium replacement regimen to get your potassium back up closer to where it should be for now, and this may help with some of the weakness you are feeling. You have also been hydrated in the emergency department with a liter of IV fluid. Please be sure you are drinking 8 to 10 cups of water every day, especially again with a colostomy which can cause you to lose more water through your stools then he otherwise would. Please schedule follow-up appointment with your primary doctor. Your prescription has been electronically transmitted to the [facility] pharmacy in [place], your pharmacy of choice on record. Discharge Date/Time: 05/09/22 11:24
[2022-05-09] MEDS ORDERED: POTASSIUM CHLORIDE 20 MEQ TABLET PO STA (10:52)
[2022-05-09 11:05] VITALS: BP 115/83
== END 2022-05-09 11:24 | disposition home or self-care (01) ==
LOC: EDSEX → EDUNIT# → EDBD → ED 08:37
DX: R53.1 Weakness (principal); E87.6 Hypokalemia; E86.0 Dehydration; D64.9 Anemia, unspecified
CPT/HCPCS: 36415; 80053; 83690; 84484; 85025; 85610; 93005; 96361; 96374; 99284; A9270; 86850; 86900; 86901

== ENCOUNTER 2022-05-24 18:36 | Outpatient (CLI) | payer OTHER | END 2022-05-24 23:59 | disposition home or self-care (01) | LOC: LAB.N 18:36 | PROVIDERS: ATTEND Physician Assistant Medical | DX: N39.0 Urinary tract infection, site not specified (principal) | CPT/HCPCS: 87086 ==

== ENCOUNTER 2022-07-18 10:45 | Outpatient (CLI) | payer OTHER ==
[2022-07-18 18:01] LABS: BASOPHILS # (AUTO) 0.1 10^3/uL (0.0-0.1); BASOPHILS % (AUTO) 0.9 %; EOSINOPHILS # (AUTO) 0.1 10^3/uL (0.0-0.7); HCT - HEMATOCRIT 42.2 % (37.0-47.0); HGB - HEMOGLOBIN 13.9 g/dL (12.0-16.0); LYMPHOCYTES # (AUTO) 0.6 10^3/uL (1.5-3.5); LYMPHOCYTES % (AUTO) 10.3 %; MEAN CORPUSCULAR HEMOGLOBIN 30.8 pg (27.0-31.0); MEAN CORPUSCULAR HGB CONC 32.9 g/dL (32.0-36.0); MEAN CORPUSCULAR VOLUME 93.6 fL (81.0-99.0); MEAN PLATELET VOLUME 10.5 fL (7.9-10.8); MONOCYTES # (AUTO) 0.4 10^3/uL (0.0-1.0); MONOCYTES % (AUTO) 6.3 %; NEUTROPHILS # (AUTO) 4.7 10^3/uL (1.5-6.6); NEUTROPHILS % (AUTO) 81.2 %; PLT - PLATELET COUNT 124 10^3/uL (130-450); RED BLOOD COUNT 4.51 10^6/uL (4.20-5.40); RED CELL DISTRIBUTION WIDTH 17.5 % (12.0-15.0); WHITE BLOOD COUNT 5.8 x10^3/uL (4.8-10.8)
[2022-07-18 18:28] LABS: ALBUMIN 3.8 g/dL (3.2-5.5); ALBUMIN/GLOBULIN RATIO 0.8 (1.0-2.2); BILIRUBIN,TOTAL 12.3 mg/dL (0.2-1.0); CALCIUM 9.3 mg/dL (8.5-10.3); CREATININE 0.4 mg/dL (0.4-1.0); POTASSIUM 3.5 mmol/L (3.5-5.0); TOTAL PROTEIN 8.7 g/dL (6.7-8.2)
== END 2022-07-18 11:00 | disposition home or self-care (01) ==
LOC: LAB.N 10:45
PROVIDERS: ATTEND Physician Assistant Medical
DX: N39.0 Urinary tract infection, site not specified (principal); R17 Unspecified jaundice
CPT/HCPCS: 36415; 80053; 83690; 85025; 87077; 87086; 87181

== ENCOUNTER 2022-07-27 08:01 | Outpatient (CLI) | payer OTHER ==
--- NOTE | 2022-07-27 09:59 | Mammography Report ---
BILATERAL DIGITAL DIAGNOSTIC MAMMOGRAM 3D/2D WITH MAGNIFICATION: 07/27/2022 CLINICAL: Patient returns for a 6 month follow up of the right breast, due for bilateral exam. Comparison is made to exams dated: 01/05/2022 mammogram and 09/08/2021 mammogram - [facility]. Both breasts are heterogeneously dense, which may obscure small masses (category c / 51-75% glandular tissue). There are grouped punctate calcifications in the right breast at 4 o'clock anterior depth. These are not significantly changed. No other significant masses, calcifications, or other findings are seen in either breast. IMPRESSION: PROBABLY BENIGN The grouped punctate calcifications in the right breast are probably benign. A follow-up right mammogram in 6 months is recommended to demonstrate stability. Based on the Tyrer Cuzick model (a risk assessment model) the patients lifetime risk is 9.6% and her 10 year risk is 2.1%. According to the ACR, ACS, and NCCN guidelines, an annual breast MRI exam shyam g with mammogram is recommended if the patients lifetime risk is 20% or greater. This exam was interpreted at Station ID: [id number]. NOTE: For mammograms, a report in lay terms will be sent to the patient. Approximately 15% of breast malignancies will not be visualized mammographically. In the management of a palpable breast mass, a negative mammogram must not discourage biopsy of a clinically suspicious lesion. Electronically Signed By: Lars [email or web address]:07/27/2022 08:39:45 ACR BI-RADS Category 3: Probably benign [id number] PARENCHYMAL PATTERN: (D) - The breast(s) demonstrate(s) heterogeneously dense fibroglandular earline lorenzo. BI-RADS CATEGORY: (3) - 3 Mammogram [id number] 6 month follow-up LATERALITY: (R)
== END 2022-07-27 08:02 | disposition home or self-care (01) ==
LOC: DI 08:01
PROVIDERS: ATTEND Obstetrics & Gynecology
DX: R92.1 Mammographic calcification found on diagnostic imaging of breast (principal)

== ENCOUNTER 2022-08-09 08:00 | Outpatient (CLI) | payer OTHER | END 2022-08-09 23:59 | disposition home or self-care (01) | LOC: LAB.N 08:00 | PROVIDERS: ATTEND Specialist | DX: N30.00 Acute cystitis without hematuria (principal) | CPT/HCPCS: 87077; 87086; 87181 ==